=== PATIENT | male | born 1945 | race Caucasian/White ===

== ENCOUNTER 2023-09-08 13:36 | Outpatient (AMB) | payer MEDICARE, SELFPAY ==
[2023-09-08 13:41] VITALS: BP 114/52; PULSE 88; O2SAT 93; BMI 29.9
--- NOTE | 2023-09-08 13:41 | MHC.OFFVIS ---
Intake Vital Signs 09/08/23 13:41 Height 5 ft 7 in Weight 190 lb 11.198 oz BMI 29.9 BP 114/52 L Blood Pressure Location Lt brachial Position Sitting Pulse 88 Pulse Source Doppler Pulse Oximetry (%) 93 Oxygen Delivery Method Room Air Intake Visit Reasons: chronic cough Intake Note: New patient here to establish care for, chronic productive cough (yellow), wheezing and SOB since 2018. 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 The patient is a 77-year-old gentleman with a known history of COPD, latent tuberculosis status post treatment, in addition to bronchiectasis for many years. He had been followed at [facility] for many years. 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 He has been treated in the past with levofloxacin. He has had multiple admissions to the hospital with COPD exacerbations and also pneumonia. He has been using Advair now for several years. He also uses Incruse. Therapy has been partially effective. He also has a nebulizer and has percussion valve. We did review his last CT scan of the chest was back in November 2022 demonstrating bronchiectatic changes in addition to treating budding pulmonary nodules and some degree of interstitial lung disease. We did talk about the mycobacterium abscesses that which is a culture that was positive at [facility] in the difficulties and treating this. The Pseudomonas is likely the result of his chronic bronchiectasis. And I explained to him that these organisms are difficult to remove. Will try to get a sputum culture to both for AFB and for Gram stain and culture to reassess if he is having any evidence of any persistent infection the patient also could consider having a bronchoscopy if we can not get adequate specimens. Will have to monitor his pulmonary nodules. We will discuss that further during his follow-up visit. In the meantime after he gets the cultures sent will try him on a short course of azithromycin in addition to switching over to Trelegy inhaler. [facility] Medical History (Updated 09/08/23 @ 22:07 by Reynaldo Reyes MD) COPD (chronic obstructive pulmonary disease) Pulmonary nodules Bronchiectasis Social History (Updated 09/08/23 @ 13:53 by EMILY Stevenson) Patient Tobacco Use Status: Former Tobacco user Tobacco use type: Cigarette Cigarettes Per Day: 10 Years Smoked: , started at 15 years old. quit 24 years ago Review of Systems Const Denies fever(s) ENT Reports nasal congestion Card Denies chest pain and Reports dyspnea on exertion Resp Reports chest congestion, Reports cough, Reports dyspnea on exertion and Reports wheezing GI Reports no additional complaints Musc Reports no additional complaints Skin/Breast Denies rash Neuro Reports no additional complaints Josh/Lymph Denies lymphadenopathy Aller/Immun Reports wheezing Physical Exam Vital Signs: Last Vital Signs Pulse 88 09/08/23 13:41 BP 114/52 L 09/08/23 13:41 Pulse Ox 93 09/08/23 13:41 Oxygen Delivery Method Room Air 09/08/23 13:41 BMI result Body Mass Index 29.9 Const General: comfortable HEENT Head: Yes normocephalic Neck Neck: Yes supple Chest Chest palpation & inspection: normal inspection of the chest Resp Effort & Inspection: normal respiratory effort Auscultation: diminished lung sounds Cardio Heart sounds: S1 normal heart sound present and S2 normal heart sound present GI Palpation (GI): Soft to palpation Skin General skin exam: no rashes or lesions noted Extrem General: Yes no clubbing, cyanosis or edema Assessment & Plan Assessment & Plan (1) Pulmonary nodules: Code(s): R91.8 - Other nonspecific abnormal finding of lung field (2) Bronchiectasis: Code(s): J47.9 - Bronchiectasis, uncomplicated Qualifiers: Bronchiectasis type: uncomplicated Qualified Code(s): J47.9 - Bronchiectasis, uncomplicated (3) COPD (chronic obstructive pulmonary disease): Code(s): J44.9 - Chronic obstructive pulmonary disease, unspecified Qualifiers: COPD type: chronic bronchitis Chronic bronchitis type: mixed simple and mucopurulent Qualified Code(s): J41.8 - Mixed simple and mucopurulent chronic bronchitis Plan stop advair and incruse start Trelegy continue CPT with nebs and acapella valve will add hypertonic saline ext time sputum cx and AFB trial of Azithromycin x 8 weeks F/U 8 - 10 weeks Orders: Orders Acid-fast Culture + Smear Today J47.9 - Bronchiectasis, uncomplicated, R91.8 - Other nonspecific abnormal finding of lung field Sputum Cult + Gram stain Today J47.9 - Bronchiectasis, uncomplicated, R91.8 - Other nonspecific abnormal finding of lung field Medications: New [id number] 200-62.5-25 mcg (Trelegy Ellipta) 1 inh inhalation DAILY 30 days 60 ea 12RF azithromycin Tuesday, Tuesday, Tuesday 500 mg PO 3XW 28 days 12 tabs 1RF Coding Level of Care Code New Pt Level 4 (14069) Diagnoses Pulmonary nodules R91.8 Bronchiectasis without complication J47.9 Bronchiectasis type: uncomplicated Mixed simple and mucopurulent chronic bronchitis J41.8 COPD type: chronic bronchitis Chronic bronchitis type: mixed simple and mucopurulent Time Spent (min) 40
== END 2023-09-08 14:13 | disposition home or self-care (01) ==
PROVIDERS: PCP Internal Medicine; Visit Provider Hospitalist
DX: R91.8 Other nonspecific abnormal finding of lung field (principal); J47.9 Bronchiectasis, uncomplicated; J41.8 Mixed simple and mucopurulent chronic bronchitis
CPT/HCPCS: 99204

== ENCOUNTER → 2023-09-08 13:36 | Outpatient (BNVA) | payer MEDICARE, SELFPAY | PROVIDERS: Visit Provider Hospitalist | DX: R91.8 Other nonspecific abnormal finding of lung field (principal); J47.9 Bronchiectasis, uncomplicated; J41.8 Mixed simple and mucopurulent chronic bronchitis | CPT/HCPCS: 99202 ==

== ENCOUNTER 2023-11-25 14:40 | Outpatient (AMB) | payer MEDICARE, SELFPAY ==
--- NOTE | 2023-11-25 14:45 | MHC.OFFVIS ---
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 He had been followed at [facility] for many years. 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 He has been treated in the past with levofloxacin. He has had multiple admissions to the hospital with COPD exacerbations and also pneumonia. He has been using Advair now for several years. He also uses Incruse. Therapy has been partially effective. He also has a nebulizer and has percussion valve. We did review his last CT scan of the chest was back in November 2022 demonstrating bronchiectatic changes in addition to treating budding pulmonary nodules and some degree of interstitial lung disease. We did talk about the mycobacterium abscesses that which is a culture that was positive at [facility] in the difficulties and treating this. The Pseudomonas is likely the result of his chronic bronchiectasis. And I explained to him that these organisms are difficult to remove. Will try to get a sputum culture to both for AFB and for Gram stain and culture to reassess if he is having any evidence of any persistent infection the patient also could consider having a bronchoscopy if we can not get adequate specimens. Will have to monitor his pulmonary nodules. We will discuss that further during his follow-up visit. In the meantime after he gets the cultures sent will try him on a short course of azithromycin in addition to switching over to Trelegy inhaler. 11/25/2023 the patient is here for a pulmonary follow-up visit. Overall the patient has been doing better. Responding well to the Trelegy inhaler. He does have some increasing wheezing the last few days. He has been using the nebulizer as needed. In addition that he does have the Acapella valve that he can use for CPT. 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 Typically less pathogenic and concerning than the other organisms that is growing in the past. He is seems to be responding well to the azithromycin which will continue at this point to treat his chronic bronchiectasis. In addition to that I explained to him about the Pseudomonas. Right now appears to be a colonization and not a pathogen. In his to continue with CPT and continue with the medications prescribed. If his symptoms worsen developing worsening lower respiratory infection then I do believe inhaled tobramycin will be a very good agent for him. Therefore will continue to monitor closely his symptoms. He does have some wheezing on examination. I did recommend he can start performing the nebulizers twice a day to improve mucus clearance and bronchodilation. If he develops any worsening symptoms he can always call for further recommendations. [facility] Medical History (Updated 09/08/23 @ 22:07 by Reynaldo Reyes MD) COPD (chronic obstructive pulmonary disease) Pulmonary nodules Bronchiectasis Social History (Updated 09/08/23 @ 13:53 by Emilia Cox Hannah) Patient Tobacco Use Status: Former Tobacco user Tobacco use type: Cigarette Cigarettes Per Day: 10 Years Smoked: , started at 15 years old. quit 24 years ago Review of Systems Const Denies fever(s) ENT Reports nasal congestion Card Denies chest pain and Reports dyspnea on exertion Resp Reports chest congestion, Reports cough, Reports dyspnea on exertion and Reports wheezing GI Reports no additional complaints Musc Reports no additional complaints Skin/Breast Denies rash Neuro Reports no additional complaints Josh/Lymph Denies lymphadenopathy Aller/Immun Reports wheezing Physical Exam Vital Signs: Last Vital Signs Pulse 79 11/25/23 14:47 Pulse Ox 94 11/25/23 14:47 Oxygen Delivery Method Room Air 11/25/23 14:47 BMI result Body Mass Index 29.6 Const General: comfortable HEENT Head: Yes normocephalic Neck Neck: Yes supple Chest Chest palpation & inspection: normal inspection of the chest Resp Effort & Inspection: normal respiratory effort Auscultation: diminished lung sounds Cardio Heart sounds: S1 normal heart sound present and S2 normal heart sound present GI Palpation (GI): Soft to palpation Skin General skin exam: no rashes or lesions noted Extrem General: Yes no clubbing, cyanosis or edema Assessment & Plan Assessment & Plan (1) Pulmonary nodules: Code(s): R91.8 - Other nonspecific abnormal finding of lung field Category: Medical (2) Bronchiectasis: Code(s): J47.9 - Bronchiectasis, uncomplicated Category: Medical Qualifiers: Bronchiectasis type: uncomplicated Qualified Code(s): J47.9 - Bronchiectasis, uncomplicated (3) COPD (chronic obstructive pulmonary disease): Code(s): J44.9 - Chronic obstructive pulmonary disease, unspecified Category: Medical Qualifiers: COPD type: chronic bronchitis Chronic bronchitis type: mixed simple and mucopurulent Qualified Code(s): J41.8 - Mixed simple and mucopurulent chronic bronchitis Plan continue Trelegy continue CPT with nebs and acapella valve continue Azithromycin MWF consider inhaled Luis Carlos if worsening symptoms F/U 6 months Orders: Orders ECG 12 lead EKG Today J44.9 - Chronic obstructive pulmonary disease, unspecified Medications: Refilled azithromycin Tuesday, Tuesday, Tuesday 500 mg PO 3XW 28 days 12 tabs 6RF Coding Level of Care Code Est Pt Level 4 (50874) Diagnoses Pulmonary nodules R91.8 Bronchiectasis without complication J47.9 Bronchiectasis type: uncomplicated Mixed simple and mucopurulent chronic bronchitis J41.8 COPD type: chronic bronchitis Chronic bronchitis type: mixed simple and mucopurulent Time Spent (min) 17
[2023-11-25 14:47] VITALS: PULSE 79; O2SAT 94; BMI 29.6
== END 2023-11-25 15:07 | disposition home or self-care (01) ==
PROVIDERS: PCP Internal Medicine; Visit Provider Hospitalist
DX: R91.8 Other nonspecific abnormal finding of lung field (principal); J47.9 Bronchiectasis, uncomplicated; J41.8 Mixed simple and mucopurulent chronic bronchitis
CPT/HCPCS: 99214

== ENCOUNTER → 2023-11-25 14:40 | Outpatient (BNVA) | payer MEDICARE, SELFPAY | PROVIDERS: PCP Internal Medicine; Visit Provider Hospitalist | DX: J47.9 Bronchiectasis, uncomplicated (principal); R91.8 Other nonspecific abnormal finding of lung field; J41.8 Mixed simple and mucopurulent chronic bronchitis; Z79.899 Other long term (current) drug therapy | CPT/HCPCS: 99212 ==

== ENCOUNTER 2024-03-30 14:43 | Outpatient (AMB) | payer MEDICARE, SELFPAY ==
[2024-03-30 14:56] VITALS: BP 110/60; PULSE 74; O2SAT 95; BMI 30.6
--- NOTE | 2024-03-30 14:56 | A.OFFVIS_ITS ---
Vital Signs 03/30/24 14:56 Height 5 ft 7 in Weight 195 lb 1.745 oz BMI 30.6 BP 110/60 Blood Pressure Location Lt brachial Position Sitting Pulse 74 Pulse Source Pulse Oximeter Pulse Oximetry (%) 95 Oxygen Delivery Method Room Air Intake Visit Reasons: Cough Allergies aspirin Adverse Reaction (Intermediate, Verified 03/30/24 14:58) Stomach Upset codeine Adverse Reaction (Intermediate, Verified 03/30/24 14:58) Unknown Sulfa (Sulfonamide Antibiotics) Adverse Reaction (Unknown, Verified 03/30/24 14:58) Unknown HPI Comments Details: The patient is a 78-year-old gentleman with a known history of COPD, latent tuberculosis status post treatment, in addition to bronchiectasis for many years. He had been followed at [facility] for many years. 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 He has been treated in the past with levofloxacin. He has had [facility] admissions to the hospital with COPD exacerbations and also pneumonia. He has been using Advair now for several years. He also uses Incruse. Therapy has been partially effective. He also has a nebulizer and has percussion valve. We did review his last CT scan of the chest was back in November 2022 demonstrating bronchiectatic changes in addition to treating budding pulmonary nodules and some degree of interstitial lung disease. We did talk about the mycobacterium abscesses that which is a culture that was positive at [facility] in the difficulties and treating this. The Pseudomonas is likely the result of his chronic bronchiectasis. And I explained to him that these organisms are difficult to remove. Will try to get a sputum culture to both for AFB and for Gram stain and culture to reassess if he is having any evidence of any persistent infection the patient also could consider having a bronchoscopy if we can not get adequate specimens. Will have to monitor his pulmonary nodules. We will discuss that further during his follow-up visit. In the meantime after he gets the cultures sent will try him on a short course of azithromycin in addition to switching over to Trelegy inhaler. 11/25/2023 the patient is here for a pulmonary follow-up visit. Overall the patient has been doing better. Responding well to the Trelegy inhaler. He does have some increasing wheezing the last few days. He has been using the nebulizer as needed. In addition that he does have the Acapella valve that he can use for CPT. 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 Typically less pathogenic and concerning than the other organisms that is growing in the past. He is seems to be responding well to the azithromycin which will continue at this point to treat his chronic bronchiectasis. In addition to that I explained to him about the Pseudomonas. Right now appears to be a colonization and not a pathogen. In his to continue with CPT and continue with the medications prescribed. If his symptoms worsen developing worsening lower respiratory infection then I do believe inhaled tobramycin will be a very good agent for him. Therefore will continue to monitor closely his symptoms. He does have some wheezing on examination. I did recommend he can start performing the nebulizers twice a day to improve mucus clearance and bronchodilation. If he develops any worsening symptoms he can always call for further recommendations. 03/30/2024 the patient is here for a pulmonary follow-up visit. Overall the patient's. He continues on the Trele daily azithromycin 3 times a week for bronchiectasis. He is also using the nebulizer and using his Acapella valve. He does use it to 3 times a day. He still has cough. The cough is prior in little better which is overall better. Still gets shortness of breath with activity. [id number]. The patient did have a CT scan of the chest that [facility] back in 12/11/2022. I did personally review. He had a new 6 mm nodule. In addition to that he also other nodules and significant bronchiectasis. The patient will need a repeat CT scan at this time. He prefers [facility]. 03/30/2024 the patient is here for a pulmonary follow-up visit. Overall the moira reyna has been doing better. He continues on the Trelegy. Continues on the azithromycin. He did have an EKG done 01/14/2024 with normal QT intervals. Therefore continue therapy safely. The patient did have a CT scan of chest back in 12/11/2022. The patient should have a repeat CT scan at this time. He has underlying pulmonary nodules. Has a new 6 mm pulmonary nodule. Will request a [facility] as per the patient's preference because he lives closest hospital. The patient also will continue with the chest PT. He does have an Acapella valve that he uses regularly. He will continue with the current therapy will follow- up after the CAT scan. [facility] Medical History (Updated 09/08/23 @ 22:07 by Reynaldo Reyes MD) COPD (chronic obstructive pulmonary disease) Pulmonary nodules Bronchiectasis Social History (Updated 09/08/23 @ 13:53 by EMILY Stevenson) Patient Tobacco Use Status: Former Tobacco user Tobacco use type: Cigarette Cigarettes Per Day: 10 Years Smoked: , started at 15 years old. quit 24 years ago Review of Systems Const Denies fever(s) ENT Reports nasal congestion Card Denies chest pain and Reports dyspnea on exertion Resp Reports chest congestion, Reports cough, Reports dyspnea on exertion and Reports wheezing GI Reports no additional complaints Musc Reports no additional complaints Skin/Breast Denies rash Neuro Reports no additional complaints Josh/Lymph Denies lymphadenopathy Aller/Immun Reports wheezing Physical Exam Vital Signs: Last Vital Signs Pulse 74 03/30/24 14:56 BP 110/60 03/30/24 14:56 Pulse Ox 95 03/30/24 14:56 Oxygen Delivery Method Room Air 03/30/24 14:56 BMI result Body Mass Index 30.6 Const General: comfortable HEENT Head: Yes normocephalic Neck Neck: Yes supple Chest Chest palpation & inspection: normal inspection of the chest Resp Effort & Inspection: normal respiratory effort Auscultation: no rales, no rhonchi, no wheezes and diminished lung sounds Cardio Heart sounds: S1 normal heart sound present and S2 normal heart sound present GI Palpation (GI): Soft to palpation Skin General skin exam: no rashes or lesions noted Extrem General: Yes no clubbing, cyanosis or edema Assessment & Plan Assessment & Plan (1) Pulmonary nodules: Code(s): R91.8 - Other nonspecific abnormal finding of lung field Category: Medical (2) Bronchiectasis: Code(s): J47.9 - Bronchiectasis, uncomplicated Category: Medical Qualifiers: Bronchiectasis type: uncomplicated Qualified Code(s): J47.9 - Bronchiectasis, uncomplicated (3) COPD (chronic obstructive pulmonary disease): Code(s): J44.9 - Chronic obstructive pulmonary disease, unspecified Category: Medical Qualifiers: COPD type: chronic bronchitis Chronic bronchitis type: mixed simple and mucopurulent Qualified Code(s): J41.8 - Mixed simple and mucopurulent chronic bronchitis Plan continue Trelegy continue CPT with nebs and acapella valve continue Azithromycin MWF consider inhaled Luis Carlos if worsening symptoms CT chest F/U 4-[address]: [address] chest wo IV con 03/30/24 R91.8 - Other nonspecific abnormal finding of lung field Coding Level of Care Code Est Pt Level 4 (47120) Complex EM visit Add On G2211 Diagnoses Pulmonary nodules R91.8 Bronchiectasis without complication J47.9 Bronchiectasis type: uncomplicated Mixed simple and mucopurulent chronic bronchitis J41.8 COPD type: chronic bronchitis Chronic bronchitis type: mixed simple and mucopurulent Time Spent (min) 17
== END 2024-03-30 15:21 | disposition home or self-care (01) ==
PROVIDERS: PCP Internal Medicine; Visit Provider Hospitalist
DX: R91.8 Other nonspecific abnormal finding of lung field (principal); J47.9 Bronchiectasis, uncomplicated; J41.8 Mixed simple and mucopurulent chronic bronchitis
CPT/HCPCS: 99214; G2211

== ENCOUNTER → 2024-03-30 14:43 | Outpatient (BNVA) | payer MEDICARE, SELFPAY | PROVIDERS: PCP Internal Medicine; Visit Provider Hospitalist | DX: J47.9 Bronchiectasis, uncomplicated (principal); R91.8 Other nonspecific abnormal finding of lung field; J41.8 Mixed simple and mucopurulent chronic bronchitis | CPT/HCPCS: 99212 ==

== ENCOUNTER 2024-09-17 14:03 | Outpatient (AMB) | payer MEDICARE, SELFPAY ==
[2024-09-17 14:21] VITALS: BP 132/66; PULSE 84; O2SAT 95; BMI 28.0
--- NOTE | 2024-09-17 14:21 | A.OFFVIS_ITS ---
Vital Signs 09/17/24 14:21 Height 5 ft 7 in Weight 178 lb 9.191 oz BMI 28.0 BP 132/66 Blood Pressure Location Rt brachial Position Sitting Pulse 84 Pulse Source Pulse Oximeter Pulse Oximetry (%) 95 Oxygen Delivery Method Room Air Intake Visit Reasons: cough Allergies aspirin Adverse Reaction (Intermediate, Verified 09/17/24 14:24) Stomach Upset codeine Adverse Reaction (Intermediate, Verified 09/17/24 14:24) Unknown Sulfa (Sulfonamide Antibiotics) Adverse Reaction (Unknown, Verified 09/17/24 14:24) Unknown HPI Comments Details: The patient is a 78-year-old gentleman with a known history of COPD, latent tuberculosis status post treatment, in addition to bronchiectasis for many years. He had been followed at [facility] for many years. 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 He has been treated in the past with levofloxacin. He has had [facility] admissions to the hospital with COPD exacerbations and also pneumonia. He has been using Advair now for several years. He also uses Incruse. Therapy has been partially effective. He also has a nebulizer and has percussion valve. We did review his last CT scan of the chest was back in November 2022 demonstrating bronchiectatic changes in addition to treating budding pulmonary nodules and some degree of interstitial lung disease. We did talk about the mycobacterium abscesses that which is a culture that was positive at [facility] in the difficulties and treating this. The Pseudomonas is likely the result of his chronic bronchiectasis. And I explained to him that these organisms are difficult to remove. Will try to get a sputum culture to both for AFB and for Gram stain and culture to reassess if he is having any evidence of any persistent infection the patient also could consider having a bronchoscopy if we can not get adequate specimens. Will have to monitor his pulmonary nodules. We will discuss that further during his follow-up visit. In the meantime after he gets the cultures sent will try him on a short course of azithromycin in addition to switching over to Trelegy inhaler. 11/25/2023 the patient is here for a pulmonary follow-up visit. Overall the patient has been doing better. Responding well to the Trelegy inhaler. He does have some increasing wheezing the last few days. He has been using the nebulizer as needed. In addition that he does have the Acapella valve that he can use for CPT. 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 Typically less pathogenic and concerning than the other organisms that is growing in the past. He is seems to be responding well to the azithromycin which will continue at this point to treat his chronic bronchiectasis. In addition to that I explained to him about the Pseudomonas. Right now appears to be a colonization and not a pathogen. In his to continue with CPT and continue with the medications prescribed. If his symptoms worsen developing worsening lower respiratory infection then I do believe inhaled tobramycin will be a very good agent for him. Therefore will continue to monitor closely his symptoms. He does have some wheezing on examination. I did recommend he can start performing the nebulizers twice a day to improve mucus clearance and bronchodilation. If he develops any worsening symptoms he can always call for further recommendations. 03/30/2024 the patient is here for a pulmonary follow-up visit. Overall the patient's. He continues on the Trele daily azithromycin 3 times a week for bronchiectasis. He is also using the nebulizer and using his Acapella valve. He does use it to 3 times a day. He still has cough. The cough is prior in little better which is overall better. Still gets shortness of breath with activity. [id number]. The patient did have a CT scan of the chest that [facility] back in 12/11/2022. I did personally review. He had a new 6 mm nodule. In addition to that he also other nodules and significant bronchiectasis. The patient will need a repeat CT scan at this time. He prefers [facility]. 03/30/2024 the patient is here for a pulmonary follow-up visit. Overall the patient has been doing better. He continues on the Trelegy. Continues on the azithromycin. He did have an EKG done 01/14/2024 with normal QT intervals. Therefore continue therapy safely. The patient did have a CT scan of chest back in 12/11/2022. The patient should have a repeat CT scan at this time. He has underlying pulmonary nodules. Has a new 6 mm pulmonary nodule. Will request a [facility] as per the patient's preference because he lives closest hospital. The patient also will continue with the chest PT. He does have an Acapella valve that he uses regularly. He will continue with the current therapy will follow- up after the CAT scan. 09/17/2024 the patient is here for a pulmonary follow-up visit. Overall the patient has been doing well. Since we last spoke he had COVID x2 the 1st time did cause him to have more fatigue and fevers and malaise but right now he is doing better. The 2nd time was not too bad. He did have imaging study demonstrating interval resolution of the 6 mm nodule and all the other nodules are stable which is reassuring. He continues on the azithromycin 3 times a week. His last EKG was back in 01/12/2024 with normal QRS. Will going to go ahead and request another EKG to make sure she continues on the therapy for his bronchiectasis. I did personally reviewed his CT scan demonstrating some mild bronchiectasis and again the pulmonary nodules stated above the patient is doing well plan to follow-up in the fall if he has any issues prior to that he will go for an earlier assessment. Will keep him on the azithromycin for now will wake his EKG. FORMERLY [facility], [facility] Medical History (Updated 09/08/23 @ 22:07 by Reynaldo Reyes MD) COPD (chronic obstructive pulmonary disease) Pulmonary nodules Bronchiectasis Social History Patient Tobacco Use Status: Former Tobacco user Tobacco use type: Cigarette Cigarettes Per Day: 10 Years Smoked: , started at 15 years old. quit 24 years ago Review of Systems Const Denies fever(s) ENT Reports nasal congestion Card Denies chest pain and Reports dyspnea on exertion Resp Reports chest congestion, Reports cough, Reports dyspnea on exertion and Reports wheezing GI Reports no additional complaints Musc Reports no additional complaints Skin/Breast Denies rash Neuro Reports no additional complaints Josh/Lymph Denies lymphadenopathy Aller/Immun Reports wheezing Physical Exam Vital Signs: Last Vital Signs Pulse 84 09/17/24 14:21 BP 132/66 09/17/24 14:21 Pulse Ox 95 09/17/24 14:21 Oxygen Delivery Method Room Air 09/17/24 14:21 BMI result Body Mass Index 28.0 Const General: comfortable HEENT Head: Yes normocephalic Neck Neck: Yes supple Chest Chest palpation & inspection: normal inspection of the chest Resp Effort & Inspection: normal respiratory effort Auscultation: no rales, no rhonchi, no wheezes and diminished lung sounds Cardio Heart sounds: S1 normal heart sound present and S2 normal heart sound present GI Palpation (GI): Soft to palpation Skin General skin exam: no rashes or lesions noted Extrem General: Yes no clubbing, cyanosis or edema Assessment & Plan Assessment & Plan (1) Pulmonary nodules: Code(s): R91.8 - Other nonspecific abnormal finding of lung field Category: Medical (2) Bronchiectasis: Code(s): J47.9 - Bronchiectasis, uncomplicated Category: Medical Qualifiers: Bronchiectasis type: uncomplicated Qualified Code(s): J47.9 - Bronchiectasis, uncomplicated (3) COPD (chronic obstructive pulmonary disease): Code(s): J44.9 - Chronic obstructive pulmonary disease, unspecified Category: Medical Qualifiers: COPD type: chronic bronchitis Chronic bronchitis type: mixed simple and mucopurulent Qualified Code(s): J41.8 - Mixed simple and mucopurulent chronic bronchitis Plan continue Trelegy continue CPT with nebs and acapella valve continue Azithromycin MWF EKG consider inhaled Luis Carlos if worsening symptoms F/U 6 months Orders: Orders ECG 12 lead EKG Today J44.9 - Chronic obstructive pulmonary disease, unspecified Coding Level of Care Code Est Pt Level 4 (80715) Diagnoses Pulmonary nodules R91.8 Bronchiectasis without complication J47.9 Bronchiectasis type: uncomplicated Mixed simple and mucopurulent chronic bronchitis J41.8 COPD type: chronic bronchitis Chronic bronchitis type: mixed simple and mucopurulent Time Spent (min) 16
--- OUTSIDE RECORDS SUMMARY | 2024-09-17 16:10 | XMS_ITS ---
Author Organization [facility] Address [address] [place] [address] Care Team Providers Care Graphic Coordinator Name Role Phone Amandeep Morales MD Primary Care Provider Unav ailKaitlin Roberto Unavailable [phone] Encounters Encounter Location Date Provider Diagnosis [facility] [address] [place] [id number] 08/01/2024 Kaitlin Alvarado Plan Of Treatment Next Appt Details Provider Name:Kaitlin saha, 11/16/2024 12:30:00 PM, [address] [address], [place], [address], Progress Notes * Eliazar ALANIS MDOB: (78 yo M)Acc No.[id number]:08/01/2024 Patient:?Eliazar ALANIS :1945???Age:78 Y???Sex:Male Address:[address] [place] [address], [address] , [place], [address] * true * Date:? Generated for Ricki susan/Kevin/eTransmitting on:?09/17/2024 04:10 PM EST
--- OUTSIDE RECORDS SUMMARY | 2024-09-17 16:10 | XMS_ITS | Clinical Summary ---
Author Organization [facility] Address [address] [place] [address] Care Team Providers Care Equity Sales Assistant Name Role Phone Amandeep Morales MD Primary Care Provider [phone] Allergies Active Allergy Reactions Criticality Noted Date Comments Aspirin 11/17/2017 Sulfa Antibiotics 11/17/2017 Medications Medication Sig Dispensed Refills Start Date End Date Status fluticasone-salmeter ol (ADVAIR DISKUS) 100-50 MCG/DOSE DISKUS 1 inhalation by Inhaled route every 12 (twelve) hours. 0 Active tamsulosin (FLOMAX) 0.4 MG CAPS Take 0.4 mg by mouth daily. 0 Active fluticasone (FLONASE) 50 MCG/ACT nasal spray spray/apply 1 spray in each nostril daily. 0 Active gabapentin (NEURONTIN) 100 MG capsule Take 100 mg by mouth 3 (three) times a day. 0 Active lisinopril (PRINIVIL,ZESTRIL) tablet 10 mg Take 10 mg by mouth daily. 0 Active Mirabegron ER (MYRBETRIQ) 25 MG TB24 24 hr tablet Take by mouth. 0 Act issa omeprazole (PRILOSEC) 20 MG capsule Take 20 mg by mouth daily. 0 Active cetirizine (ZYRTEC) 10 MG tablet Take 10 mg by mouth daily. 0 Active clonazePAM (KLONOPIN) 1 MG tablet Take 1 mg by mouth 2 (two) times a day as needed for anxiety. 0 Active lansoprazole (PREVACID) 15 MG capsule Take 30 mg by mouth daily. 0 Active naproxen (NAPROSYN) 250 MG tablet Take 250 mg by mouth 2 (two) times a day with meals. 0 Active albuterol (PROVENTIL HFA;VENTOLIN HFA) 108 (90 Base) MCG/ACT inhaler Inhale 2 puffs into the lungs every 6 (six) hours as needed for wheezing. 0 Active simvastatin (ZOCOR) tablet 20 mg Take 20 mg by mouth every night at bedtime. 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 Social History Tobacco Use Types Packs/Day Years Used Date Smoking Tobacco: Former Cigarettes Q uit: 02/22/1997 Smokeless Tobacco: Never Alcohol Use Standard Drinks/Week Comments Yes 0 (1 standard drink = 0.6 oz pur e alcohol) Sex and Gender Information Value Date Recorded Sex Assigned at Not on file Gender Identity Not on file Sexual Orientation Not on file Last Filed Vital Signs Vital Sign Reading Time Taken Comments Blood Pressure 114/66 11/18/2017 11:08 AM EDT Pulse - - Temperature - - Respiratory Rate - - Oxygen Saturation - - Inhaled Oxygen Concentration - - Weight 78.5 kg (173 lb) 11/18/2017 11:08 AM EDT Height 170.2 cm (5' 7 ) 11/18/2017 11:08 AM EDT Body Mass Index 27.1 11/18/2017 11:08 AM EDT Plan of Treatment Health Maintenance Due Date Last Done Comments Hepatitis C Screening 1945 COVID-19 Vaccine (#1) 01/01/1951 Pneumococcal Vaccine (1 of 2 - PCV) 1952 Depression Screening 1958 Preventative Health Evaluation 1964 DTap / Tdap / Td (1 - Tdap) 1965 Shingrix-Zoster Vaccine (1 of 2) 1965 Fall Risk Assessment 01/01/2012 RSV Adult > 60+ Yrs or Pregn ant (1 - 1-dose 75+ series) 2021 Influenza Vaccine (#1) 2024 Hepatitis B Vaccines Aged Out No long er eligible based on patient's age to complete this topic RSV Ped < 20 months Aged Out No longe r eligible based on patient's age to complete this topic Insurance Payer Benefit Plan / Group Subscriber ID Effective Dates Phone Address [facility] [id number] 2012-Jerrod peck [address] [facility] [address] [place] [address] O Care Teams Equity Sales Assistant Relationship Specialty Start Date End Date Amandeep Morales MD [facility] [address] [address] PCP - General Internal Medicine 11/18/17
--- OUTSIDE RECORDS SUMMARY | 2024-09-17 16:10 | XMS_ITS | Clinical Summary ---
Author Organization [facility] ity Address [address] [place] [address] Care Team Providers Care Training Intern Name Role Phone Unavailable Primary Care Provider Unavailabl e Social History Tobacco Use Types Packs/Day Years Used Date Smoking Tobacco: Never Assessed Sex and Gender Information Value Date Recorded Sex Assigned at Not on file Legal Sex Male 4:31 AM EST Gender Identity Not on file Sexual Orientation Not on file Plan of Treatment Health Maintenance Due Date Last Done Comments DTaP,Tdap,and Td Vaccines (1 - Tdap) 1965 Pneumococcal Vaccine: 50+ Ye ars (1 of 1 - PCV) 1996 Zoster Vaccines (1 of 2) 1996 RSV Immunization Patients 60 + Years Old (1 - 1-dose 75+ series) 2021 COVID-19 Vaccine ( - 2023-2 5 season) 2024 Influenza Vaccine (#1) 2024 HIB Vaccines Aged Out No longer eligi ble based on patient's age to complete this topic HPV Vaccines Aged Out No longer eligi ble based on patient's age to complete this topic Hepatitis A Vaccines Aged Out No long er eligible based on patient's age to complete this topic Hepatitis B Vaccines Aged Out No long er eligible based on patient's age to complete this topic IPV Vaccines Aged Out No longer eligi ble based on patient's age to complete this topic MMR Vaccines Aged Out No longer eligi ble based on patient's age to complete this topic Meningococcal ACWY Vaccine Aged Out N o longer eligible based on patient's age to complete this topic Meningococcal B Vacine Aged Out No lo nger eligible based on patient's age to complete this topic RSV Immunization Patients Un hannah 20 months Aged Out No longer eligible b ased on patient's age to complete this topic Varicella Vaccines Aged Out No longer eligible based on patient's age to complete this topic
--- OUTSIDE RECORDS SUMMARY | 2024-09-17 16:10 | XMS_ITS ---
[facility] Address [address] [place] [address] Care Team Providers Care Airset Caster Name Role Phone Amandeep Morales MD Primary Care Provider Unav ailKaitlin Roberto Unavailable [phone] Jas Napier Unavailable [phone] Allergies Allergen (clinical drug ingredient) Drug/Non Drug Allergy documented on EMR Reaction Allergy Type Onset Date Status aspirin Aspirin Unknown Drug Allergy Active codeine Codeine Constipation Drug Allergy Acti ve Substance with sulfonamide structure and antibacterial mechanism of action (substance) Sulfa Antibiotics Reaction Drug Allergy Active REASON FOR VISIT Painful nail(s) aggrevated by shoes and causing difficulty standing/walking., Ingrown nail(s) Medications Medication SIG (Take, Route, Frequency, Duration) Notes Start Date End Date Status Albuterol Active traMADol HCl Active clonazePAM Active amLODIPine Besylate Active DULoxetine HCl Activ e Trospium Chloride No t-Taking Meloxicam Not-Taking Aleve Not-Taking metFORMIN HCl Active ProAir HFA WHEN Needed Only Not-Taking Lisinopril 10 MG TAKE 1 TABLET BY MOUTH DAILY Orally Not-Taking Fluticasone Propionate 50 MCG/ACT INSTILL 2 SPRAYS INTO BOTH NOSTRILS EVERY DAY Nasal for 30 Not-Taking Advair Diskus 500-50 MCG/DOSE 1 puff Inhalation Twice a day Not-Taking Lansoprazole 30 MG 1 capsule before a meal Orally Once a day Not-Taking Keflex 500 MG 1 capsule Orally every 12 hrs for 10 day(s) 03/09/2018 Not-Taking Cetirizine HCl Not-T aking Magnesium Oxide Not- Taking Finasteride Not-Taki ng Myrbetriq Not-Taking Keflex 500 MG 1 capsule Orally every 8 hrs for 10 days 07/13/2019 Not-Taking clonazePAM Not-Takin g Extra Depth Orthopedic Shoes (1 Pair) with Customized Heat Molded Multidensity Innersoles (3 Pair) as directed Dx: NIDDM/Polyneuropathy (E11.42), Hammertoe Foot Deformity (M20.41,M20.42), Preulcerative Skin Lesion(s) (L85.1 05/31/2017 Not-Taking Extra Depth Diabetic Shoes with 3 Pair Custom heat-molded multi-density innersoles for 1 year Dx: 04/24/2019 Not-Taking Wixela Inhub Not-Mike ing Baclofen Not-Taking Extra Depth Diabetic Shoes with 3 Pair Custom heat-molded multi-density innersoles for 1 year Dx: 07/29/2020 Not-Taking Gabapentin 600 MG TAKE 1 TABLET BY MOUTH AT BEDTIME Oral for 30 Not-Taking Extra Depth Diabetic Shoes with 3 Pair Custom heat-molded multi-density innersoles for 1 year Dx: 05/04/2016 Not-Taking Night Splint AFO - L1930 as directed 05/05/2021 Not-Taking Physical Therapy . . . 2-3x/week for 3- 4 weeks 05/05/2021 Not-Taking Vitamin B12 Active Incruse Ellipta Not- Taking ZyrTEC Allergy 10 MG 1 tablet Orally Onc e a day Active Centrum Silver Not-T aking oxyBUTYnin Chloride ER Not-Taking Valsartan Active Simvastatin 20 MG TAKE 1 TABLET BY MOUTH EVERY DAY Oral for 30 Active Omeprazole 20 MG TAKE ONE CAPSULE BY MOUTH DAILY Oral for 30 Active Tamsulosin HCl Activ e Singulair Active Gabapentin 900MG Active Finasteride Active Social History Tobacco Use: Social History Observation Description Date Details (start date - stop date) Former Smoker NA - NA Tobacco Use/Smoking Question Answer Notes Are you a: former smoker When did you stop smoking? 19 yrs ago Additional Findings: Tobacco Non-User Current no n-smoker Alcohol Screen Question Answer Notes Did you have a drink containing alcohol in the p ast year? No Points 0 Interpretation Negative Tobacco use other than smoking: Question Answer Notes Are you an other tobacco user? No Vital Signs Height 5 ft 7 in in 05/04/2024 Weight 189 lbs 05/04/2024 BMI 29.60 kg/m2 05/04/2024 Encounters Encounter Location Date Provider Diagnosis [facility] [address] [address] 05/04/2024 Jas Napier Type 2 diabetes mellitus with diabetic polyneuropathy E11.42 ; Ingrowing nail L60.0 ; Tinea unguium B35.1 ; Tinea pedis B35.3 ; Pain in left toe(s) M79.675 ; Pain in right toe(s) M79.674 and Sprain of right foot, initial encounter S93.601A Assessments Encounter Date Diagnosis (ICD Code) Assessment Notes Treatment Notes Treatment Clinical Notes Section Notes 05/04/2024 Type 2 diabetes mellitus with diabetic polyneuropathy (ICD-10 - E11.42) 05/04/2024 Ingrowing nail (ICD-10 - L60.0) 05/04/2024 Tinea unguium (ICD-10 - B35.1) 05/04/2024 Tinea pedis (ICD-10 - B35.3) 05/04/2024 Pain in left toe(s) (ICD-10 - M79.675) 05/04/2024 Pain in right toe(s) (ICD-10 - M79.674) 05/04/2024 Sprain of right foot, initial encounter (ICD-10 - S93.601A) Plan Of Treatment Pending Test Test Name Order Date X ray : Foot, right 3V 05/04/2024 Next Appt Details Follow Up: 3 Months, Reason: Provider Name:Kaitlin saha, 11/16/2024 12:30:00 PM, [address] [facility], [place] [address], [place], [address], Procedure Notes * Category Sub-Category Detail Notes Nail Avulsion Procedure A fine sterile e levator was used to loosen the eponychium, nail bed, nail plate and groove. A sterile nail splitter was then used to longitudinally section the nail. This section was removed. No underlying bone was identified. Procedure was performed under. Bacitracin and sterile dressings applied, local wound care instructions were dispensed. Patient was informed of both conservative and future surgical procedures to prevent recurrence Anesthesia was deferred - NEURO HALLIE: patient has medically documented neuropathic condition affecting sensation Location Medial nail border, T5 Debride Nail 6-10 Nail debridement Nail debridem ent performed extensively to reduce/remove overall nail length and girth, subungual debris, and necrotic tissue, by manual and electrical means with use of a nail nipper and/or dremel, to more viable healthy nail plate or bed tissue 6-10. Silver nitrate used for any petechial bleeding as necessary. Patient chooses, no pharmaceutical tx (28740) Keratoma Treatment Parring or Cutting o f Benign Hyperkeratotic Lesion(s) 11202 (2-4 Lesions) - The Benign hyperkeratotic lesions, as described above were pared, and/or cut utilizing a sterile #15 blade, tissue nippers, and/or dremel Progress Notes * Eliazar ALANIS MDOB: 7 (78 yo M)Acc No.[id number]:05/04/2024 Progress Note Patient:?Eliazar ALANIS Provider:?Jas Napier DPM :1945???Age:78 Y???Sex:Male Chriss e:05/04/2024 Address:[address] [place] [address] Pcp:Amandeep Morales MD Subjective: * Chief Complaints: * ??? Painful nail(s) aggrevat ed by shoes and causing difficulty standing/walking.Ingrown nail(s) * HPI: ???Painful Nails:?Pt States Last PCP Visit:?Date:?10/24/2023 ???Foot Pain:?Nature:?swelling, sharp.?Location:?Top, Outside, Forefoot, Midfoot, RIGHT.?Duration:?3 days.?Onset:?pt fell while bowling 05/01/24.?Course:?worse.?Aggravated:?any pressure, standing, walking.?Treatments:?none.?Severity/Quality:?moderate.? * ROS:?General/Constitutional:?Nausea?denies.?Vomiting?denies.?Hunger Thirst?denies.?Loss appetite?denies.?Chills?denies.?Fatigue?denies.?Fever?denies.?Night Sweats?denies.?Unexplained weight loss?denies.?Unexplained weight gain?denies.?HEENTM:?Dentures?denies.?Dizziness?denies.?Glasses/contacts?admits.?Retinopathy?de nies.?Blurred/double vision?denies.?TMJ?denies.?Discharge/drainage?denies.?Implants?denies.?Sore throat?denies.?Dental implants?denies.?Hard of hearing ?denies.?Difficulty chewing/swallowing/speaking?denies.?Nose bleeds?denies.?Sore mouth?denies.?Respiratory:?On Oxygen?denies.?Pneumonia/pleurisy?denies.?Bronchitis?denies.?Emphysema?denies.?C oughing?denies.?Cough blood?denies.?Shortness of breath?admits.?Wheezing?admits.?Cardiovascular:?Pacemaker?denies.?MVP?denies.?WPW?denies.?CHF?denies.?Heart attack?denies.?Septal defect?denies.?Rapid beat?denies.?Chest pain ?denies.?Atrial Fib.?denies.?Murmur/Palpitations?denies.?Gastrointestinal:?Hemorrhoids?denies.?Stomach/Abdominal pain?denies.?Dark blood stool?denies.?Irritable bowel ?denies.?Constipation?denies.?Diarrhea?denies.?Hematology:?Swelling?denies.?Clots?denies.?Varicose Veins?denies.?Bruising?denies.?Bleeding problem?denies.?Genitourinary:?Blood urine?denies.?Frequent/Painfu/urination/bladder control?denies.?Kidney stones?denies.?Infection (UTI)?denies.?Nephropathy?denies.?sex trans dis (STD)?denies.?Prostate?denies.?Musculoskeletal:?Hammertoes?denies.?Bunions?denies.?Back Pain?denies.?Muscle Cramps/ Resting?denies.?Muscle cramps / walking?denies.?Generalized aches and pains?denies.?Weakness?denies.?Integ.:?[place]?denies.?Scars?denies.?Corns/calluses?denies.?Ingrown nails?denies.?Painful nails?denies.?Open Sores?denies.?Rashes?denies.?Neurologic:?Difficulty sleeping?admits.?Brain disorder?denies.?Numbness?denies.?Balance trouble?denies.?Confusion?denies.?Fainting/blackouts?denies.?Tingling?denies.?Tr emors?denies.? * Medical History:? * Surgical History:?tonsillect prasanth knee surgery, right sinus surgery knee surgery, left 12/14/2015 * Hospitalization/Major Diagno stic Procedure:?[facility] Pneumonia [facility], [facility] 12/13[facility]- swollen finger, pneumonia 09/2022 * Family History:?Mother: dece ased, diagnosed with Family history of arthritis, Diabetic - NIDDM, Unspecified essential hypertension.?Father: .?Spouse: .? * Social History:?Tobacco Use:?Tobacco Use/Smoking?Are you a:?former smoker ?When did you stop smoking??19 yrs ago ?Additional Findings: Tobacco Non-User?Current non-smoker ?Tobacco use other than smoking?Are you an other tobacco user??No ???Drugs/Alcohol:?Drugs?Have you used drugs other than those for medical reasons in the past 12 months??No ?Alcohol Screen?Did you have a drink containing alcohol in the past year??No ?Points?0 ?Interpretation?Negative ???Miscellaneous:?Caffeine: yes, frequency:, 1-2 cups per day. ?Children: yes, 5. ?Exercise: no. ?Marital status: . 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 * Medications:?TakingmetFORMIN HCl traMADol HCl Albuterol amLODIPine Besylate clonazePAM DULoxetine HCl Finasteride Gabapentin , Notes to Pharmacist: 900MGOmeprazole 20 MG Capsule Delayed Release TAKE ONE CAPSULE BY MOUTH DAILY Oral Simvastatin 20 MG Tablet TAKE 1 TABLET BY MOUTH EVERY DAY Oral Singulair Tamsulosin HCl Valsartan Vitamin B12 ZyrTEC Allergy 10 MG Tablet 1 tablet Orally Once a day Taking metFORMIN HCl Taking traMADol HCl Taking Albuterol Taking amLODIPine Besylate Taking clonazePAM Taking DULoxetine HCl Taking Finasteride Taking Gabapentin , Notes to Pharmacist: 900MGTaking Omeprazole 20 MG Capsule Delayed Release TAKE ONE CAPSULE BY MOUTH DAILY Oral Taking Simvastatin 20 MG Tablet TAKE 1 TABLET BY MOUTH EVERY DAY Oral Taking Singulair Taking Tamsulosin HCl Taking Valsartan Taking Vitamin B12 Taking ZyrTEC Allergy 10 MG Tablet 1 tablet Orally Once a day Not- Taking/PRNIncruse Ellipta oxyBUTYnin Chloride ER Centrum Silver Extra Depth Diabetic Shoes with 3 Pair Custom heat-molded multi-density innersoles for 1 year Dx: Night Splint AFO - L1930 as directed Physical Therapy . . . . 2-3x/week Gabapentin 600 MG Tablet TAKE 1 TABLET BY MOUTH AT BEDTIME Oral Extra Depth Diabetic Shoes with 3 Pair Custom heat- molded multi-density innersoles for 1 year Dx: Extra Depth Orthopedic Shoes (1 Pair) with Customized Heat Molded Multidensity Innersoles (3 Pair) as directed Dx: NIDDM/Polyneuropathy (E11.42), Hammertoe Foot Deformity (M20.41,M20.42), Preulcerative Skin Lesion(s) (L85.1 Extra Depth Diabetic Shoes with 3 Pair Custom heat-molded multi-density innersoles for 1 year Dx: clonazePAM Wixela Inhub Baclofen Cetirizine HCl Magnesium Oxide Myrbetriq Keflex 500 MG Capsule 1 capsule Orally every 8 hrs Finasteride Keflex 500 MG Capsule 1 capsule Orally every 12 hrs Lisinopril 10 MG Tablet TAKE 1 TABLET BY MOUTH DAILY Orally Fluticasone Propionate 50 MCG/ACT Suspension INSTILL 2 SPRAYS INTO BOTH NOSTRILS EVERY DAY Nasal Advair Diskus 500-50 MCG/DOSE Aerosol Powder Breath Activated 1 puff Inhalation Twice a day Lansoprazole 30 MG Capsule Delayed Release 1 capsule before a meal Orally Once a day Aleve Trospium Chloride Meloxicam ProAir HFA , Notes to Pharmacist: WHEN Needed OnlyMedication List reviewed and reconciled with the patientNot-Taking/PRN Incruse Ellipta Not-Taking/PRN oxyBUTYnin Chloride ER Not-Taking/PRN Centrum Silver Not-Taking/PRN Extra Depth Diabetic Shoes with 3 Pair Custom heat-molded multi-density innersoles for 1 year Dx: Not-Taking/PRN Night Splint AFO - L1930 as directed Not-Taking/PRN Physical Therapy . . . . 2-3x/week Not-Taking/PRN Gabapentin 600 MG Tablet TAKE 1 TABLET BY MOUTH AT BEDTIME Oral Not-Taking/PRN Extra Depth Diabetic Shoes with 3 Pair Custom heat-molded multi-density innersoles for 1 year Dx: Not-Taking/PRN Extra Depth Orthopedic Shoes (1 Pair) with Customized Heat Molded Multidensity Innersoles (3 Pair) as directed Dx: NIDDM/Polyneuropathy (E11.42), Hammertoe Foot Deformity (M20.41,M20.42), Preulcerative Skin Lesion(s) (L85.1 Not-Taking/PRN Extra Depth Diabetic Shoes with 3 Pair Custom heat-molded multi-density innersoles for 1 year Dx: Not-Taking/PRN clonazePAM Not-Taking/PRN Wixela Inhub Not-Taking/PRN Baclofen Not-Taking/PRN Cetirizine HCl Not- Taking/PRN Magnesium Oxide Not-Taking/PRN Myrbetriq Not-Taking/PRN Keflex 500 MG Capsule 1 capsule Orally every 8 hrs Not-Taking/PRN Finasteride Not-Taking/PRN Keflex 500 MG Capsule 1 capsule Orally every 12 hrs Not-Taking/PRN Lisinopril 10 MG Tablet TAKE 1 TABLET BY MOUTH DAILY Orally Not-Taking/PRN Fluticasone Propionate 50 MCG/ACT Suspension INSTILL 2 SPRAYS INTO BOTH NOSTRILS EVERY DAY Nasal Not-Taking/PRN Advair Diskus 500-50 MCG/DOSE Aerosol Powder Breath Activated 1 puff Inhalation Twice a day Not-Taking/PRN Lansoprazole 30 MG Capsule Delayed Release 1 capsule before a meal Orally Once a day Not-Taking/PRN Aleve Not-Taking/PRN Trospium Chloride Not-Taking/PRN Meloxicam Not-Taking/PRN ProAir HFA , Notes to Pharmacist: WHEN Needed OnlyMedication List reviewed and reconciled with the patient * Allergies:?AspirinSulfa Anti biotics: ReactionCodeine: Constipationyes[Allergies Verified] Objective: * Vitals:?Ht: 5 ft 7 in, Wt:18 9, BMI:29.60, Shoe size:9.5, BS:not taken. * ???Past Orders: ???Lab:HEMOGLOBIN A1C (GLYCO HEMOGLOBIN) (Order Date - 02/03/2024) (Collection Date & Time - 02/03/2024 12:27 PM) ? Value Reference Range ?HEMOGLOBIN A1C % (HH) 7.0 * Examination: ???Ophthalmology Referral: ?DIABETES EYE EXAM?Dermatologic: ?SKIN FINDINGS:? Skin exam reveals Keratotic lesion(s) located at, Heel(s), B/L, Skin exam reveals Keratotic lesion(s) located at, Plantar, TA, T5.?General Examination: ?GENERAL APPEARANCE:?pleasant, alert, well nourished, well developed, well hydrated, with good attention to hygene/body habitus, and in no acute distress.?ORIENTED:?person,place, and time.?FOOT EXAM:?Nails: ?NAILS are:?Elongated, overgrown, dystrophic, lytic, greater than 3mm thick, discolored and friable with crumbly malodorous subungual debris, with dull to no pain on palpation due to neuropathy, 1-5 B/L.?Vascular: ?DP PULSES (B):? 07/28, B/L.?PT PULSES (B):?08/28, B/L.?CAPILLARY FILL TIME:?3 secs. per digit. B/L.?TROPHIC CONDITION-TEXTURE/ELASTICITY/TURGOR/HAIR GROWTH (B):?normal, B/L.?TEMPERTURE GRADIENT (C):?normal, B/L.?PIGMENTATION:?normal, B/L.?EDEMA (C):? 07/28, Right foot.?TELANGECTASIA:?absent, B/L.?Neurological: ?SENSORY:? Neurological exam demonstrates, reduced vibration sensation, B/L, at Forefoot-mild, Neurological exam demonstrates no pop distal toes christopher, 5.07 monofilament test performed at plantar aspects of 5 varied sites per foot shows sensation, reduced , B/L, Neurological exam demonstrates pop right 4th and 5th mt's dorsum.?Ingrown Nail: ?INSPECTION:?Reveals nail incurvation, dull pain on palpation due to neuropathy, groove hypertrophy, Medial nail border, T5.?X-Rays - IMAGING REPORT: ?Clinical Indication(s):? Evaluate for Fracture.?Views:? 3 views of Foot, RIGHT.?Fracture:? Negative fractures identified.? Assessment: * Assessment: 1.?Ingrowing nail - L60.0??? 2.?Type 2 diabetes mellitus with diabetic polyneuropathy - E11.42 (Primary)???3.?Tinea unguium - B35.1???4.?Tinea pedis - B35.3???5.?Pain in left toe(s) - M79.675???6. Pain in right toe(s) - M79.674???7.?Sprain of right foot, initial encounter - S93.601A??? Plan: * Treatment: * Procedures:?Debride Nail 6-10:?Nail debridement?Nail debridement performed extensively to reduce/remove overall nail length and girth, subungual debris, and necrotic tissue, by manual and electrical means with use of a nail nipper and/or dremel, to more viable healthy nail plate or bed tissue 6-10. Silver nitrate used for any petechial bleeding as necessary. Patient chooses, no pharmaceutical tx ([id number]).?Keratoma Treatment:?Parring or Cutting of Benign Hyperkeratotic Lesion(s)?43165 (2-4 Lesions) - The Benign hyperkeratotic lesions, as described above were pared, and/or cut utilizing a sterile #15 blade, tissue nippers, and/or dremel.?Nail Avulsion:?Location?Medial nail border, T5.?Anesthesia?was deferred - NEUROPATHY: patient has medically documented neuropathic condition affecting sensation.?Procedure?A fine sterile elevator was used to loosen the eponychium, nail bed, nail plate and groove. A sterile nail splitter was then used to longitudinally section the nail. This section was removed. No underlying bone was identified. Procedure was performed under. Bacitracin and sterile dressings applied, local wound care instructions were dispensed. Patient was informed of both conservative and future surgical procedures to prevent recurrence.? * Procedure Codes:?60018 DEBRI DE NAIL, 6 OR MORE, Modifiers: XS 80083 Avulsion Plate, Modifiers: T5 26860 TRIM SKIN LESIONS, 2 TO 4, Modifiers: XS 10130 X-RAY EXAM OF RIGHT FOOT 3V, Modifiers: 26 , RT * Preventive Medicine:? ??Counseling:?Discussion:?-13: Office or other outpatient visit for the evaluation and management of an established patient, which required a medically appropriate history and/or examination and LOW level of DECISION MAKING for: 1 STABLE ACUTE UNCOMPLICATED PROBLEM, 2 OR MORE MINOR PROBLEMS, OR 1 STABLE CHRONIC PROBLEM, THAT POSE(S) A LOW RISK FOR MORBIDITY/MORTALITY. The visit on the day of the encounter encompassed interpreting the data and educating the patient as to the nature of their condition, treatment options available according to their individual PMH, meds, allergies, and overall health/living conditions, as well as any potential risks or complications that may occur from a failure to adhere to, and participate in, the recommended course of therapy. The discussion included a complete verbal, and/or written explanation of the examination results, any x-rays taken, the proposed diagnosis, and outline of the treatment plan. A schedule for future care needs was also explained. The patient verbalized an understanding of the instructions at this time and agreed to be an active participant in their treatment. If the patient should think of any questions or concerns after the visit, I have encouraged the patient to call the office.?Consult:?The patient was counseled on the diagnosis, treatment options, and the need for a, Orthopedic Consult--pt to go to [facility] for evaluation of christopher knee pain after recent fall.?P.R.I.C.E.:?The patient was counseled on the use of P.R.I.C.E. and NSAIDS (if well tolerated) to aid in the recovery from their painful condition.? * Follow Up:?3 Months * Images: * Sign off status: Completed true * Provider:?Jas Napier DPM Date:? 024 Generated for Cecil davis/Kevin/Peter on:?09/17/2024 04:10 PM EST History and Physical Notes * HPI (History of Present Illness) Category Sub-Category Detail Notes Category Not es Painful Nails Pt States Last PCP Visit: Date:: 10/24/2023 Foot Pain Nature: swelling, sharp Location: Top, Outside, Forefo ot, Midfoot, RIGHT Duration: 3 days Onset: pt fell while amparo g 05/01/24 Course: worse Aggravated: any pressure, standi ng, walking Treatments: none Severity/Quality: moderate Examination Category Sub-Category Detail Notes Category Not es Ingrown Nail INSPECTION: Reveals nail inc urvation, dull pain on palpation due to neuropathy, groove hypertrophy, Medial nail border, T5 Neurological SENSORY: Neurological exa m demonstrates, reduced vibration sensation, B/L, at Forefoot-mild, Neurological exam demonstrates no pop distal toes christopher, 5.07 monofilament test performed at plantar aspects of 5 varied sites per foot shows sensation, reduced , B/L, Neurological exam demonstrates pop right 4th and 5th mt's dorsum Dermatologic SKIN FINDINGS: Skin exam reveal s Keratotic lesion(s) located at, Heel(s), B/L, Skin exam reveals Keratotic lesion(s) located at, Plantar, TA, T5 General Examination GENERAL APPEARANCE: pleasant , alert, well nourished, well developed, well hydrated, with good attention to hygene/body habitus, and in no acute distress FOOT EXAM: Lower Extremity Neurological Exa m performed:: Yes Date: 05/04/2024 ORIENTED: person,place, and ti me Ophthalmology Referral DIABETES EYE EXAM Diabeti c Retinopathy Screening:: No 04/2023 Vascular DP PULSES (B): 1/4, B/L PT PULSES (B): 2/4, B/L CAPILLARY FILL TIME: 3 secs. per digit. B/L TEMPERTURE GRADIENT (C): normal, B/L TROPHIC CONDITION-TEXTURE/ELASTICITY/TUR GOR/HAIR GROWTH (B): normal, B/L EDEMA (C): 1/4, Right foot TELANGECTASIA: absent, B/L PIGMENTATION: normal, B/L Nails NAILS are: Elongated, overg rown, dystrophic, lytic, greater than 3mm thick, discolored and friable with crumbly malodorous subungual debris, with dull to no pain on palpation due to neuropathy, 1-5 B/L X-Rays - IMAGING REPORT Fracture: Negative fracture s identified Views: 3 views of Foot, RIG HT Clinical Indication(s): Evaluate for Fra cture
--- OUTSIDE RECORDS SUMMARY | 2024-09-17 16:11 | XMS_ITS ---
[facility] Address [address] [place] [address] Care Team Providers Care Bleaching Supervisor Name Role Phone Amandeep Morales MD Primary Care Provider Unasunil Kristi Vilaine Unavailable [phone] Allergies Allergen (clinical drug ingredient) Drug/Non Drug Allergy documented on EMR Reaction Allergy Type Onset Date Status aspirin Aspirin Unknown Drug Allergy Active codeine Codeine Constipation Drug Allergy Acti ve Substance with sulfonamide structure and antibacterial mechanism of action (substance) Sulfa Antibiotics Reaction Drug Allergy Active REASON FOR VISIT Transfer to Different Provider, Toe Irritation, At Risk Footcare Medications Medication SIG (Take, Route, Frequency, Duration) Notes Start Date End Date Status Lansoprazole 30 MG 1 capsule before a meal Orally Once a day Not-Taking Aleve Not-Taking Trospium Chloride No t-Taking Meloxicam Not-Taking ProAir HFA WHEN Needed Only Not-Taking Fluticasone Propionate 50 MCG/ACT INSTILL 2 SPRAYS INTO BOTH NOSTRILS EVERY DAY Nasal for 30 Not-Taking Advair Diskus 500-50 MCG/DOSE 1 puff Inhalation Twice a day Not-Taking Finasteride Not-Elis ng Keflex 500 MG 1 capsule Orally every 12 hrs for 10 day(s) 03/09/2018 Not-Taking Lisinopril 10 MG TAKE 1 TABLET BY MOUTH DAILY Orally Not-Taking Baclofen Not-Taking Cetirizine HCl Not-T aking Magnesium Oxide Not- Taking Myrbetriq Not-Taking Keflex 500 MG 1 capsule Orally every 8 hrs for 10 days 07/13/2019 Not-Taking clonazePAM Not-Takin g Wixela Inhub Not-Mike ing Extra Depth Diabetic Shoes with 3 Pair Custom heat-molded multi-density innersoles for 1 year Dx: 05/04/2016 Not-Taking Extra Depth Orthopedic Shoes (1 Pair) with Customized Heat Molded Multidensity Innersoles (3 Pair) as directed Dx: NIDDM/Polyneuropathy (E11.42), Hammertoe Foot Deformity (M20.41,M20.42), Preulcerative Skin Lesion(s) (L85.1 05/31/2017 Not-Taking Extra Depth Diabetic Shoes with 3 Pair Custom heat-molded multi-density innersoles for 1 year Dx: 04/24/2019 Not-Taking Centrum Silver Not-T aking Extra Depth Diabetic Shoes with 3 Pair Custom heat-molded multi-density innersoles for 1 year Dx: 07/29/2020 Not-Taking Night Splint AFO - L1930 as directed 05/05/2021 Not-Taking Physical Therapy . . . 2-3x/week for 3- 4 weeks 05/05/2021 Not-Taking Gabapentin 600 MG TAKE 1 TABLET BY MOUTH AT BEDTIME Oral for 30 Not-Taking Incruse Ellipta Not- Taking oxyBUTYnin Chloride ER Not-Taking Valsartan Active Vitamin B12 Active ZyrTEC Allergy 10 MG 1 tablet Orally Onc e a day Active Gabapentin 900MG Active Omeprazole 20 MG TAKE ONE CAPSULE BY MOUTH DAILY Oral for 30 Active Simvastatin 20 MG TAKE 1 TABLET BY MOUTH EVERY DAY Oral for 30 Active Singulair Active Tamsulosin HCl Activ e clonazePAM Active DULoxetine HCl Activ e Finasteride Active Albuterol Active amLODIPine Besylate Active Extra Depth Orthopedic Shoes (1 Pair) with Customized Heat Molded Multidensity Innersoles (3 Pair) as directed Dx: NIDDM/Polyneuropathy (E11.42), Hammertoe Foot Deformity (M20.41,M20.42), Preulcerative Skin Lesion(s) (L85.1 08/03/2024 Active metFORMIN HCl Active traMADol HCl Active Social History Tobacco Use: Social History Observation Description Date Details (start date - stop date) Never Smoker NA - NA Alcohol Screen Question Answer Notes Did you have a drink containing alcohol in the p ast year? No Points 0 Interpretation Negative Tobacco use other than smoking: Question Answer Notes Are you an other tobacco user? No Tobacco Control (Standard) Question Answer Notes Tobacco use: Nonsmoker Additional Findings: Tobacco non-user Current no nsmoker Problems Problem Type SNOMED Code ICD Code Onset Dates Problem Status W/U Status Risk Notes Problem Acquired hammer toe of right foot (6858851651439 105) Other hammer toe(s) (acquired), right foot (M20.41) Active confirmed Problem Acquired hammer toe of left foot (7445378228996 103) Other hammer toe(s) (acquired), left foot (M20.42) Active confirmed Vital Signs Height 5 ft 7 in in 08/03/2024 Weight 179 lbs 08/03/2024 BMI 28.03 kg/m2 08/03/2024 Procedures Procedure Date Ordered Date Performed Result Body Sit e 66354-SANZXVH NAIL, 6 OR MORE 08/03/2024 N/A 54231-ABIM SKIN LESIONS, OVER 4 08/03/2024 N/A Encounters Encounter Location Date Provider Diagnosis [facility] [address] [address] 08/03/2024 Kaitlin Alvarado Other hammer toe(s) (acquired), right foot M20.41 ; Other hammer toe(s) (acquired), left foot M20.42 ; Type 2 diabetes mellitus with diabetic polyneuropathy E11.42 and Tinea unguium B35.1 Assessments Encounter Date Diagnosis (ICD Code) Assessment Notes Treatment Notes Treatment Clinical Notes Section Notes 08/03/2024 Other hammer toe(s) (acquired), right foot (ICD-10 - M20.41) Patient Educated with: DIABETIC FOOT CARE INSTRUCTIONS. pdf (DIABETIC FOOT CARE INSTRUCTIONS. pdf) 08/03/2024 Other hammer toe(s) (acquired), left foot (ICD-10 - M20.42) 08/03/2024 Type 2 diabetes mellitus with diabetic polyneuropathy (ICD-10 - E11.42) 08/03/2024 Tinea unguium (ICD-10 - B35.1) Plan Of Treatment Medication Medication Name Sig Start Date Stop Date Notes Extra Depth Orthopedic Shoes (1 Pair) with Customized Heat Molded Multidensity Innersoles (3 Pair) as directed Dx: NIDDM/Polyneuropathy (E11.42), Hammertoe Foot Deformity (M20.41,M20.42), Preulcerative Skin Lesion(s) (L85.1 08/03/2024 Treatment Notes Assessment Notes Other hammer toe(s) (acquired), right fo ot Patient Educated with: DIABETIC FOOT CARE INSTRUCTIONS.pdf (DIABETIC FOOT CARE INSTRUCTIONS.pdf) Pending Test Test Name Order Date 01685-MZYQGYF NAIL, 6 OR MORE 08/03/2024 52073-ABRO SKIN LESIONS, OVER 4 08/03/19 Next Appt Details Follow Up: 3 Months, Reason: Provider Name:Kaitlin Dobson yifan, 11/16/2024 12:30:00 PM, [address] , [address], [place], [address], Procedure Notes * Category Sub-Category Detail Notes Debride Nail 6-10 Nail debridement Due to the cl inical pathology outlined in the exam findings, performance of this nail treatment is medically necessary as its management by an unskilled/untrained nonprofessional would put this patients foot and overall health at risk. Therefore, debridement to affected nail(s), as described in exam ( TA, T1, T2, T3, T4, T5, T6, T7, T8, T9, ), was performed exclusively by the physician of record to reduce/remove overall nail length, girth, thickness, subungual debris, and necrotic tissue, by manual and/or electrical means through the use of a nail nipper and/or dremel-type cork grinder, to a more viable healthy nail plate or bed tissue 6-10 nails in total. Silver nitrate was used for any petechial bleeding as necessary. Definitive antifungal treatment options, both pharmaceutical and surgical, have been reviewed and discussed with the patient. The patient solely prefers the use of intermittent/as needed professional debridement services for their nail condition and understands the need for additional periodic treatments to maintain effectiveness in symptomatic relief - Keratoma Treatment Parring or Cutting o f Benign Hyperkeratotic Lesion(s) (-57) More than 4 Lesions - Due to the at risk nature of the patients medical condition as documented in the exam findings, performance of this keratoderma treatment is medically necessary as its management by an unskilled/untrained nonprofessional would put this patients foot and overall health at risk. Therefore, the benign hyperkeratotic lesions, ( 6 ) in total, locations as stated and described in the exam ( sub 1st metatarsal head B/L, sub 5th metatarsal head B/L, plantar heels B/L), were pared, and/or cut utilizing a sterile 15 blade, tissue nippers, and/or power dremel instrumentation by the physician of record - [id number] Progress Notes * Eliazar ALANIS MDOB: 7 (78 yo M)Acc No.[id number]:08/03/2024 Progress Note Patient:?ALANIS Eliazar Chand Provider:?Kaitlin Alvarado DPM :1945???Age:78 Y???Sex:Male Chriss e:08/03/2024 Address:[address] [place] [address] , [facility] Pcp:Amandeep Morales MD Subjective: * Chief Complaints: * ???Transfer to Different Pro viderToe IrritationAt Risk Footcare * HPI: ???Toe pain:?Location:?B/L feet.?Duration:?several years.?Course:?worse.?Aggravated by:?shoes, any pressure.?Treatments:?change in shoes.?At Risk footcare:?Pt States Last PCP Visit:?Date?07/30/2024 * ROS:?General/Constitutional:?Nausea?denies.?Vomiting?denies.?Hunger Thirst?denies.?Loss appetite?denies.?Chills?denies.?Fatigue?denies.?Fever?denies.?Night Sweats?denies.?Unexplained weight loss?denies.?Unexplained [...] Procedure:?[facility] Pneumonia [facility]- swollen [facility], pneumonia 09/2022 * Family History:?Mother: dece ased, diagnosed with Diabetic - NIDDM, Unspecified essential hypertension, Family history of arthritis.?Father: .?Spouse: .? * Social History:?Tobacco Use:?Tobacco use other than smoking?Are you an other tobacco user??No ?Tobacco Control (Standard)?Tobacco use:?Nonsmoker ?Additional Findings: Tobacco non-user?Current nonsmoker ???Drugs/Alcohol:?Drugs?Have you used drugs other than those for medical reasons in the past 12 months??No ?Alcohol Screen?Did you have a drink containing alcohol in the past year??No ?Points?0 ?Interpretation?Negative ???Miscellaneous:?Caffeine: yes, frequency:, 1-2 cups per day. ?Children: yes, 5. ?Exercise: no. ?Marital status: . 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 * Medications:?TakingmetFORMIN HCl traMADol HCl Albuterol amLODIPine [...] innersoles for 1 year Dx: Not-Taking/PRN clonazePAM Not- Taking/PRN Wixela Inhub Not-Taking/PRN Baclofen Not-Taking/PRN Cetirizine HCl [...] Objective: * Vitals:?Ht: 5 ft 7 in, Wt: 1 79, BMI: 28.03, Shoe size: 9.5, Wt-k.19 kg. * ???Past Orders: ???Lab:HEMOGLOBIN A1C (GLYCO HEMOGLOBIN) (Order Date - 08/03/2024) (Collection Date & Time - 08/03/2024 12:12 PM) ? Value Reference Range ?HEMOGLOBIN A1C % (HH) 6.3 * Examination: ???Ophthalmology Referral: ?DIABETES EYE EXAM?Orthopedic: ?MUSCLE STRENGTH:?5/5 all groups in a symmetrical fashion, B/L.?DIGITAL DEFORMITIES:?Digital contracture, PIPJ, 2-5 B/L, incompl-reducible to push-up test, no over, nor underlapping,?there is?evidence of shoe producing skin irritation.?FOOTWEAR:?worn, non-supportive, shoe gear properties exacerbate patient's foot/toe deformity.?General Examination: ?GENERAL APPEARANCE:?Reveals a pleasant, alert, well nourished, well- developed, well hydrated individual, who demonstrates proper attention to hygiene/body habitus, and is in no acute distress, Pt serves as own historian for office visit today.?ORIENTED:?person, place, and time.?FOOT EXAM:?Footwear Evaluation?Neurological: ?SENSORY:? Neurological exam demonstrates, reduced light touch sensation, reduced sharp/dull pin prick discrimination , B/L, 5.07 monofilament test performed at plantar aspects of 5 varied sites per foot shows sensation, reduced , B/L.?Nails: ?NAILS are:?Elongated, overgrown, dystrophic, lytic, greater than 3mm thick, discolored and friable with crumbly malodorous subungual debris.?Dermatologic: ?SKIN FINDINGS:?Skin exam reveals Keratotic lesion(s) located at sub 1st metatarsal head B/L, sub 5th metatarsal head B/L, plantar heels B/L.?Vascular: ?DP PULSES (B):??07/28, B/L.?PT PULSES (B):?08/28, B/L.?CAPILLARY FILL TIME:?3 secs. per digit. B/L.?TROPHIC CONDITION-TEXTURE/ELASTICITY/TURGOR/HAIR GROWTH (B):?normal, B/L.?TEMPERTURE GRADIENT (C):?normal, B/L.?PIGMENTATION:?normal, B/L.?EDEMA (C):? 1, Right foot.?TELANGECTASIA:?absent, B/L.? Assessment: * Assessment: 1.?Other hammer toe(s) (acqu ired), right foot - M20.41 (Primary)???Specify :Chronic problem, Worse (4),Rx Management (4)???2.?Other hammer toe(s) (acquired), left foot - M20.42???Specify :Chronic problem, Worse (4),Rx Management (4)???3.?Type 2 diabetes mellitus with diabetic polyneuropathy - E11.42???4.?Tinea unguium - B35.1??? Plan: * Treatment: 2.?Type 2 diabetes mellitus with diabetic polyneuropathy?Procedure: 52801-ZDVCZYH NAIL, 6 OR MORE ?Procedure: 71917-PAFA SKIN LESIONS, OVER 4 * Procedures:?Debride Nail 6-10:?Nail debridement?Due to the clinical pathology outlined in the exam findings, performance of this nail treatment is medically necessary as its management by an unskilled/untrained nonprofessional would put this patients foot and overall health at risk. Therefore, debridement to affected nail(s), as described in exam (? TA, T1, T2, T3, T4, T5, T6, T7, T8, T9, ), was performed exclusively by the physician of record to reduce/remove overall nail length, girth, thickness, subungual debris, and necrotic tissue, by manual and/or electrical means through the use of a nail nipper and/or dremel-type cork grinder, to a more viable healthy nail plate or bed tissue 6- 10 nails in total. Silver nitrate was used for any petechial bleeding as necessary. Definitive antifungal treatment options, both pharmaceutical and surgical, have been reviewed and discussed with the patient. The patient solely prefers the use of intermittent/as needed professional debridement services for their nail condition and understands the need for additional periodic treatments to maintain effectiveness in symptomatic relief - 14812.?Keratoma Treatment:?Parring or Cutting of Benign Hyperkeratotic Lesion(s)?(-57) More than 4 Lesions - Due to the at risk nature of the patients medical condition as documented in the exam findings, performance of this keratoderma treatment is medically necessary as its management by an unskilled/untrained nonprofessional would put this patients foot and overall health at risk. Therefore, the benign hyperkeratotic lesions, ( 6 ) in total, locations as stated and described in the exam ( sub 1st metatarsal head B/L, sub 5th metatarsal head B/L, plantar heels B/L), were pared, and/or cut utilizing a sterile 15 blade, tissue nippers, and/or power dremel instrumentation by the physician of record - 70723.? * Procedure Codes:?00317 DEBRI DE NAIL, 6 OR MORE, Modifiers: XS 37291 TRIM SKIN LESIONS, OVER 4, Modifiers: XS * Preventive Medicine:? ??Counseling:?Discussion:?-14: Office or other outpatient visit for the evaluation and management of an established patient, which required a medically appropriate history and/or examination and MODERATE level of DECISION MAKING for: 1 OR MORE CHRONIC PROBLEM(S) THATS WORSENING, 2 STABLE CHRONIC PROBLEMS, A NEWLY DIAGNOSED PROBLEM WITH UNCERTAIN PROGNOSIS, AN ACUTE COMPLICATED INJURY WITH MULTIPLE TREATMENT OPTIONS, OR AN ACUTE PROBLEM WITH ACCOMPANYING SYSTEMIC SYMPTOMS, THAT POSE(S) A MODERATE RISK OF MORBIDITY. THIS CONDITION MAY ALSO INCLUDE RX DRUG MANAGEMENT, OR A DECISON FOR MINOR SURGERY. The visit on the day of the [...] have encouraged the patient to call the office.?Digital Surgery:?Digital surgery was discussed with the patient, We elected to try conservative treatment at the present time, due to the patients medical history and increased asssociated post-operative risks.?Digital Treatment:?HT- I explained to the patient the possible etiologies of Hammertoes, including genetics/foot type/shoegear/activity level/exercise routine and the risks/benefits of all the different treatment options for their pain including: No treatment at all, Rest, Ice, New/supportive/wider/deeper Shoegear, Digital Padding/Strapping/Taping/Bracing/Gel protective sleeves, Foot/Ankle AFO Bracing, Stretching exercises, Deep Tissue Massage, Arch support/shoe inserts with splay metatarsal padding, and Custom orthoses. I insisted that any digital devices be removed daily and not worn overnight for safety. The patient is to carefully examine the toes daily for any skin irritation while using any splinting or padding device. The advantages and disadvantages of each option were discussed and the patients questions re: shoegear, padding, custom vs prefabricated inserts, activity level, and consistency in home treatment regimens for optimal success were answered to their verbally confirmed satisfaction.?Shoe Gear Counseling:?SHOE Rx - The patient was counseled in great detail on their muscoloskeletal foot and toe deformities which coincided with the dermatological presentations visualized on exam. We discussed how their deformities put the integrity of their feet at risk for potential pedal complications which makes the accomidative diabetic shoes and cutomizable inserts medically necessary. We discussed the different shoe and insert treatment types and options, as well as the important advantages for adhering to regularly wearing these accomidative devices daily. The patient was made aware of the fact that a failure to abide by these recommedations may be deleterious to their foot health as they are able to prevent many pedal complications such as skin irritation, skin ulceration, infection, and even loss of toe/foot/leg/or life. Time was also spent with the patient dispensing and discussing proper diabetic footcare techniques including daily skin moisturization, daily foot inspection for any interruption in skin integrity including open lesions, or sign of infection such as redness/malodor/drainage/swelling. Also discussed and recommended were procedures regarding daily shoe inspection for the presence of internal foreign bodies as well as any visualized irregular shoe or insert wear. Patient questions re: shoes, inserts, and self foot inspections were answered to their satisfaction as the patient verbally confirmed a full understanding of the above information. A Rx for Extra Depth Orthopedic Shoes with 3 pair of custom heat-molded inserts was dispensed.? ??Screening/Special Tests:?Fall Risk?Screening:?No falls in the past year ?FALLS: Screening for Future Fall Risk?Have you had any falls with injury in the past year??No * Follow Up:?3 Months * Images: * Sign off status: Completed true * Provider:?Kaitlin Alvarado DPM Date:?0 08/03/2024 Generated for Cecil davis/Kevin/Moisesitting on:?09/17/2024 04:10 PM EST History and Physical Notes * HPI (History of Present Illness) Category Sub-Category Detail Notes Category Not es Toe pain Location: B/L feet Duration: several years Course: worse Aggravated by: shoes, any pressure Treatments: change in shoes At Risk footcare Pt States Last PCP Visit: Date: 5 Examination Category Sub-Category Detail Notes Category Not es Neurological SENSORY: Neurological exa m demonstrates, reduced light touch sensation, reduced sharp/dull pin prick discrimination , B/L, 5.07 monofilament test performed at plantar aspects of 5 varied sites per foot shows sensation, reduced , B/L Dermatologic SKIN FINDINGS: Skin exam reveal s Keratotic lesion(s) located at sub 1st metatarsal head B/L, sub 5th metatarsal head B/L, plantar heels B/L Orthopedic FOOTWEAR: worn, non-suppor tive, shoe gear properties exacerbate patient's foot/toe deformity DIGITAL DEFORMITIES: Digital contracture , PIPJ, 2-5 B/L, incompl-reducible to push-up test, no over, nor underlapping, there is evidence of shoe producing skin irritation MUSCLE STRENGTH: 5/5 all groups in a symmetrical fashion, B/L General Examination GENERAL APPEARANCE: Reveals a pleasant, alert, well nourished, well-developed, well hydrated individual, who demonstrates proper attention to hygiene/body habitus, and is in no acute distress, Pt serves as own historian for office visit today FOOT EXAM: Lower Extremity Neurological Exa m performed:: Yes Date Visual exam of foot performed:: Yes ORIENTED: person, place, and t martha Footwear Evaluation Footwear Evaluation performe d:: Yes Ophthalmology Referral DIABETES EYE EXAM Procedure Perform ed:: No Vascular DP PULSES (B): 1/4, B/L PT PULSES (B): 2/4, B/L CAPILLARY FILL TIME: 3 secs. per digit. B/L TEMPERTURE GRADIENT (C): normal, B/L TROPHIC CONDITION-TEXTURE/ELASTICITY/TUR GOR/HAIR GROWTH (B): normal, B/L EDEMA (C): 1/4, Right foot TELANGECTASIA: absent, B/L PIGMENTATION: normal, B/L Nails NAILS are: Elongated, overg rown, dystrophic, lytic, greater than 3mm thick, discolored and friable with crumbly malodorous subungual debris
--- OUTSIDE RECORDS SUMMARY | 2024-09-17 16:12 | XMS_ITS | Data Portability ---
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 completed Not Available Not Available Not Available polymyxin B sulfate 10,000 unit-trim ethoprim 1 mg/mL eye drops QID 11/20 completed RECORDED 12/01/19 07 2:17PM BY SHAQUILLE MARTINEZ MD, MEDICATI ON AUTO-ELANA CTIVATIO N; Not Available Not Available Not Available losartan 25 mg tablet TAKE 1 TABLET BY MOUTH EVERY DAY 11/07 completed Not Available Not Available Not Available Advair Diskus 250 mcg-50 mcg/dose powder for inhalatio n PRN active RECORDED 11/02/19 14 10:09AM BY CONNIE MADSEN MA, OFFICE VISIT; Not Available Not Available Not Available indometha james 50 mg capsule Take 1 capsule 3 times a day by oral route as needed for 7 days. 10/19 completed Not Available Not Available Not Available lansopraz ole 15 mg capsule,d elayed release Take 30 mg by oral route. 12/04 completed Not Available Not Available Not Available docusate sodium 100 mg capsule TAKE 1 CAPSULE BY MOUTH EVERY DAY active Not Available Not Available No t Available gabapenti n 300 mg capsule 900 mg by oral route. 05/31 completed Not Available Not Available Not Available budesonid e 0.25 mg/2 mL suspensio n for nebulizat ion Inhale 0.25 mg by inhalati on route. 12/04 completed Not Available Not Available Not Available omeprazol e 20 mg capsule,d elayed release TAKE 1 CAPSULE BY MOUTH TWICE A DAY DIRECTED 01/07 completed insuranc e will not cover BID dosing Not Available Not Available Not Available monteluka st 10 mg tablet TAKE 1 TABLET BY MOUTH EVERYDAY AT BEDTIME active Not Available Not Available No t Available gabapenti n 100 mg capsule Take 100 mg by oral route. 12/04 completed Not Available Not Available Not Available metoprolo l succinate ER 25 mg tablet,ex tended release 24 hr TAKE 1 TABLET BY MOUTH ONCE DAILY active Not Available Not Available No t Available fluticaso ne 100 mcg-salme terol 50 mcg/dose blistr powdr for inhalatio n 12/04 completed Not Available Not Available Not Available levofloxa james 500 mg tablet DAILY 09/28 completed RECORDED 10/11/19 09 12:47PM BY PAUL BANKS, MEDICATI ON AUTO-ELANA CTIVATIO N; Not Available Not Available Not Available levofloxa james 750 mg tablet TAKE 1 TABLET BY MOUTH EVERY 24 HOURS FOR 7 DAYS 04/07 completed Not Available Not Available Not Available albuterol sulfate HFA 90 mcg/actua tion aerosol inhaler INHALE 2 PUFFS EVERY 4 HOURS DIRECTED active Not Available Not Available No t Available fluticaso ne propionat e 250 mcg/actua tion blister powder for inhalatio n 250 ugs by inhalati on route. 08/29 completed Not Available Not Available Not Available fluticaso ne propionat e 50 mcg/actua tion nasal spray,nicol pension INSTILL TWO (2) SPRAYS IN EACH NOSTRIL EVERY DAY. active Not Available Not Available No t Available doxycycli ne hyclate 100 mg tablet Take 1 tablet twice a day by oral route for 10 days. 2015 active Not Available Not Available Not Avai lable ipratropi um bromide 21 mcg (0.03 %) nasal spray 03/21 completed Not Available Not Available Not Available finasteri de 5 mg tablet TAKE 1 TABLET BY MOUTH EVERY DAY active Not Available Not Available No t Available loratadin e 10 mg tablet Take 1 tablet every day by oral route. 11/11 completed Not Available Not Available Not Available naproxen 500 mg tablet TAKE 1 TABLET BY MOUTH TWICE A DAY 12/04 completed Not Available Not Available Not Available amoxicill in 875 mg-potass ium clavulana te 125 mg tablet TAKE 1 TABLET BY MOUTH TWICE A DAY FOR 10 DAYS 10/06 completed Not Available Not Available Not Available tobramyci n 0.3 %-dexamet hasone 0.1 % eye drops,nicol pension TID 11/25 completed RECORDED 12/01/19 07 2:17PM BY SHAQUILLE MARTINEZ MD, MEDICATI ON AUTO-ELANA CTIVATIO N; Not Available Not Available Not Available valsartan 160 mg tablet TAKE 1 TABLET BY MOUTH EVERY DAY active Not Available Not Available No t Available albuterol (refill) 90 mcg/actua tion aerosol inhaler FOUR TIMES DAILY, NEEDED 2013 active Not Available Not Available Not Avai lable azithromy james 500 mg tablet TAKE 1 TABLET BY MOUTH 3 TIMES A WEEK active Not Available Not Available No t Available Loratadin e-D 10 mg-240 mg tablet,ex tended release 24 hr Take 1 tablet every day by oral route for 14 days. 07/15 completed Not Available Not Available Not Available Prilosec OTC 20 mg tablet,de layed release DAILY 01/31 completed RECORDED 02/01/20 13 10:42AM BY ANGEL CHAMBERLAIN MD, SHAKIR ON/ADDEN DUM; Not Available Not Available Not Available Multivita min 50 Plus tablet Take 1 tablet every day by oral route. 11/15 completed Not Available Not Available Not Available Cialis 20 mg tablet Take 1 tablet 1 hour before sexual activity 2015 active Not Available Not Available Not Avai lable Alcohol Prep Pads Use to sanitize the affected area prior to applicat ion of medicati on as indicate d. active Not Available Not Available No t Available Readi-Cat 2 2.1 % (w/v), 2.0 % (w/w) oral suspensio n Take 450 mL twice a day by oral route as directed for 1 day. 03/21 completed Not Available Not Available Not Available duloxetin e 20 mg capsule,d elayed release Take 20 mg by oral route. 12/04 completed Not Available Not Available Not Available duloxetin e 60 mg capsule,d elayed release TAKE 1 CAPSULE BY MOUTH EVERY DAY active Not Available Not Available No t Available solifenac in 5 mg tablet Take 1 tablet every day by oral route for 90 days. 04/27 completed Not Available Not Available Not Available darifenac in ER 15 mg tablet,ex tended release 24 hr Take 15 mg by oral route. 02/12 completed Not Available Not Available Not Available Lyrica 75 mg capsule Take 1 capsule twice a day by oral route for 90 days. 08/06 completed Not Available Not Available Not Available chlorhexi dine gluconate 0.12 % mouthwash 05/25 completed Not Available Not Available Not Available One-A-Day Men's DAILY active RECORDED 04/27/20 12 1:19PM BY ANGEL CHAMBERLAIN MD, SHAKIR ON/ADDEN DUM; Not Available Not Available Not Available nystatin QID 09/27 completed RECORDED 09/28/19 09 7:20AM BY DENEEN MARTINEZ MD, MEDICATI ON AUTO-ELANA CTIVATIO N;SWISH AND SWALLOW QID DAILY UNTIL 48 HRS AFTER SXS RESOLVE Not Available Not Available Not Available Vicodin TID/PRN 12/05 completed RECORDED 12/06/19 13 2:39PM BY ANGEL CHAMBERLAIN MD, OFFICE VISIT;TH IS ORDER DISCONTI NUED PER MEDI-SPA N. Not Available Not Available Not Available Flomax 2007 active RECORDED 01/17/20 08 1:20PM BY ANGEL CHAMBERLAIN MD, ANNOTATI ON/ADDEN DUM; Not Available Not Available Not Available nebulizer and compresso r NEEDED 07/16 completed RECORDED 07/16/20 10 10:25AM BY PAUL BANKS, OFFICE VISIT; Not Available Not Available Not Available Zostavax (PF) 19,400 unit/0.65 mL subcutane ous suspensio n FELTON X 1 01/07 completed RECORDED 01/12/20 09 10:41AM BY ANGEL CHAMBERLAIN MD, MEDICATI ON AUTO-ELANA CTIVATIO N; Not Available Not Available Not Available Symbicort 160 mcg-4.5 mcg/actua tion HFA aerosol inhaler Inhale 2 puffs twice a day by inhalati on route. 05/24 completed Not Available Not Available Not Available Veramyst 27.5 mcg/actua tion nasal spray,nicol pension DAILY 10/25 completed RECORDED 10/26/19 10 8:23AM BY DARLINE NICHOLAS MA, OFFICE VISIT; Not Available Not Available Not Available Elastic Wrist Splint Support DIRECTED 03/31 completed RECORDED 03/31/20 07 10:35AM BY ANGEL CHAMBERLAIN MD, MEDICATI ON AUTO-ELANA CTIVATIO N;LEFT WRIST FOR CARPAL TUNNEL SYNDROME Not Available Not Available Not Available GaviLyte- G 236 gram-22.7 4 gram-6.74 gram-5.86 gram oral solution MIX 1ST, THEN DRINK 8 OUNCES BY MOUTH EVERY 15-30 MINUTES UNTIL FINISHED 05/20 completed Not Available Not Available Not Available B12 active Not Available Not Availa ble Not Available loratadin e 10 mg capsule DAILY active RECORDED 02/24/20 11 9:05AM BY ANGEL CHAMBERLAIN MD, ANNOTATI ON/ADDEN DUM; Not Available Not Available Not Available Centrum Silver 0.4 mg-300 mcg-250 mcg tablet Take 1 tablet every day by oral route. 04/07 completed Not Available Not Available Not Available Myrbetriq 25 mg tablet,ex tended release Take 25 mg by oral route. active Not Available Not Available No t Available Vicodin 5 mg-300 mg tablet EVERY 8 HOURS NEEDED FOR MODERATE TO MODERATE LY severe pain 08/06 completed RECORDED 12/14/19 13 10:05AM BY ANGEL CHAMBERLAIN MD, MEDICATI ON AUTO-ELANA CTIVATIO N; Not Available Not Available Not Available Nasacort 55 mcg nasal spray aerosol 2 sprays each nostril twice a day 05/02 completed Not Available Not Available Not Available Jardiance 10 mg tablet 10/06 completed Not Available Not Available Not Available Jardiance 25 mg tablet Take 1 tablet every day by oral route for 90 days, for diabetes . 2023 active Not Available Not Available Not Avai lable Incruse Ellipta 62.5 mcg/actua tion powder for inhalatio n INHALE 1 PUFF BY MOUTH EVERY 24 HOURS 12/13 completed Not Available Not Available Not Available Rhinocort Allergy 32 mcg/actua tion nasal spray Take 2 sprays twice a day by nasal route. 01/27 completed Not Available Not Available Not Available Shingrix (PF) 50 mcg/0.5 mL intramusc ular suspensio n, kit 05/24 completed Not Available Not Available Not Available Wixela Inhub 500 mcg-50 mcg/dose powder for inhalatio n INHALE ONE (1) PUFF BY MOUTH EVERY 12 HOURS DIRECTED 12/13 completed Not Available Not Available Not Available Accu-Chek Guide Me Glucose Meter DIRECTED active Not Available Not Available No t Available Fluzone High-Dose (PF) 180 mcg/0.5 mL intramusc ular syringe 05/24 completed Not Available Not Available Not Available Fluad Quad [id number] (65yr up)(PF) 60 mcg (15 mcg x 4)/0.5mL IM syringe PHARMACY ADMINIST EMILIA 05/15 completed Not Available Not Available Not Available Trelegy Ellipta 200 mcg-62.5 mcg-25 mcg powder for inhalatio n INHAE 1 PUFF BY MOUTH DAILY FOR 30 DAYS active Not Available Not Available No t Available Gemtesa 75 mg tablet Take 1 tablet every day by oral route for 90 days. active Not Available Not Available No t Available Paxlovid 300 mg (150 mg x 2)-100 mg tablets in a dose pack TAKE 3 TABLETS BY MOUTH TWICE A DAY DIRECTED ON PACK FOR 5 DAYS 08/11 completed Not Available Not Available Not Available Vitals Date Recorded Body height Body mass index (BMI) Body weight Heart rate Oxygen saturation Oxygen saturation in Arterial blood by Pulse oximetry Body temperature Systolic blood pressure Diastolic blood pressure Provider Name and Address Organization Details Last Updated DateTime 4 170.18 cm 28.3 kg/m2 70074.2 2 g 93 /min 95 % 95 % 98.1 [degF] 83 mm[Hg] 49 mm[Hg] Stefanie Wright MA [facility] 13:37:53 Date Recorded Body height Provider Name an d Address Organization Details Last Updated DateTime 07/13/2024 170.18 cm Darline Gavin MA [facility] 07/13/2024 12:51:10 Date Recorded Body mass index (BMI) Body weight Heart rate Oxygen saturation Oxygen saturation in Arterial blood by Pulse oximetry Body temperature Systolic blood pressure Diastolic blood pressure Provider Name and Address Organization Details Last Updated DateTime 4 28 kg/m2 51804.0 3 g 80 /min 97 % 97 % 98 [degF] 107 mm[Hg] 65 mm[Hg] Rey wolf MA [facility] 12:52:04 Date Recorded Body height Provider Name an d Address Organization Details Last Updated DateTime 07/30/2024 170.18 cm Rey cordoba MA [facility] 07/30/2024 10:23:34 Date Recorded Body height Body mass index (BMI) Body weight Heart rate Oxygen saturation Oxygen saturation in Arterial blood by Pulse oximetry Body temperature Systolic blood pressure Diastolic blood pressure Provider Name and Address Organization Details Last Updated DateTime 5 170.18 cm 27.3 kg/m2 26226.0 7 g 120 /min 96 % 96 % 98 [degF] 108 mm[Hg] 67 mm[Hg] Rey wolf MA [facility] 5 09:49:59 Date Recorded Body height Body mass index (BMI) Body weight Heart rate Oxygen saturation Oxygen saturation in Arterial blood by Pulse oximetry Body temperature Systolic blood pressure Diastolic blood pressure Provider Name and Address Organization Details Last Updated DateTime 170.18 cm 27.1 kg/m2 97774.4 8 g 100 /min 95 % 95 % 98.1 [degF] 133 mm[Hg] 73 mm[Hg] Stefanie Wright MA [facility] 14:06:29 Social History Question Answer Notes LastModified by Organizat ion Details LastModified Time Tobacco Smoking Status Former [facility] 2 [facility]18[facility]21 13:52:06 Do You Have An Advance Directive? Yes Information not available 03/22/2022 What Is Your Level Of Alcohol Consumption? Occasional Information not available 03/22/2022 Is Blood Transfusion Acceptable In An Emergency? Yes [id number] Information not available 05/27/2020 What Is Your Level Of Caffeine Consumption? Occasional [id number] Information not available 05/27/2020 How Much Tobacco Do You Chew? None [id number] Information not available 05/27/2020 In The 14 Days Before Symptom Onset, Have You Had Close Contact With A Laboratory-confi rmed COVID-19 While That Case Was Ill? No Information not available 03/22/2022 In The 14 Days Before Symptom Onset, Have You Had Close Contact With A Person Who Is Under Investigation For COVID-19 While That Person Was Ill? No Information not available 03/22/2022 Have You Been To An Area Known To Be High Risk For COVID-19? No Information not available 03/22/2022 Are You Currently Employed? No Information not available 03/22/2022 Are You Deaf Or Do You Have Serious Difficulty Hearing? No Information not available 03/22/2022 What Type Of Diet Are You Following? REGULAR Information not available 03/22/2022 Which Illicit Or Recreational Drugs Have You Used? None [id number] Information not available 05/27/2020 Do You Or Have You Ever Used E-cigarettes Or Vape? 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 17+yearssince [facility] Information not available 04/27/2024 Live Alone Or With Others? Alone Information not available 03/22/2022 Do You Take Precautions To Prevent Distracted Driving? Yes [employer] Information not available 11/11/2015 How Often Do You Need To Have Someone Help You When You Read Instructions, Pamphlets, Or Other Written Material From Your Doctor Or Pharmacy? Never [email or web address] Information not available 11/11/2015 Have You Served In The ? No [employer] Information not available 11/11/2016 Have You Or Anyone In Your Household Had Any Of The Following Symptoms In The Last 14 Days: Sore Throat, Cough, Chills, Body Aches For Unknown Reasons, Shortness Of Breath For Unknown Reasons, Loss Of Smell, Loss Of Taste, Fever At Or Greater Than 100 Degrees Fahrenheit? No Edgar Online[employer]ki Information not available 02/13/2020 Are You Or Anyone In Your Household A Health Care Provider Or Emergency Responder? No Edgar OnlineultRidePal Information not available 02/13/2020 To The Best Of Your Knowledge Have You Been In Close Proximity To Any Individual Who Tested Positive For COVID-19? No [email or web address] Information not available 02/13/2020 Have You Recently Traveled To A COVID-19 High Risk Area Or Gathering In The Last 10 Days? No [email or web address] Information not available 03/18/2021 What Was The Date Of Your Most Recent Tobacco Screening? 04/27/2024 Information not available 04/27/2024 How Many Children Do You Have? 5 4 Sons And 1 Daughter 4 GC [id number] Information not available 05/27/2020 What Is Your Current Pack Years? 30ormorepacky ears Information not available 03/22/2022 Do You Use Protection During Sex? No [id number] Information not available 05/27/2020 Difficulty Reading? No Information not available 03/22/2022 Do You Use Your Seat Belt Or Car Seat Routinely? Yes Information not available 03/22/2022 Seat Belts Used Routinely Yes Information not available 03/22/2022 Are You Sexually Active? Yes [id number] Information not available 05/27/2020 Smoke Alarm In Home Yes Information not available 03/22/2022 Do You Have Smoke And Carbon Monoxide Detectors In Your Home? No Information not available 03/22/2022 At What Age Did You Start Smoking Tobacco? 15 Quit At 52 Information not available 03/18/2021 Are You Passively Exposed To Smoke? No Information not available 05/02/2018 Do You Or Have You Ever Used Smokeless Tobacco? [id number] Information not available 03/22/2022 How Much Tobacco Do You Smoke? No Information not available 03/22/2022 Do You Use Any Illicit Or Recreational Drugs? No Information not available 03/22/2022 Do You Use Sunscreen Routinely? No [id number] Information not available 05/27/2020 How Many Years Have You Smoked Tobacco? 37 Information not available 03/18/2021 Difficulty Watching TV? No Information not available 03/22/2022 Do You Or Have You Ever Used Any Other Forms Of Tobacco Or Nicotine? No Information not available 03/22/2022 Sex: Unknown Functional Status Question Answer Note LastModified by Organizat ion Details LastModified Time Do you have difficulty walking or climbing stairs? No Information not available 03/22/2022 Difficulty [address] at night? No Information no t available 03/22/2022 Are you able to walk? YESWOREST Information not available 03/22/2022 Do you have difficulty doing errands alone? No Information not available 03/22/2022 Are you able to care for yourself? Yes [id number] Information not available 05/27/2020 Do you have difficulty dressing or bathing? No Information not available 03/22/2022 What is your exercise level? Occasional Information not available 04/27/2024 Mental Status Question Answer Note LastModified by Organization D etails LastModified Time Do you have difficulty concentrating, remembering or making decisions? No Information no t available 03/22/2022 Family History Relationship Description Onset Age of this Age Resolved Age Notes LastModified by Organization Details LastModified Time Mother Diabetes mellitus 88 [email or web address] Not available 03/25 11:01:49 Mother Hypertensive disorder 88 acennerazzo Not available 03/25 11:01:54 Mother Dementia 88 acennerazzo Not availa ble 04/07/2023 11:02:00 Mother Arthritis 88 acennerazzo Not avail able 04/07/2023 11:02:05 Father Glaucoma Not available 03/22/2022 12:56:16 Father Homicide 70 Not available 03/22/2022 12:56:17 Son Asthma Not available 12:56:17 Unspecified Relation Sleep disorder Not available 2021 12:56:17 Brother Alcohol abuse 40 [email or web address] Not available 10/2023 14:39:35 Medical History Condition Response Depression Y Vision or Eye Problems Y Arthritis Y Acid Reflux (GERD) Y Cancer Y Hospitalizations Y Skin Problems Y Bladder Problems Y Tuberculosis Y Asthma Y Allergies Y High Cholesterol Y Diabetes Y Immunizations Vaccine Type Date Status Note Provider Nam e and Address Organization Details Recorded Time Influenza, split virus, trivalent, preservative 7 completed Not Available [facility] 08/02/2023 03:47:28 Influenza, split virus, trivalent, preservative 8 completed Not Available [facility] 08/02/2023 03:47:28 Tdap 8 completed Not Available [facility] 08/02/2023 03:47:28 Influenza, split virus, trivalent, preservative 9 completed Not Available [facility] 08/02/2023 03:47:28 pneumococcal polysaccharide PPV23 0 completed Not Available [facility] 08/02/2023 03:47:28 Influenza, split virus, trivalent, preservative 0 completed Not Available [facility] 08/02/2023 03:47:28 Influenza, split virus, trivalent, preservative 1 completed Not Available [facility] 08/02/2023 03:47:28 Influenza, split virus, trivalent, preservative 2 completed Not Available [facility] 08/02/2023 03:47:28 Influenza, split virus, trivalent, preservative 4 completed Not Available [facility] 08/02/2023 03:47:28 Influenza, split virus, trivalent, preservative 5 completed Not Available [facility] 08/02/2023 03:47:28 Pneumococcal conjugate PCV 13 5 completed Not Available [facility] 08/11/2019 02:21:36 Influenza, high-dose, trivalent, PF 9 completed Not Available [facility] 08/02/2023 03:47:28 Influenza, split virus, trivalent, preservative 3 completed Not Available [facility] 08/02/2023 03:47:28 Influenza, split virus, trivalent, preservative 1 completed Not Available [facility] 08/02/2023 03:47:28 Influenza, split virus, trivalent, preservative 4 completed Not Available [facility] 08/02/2023 03:47:28 Influenza, adjuvanted, quadrivalent, PF 0 completed Not Available [facility] 08/02/2023 03:47:27 Influenza, high-dose, quadrivalent, PF 1 completed Not Available [facility] 08/02/2023 03:47:27 COVID-19, mRNA, LNP-S, PF, 30 mcg/0.3 mL dose 2 completed Not Available [facility] 08/02/2023 03:47:28 COVID-19, mRNA, LNP-S, PF, 100 mcg/0.5mL dose or 50 mcg/0.25mL dose 1 completed Not Available [facility] 08/02/2023 03:47:28 zoster recombinant 9 completed Not Available [facility] 08/02/2023 03:47:27 COVID-19, mRNA, LNP-S, PF, 100 mcg/0.5mL dose or 50 mcg/0.25mL dose 1 completed Not Available [facility] 08/02/2023 03:47:28 Influenza, high-dose, quadrivalent, PF 2 completed Not Available [facility] 08/02/2023 03:47:27 COVID-19, mRNA, LNP-S, bivalent, PF, 30 mcg/0.3 mL dose 2 completed Not Available [facility] 08/02/2023 03:47:28 COVID-19, mRNA, LNP-S, bivalent, PF, 30 mcg/0.3 mL dose 3 completed Not Available [facility] 08/02/2023 03:47:28 Tdap 3 completed Not Available [facility] 08/02/2023 03:47:28 Influenza, adjuvanted, quadrivalent, PF 3 completed Not Available [facility] 08/02/2023 03:47:27 RSV, recombinant, protein subunit RSVpreF, adjuvant reconstituted, 0.5 mL, PF 3 completed Not Available [facility] 08/02/2023 03:47:28 pneumococcal polysaccharide PPV23 6 completed Not Available [facility] 08/11/2019 02:21:26 COVID-19, mRNA, LNP-S, PF, brian-sucrose, 30 mcg/0.3 mL 3 completed Not Available [facility] 08/02/2023 03:47:28 Pneumococcal conjugate PCV20, polysaccharide [id number] conjugate, adjuvant, PF 4 completed PAUL Malin, [facility] 04/27/2024 13:42:13 COVID-19, mRNA, LNP-S, PF, brian-sucrose, 30 mcg/0.3 mL 4 completed PAUL Malin, [facility] 04/27/2024 13:42:13 zoster recombinant 4 completed PAUL Chowdhury, [facility] 08/11/2024 09:43:00 Influenza, high-dose, trivalent, PF 6 completed Not Available [facility] 08/11/2019 02:22:03 Influenza, high-dose, trivalent, PF 7 completed Not Available [facility] 08/11/2019 02:22:21 Influenza, high-dose, trivalent, PF 8 completed Not Available [facility] 08/11/2019 02:22:14 Td (adult), 2 Lf tetanus toxoid, preservative free, adsorbed 8 completed Not Available [facility] 08/11/2019 02:21:30 Influenza, high-dose, trivalent, PF 4 completed Angel Morales MD [address], [address], [facility] 04/28/2024 14:55:43 Past Encounters Encounter ID Performer Location Encounter Start Date Encounter Closed Date Diagnosis/Indication Diagnosis SNOMED-CT Code Diagnosis ICD10 Code Diagnosis Note [id number] auto[facility] erce [address] [facility] [place] [address] 10/12/2006 00:00:00 [id number] auto[employer]Comm erce [address] [facility], [address] [place] [address] 01/12/2007 00:00:00 [id number] autoEComm erce [address] [facility] [address] [place] [address] 01/12/2007 00:00:[id number] erce [address] [place] [address] 01/12/2007 00:00:00 [id number] auto[facility] erce [address] [place] [address] 03/01/2007 00:00:00 [id number] auto[employer]Comm erce [address] [facility] [address] [place] [address] 03/31/2007 00:00:00 [id number] auto[facility] erce [address] [place] [address] 03/31/2007 00:00:00 [id number] auto[employer] erce [address] [facility] [address] [place] [address] 03/31/2007 00:00:00 [id number] auto[employer]Comm erce [address] [facility],[address] [place] [address] 06/12/2007 00:00:00 [id number] auto[employer]Comm erce [address] [facility],[address] [place] [address] 07/28/2006 00:00:00 [id number] auto[employer] erce [address] [facility],[address] [place] [address] 07/28/2006 00:00:00 [id number] auto[employer]Comm erce [address] [facility],[address] [place] [address] 07/28/2006 00:00:00 [id number] auto[employer]Comm erce [address] [facility],[address] [place] [address] 01/17/2008 00:00:00 [id number] auto[employer]Comm erce [address] [facility],[address] [place] [address] 01/17/2008 00:00:00 [id number] auto[employer]Comm erce [address] [facility],[address] [place] [address] 2 01/17/2008 00:00:00 [id number] auto[employer]Comm erce [address] [facility],[address] [place] [address] 07/15/2008 00:00:00 [id number] auto[facility]Comm erce [address] [place] [address] 07/15/2008 00:00:00 [id number] auto[employer] erce [address] [place] [address] 2 07/15/2008 00:00:00 [id number] autoEComm erce [address] [place] [address] 09/12/2008 00:00:00 [id number] auto[employer]Comm erce [address] [facility] [address] [place] [address] 09/18/2008 00:00:00 [id number] auto[employer]Comm erce [address] [facility] [address] [place] [address] 2 04/14/2009 00:00:00 [id number] auto[employer]Comm erce [address] [facility] [address] [place] [address] 04/14/2009 00:00:00 [id number] autoEComm erce [address] [facility],[address] [place] [address] 04/14/2009 00:00:00 [id number] autoEComm erce [address] [facility] [address] [place] [address] 2 10/25/2009 00:00:00 [id number] autoEComm erce [address] [facility],[address] [place] [address] 2 10/30/2009 00:00:00 [id number] auto[employer]Comm erce [address] [facility],[address] [place] [address] 10/30/2009 00:00:00 [id number] auto[employer]Comm erce [address] [facility] [address] [place] [address] 01/07/2010 00:00:00 [id number] autoEComm erce [address] [facility],[address] [place] [address] 2 01/07/2010 00:00:00 [id number] auto[facility]Comm erce [address] [place] [address] 01/07/2010 00:00:00 [id number] auto[employer]Comm erce [address] [place] [address] 2 07/16/2010 00:00:00 [id number] auto[employer]Comm erce [address] [place] [address] 2 07/16/2010 00:00:00 [id number] auto[employer]Comm erce [address] [place] [address] 08/27/2010 00:00:00 [id number] autoEComm erce [address] [facility] [address] [place] [address] 08/27/2010 00:00:00 [id number] autoEComm erce [address] [facility],[address] [place] [address] 02/23/2011 00:00:00 [id number] autoEComm erce [address] [facility] [address] [place] [address] 02/23/2011 00:00:00 [id number] autoEComm erce [address] [facility] [address] [place] [address] 02/23/2011 00:00:00 [id number] autoEComm erce [address] [facility],[address] [place] [address] 02/23/2011 00:00:00 [id number] autoEComm erce [address] [facility],[address] [place] [address] 09/27/2008 00:00:00 [id number] autoEComm erce [address] [facility] [address] [place] [address] 09/27/2008 00:00:00 [id number] autoEComm erce [address] [facility] [address] [place] [address] 2 09/27/2008 00:00:00 [id number] autoEComm erce [address] [facility] [address] [place] [address] 2 09/27/2008 00:00:00 [id number] autoEComm erce [address] [place] [address] 2 10/08/2011 00:00:00 [id number] autoEComm erce [address] [place] [address] 2 10/08/2011 00:00:00 [id number] auto[employer]Comm erce [address] [place] [address] 10/08/2011 00:00:00 [id number] autoEComm erce [address] [facility] [address] [place] [address] 2 10/08/2011 00:00:00 [id number] autoEComm erce [address] [facility] [address] [place] [address] 2 01/06/2012 00:00:00 [id number] autoEComm erce [address] [facility] [address] [place] [address] 01/06/2012 00:00:00 [id number] autoEComm erce [address] [facility],[address] [place] [address] 01/06/2012 00:00:00 [id number] autoEComm erce [address] [facility] [address] [place] [address] 2 07/17/2007 00:00:00 [id number] auto[employer]Comm erce [address] [facility],[address] [place] [address] 2 05/15/2012 00:00:00 [id number] autoEComm erce [address] [facility],[address] [place] [address] 05/15/2012 00:00:00 [id number] autoEComm erce [address] [facility] [address] [place] [address] 05/15/2012 00:00:00 [id number] autoEComm erce [address] [facility],[address] [place] [address] 2 07/05/2011 00:00:00 [id number] autoEComm erce [address] [place] [address] 2 07/05/2011 00:00:00 [id number] autoEComm erce [address] [place] [address] 2 07/05/2011 00:00:00 [id number] autoEComm erce [address] [place] [address] 2 11/09/2010 00:00:00 [id number] autoEComm erce [address] [place] [address] 2 09/25/2010 00:00:00 [id number] autoEComm erce [address] [facility] [address] [place] [address] 2 09/25/2010 00:00:00 [id number] autoEComm erce [address] [facility] [address] [place] [address] 2 07/31/2010 00:00:00 [id number] autoEComm erce [address] [facility] [address] [place] [address] 2 07/31/2010 00:00:00 [id number] autoEComm erce [address] [facility] [address] [place] [address] 2 02/09/2013 00:00:00 [id number] autoEComm erce [address] [facility],[address] [place] [address] 2 02/09/2013 00:00:00 [id number] autoEComm erce [address] [facility] [address] [place] [address] 2 02/09/2013 00:00:00 [id number] autoEComm erce [address] [place] [address] 2 04/11/2013 00:00:00 [id number] autoEComm erce [address] [facility] [address] [place] [address] 2 05/03/2013 00:00:00 [id number] autoEComm erce [address] [facility] [address] [place] [address] 2 05/03/2013 00:00:00 [id number] auto[facility]Comm erce [address] [place] [address] 2 10/14/2009 00:00:00 [id number] autoEComm erce [address] [place] [address] 2 10/14/2009 00:00:00 [id number] auto[employer]Comm erce [address] [place] [address] 2 10/14/2009 00:00:00 [id number] autoEComm erce [address] [place] [address] 2 08/21/2013 00:00:00 [id number] autoEComm erce [address] [place] [address] 11/01/2013 00:00:00 [id number] autoEComm erce [address] [place] [address] 2 11/01/2013 00:00:00 [id number] autoEComm erce [address] [facility] [address] [place] [address] 2 11/01/2013 00:00:00 [id number] autoEComm erce [address] [facility] [address] [place] [address] 2 01/08/2014 00:00:00 [id number] autoEComm erce [address] [facility] [address] [place] [address] 2 01/29/2014 00:00:00 [id number] autoEComm erce [address] [place] [address] 2 01/29/2014 00:00:00 [id number] autoEComm erce [address] [place] [address] 2 01/29/2014 00:00:00 [id number] autoEComm erce [address] [facility],[address] [place] [address] 2 11/18/2011 00:00:00 [id number] autoEComm erce [address] [place] [address] 2 11/18/2011 00:00:00 [id number] autoEComm erce [address] [place] [address] 2 11/18/2011 00:00:00 [id number] auto[employer]Comm erce [address] [place] [address] 2 04/27/2012 00:00:00 [id number] autoEComm erce [address] [place] [address] 2 09/05/2012 00:00:00 [id number] autoEComm erce [address] [facility] [address] [place] [address] 09/05/2012 00:00:00 [id number] autoEComm erce [address] [facility] [address] [place] [address] 2 09/05/2012 00:00:00 [id number] autoEComm erce [address] [facility] [address] [place] [address] 11/18/2006 00:00:00 [id number] autoEComm erce [address] [facility] [address] [place] [address] 2 10/24/2012 00:00:00 [id number] autoEComm erce [address] [facility],[address] [place] [address] 10/24/2012 00:00:00 [id number] autoEComm erce [address] [facility] [address] [place] [address] 2 10/24/2012 00:00:00 [id number] autoEComm erce [address] [place] [address] 2 01/30/2013 00:00:00 [id number] autoEComm erce [address] [facility] [address] [place] [address] 2 01/30/2013 00:00:00 [id number] autoEComm erce [address] [place] [address] 2 01/30/2013 00:00:00 [id number] autoEComm erce [address] [place] [address] 12/05/2012 00:00:00 [id number] autoEComm erce [address] [place] [address] 07/16/2009 00:00:00 [id number] auto[facility]Comm erce [address] [place] [address] 2 07/16/2009 00:00:00 [id number] autoEComm erce [address] [facility] [address] [place] [address] 2 07/16/2009 00:00:00 [id number] autoEComm erce [address] [facility] [address] [place] [address] 2 04/13/2010 00:00:00 [id number] autoEComm erce [address] [facility] [address] [place] [address] 2 06/19/2013 00:00:00 [id number] autoEComm erce [address] [facility],[address] [place] [address] 06/19/2013 00:00:00 [id number] autoEComm erce [address] [facility] [address] [place] [address] 2 01/19/2011 00:00:00 [id number] autoEComm erce [address] [facility],[address] [place] [address] 01/19/2011 00:00:00 [id number] autoEComm erce [address] [facility],[address] [place] [address] 2 11/09/2006 00:00:00 [id number] autoEComm erce [address] [facility] [address] [place] [address] 2 11/09/2006 00:00:00 [id number] autoEComm erce [address] [facility],[address] [place] [address] 2 01/13/2009 00:00:00 [id number] autoEComm erce [address] [place] [address] 2 01/13/2009 00:00:00 [id number] autoEComm erce [address] [place] [address] 2 01/13/2009 00:00:00 [id number] autoEComm erce [address] [facility] [address] [place] [address] 2 01/13/2009 00:00:00 [id number] autoEComm erce [address] [place] [address] 07/27/2012 00:00:00 [id number] autoEComm erce [address] [facility] [address] [place] [address] 2 07/27/2012 00:00:00 [id number] autoEComm erce [address] [facility],[address] [place] [address] 2 07/27/2012 00:00:00 [id number] autoEComm erce [address] [facility] [address] [place] [address] 2 07/27/2012 00:00:00 [id number] autoEComm erce [address] [facility] [address] [place] [address] 04/12/2012 00:00:00 [id number] autoEComm erce [address] [facility],[address] [place] [address] 04/12/2012 00:00:00 [id number] autoEComm erce [address] [facility],[address] [place] [address] 2 04/12/2012 00:00:00 [id number] autoEComm erce [address] [facility],[address] [place] [address] 2 09/20/2008 00:00:00 [id number] autoEComm erce [address] [facility],[address] [place] [address] 2 09/20/2008 00:00:00 [id number] Shukri Zamorano Main Office [address] [place] [address] 04/30/2014 10:29:46 04/30/2014 11:24:38 Type 2 diabetes mellitus 53298785 Impotence of organic origin 710737228 Pure hypercholesterolemia 961957685 Essential hypertension 15559599 [id number] Roseann Gilliam Main Office [address] [address] [place] [address] 06/27/2014 13:02:39 06/27/2014 13:51:35 Allergic rhinitis 86471507 Pt c/o runny nose, nasal itching, itchy, watery eyes, throat itching, PND x 1 days. Sx likely related to alergic rhinitis ad he had the fan on last night. Continue current treatment with flonase, alaway, zyrtec D for not more than 5 days for congestion , stay well hydrated. If develop fever, chills, cough, purulent nasal discharge, sinus pain please return. Essential hypertension 09753422 Type 2 rosalina betes mellitus without complication [id number] Main Office [address] [address] [place] [address] 07/30/2014 10:36:54 07/30/2014 11:31:51 Type 2 diabetes mellitus 03483735 Essential hypertension 03698910 Chronic as thmatic bronchitis 295756759 Obstructiv e sleep apnea syndrome 22824331 [id number] Minna Armas Main Office [address] [address] [place] [address] 09/03/2014 13:19:53 09/03/2014 13:46:52 Acute pharyngitis 017242489 Influenza- like illness 68791847 symptoms < 48 hours, with medical risk factors, empiric tx with tamiflu [id number] Shukri Zamorano Main Office [address] [address] [place] [address] 09/16/2014 13:45:30 09/16/2014 14:38:02 Acute exacerbation of chronic asthmatic bronchitis 755012530 if he is not improving in 3 days, he will call his pulmonolog ist. Type 2 rosalina betes mellitus 37210932 last a1c was 6.2 so a short course of prednisone will be fine [id number] Angel Morales MD Main Office [address] [address] [place] [address] 10/03/2014 12:41:57 10/03/2014 13:22:38 Cramp in lower limb [id number] reassured patient that this was a benign event and no further w/u was needed. I gave him a handout on cramps and suggested that he stay hydrated and do stretching exercises to help stay flexible. [id number] Shukri Lona Main Office [address] [address] [place] [address] 11/07/2014 10:47:17 11/07/2014 12:01:20 Adult health examination 380707973 Administra tion of pneumococcal vaccine 83290702 Type 2 rosalina betes mellitus without complication 449355022 Lateral epicondylitis 634504068 Body mass index 25-29 - overweight 522164001 mildly overweight ; he will try to make some changes but doesn't want a referral. [id number] Main Office [address] [address] [place] [address] 02/06/2015 09:45:30 02/06/2015 10:25:10 Type 2 diabetes mellitus without complication 924364845 Benign pro static hyperplasia 697952996 Gastroesop hageal reflux disease 454164029 Impotence of organic origin 320154545 [id number] Natalia Richmond Main Office [address] [address] [place] [address] 05/08/2015 11:11:13 05/08/2015 11:59:32 Type 2 diabetes mellitus 07751416 E11.9 he will hold his metformin and we will recheck his A1C in 3 months. Pure hypercholesterolemia 250816727 E78.0 Ex-smoker 2751672 Z87.89 1 Malignant tumor of prostate 524531330 C61 [id number] Angel Morales MD Main Office [address] [address] [place] [address] 06/27/2015 13:44:59 06/27/2015 14:41:57 Lightheadedness 399121568 R42 I explained to him that these episodes were unlikely to be diabetes related and they certainly were not likely to be from low sugars since he is not taking any sugar-lowe ring meds. It's possible that he was dehydrated and the lightheade dness started with exercise. They may have also been postural hypotensio n. He will stay off his diabetes meds and return here in 2 months to have his A1C rechecked. [id number] Angel Morales MD Main Office [address] [place] [address] 07/16/2015 13:58:00 07/16/2015 15:09:03 Knee pain 14144655 M25.562 Possible meniscus problem give the location and his symptoms but must also consider gout given the abruptness of his symptoms. Will treat with NSAIDs and he will keep his appointmen t with [facility] for next week. [id number] Angel Morales MD Main Office [address] [place] [address] 08/12/2015 10:27:25 08/12/2015 11:23:51 Type 2 diabetes mellitus 58107102 E11.9 He has been off metformin for 3 months and his A1C has remained normal. He is not on any meds for diabetes. We will recheck in 3 months. He was instructed to continue watching what he eats and drinks. Chronic ob structive pulmonary disease 35544352 J44.9 stable on current mgmt. Malignant tumor of prostate 228172718 C61 followe dby urology. Secondary erectile dysfunction 134927210 N52.8 [id number] Angel Morales MD Main Office [address] [address] 10/20/2015 13:15:19 10/20/2015 14:35:49 Congestion of nasal sinus 39704762 R09.81 pt has had 2 nasal surgeries. doubt sinus infection at this time since symptoms for only a few days [id number] Radha Navarro Main Office [address] [address] 11/11/2015 13:24:52 11/11/2015 14:20:32 Adult health examination 982912000 Z00.00 Administra tion of pneumococcal vaccine 45843924 Z23 Type 2 rosalina betes mellitus without complication 722739713 E11.9 well-contr olled off meds. Will recheck A1C in 3 months. Chronic as thmatic bronchitis 809226174 J44.9 Currently under good control; followed by Dr Fuentes. Advance di rective discussed with patient 669220005 Z71.89 [id number] Angel Morales MD Main Office [address] [address] [place] [address] 12/03/2015 15:44:37 12/03/2015 16:29:43 Cough 27756876 R05 secondary to allergies and PND. Will start an anti-hista mine and see him back in a few days and if cough persists we will consider starting prednisone . Allergic rhinitis 604595 04 J30.1 [id number] Angel Morales MD Main Office [address] [address] [place] [address] 12/08/2015 10:22:13 12/08/2015 11:25:51 Acute exacerbation of chronic asthmatic bronchitis 213660440 J44.1 he does not appear to need antibiotic s. His only symptom is the intermitte nt cough with some wheezing. [id number] Angel Morales MD Main Office [address] [place] [address] 02/10/2016 14:12:38 02/10/2016 15:07:04 Type 2 diabetes mellitus without complication 145766786 E11.9 well-contr olled off meds. Will recheck A1C in 3 months. His A1C has been increasing and is now at 6.8. He understand s that if it goes above 7.0 we will have to restart his meds. Essential hypertension 82713223 I10 good control w/current meds Pure hypercholesterolemia 719317453 E78.0 good control with current meds. [id number] Angel Morales MD Main Office [address] [place] [address] 04/29/2016 13:51:32 04/29/2016 15:13:58 Type 2 diabetes mellitus 77981609 E11.9 He has been off metformin for 6 months and has changed his diet. He has lost 10 lbs since his last visit and his A1C came down from 6.8 to 5.3. We will continue to monitor his sugar but he does not need to be checked until 6 months from now when he returns for his PE. Needs infl uenza immunization 322540288 Z23 Chronic ob structive pulmonary disease 67274648 J44.9 Stable on current inhlaers and followed by Dr Fuentes [id number] Angel Morales MD Main Office [address] [address] [place] [address] 05/25/2016 11:00:01 05/25/2016 12:00:47 Neuropathy due to diabetes mellitus 403429116 E11.40 His pains seem neuropathi c. Will start lyrica and see him back in 1 month for a reevaluati on. [id number] Angel Morales MD Main Office [address] [address] [place] [address] 06/09/2016 13:16:37 06/09/2016 14:26:46 Lightheadedness 698652015 R42 Syncope 722671974 R55 [id number] Angel Morales MD Main Office [address] [address] [place] [address] 06/24/2016 09:47:37 06/24/2016 10:39:13 Diabetic peripheral neuropathy 992594190 E11.40 Lyrica was not covered. He was given a script for cymbalta and will try that and f/u in a couple of months for his PE at which time we will reevaluate . [id number] Angel Morales MD Main Office [address] [address] [place] [address] 07/29/2016 13:25:03 07/29/2016 14:19:41 Pain in toe 757192066 M79.674 M79.675 Bilateral big toe pain does not sound to be a neuropathy and was not helped by cymbalta. His toe pain may be related to OA and may be exacerbate d by his bowling. He will try naprosyn on days that he gets the toe pain. Tremor 34226967 R25.1 secondary to cymbalta. Resolved once he stopped. [id number] Angel Morales MD Main Office [address] [address] [place] [address] 08/06/2016 12:33:03 08/06/2016 13:09:25 Acute pharyngitis 524333046 J02.9 Nasal congestion 5192936 0 R09.81 [id number] Angel Morales MD Main Office [address] [address] [place] [address] 11/11/2016 12:38:33 11/11/2016 13:53:01 Adult health examination 639067803 Z00.00 UTD with immunizati ons and colonoscop y. Diabetic p eripheral neuropathy 023169109 E11.40 Currently taking cymbalta and getting some help. Essential hypertension 53285426 I10 Good control; continue current mgmt. Hyperlipidemia 80827771 E78.5 Check fasting lipid level and continue current meds Disorder o f nervous system due to type 2 diabetes mellitus 358006233 E11.40 He has been off all meds for a while and has remained under good control. We will follow every 6 months for now. [id number] Radha Navarro Main Office [address] [address] [place] [address] 03/04/2017 10:31:33 03/04/2017 11:28:29 Influenza vaccine needed 5240189108 106 Z23 Diarrhea 55706051 R19.7 May be secondary to sweetener used in sugar-free ice cream and cookies. He will stop these for the week to see if there is an improvemen t in his symptoms. Irritable bowel syndrome 93163840 K58.9 His symptoms of lose stools may be secondary to IBS. He will make changes and we will review next week. [id number] Angel Morales MD Main Office [address] [address] [place] [address] 03/10/2017 10:44:57 03/10/2017 11:59:22 Chronic diarrhea 659190758 K52.9 He will hold his tamsulosin since this can cause diarrhea and continue with changes for IBS and f/u in 2 weeks. [id number] Radha Navarro Main Office [address] [address] [place] [address] 03/22/2017 12:48:44 03/22/2017 13:08:45 Diarrhea 94383396 R19.7 This has improved and he will restart his tamsulosin since he has been straining to urinate. He will call if he develops diarrhea again. Benign pro static hyperplasia 102265748 N40.1 he will restart his tamsulosin since he is having symptoms. [id number] Angel Morales MD Main Office [address] [facility] [address] [place] [address] 05/26/2017 11:08:36 05/26/2017 12:08:27 Essential hypertension 19778655 I10 Good control; continue current mgmt. Type 2 rosalina betes mellitus without complication 527672698 E11.9 Has been off all diabetes meds for more than a year and his A1C has remained normal. He continues to exercise regularly and also continues to lose weight. Chronic ob structive pulmonary disease 86496065 J44.9 He had an exacerbati on because of seasonal allergies and did not have the advair because of the cost. He was given samples of symbicort by Dr Escalona and will be working with someone at the [facility] to get an affordable inhaler thru his insurance. Malignant tumor of prostate 417258981 C[address] Valdovinos is monitoring his PSA. [id number] Stella todd Main Office [address] [address] [place] [address] 06/24/2017 13:17:54 06/24/2017 15:18:35 Upper respiratory infection 87571566 J06.9 Asthmatic bronchitis 405 534061 J45.909 Continue current inhalers . PT. is advise to use rescue inhaler 2-3 times daily with the spacer and if still with wheezing , start Medrol dose pack as directed. F/u 1-2 weeks if still symptomati c. [id number] Angel Morales MD Main Office [address] [address] [place] [address] 07/15/2017 10:56:44 07/15/2017 12:43:21 Chronic obstructive pulmonary disease 92306058 J44.9 Improved symptoms since the last visit with Medrol dose pack taken twice. Continue Advair 500-50 BID and rescue PRN. PT. will continue Flonase spray. F/u. as scheduled or sooner if symptoms worsen. [id number] Angel Morales MD Main Office [address] [address] [place] [address] 08/17/2017 14:24:49 08/17/2017 15:09:27 Essential hypertension 76367806 I10 Will stop lisinopril because of cough and start valsartan and return in 1 month. [id number] Angel Morales MD Main Office [address] [address] [place] [address] 09/28/2017 10:23:07 09/28/2017 11:42:46 Essential hypertension 92215183 I10 We will decrease his valsartan from 160 to 80 mg since his BP is running a little low. F/u in 3 weeks. Chronic cough 30662806 R 05 No clear etiology for this. Did 2 courses of prednisone w/o much help. He has a pulmonary f/u in a couple of months. [id number] Angel Morales MD Main Office [address] [address] [place] [address] 10/20/2017 10:29:38 10/20/2017 11:25:52 Cough 38596041 R05 This has not responded to multiple course of prednisone nor his inhalers. We will stop his flonase and try a different nasal steroid for a while. In addition he will start an anti-hista mine. His symptoms may be from allergic rhinitis and PND especially since they are more common in the am. Allergic rhinitis 185840 04 J30.1 [id number] Angel Morales MD Main Office [address] [place] [address] 11/15/2017 12:35:57 11/15/2017 14:09:04 Adult health examination 675369569 Z00.00 UTD with immunizati ons and colonoscop y (due again 2020) Chronic ob structive pulmonary disease 43568770 J44.[address] Fuentes and Dr Lewis. Gastroesop hageal reflux disease 748413702 K21.9 Malignant tumor of prostate 516151321 C[address] Valdovinos is monitoring his PSA. Essential hypertension 89604026 I10 BP under good control on reduced dose of valsartan at 80 mg. Congestion of nasal sinus 44531195 R09.81 Type 2 rosalina betes mellitus without complication 385240252 E11.9 Has been off all diabetes meds for more than a year and his A1C has remained normal. He continues to exercise regularly and also continues to lose weight. Hyperlipidemia 83370885 E78.5 Check fasting lipid level and continue current meds [id number] Angel Morales MD Main Office [address] [address] [place] [address] 12/15/2017 09:49:44 12/15/2017 11:14:48 Abdominal pain 09518589 R10.9 Possibly from movement of his mesh causing a pinching in the area. Doubt appendicit is because of normal appetite and gait and WBC is normal. But must r/o because of the location of his tenderness . [id number] Angel Morales MD Main Office [address] [address] [place] [address] 03/21/2018 12:36:46 03/21/2018 13:18:14 Chest wall pain 356456915 R07.89 Advised NSAIDs prn. Not concerned about heart disease. [id number] Angel Morales MD Main Office [address] [address] [place] [address] 05/02/2018 12:36:24 05/02/2018 13:28:39 Type 2 diabetes mellitus without complication 658066916 E11.9 Has been off all diabetes meds for about 3 years now and his A1C has remained normal. He continues to exercise regularly and to maintain his weight. Essential hypertension 16194155 I10 BP under good control on reduced dose of valsartan at 80 mg. Influenza vaccine needed 5151419963 106 Z23 Requires a tetanus booster 132651497 Z23 Chronic as thmatic bronchitis 800890465 J44.[address] Fuentes. Chronic ob structive pulmonary disease 72903270 J44.[address] Fuentes and Dr Lewis. [id number] Angel Morales MD Main Office [address] [address] [place] [address] 11/16/2018 12:55:37 11/16/2018 14:13:55 Adult health examination 608537325 Z00.00 UTD with immunizati ons and colonoscop y (due again 2020) Hyperlipidemia 15006877 E78.5 Check fasting lipid level and continue current meds Type 2 rosalina betes mellitus without complication 532050431 E11.9 Has been off all diabetes meds for about 3 years now and his A1C has remained normal. He continues to exercise regularly and to maintain his weight. Chronic as thmatic bronchitis 446303258 J44.[address] Fuentes. [id number] Angel Morales MD Main Office [address] [place] [address] 05/24/2019 09:26:58 05/24/2019 10:40:55 Essential hypertension 30846545 I10 Good control with current mgmt. Type 2 rosalina betes mellitus without complication 940364194 E11.9 Has been off all diabetes meds for more than 3 years now and his A1C has remained normal. He continues to exercise regularly and to maintain his weight. Chronic cough 51073649 R 05 No clear etiology for this. Did 2 courses of prednisone w/o much help. Seen by pulmonary, ent and allergists over the last year. [id number] Angel Morales MD Main Office [address] [address] [place] [address] 11/21/2019 08:49:01 11/21/2019 10:46:32 Essential hypertension 07323727 I10 Will increase his amlodipine from 5 to 10 mg daily. He will record his BP daily (different times) over the next week and we will recheck his BP next week. He may need a diuretic if BP still running high. [id number] Angel Morales MD Main Office [address] [place] [address] 11/27/2019 10:58:35 11/27/2019 13:58:02 Essential hypertension 56521432 I10 Will increase his amlodipine from 5 to 10 mg daily. He will record his BP daily (different times) over the next week and we will recheck his BP next week. He may need a diuretic if BP still running high. Chronic as thmatic bronchitis 616961126 J44.[address] Fuentes. Type 2 rosalina betes mellitus without complication 812408118 E11.9 Has been off all diabetes meds for more than 3 years now and his A1C has remained normal. He continues to exercise regularly and to maintain his weight. [id number] Angel Morales MD [facility] [address] [place] [address] 12/05/2019 08:12:27 12/05/2019 13:11:38 Cough 31940169 R05 This has not responded to multiple course of prednisone nor his inhalers. He was seen by ENT, felt checker and pulmonary and no etiology found. [place] to be neurogenic . Exposure t o viral disease 4286704162 06506 Z03.818 SOB and breathing has been worse than normal over the past week. Essential hypertension 65156251 I10 BP still running high. Will add a diuretic and see him back in 2 weeks. Gastroesop hageal reflux disease 906642137 K21.9 Instructed to increase his prilosec to twice a day which may help with his cough. [id number] Angel Morales MD [facility] [address] [place] [address] 12/19/2019 06:15:07 12/19/2019 10:30:45 Essential hypertension 34076358 I10 BP much improved. Will continue with amlodipine 10 mg, valsartan 160 mg and chlorthali done 25 mg. Check BMP. [id number] Angel Morales MD [facility] [address] [place] [address] [place] [address] 12/24/2019 13:06:04 12/25/2019 09:29:03 Acute pharyngitis 820787296 J02.9 Possibly secondary to PND from non-optima lly treated allergies. Allergic rhinitis 345181 04 J30.1 Will stop his flonase and try a different steroid nasal spray. He will call Dr Lewis if his symptoms persist. 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 He continues to exercise regularly and to maintain his weight. Cough 15329518 R05 Followed by pulmonary (Dr Fuentes) and scheduled for PFTs next month. [place] to be neurogenic . Essential hypertension 72619763 I10 Will continue with amlodipine 10 mg, valsartan 160 mg and chlorthali done 25 mg. Check BMP. [id number] Angel Morales MD Main Office [address] [facility] [address] [place] [address] 03/24/2020 13:11:26 03/24/2020 13:38:20 [id number] Angel Morales MD Main Office [address] [facility] [address] [place] [address] 03/27/2020 13:59:50 03/27/2020 15:36:21 Community acquired pneumonia 750047371 J18.9 Complete abx tomorrow Sepsis 81123319 A41.9 Back to baseline Chronic cough 06189425 R 05 No clear etiology for this. Did 2 courses of prednisone w/o much help. Seen by pulmonary, ent and allergists over the last year. Has a telehealth appointmen t tomorrow with a new provider. [id number] Angel Morales MD Main Office [address] [address] [place] [address] 05/15/2020 14:30:51 05/15/2020 15:26:11 Renal disorder due to type 2 diabetes mellitus 408527481 E11.21 Has been off all diabetes meds for many years now and his A1C has remained normal. He continues to exercise regularly and to maintain his weight. Allergic rhinitis 692773 04 J30.1 Under good control with current mgmt. Chronic ob structive pulmonary disease 49367353 J44.[address] Fuentes and Dr Lewis. Essential hypertension 69511618 I10 Will continue with amlodipine 10 mg, valsartan 160 mg and chlorthali done 25 mg. [id number] [facility] [address] [place] [address] 08/18/2020 14:47:55 08/21/2020 08:30:17 Pain of right wrist 3635381281 94218 M25.531 maybe tendonitis by hx, refer to hand ortho for eval. [id number] Angel Morales MD Main Office [address] [facility] [address] [place] [address] 11/11/2020 13:05:35 11/11/2020 13:42:34 Type 2 diabetes mellitus without complication 030683765 E11.9 Has been off all diabetes meds for many years (since 2014) but his A1C has been slowly increasing and is now at 6.9. He will intensify his lifestyle changes and we will check again in 3 months. Essential hypertension 26210601 I10 Will continue with amlodipine 10 mg, valsartan 160 mg and chlorthali done 25 mg. Good control. Chronic ob structive pulmonary disease 66849270 J44.[address] Fuentes and Dr Lewis. Hyperlipidemia 28340076 E78.5 Check fasting lipid level and continue current meds [id number] Angel Morales MD Main Office [address] [place] [address] 12/04/2020 11:05:19 12/04/2020 12:07:09 Sprain of left ankle 1656716641 1626651 S93.402A Handout given with exercises. If no improvemen t will refer to ortho. [id number] Mana Echeverria Main Office [address] [place] [address] [place] [address] 02/25/2021 13:37:36 02/27/2021 07:36:33 [id number] Mana Echeverria Main Office [address] [place] [address] 03/06/2021 10:26:18 03/06/2021 12:27:04 Pneumonia 644247414 J18.9 Pt is doing well clinically , much improved. Check chest xray in a month to assess healing. Labs today for followup. Rest, hydration. Pt seems to be independen t, has family nearby and VNA does not appears to be needed at this time. Call if any recurrence Followup with pulmonary and felt checker as planned. Retention of urine 32303 4002 R33.9 due to retention in hospital, urology referral recommende d. Pt agrees to appt, no further sx of retention since home. Pt is on tamsulosin , oxybutnin and finasterid e from urology, advised to discuss meds with provider he seesl Allergic rhinitis 344543 04 J30.9 Followed by felt checker, will get immune testing through his office, confirmed myself with Molly from allergy office. Chronic as thmatic bronchitis 796212687 J44.[address] Fuentes Essential hypertension 60404246 I10 BP low today, will hold chlorthali done and recheck BP at upcoming appt with Dr Castaneda 03/18/21 [id number] Angel Morales MD Main Office [address] [address] [place] [address] 03/18/2021 13:07:10 03/18/2021 14:31:16 Adult health examination 599821600 Z00.00 UTD with immunizati ons and colonoscop y (due again 2020) Type 2 rosalina betes mellitus without complication 926595903 E11.9 Has been off all diabetes meds for many years (since 2014) but his A1C has been slowly increasing and is now at 6.9. He will intensify his lifestyle changes and we will check again in 3 months. Essential hypertension 27200407 I10 Will continue with amlodipine 10 mg and valsartan 160 mg and discontinu e the chlorthali done since his BP is good w/o it. Good control. Varicella vaccination 68 951346 Z23 Screening for malignant neoplasm of colon 104665172 Z12.11 [id number] Angel Morales MD Main Office [address] [place] [address] 06/17/2021 12:29:58 06/17/2021 13:16:03 Type 2 diabetes mellitus without complication 392636794 E11.9 Has been off all diabetes meds for many years (since 2014. His A1C starting increasing and went to a high of 6.9 7 months ago but has since come down to 6.1 with lifestyle changes. No meds needed. Continue to monitor. Allergic rhinitis 274147 04 J30.9 Under good control with current mgmt. Chronic ob structive pulmonary disease 79149125 J44.[address] Fuentes and Dr Lewis. Essential hypertension 86197857 I10 Will continue with amlodipine 10 mg and valsartan 160 mg . He discontinu ed his diuretic. Good control. [id number] Angel Morales MD Main Office [address] [place] [address] 10/06/2021 15:41:52 10/06/2021 16:24:11 Neck pain 34325672 M54.2 Advised heat on the area. If no improvemen t we will do a PT referral. [id number] Angel Morales MD Main Office [address] [place] [address] 10/15/2021 10:52:34 10/15/2021 11:27:14 Type 2 diabetes mellitus without complication 475766584 E11.9 Has been off all diabetes meds for many years (since 2014. His A1C is currently normal. We will continue to follow twice a year. Chronic ob structive pulmonary disease 16794213 J44.[address] Fuentes and Dr Lewis. Under good control. Essential hypertension 26170317 I10 Will continue with amlodipine 10 mg and valsartan 160 mg . He discontinu ed his diuretic. Good control. Hyperlipidemia 07868213 E78.5 Check fasting lipid level next appointmen t and continue current meds. LDL at goal. [id number] Angel Morales MD [facility] [address] [address] [place] [address] 11/26/2021 16:56:32 11/27/2021 09:22:25 Fever 731248633 R50.9 I advised that he take a COVID test. Abdominal pain 74342727 R10.9 This may be diverticul its given the pain, lack of appetite and fever. He will go to an to get evaluated. [id number] Mana Echeverria Main Office [address] [address] [address] [facility] [place] [address] 12/14/2021 13:30:57 12/14/2021 15:05:24 Acute exacerbation of chronic asthmatic bronchitis 279801652 J44.1 stable, has pulmonary followup Gastroesop hageal reflux disease 037197797 K21.9 has colon appt in April, will see if egd can be added Recurrent pneumonia 0947 97532 J18.9 Pt has been admitted at least 2 times in the past year for breathing issues. Gets better in between exacerbati on. Pt has upcoming appt with Dr Leo pulmonolog ist. Due to repeat cxr for pneumonia, will try to get CT approved as recurrent. [id number] Angel Morales MD Main Office [address] [facility] [address] [place] [address] 01/14/2022 11:30:05 01/14/2022 12:03:16 Asthma 924688230 J45.40 Some relief from inhalers but symptoms are brought on by mold in his apartment. Allergic rhinitis 115878 04 J30.9 Some help from current mgmt. Allergy to mold 08264909 3 Z88.8 He was advised to move since this is compromisi ng his breathing and is a contributi ng factor to his 3 episodes of pneumonia requiring admission and abx over the past year. [id number] Angel Morales MD Main Office [address] [facility] [address] [place] [address] 03/22/2022 12:48:09 03/22/2022 14:00:01 Adult health examination 038444288 Z00.00 UTD with immunizati ons including COVID w/booster, tetanus and pneumonia. He had one shingrix and is due for a second. His last colonoscop y was February [address] Salvador and he is scheduled at [facility] to have his next one. Screening for malignant neoplasm of colon [id number] Z12.11 Type 2 rosalina betes mellitus without complication [id number] E11.9 Has been off all diabetes meds for many years (since 2014. His A1C is currently normal. We will continue to follow twice a year. He is due for an eye exam. Essential hypertension 96443470 I10 Will continue with amlodipine 10 mg and valsartan 160 mg . He discontinu ed his diuretic. Good control. Chronic ob structive pulmonary disease 74559011 J44.[address] Leo. Under good control. Carcinoma of prostate [address] Valdovinos. Active surveillan ce. [id number] Sung Chaudhari MD Main Office [address] [facility] [address] [facility] [place] [address] 05/20/2022 10:22:35 05/20/2022 11:39:15 Screening for malignant neoplasm of colon 955054596 Z12.11 - incomplete prep when patient had colonoscop y on 05/10- pt will need to have repeat done in 6 months, sometime in October 2021- results explained and reviewed with patient Diverticul ar disease of colon 740556165 K57.30 - noted to be on colonoscop y- results explained to patient- pt is not currently having any symptoms of diverticul itis Asthma 786793241 J45.40 - wheezing on exam, not a new finding- pt not currently in exacerbati on- pt has been using his albuterol inhaler 2 puff as needed for SOB- c/w Advair 1 puff Q12HRS, ellipta 1 puff QD and montelukas t 10mg- 07/10 will be seen by pulmonolog ist [id number] Angel Morales MD Main Office [address] [facility] [address] [facility] [place] [address] 10/06/2022 13:18:22 10/06/2022 14:22:04 Type 2 diabetes mellitus without complication [id number] E11.9 Has been off all diabetes meds for many years (since 2014. His A1C is currently normal. We will continue to follow twice a year. He is due for an eye exam. Essential hypertension 01951777 I10 Will continue with amlodipine 10 mg and valsartan 160 mg . He discontinu ed his diuretic. Good control. Moderate p ersistent asthma 288789131 J45.[address] Fuentes Sore throat 984246884 J0 2.9 May be secondary to PND. COVID test was negative. [id number] Angel Morales MD Main Office [address] [facility] [address] [place] [address] 10/19/2022 10:42:58 10/19/2022 11:40:23 Sore throat 967031738 J02.9 May be secondary to PND. Strep, flu and COVID tests were negative. Fever 327926796 R50.9 I advised that he continue to test himself for COVID and to take an NSAID for the fever and muscle aches. He was treated for pneumonia last month so will check CXR again. [id number] Mana Echeverria Main Office [address] [facility] [address] [facility] [place] [address] 11/15/2022 14:08:28 11/15/2022 15:44:19 Constipation 00376929 K59.00 Increase fluid intake to 6-8 glasses a day, increase fresh fruits and vegetables , whole grains. Increase exercise. Can try miralax 1 capuful daily until constipati on better then use prn. Call if any abdominal pain, bleeding or not improving. Labs today to rule out other conditions . Abdominal bloating 87067 9008 R14.0 xray to rule out SBO vs constipati on. [id number] Angel Morales MD Main Office [address] [place] [address] 01/12/2023 12:35:25 01/12/2023 13:13:53 Type 2 diabetes mellitus without complication 714604803 E11.9 We recently restarted his metformin 500 twice a day because his A1C increased presumably secondary to weight gain. Essential hypertension 25900950 I10 Will continue with amlodipine 10 mg and valsartan 160 mg . He discontinu ed his diuretic. Good control. [id number] Mana Echeverria Main Office [address] [place] [address] 02/04/2023 14:37:49 02/04/2023 16:28:11 Lightheadedness 386006345 R42 EKG without acute findings, will do labs today or tomorrow. US to rule out carotid stenosis. Get up slowly with position change, keep hydrated, call or ED if worsening. Consider cardiology evaluation if persistent . [id number] Angel Morales MD Main Office [address] [place] [address] 04/07/2023 10:17:28 04/07/2023 11:19:20 Adult health examination 789895512 Z00.00 UTD with immunizati ons including COVID w/booster, tetanus and pneumonia. He had one shingrix and is due for a second. His last colonoscop y was October 2022 and due to age and lack of polyps this was his last colonoscop y. Diabetic p eripheral neuropathy 730142648 E11.40 Currently taking cymbalta and getting some help. Asthma 443205351 J45.90 9 Has been doing well w/o any symptoms. C/w inhalers and using them as prescribed . Carcinoma of prostate [address] Valdovinos. Active surveillan ce. Last PSA was 1.1. Essential hypertension 96828822 I10 Will continue with amlodipine 10 mg and valsartan 160 mg . He discontinu ed his diuretic. Good control. Hyperlipidemia 76278715 E78.5 Continue current meds. LDL at goal. Fear of falling 38956939 4 F40.248 I gave him info on the Fall Prevention Program and he will call for an appointmen t. Advance care planning 71 3381928 Z71.89 Discussed MOLST and HCP forms. [id number] Angel Morales MD Main Office [address] [place] [address] 04/14/2023 10:41:16 04/14/2023 11:35:35 Constipation 71425666 K59.00 He has been using OTC colace which helps and would like a script. Dyspnea 299873859 R06.00 This has continued despite being on multiple inhalers and a course of prednisone . This may be a progressio n of his COPD. Will also do a BNP to r/o CHF. A chest x-ray is not needed since this has been done recently. I will cortext Dr Fuentes to see if a change in inhalers will help. [id number] Grabiel Kaplan PA-C Main Office [address] [place] [address] 05/11/2023 13:33:46 05/11/2023 14:20:20 Skin lesion 83673462 L98.9 will get derm eval to r/o malignancy --- - has several lesions on back and lesion on L ear that likely need biopsy [id number] Vivienne Hwang MA Main Office [address] [address] 06/23/2023 10:16:10 06/23/2023 10:50:35 Chronic cough 36641309 R05.3 -has a pulmonolog ist and was told there was nothing to be done for it -x8 years of a cough-no symptoms of an illness, no SOB, or chest pain-is on advair, albuterol, and incruse-pt is seeking an antibiotic - however it was discussed that there's no indication as there is no signs/symp toms of a bacterial infection- will order xray per pt request for any infectious process-wi ll have pt trial benzonatat e [id number] Angel Morales MD Main Office [address] [place] [address] 07/13/2023 11:02:23 07/13/2023 12:07:45 Type 2 diabetes mellitus without complication 200970573 E11.9 We restarted his metformin 500 twice a day in September 2022 because his A1C increased presumably secondary to weight gain. He is tolerating the metformin well and his A1C is very good at 6.2. Chronic cough 78104520 R 05.3 This is probably from chronic bronchitis and intermitte nt asthma exacerbati ons. Exacerbati on of intermittent asthma 555369113 J45.21 [id number] Angel Morales MD Main Office [address] [place] [address] 09/21/2023 09:09:11 09/21/2023 09:45:59 Skin lesion 25584928 L98.9 This seems to be resolving and no further w/u needed. We discussed a derm appointmen t but he would like to hold off on this. Chronic ob structive pulmonary disease 18233508 J44.[address] Reyes. He is controlled with meds but finds it increasing difficult to work any distance w/o stopping to rest. We will look into getting him a handicappe rinku romero. [id number] Angel Morales MD Main Office [address] [place] [address] 12/14/2023 13:32:22 12/14/2023 14:22:06 Type 2 diabetes mellitus without complication 150003615 E11.9 We restarted his metformin 500 twice a day in September 2022 because his A1C increased presumably secondary to weight gain. He is tolerating the metformin well and his A1C increased from 6.2 to 7.0. No changes in meds. He will work on lifestyle changes. Anemia 764120028 D64.9 High MCV so possible B12 deficiency . May also be ACD with a high MCV from his metformin. Doubt iron deficiency since would not expect an elevated MCV. Asthma 674860986 J45.90 9 Using inhalers and followed by pulmonary. [id number] Angel Morales MD Main Office [address] [address] [address] [facility] [place] [address] 12/29/2023 08:40:31 12/29/2023 09:10:16 Essential hypertension 14719427 I10 Will continue with amlodipine 10 mg and valsartan 160 mg . He discontinu ed his diuretic. Good control. Chronic cough 86792183 R 05.3 Multifacto rial caused by asthma, COPD and exposure to mold in his apartment. [id number] Angel Morales MD Main Office [address] [address] [place] [address] 03/15/2024 12:35:21 03/15/2024 13:19:35 Type 2 diabetes mellitus without complication 379684985 E11.9 We restarted his metformin 500 twice a day in September 2022 because his A1C increased presumably secondary to weight gain. He is tolerating the metformin well but his A1C increased from 7.0 to 8.0. He will add jardiance to his regimen at his request. This however may not be possible since the program states that the cost is over $400 for 90 pills. If this is the case he will not fill it and will instead increase his metformin to 1000 mg twice a day. Essential hypertension 26372411 I10 Will continue with amlodipine 10 mg and valsartan 160 mg . He discontinu ed his diuretic. Good control. [id number] Angel Morales MD Main Office [address] [place] [address] 04/27/2024 13:07:05 04/27/2024 14:50:18 Adult health examination 138642648 Z00.00 UTD with immunizati ons including COVID w/booster, tetanus and pneumonia. He had one shingrix and is due for a second. His last colonoscop y was October 2022 and due to age and lack of polyps this was his last colonoscop y. Influenza vaccine needed [id number] 106 Z23 65 YEARS AND OLDER Benign pro static hyperplasia 841612970 N40.0 Cardiomyopathy 77125398 I42.9 Chronic ob structive pulmonary disease 74230071 J44.[address] Reyes. He is controlled with meds but finds it increasing difficult to work any distance w/o stopping to rest. We will look into getting him a handicappe rinku vazquezjoanie. Essential hypertension 66604818 I10 Will continue with amlodipine 10 mg and valsartan 160 mg . He discontinu ed his diuretic. Good control. Type 2 rosalina betes mellitus without complication 876170935 E11.9 We restarted his metformin 500 twice a day in September 2022 because his A1C increased presumably secondary to weight gain. He is tolerating the metformin well but his A1C increased from 7.0 to 8.0. He will add jardiance to his regimen at his request. This however may not be possible since the program states that the cost is over $400 for 90 pills. If this is the case he will not fill it and will instead increase his metformin to 1000 mg twice a day. [id number] HERNAN CARTWRIGHT Main Office [address] [facility] [address] [place] [address] 05/23/2024 13:49:01 05/23/2024 14:09:09 Type 2 diabetes mellitus without complication 335298280 E11.9 -has f/u in 3 weeks with AC-A1c of 8, 03/15/2024 Acute kidney injury 1466 9001 N17.9 Cr stable with IVF in ED-suspici ous of CKD progressio n, not SUHA-will repeat CMP in 1 week Anemia 113671059 D64.9 -will recheck CBC-had no signs/symp toms of bleeding in ED Benign pro static hyperplasia 364945404 N40.0 -c/w current regimen Neuropathy 079088409 G62 .9 c/w gabapentin Essential hypertension 38723572 I10 -c/w current regimen-BP in office at goal Obstructiv e sleep apnea syndrome 36450193 G47.33 -has CPAP at home Cerebrovas cular accident 425121353 I63.9 reviewed hospital documentat ion-sympto ms of right upper extremity weakness, unsteadine ss, and AMS improved while in the ED-MRI, CT, and CTA were all unremarkab le-since discharge, pt denies of any neuro symptoms-w as cleared by physical therapy-st stephany gait, strength and tone WNL [id number] Angel Morales MD Main Office [address] [facility] [address] [place] [address] 06/13/2024 13:05:26 06/13/2024 14:14:53 Type 2 diabetes mellitus without complication 418916033 E11.9 We restarted his metformin 500 twice a day in September 2022 because his A1C increased presumably secondary to weight gain. He is tolerating the metformin well but his A1C increased from 7.0 to 8.0. He then added jardiance to his regimen at his request which he is tolerating well. His A1C has now come down to 6.3. Essential hypertension 95055993 I10 BP has been running low and he has been symptomati c. He will continue with the valsartan but will stop his amlodipine and we will check his BP again in 4 weeks. [id number] Angel Morales MD Main Office [address] [place] [address] 07/13/2024 12:41:22 07/13/2024 13:22:02 Asthma 137598183 J45.909 Using inhalers and followed by pulmonary. Essential hypertension 07570829 I10 He will continue with the valsartan but stopped his amlodipine one month ago because of low bllod pressure readings and some low BP symptoms.. [id number] HERNAN CARTWRIGHT Main Office [address] [place] [address] 07/30/2024 10:11:03 07/30/2024 11:14:00 COVID-19 248839656 U07.1 -tested positive at home yesterday- symptoms of cough, congestion , and sore throat from 07/21 improved significan tly-still endorses some cough and congestion -denies of any SOB, chest pain, GI symptoms-d iscussed importance of stopping simvastati n while on paxlovid course->pt understand s-discusse d to continue with conservati ve measuremen ts [id number] Angel Morales MD Main Office [address] [place] [address] [place] [address] 08/11/2024 09:39:59 08/11/2024 10:06:18 Acute pharyngitis 004823884 J02.9 Possibly secondary to PND from non-optima lly treated allergies. Strep was negative. He will continue with fluticason e and I will add an antihistam ine. [id number] Angel Morales MD Main Office [address] [facility] [place] [address] 09/11/2024 13:59:20 09/11/2024 14:39:25 Pain of left hand 6498075689 05631 M79.642 Possible tenosynovi tis vs CTS. 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 He would like to see a different neurologis t to discuss options. Health Concerns Section Related Observation LastModified by Organization Detai ls LastModified Time None Recorded Concern Status LastModified by Organization Details LastModified Time None Recorded Advance Directives Directive Y: Payers Encounter Date Sequence Insurance Name Policy Number Policy Holcomb Covered Member ID Holcomb Member ID Guarantor Name 06/13/2024 2 [place] Shad Alanis [id number] Shad Alanis 06/13/2024 1 [facility] (MEDICARE REPLACEMENT/A DVANTAGE - POS) [id number] Shad Alanis [id number] Shad Alanis 07/13/2024 2 [place] Shad Alanis [id number] Shad Alanis 07/13/2024 1 [facility] (MEDICARE REPLACEMENT/A DVANTAGE - POS) [id number] Shad Alanis [id number] Shad Alanis 07/30/2024 2 [place] Shad Alanis [id number] Shad Alanis 07/30/2024 1 [facility] (MEDICARE REPLACEMENT/A DVANTAGE - POS) [id number] Shad Alanis [id number] Shad Alanis 08/11/2024 2 [place] Shad Alanis [id number] Shad Alanis 08/11/2024 1 [facility] (MEDICARE REPLACEMENT/A DVANTAGE - POS) [id number] Shad Alanis [id number] Shad Alanis 09/11/2024 2 [place] Shad Alanis [id number] Shad Alanis 09/11/2024 1 [facility] (MEDICARE REPLACEMENT/A DVANTAGE - POS) [id number] Eliazar Alanis [id number] Eliazar Alanis Notes Date Note Type Note Provider Name and Address Organization Details Recorded Time 06/13/2024 text/html Hypertension F/UReported bypatient.Associat ed Symptoms:no chest pain; no shortness of breath; no palpitations; no edema; no calf pain with exertion;dizziness ;lightheadedness; he gets light headed especially when changing position Lifestyle:regular exercise (he walks for exercise); limiting/avoiding salt Medications:taking medications as directed; no side effects from medicationNotes:Santosh rambo amlodipine 10 mg and valsartan 160 mg. His diabetes was getting worse despite taking metformin 500 mg twice a day and trying to watch his diet. His A1C went from 7.0 to 8.0 in 3 months. His weight hadn't changed. He was concerned about taking metformin because his cleaning lady said that metformin can hurt the liver. I assured him that it was safe to take and that we monitor his liver functions regularly. We also added jardiance to his regimen 3 months ago and he has been tolerating this well. His A1C has come down to 6.3 in 3 months. Angel Morales MD [address] [address], [place], [address], [facility] 06/13/2024 18:10:58 07/13/2024 text/html Hypertension F/UReported bypatient.Associat ed Symptoms:no chest pain; no shortness of breath; no palpitations; no edema; no calf pain with exertion;dizziness ;lightheadedness; he gets light headed especially when changing position Lifestyle:regular exercise (he walks for exercise); limiting/avoiding salt Medications:taking medications as directed; no side effects from medicationNotes:St opped his amlodipine and now taking only losartan. Good control. His asthma has been under good control and he is followed by Dr Reyes. Angel Morales MD [address] [address], [place], [address], [facility] [place] 07/13/2024 16:41:34 07/30/2024 text/html Eliazar is a 78yr old M who presents for a sore throat and positive covid. Reports of having a cough and sore throat on 07/21. Has been taking robitussin which provides significant relief. Since then, symptoms of sore throat, congestion, and cough and improved. Tested positive for covid yesterday. Reports to be doing well, denies of any SOB, chest pain. HERNAN CARTWRIGHT [address] [address], [place], [address], [facility] 07/30/2024 11:02:07 08/11/2024 text/html Throat PainReported bypatient.Location :bilateral Severity:moderate; hurts to swallow Duration:started 1 week(s) ago Onset/Timing:abrup t Alleviating Factors:cold medicine (with honey that was helping initially) Associated Symptoms:stress;dy sphagia Angel Morales MD [address] [address], [place], [address], [facility] 08/11/2024 12:37:19 09/11/2024 text/html Left forearm melanie n into his thumb for months getting worse. Sometimes when he picks things up he can't support it and drops it. Also has problems opening a bottle. He is right handed. Tried aleve w/o much help. Able to sleep w/o pain. He has pain everyday all day long. Also has trouble holding his phone in his left hand and typing with his right. He has a head tremor since 2016 and was seen by Dr Butler, neurology in 2017 and 2018. She was prescibed baclofen and magnesium w/o any help. She was ruled out for Parkinson's disease. The tremor was mild so she stopped going to her but now the tremor has increased and has difficulty watching TV at times. He has no known fhx of tremors. Angel Morales MD [address] [address], [place], [address], [facility] 09/11/2024 18:01:53
== END 2024-09-17 14:43 | disposition home or self-care (01) ==
PROVIDERS: PCP Internal Medicine; Visit Provider Hospitalist
DX: R91.8 Other nonspecific abnormal finding of lung field (principal); J47.9 Bronchiectasis, uncomplicated; J41.8 Mixed simple and mucopurulent chronic bronchitis
CPT/HCPCS: 99214

== ENCOUNTER → 2024-09-17 14:03 | Outpatient (BNVA) | payer MEDICARE, SELFPAY | PROVIDERS: PCP Internal Medicine; Visit Provider Hospitalist | DX: J47.9 Bronchiectasis, uncomplicated (principal); J41.8 Mixed simple and mucopurulent chronic bronchitis; R91.8 Other nonspecific abnormal finding of lung field; Z86.16 Personal history of COVID-19 | CPT/HCPCS: 99212 ==

== ENCOUNTER → 2024-09-20 14:02 | Outpatient (REF) | payer MEDICARE, MEDICAID, SELFPAY ==
--- NOTE | 2024-09-20 14:11 | ECG_ITS ---
Test Reason : copd Blood Pressure : */* mmHG Vent. Rate : 68 BPM Atrial Rate : 68 BPM P-R Int : 148 ms QRS Dur : 84 ms QT Int : 368 ms P-R-T Axes : 69 12 29 degrees QTcB Int : 391 ms Normal sinus rhythm Low voltage QRS Borderline ECG No previous ECGs available Referred By: Reynaldo Reyes Electronically Signed By: Hema Harvey
--- OUTSIDE RECORDS SUMMARY | 2024-09-20 17:07 | XMS_ITS | Clinical Summary ---
Author Organization [facility] ity Address [address] [place] [address] Care Team Providers Care Wreath Maker Name Role Phone Unavailable Primary Care Provider [...]
--- OUTSIDE RECORDS SUMMARY | 2024-09-20 17:07 | XMS_ITS | Clinical Summary ---
Author Organization [facility] Address [address] [place] [address] Care Team Providers Care Verification Manager Name Role Phone Amandeep Morales MD Primary Care Provider [phone] Allergies Active Allergy Reactions Criticality Noted Date [...] Group Subscriber ID Effective Dates Phone Address [facility] [id number] 2012-Jerrod peck [address] [facility] [address] [place] [address] O Care Teams Verification Manager Relationship Specialty Start Date End Date Amandeep Morales MD [facility] [address] [address] PCP - General Internal Medicine 11/18/17
--- OUTSIDE RECORDS SUMMARY | 2024-09-20 17:08 | XMS_ITS ---
[facility] Organization [facility] Address [address] [place] [address] Care Team Providers Care Wilderness Guide Name Role Phone Amandeep Morales MD Primary Care Provider Unav ailKaitlin Roberto Unavailable [phone] Jas Napier Unavailable [phone] Allergies Allergen (clinical drug ingredient) Drug/Non Drug [...] 05/04/2024 Encounters Encounter Location Date Provider Diagnosis [facility] [address] [address] 05/04/2024 Jas Napier Type 2 diabetes mellitus [...] Provider Name:Kaitlin saha, 11/16/2024 12:30:00 PM, [address] [facility], [place] [address], [place], [address], Procedure Notes * Category Sub-Category Detail Notes [...] as necessary. Patient chooses, no pharmaceutical tx (29749) Keratoma Treatment Parring or Cutting o f Benign Hyperkeratotic Lesion(s) 75199 (2-4 Lesions) - The Benign hyperkeratotic lesions, as described above were pared, and/or cut utilizing a sterile #15 blade, tissue nippers, and/or dremel Progress Notes * Eliazar ALANIS MDOB: 7 (78 yo M)Acc No.[id number]:05/04/2024 Progress Note Patient:?Eliazar ALANIS Provider:?Jas Napier DPM :1945???Age:78 Y???Sex:Male Chriss e:05/04/2024 Address:[address] [place] [address] Pcp:Amandeep Morales MD Subjective: * Chief Complaints: [...] Procedure:?[facility] Pneumonia [facility]13[facility]- swollen finger, pneumonia 09/2022 * Family History:?Mother: [...] ?Exercise: no. ?Marital status: . 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 * Medications:?TakingmetFORMIN HCl traMADol HCl Albuterol amLODIPine [...] 7.0 * Examination: ???Ophthalmology Referral: ?DIABETES EYE EXAM?Diabetic Retinopathy Screening:?No 04/2023?Dermatologic: ?SKIN FINDINGS:? Skin exam reveals Keratotic lesion(s) located at, Heel(s), B/L, Skin exam reveals Keratotic lesion(s) located at, Plantar, TA, T5.?General Examination: ?GENERAL APPEARANCE:?pleasant, alert, well nourished, well developed, well hydrated, with good attention to hygene/body habitus, and in no acute distress.?ORIENTED:?person,place, and time.?FOOT EXAM:?Lower Extremity Neurological Exam performed:?Yes ?Date?05/04/2024?Nails: ?NAILS are:?Elongated, overgrown, dystrophic, lytic, greater than [...] as necessary. Patient chooses, no pharmaceutical tx (29378).?Keratoma Treatment:?Parring or Cutting of Benign Hyperkeratotic Lesion(s)?94033 (2-4 Lesions) - The Benign hyperkeratotic lesions, [...] surgical procedures to prevent recurrence.? * Procedure Codes:?53271 DEBRI DE NAIL, 6 OR MORE, Modifiers: XS 02867 Avulsion Plate, Modifiers: T5 97639 TRIM SKIN LESIONS, 2 TO 4, Modifiers: XS 99080 X-RAY EXAM OF RIGHT FOOT 3V, Modifiers: [...] for a, Orthopedic Consult--pt to go to [facility] urgent care for evaluation of christopher knee pain after recent fall.?P.R.I.C.E.:?The patient was counseled on the use of P.R.I.C.E. and NSAIDS (if well tolerated) to aid in the recovery from their painful condition.? * Follow Up:?3 Months * Images: * Sign off status: Completed true * Provider:?Jas Napier DPM Date:? 024 Generated for Cecil davis/Kevin/Peter on:?09/20/2024 05:07 PM EST History and Physical Notes * HPI (History of Present Illness) Category Sub-Category Detail Notes Category Not es Painful Nails Pt States Last PCP Visit: Date:: 10/24/2023 Foot Pain Nature: swelling, sharp Location: Top, Outside, Forefo ot, Midfoot, RIGHT Duration: 3 days Onset: pt fell while [facility] 05/01/24 Course: worse Aggravated: any pressure, standi [...]
--- OUTSIDE RECORDS SUMMARY | 2024-09-20 17:08 | XMS_ITS | Continuity of Care Document ---
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 Anthony [facility] 11/20/2022 10:07:54 08/05/19 23 Echo transthoracic completed Paris Anthony [facility] 08/14/2022 09:02:45 07/15/20 22 radionuclide myocardial perfusion stress study completed Paris Anthony [facility] 07/29/2022 09:44:51 03/22/20 22 Diabetic Foot Exam (Monofilament) completed Amandeep Morales MD [address], [address], [facility] 03/22/2022 13:29:36 06/17/20 21 Diabetic Foot Exam (Monofilament) completed Amandeep Morales MD [address], [address], [facility] 06/17/2021 13:18:48 02/13/20 20 Diabetic Foot Exam (Monofilament) completed Amandeep Morales MD [address], [address], [facility] 02/13/2020 14:28:33 02/13/20 20 [facility]2020 14:13:49 11/17/19 19 [facility] 11/16[facility]2018 13:18:51 11/16/19 18 Mini-Cog Test completed Shukriadalid Zamorano [facility] 11/15/2017 13:11:37 11/12/19 17 Fall Risk Assessment [facility] 11/11/2016 13:13:36 11/12/19 17 Mini-Cog Test [facility] 11/11/2016 13:13:44 11/11/19 16 Fall [facility] Assessment [facility] 11/11/2015 13:45:04 11/11/19 16 Mini-Cog Test [facility] 11/11/2015 13:45:04 11/11/19 16 Advanced Care Planning completed Shukri Zamorano [facility] 11/11/2015 13:45:04 11/08/19 15 Fall Risk Assessment completed Shukri Zamorano [facility] 11/07/2014 11:19:15 11/08/19 15 Mini-Cog Test completed Shukri Zamornao [facility] 11/07/2014 11:19:15 04/04/20 14 Unlisted px dentalvlr strux completed Alesha friedman MA [facility] 05/02/2018 12:49:40 10/25/19 12 Hernia repair w/mesh completed Alesha friedman MA [facility] 12/14/2021 14:06:45 07/25/19 10 Knee Surgery completed Diane Gipson MA [facility] 07/16/2015 14:22:16 07/25/19 05 nasal polypectomy completed Alesha friedman MA [facility] 03/18/2021 13:33:16 07/25/18 96 arthroscopy of knee completed Alesha friedman MA [facility] 03/18/2021 13:33:50 07/25/18 63 Tonsillectomy completed Emilia Avelar MA [facility] 03/22/2022 12:56:19 repair of inguinal hernia completed Alesha friedman MA [facility] 03/18/2021 13:32:52 Imaging Results None recorded. Procedure Notes None recorded. Medical Equipment None Reported. Allergies Allergen ID Allergen Name Allergen Category Reaction Reaction Severity Criticality Documentation Date Start Date Code Code System Note Provider Name and Address Organization Details Recorded Time 84817 aspirin medicatio n Not available Not available Not available 02/05/2014 1191 RxNorm PAUL Pleitez [facility] 0 08:37:51 64099 Non-stero idal anti-infl ammatory agent (product) medicatio n Not available Not available Not available 02/05/2014 23035 005 SNOMED REACT ION: ABDOM INAL PAIN Amandeep fletcher MD [address], [place], [address], [facility] 5 15:03:35 32775 Substance with sulfonami de structure and antibacte rial mechanism of action (substanc e) medicatio n Not available Not available Not available 04/30/2014 63177 8003 SNOMED Not Available [facility] 4 03:47:23 20980 Cymbalta medicatio n Not available Not available Not available 07/29/2016 40314 4 RxNorm tremo r Amandeep fletcher MD [address] [facility] [address], [place], [address], [facility] 7 13:48:13 82326 Product containin g angiotens in-conver ting enzyme inhibitor (product) medicatio n cough Not available Not available 08/17/2017 89204 009 SNOMED Kaye Trujillo MA null, [facility] 1 12:49:20 46032 codeine medicatio n Not available Not available Not available 11/21/2019 2670 RxNorm Not Available [facility] 4 03:47:23 95297 aspirin medicatio n Not available Not available Not available 11/21/2019 1191 RxNorm Not Available [facility] 4 03:47:23 Medications Name Sig Start Date [...] 02/15 completed RECORDED 04/29/20 08 5:04PM BY AMANDEEP CHAMBERLAIN MD, MEDICATI ON AUTO-ELANA CTIVATIO N; [...] completed RECORDED 12/09/19 12 9:24AM BY TARAS MADSEN PA-C, MEDICATI ON AUTO-ELANA CTIVATIO N; Not [...] 420 gram oral solution TAKE DIRECTED BY GASTROIN TESTINAL 'S OFFICE 01/12 completed schedule d for end [...] 01/31 completed RECORDED 02/01/20 13 10:42AM BY AMANDEEP CHAMBERLAIN MD, ANNOTATI ON/ADDEN DUM; Not Available [...] DAILY active RECORDED 04/27/20 12 1:19PM BY AMANDEEP CHAMBERLAIN MD, ANNOTATI ON/ADDEN DUM; Not Available Not Available Not Available nystatin QID 09/27 completed RECORDED 09/28/19 09 7:20AM BY DENEEN MARTINEZ MD, MEDICATI ON AUTO-ELANA CTIVATIO N;SWISH AND SWALLOW QID DAILY UNTIL 48 HRS AFTER SXS RESOLVE Not Available Not Available Not Available Vicodin TID/PRN 12/05 completed RECORDED 12/06/19 13 2:39PM BY AMANDEEP CHAMBERLAIN MD, OFFICE VISIT;TH IS ORDER DISCONTI NUED PER MEDI-SPA N. Not Available Not Available Not Available Flomax 2007 active RECORDED 01/17/20 08 1:20PM BY AMANDEEP CHAMBERLAIN MD, ANNOTATI ON/ADDEN DUM; Not Available Not Available Not Available nebulizer and compresso r NEEDED 07/16 completed RECORDED 07/16/20 10 10:25AM BY PAUL BANKS, OFFICE VISIT; Not Available Not Available Not Available Zostavax (PF) 19,400 unit/0.65 mL subcutane ous suspensio n FELTON X 1 01/07 completed RECORDED 01/12/20 09 10:41AM BY AMANDEEP CHAMBERLAIN MD, MEDICATI ON AUTO-ELANA CTIVATIO N; Not Available Not Available Not Available Symbicort 160 mcg-4.5 mcg/actua tion HFA aerosol inhaler Inhale 2 puffs twice a day by inhalati on route. 05/24 completed Not Available Not Available Not Available Veramyst 27.5 mcg/actua tion nasal spray,nicol pension DAILY 10/25 completed RECORDED 10/26/19 10 8:23AM BY ALESHA NICHOLAS MA, OFFICE VISIT; Not Available Not Available Not Available Elastic Wrist Splint Support DIRECTED 03/31 completed RECORDED 03/31/20 07 10:35AM BY AMANDEEP CHAMBERLAIN MD, MEDICATI ON AUTO-ELANA CTIVATIO N;LEFT [...] DAILY active RECORDED 02/24/20 11 9:05AM BY AMANDEEP CHAMBERLAIN MD, ANNOTATI ON/ADDEN DUM; Not Available [...] 08/06 completed RECORDED 12/14/19 13 10:05AM BY AMANDEEP CHAMBERLAIN MD, MEDICATI ON AUTO-ELANA CTIVATIO N; [...] Not Available No t Available Fluzone High-Dose 2018- (PF) 180 mcg/0.5 mL intramusc ular syringe 05/24 completed Not Available Not Available Not Available Fluad Quad (65yr up)(PF) 60 mcg (15 mcg x 4)/0.5mL IM syringe PHARMACY ADMINIST ERED 05/15 completed Not Available Not Available Not [...] Details Last Updated DateTime 5 170.18 cm 27.1 kg/m2 31944.4 8 g 100 /min 95 % 95 % 98.1 [degF] 133 mm[Hg] 73 mm[Hg] Stefanie Wright MA [facility] 5 14:06:29 Social History Question Answer Notes LastModified by Organizat ion Details LastModified Time Tobacco Smoking Status Former Smoker 2 PPD PAUL Calderón [facility] 03/18/2021 13:52:06 Do You Have An Advance Directive? Yes Information not available 03/22/2022 What Is Your Level Of Alcohol Consumption? Occasional Information not available 03/22/2022 Is Blood Transfusion Acceptable In An Emergency? Yes [id number] Information not available 05/27/2020 What Is Your Level Of Caffeine Consumption? Occasional [id number] Information not available 05/27/2020 How Much Tobacco Do You Chew? None [id number] Information not available 05/27/2020 In The 14 [...] Or Recreational Drugs Have You Used? None [id number] Information not available 05/27/2020 Do You Or Have You Ever Used E-cigarettes Or Vape? 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 16+yearssince lastiandino Information not available 04/27/2024 Live Alone Or With Others? Alone Information not available 03/22/2022 Do You Take Precautions To Prevent Distracted Driving? Yes [email or web address] Information not available 11/11/2015 How Often Do You Need To Have Someone Help You When You Read Instructions, Pamphlets, Or Other Written Material From Your Doctor Or Pharmacy? Never Vital Therapieski Information not available 11/11/2015 Have You Served In The ? No Keycoopt Information not available 11/11/2016 Have You Or Anyone In Your Household Had Any Of The Following Symptoms In The Last 14 Days: Sore Throat, Cough, Chills, Body Aches For Unknown Reasons, Shortness Of Breath For Unknown Reasons, Loss Of Smell, Loss Of Taste, Fever At Or Greater Than 100 Degrees Fahrenheit? No Hoodinnultzki Information not available 02/13/2020 Are You Or Anyone In Your Household A Health Care Provider Or Emergency Responder? No Keycoopt Information not available 02/13/2020 To The Best Of Your Knowledge Have You Been In Close Proximity To Any Individual Who Tested Positive For COVID-19? No Keycoopt Information not available 02/13/2020 Have You Recently Traveled To A COVID-19 High Risk Area Or Gathering In The Last 10 Days? No Information not available 03/18/2021 What Was The Date Of Your Most Recent Tobacco Screening? 04/27/2024 Information not available 04/27/2024 How Many Children Do You Have? 5 4 Sons And 1 Daughter 4 GC [id number] Information not available 05/27/2020 What Is Your Current Pack Years? 30ormorepacky ears Information not available 03/22/2022 Do You Use Protection During Sex? No [id number] Information not available 05/27/2020 Difficulty Reading? No Information not available 03/22/2022 Do You Use Your Seat Belt Or Car Seat Routinely? Yes Information not available 03/22/2022 Seat Belts Used Routinely Yes Information not available 03/22/2022 Are You Sexually Active? Yes [id number] Information not available 05/27/2020 Smoke Alarm In [...] Or Have You Ever Used Smokeless Tobacco? [id number] Information not available 03/22/2022 How Much Tobacco Do You Smoke? No Information not available 03/22/2022 Do You Use Any Illicit Or Recreational Drugs? No Information not available 03/22/2022 Do You Use Sunscreen Routinely? No [id number] Information not available 05/27/2020 How Many Years [...] you able to care for yourself? Yes [id number] Information not available 05/27/2020 Do you have [...] Y Acid Reflux (GERD) Y Cancer Y High Cholesterol Y Hospitalizations Y Skin Problems Y Bladder Problems Y Diabetes Y Tuberculosis Y Asthma Y Allergies Y Immunizations Vaccine Type Date Status Note Provider Nam e and Address Organization Details Recorded Time Influenza, split virus, trivalent, preservative 7 completed Not Available [facility] 08/02/2023 03:47:28 Influenza, split virus, trivalent, preservative 8 completed Not Available [facility] 08/02/2023 03:47:28 Tdap 8 completed Not Available [facility] 08/02/2023 03:47:28 Influenza, split virus, trivalent, preservative 9 completed Not Available [facility] 08/02/2023 03:47:28 pneumococcal polysaccharide PPV23 0 completed Not Available [facility] 08/02/2023 03:47:28 Influenza, split virus, trivalent, preservative 0 completed Not Available [facility] 08/02/2023 03:47:28 Influenza, split virus, trivalent, preservative 1 completed Not Available [facility] 08/02/2023 03:47:28 Influenza, split virus, trivalent, preservative 2 completed Not Available [facility] 08/02/2023 03:47:28 Influenza, split virus, trivalent, preservative 4 completed Not Available [facility] 08/02/2023 03:47:28 Influenza, split virus, trivalent, preservative 5 completed Not Available [facility] 08/02/2023 03:47:28 Pneumococcal conjugate PCV 13 5 completed Not Available [facility] 08/11/2019 02:21:36 Influenza, high-dose, trivalent, PF 9 completed Not Available [facility] 08/02/2023 03:47:28 Influenza, split virus, trivalent, preservative 3 completed Not Available [facility] 08/02/2023 03:47:28 Influenza, split virus, trivalent, preservative 1 completed Not Available [facility] 08/02/2023 03:47:28 Influenza, split virus, trivalent, preservative 4 completed Not Available [facility] 08/02/2023 03:47:28 Influenza, adjuvanted, quadrivalent, PF 0 completed Not Available [facility] 08/02/2023 03:47:27 Influenza, high-dose, quadrivalent, PF 1 completed Not Available [facility] 08/02/2023 03:47:27 COVID-19, mRNA, LNP-S, PF, 30 mcg/0.3 mL dose 2 completed Not Available [facility] 08/02/2023 03:47:28 COVID-19, mRNA, LNP-S, PF, 100 mcg/0.5mL dose or 50 mcg/0.25mL dose 1 completed Not Available [facility] 08/02/2023 03:47:28 zoster recombinant 9 completed Not Available [facility] 08/02/2023 03:47:27 COVID-19, mRNA, LNP-S, PF, 100 mcg/0.5mL dose or 50 mcg/0.25mL dose 1 completed Not Available [facility] 08/02/2023 03:47:28 Influenza, high-dose, quadrivalent, PF 2 completed Not Available [facility] 08/02/2023 03:47:27 COVID-19, mRNA, LNP-S, bivalent, PF, 30 mcg/0.3 mL dose 2 completed Not Available [facility] 08/02/2023 03:47:28 COVID-19, mRNA, LNP-S, bivalent, PF, 30 mcg/0.3 mL dose 3 completed Not Available [facility] 08/02/2023 03:47:28 Tdap 3 completed Not Available [facility] 08/02/2023 03:47:28 Influenza, adjuvanted, quadrivalent, PF 3 completed Not Available [facility] 08/02/2023 03:47:27 RSV, recombinant, protein subunit RSVpreF, adjuvant reconstituted, 0.5 mL, PF 3 completed Not Available [facility] 08/02/2023 03:47:28 pneumococcal polysaccharide PPV23 6 completed Not Available [facility] 08/11/2019 02:21:26 COVID-19, mRNA, LNP-S, PF, brian-sucrose, 30 mcg/0.3 mL 3 completed Not Available [facility] 08/02/2023 03:47:28 Pneumococcal conjugate PCV20, polysaccharide [id number] conjugate, adjuvant, PF 4 completed PAUL Malin, [facility] 04/27/2024 13:42:13 COVID-19, mRNA, LNP-S, PF, brian-sucrose, 30 mcg/0.3 mL 4 completed [facility] 04/27/2024 13:42:13 zoster recombinant 4 completed PAUL Chowdhury, [facility] 08/11/2024 09:43:00 Influenza, high-dose, trivalent, PF 6 completed Not Available [facility] 08/11/2019 02:22:03 Influenza, high-dose, trivalent, PF 7 completed Not Available [facility] 08/11/2019 02:22:21 Influenza, high-dose, trivalent, PF 8 completed Not Available [facility] 08/11/2019 02:22:14 Td (adult), 2 Lf tetanus toxoid, preservative free, adsorbed 8 completed Not Available [facility] 08/11/2019 02:21:30 Influenza, high-dose, trivalent, PF 4 completed Amandeep Morales MD [address] [address], [place], [address], [facility] 04/28/2024 14:55:43 Past Encounters Encounter ID Performer Location Encounter Start Date Encounter Closed Date Diagnosis/Indication Diagnosis SNOMED-CT Code Diagnosis ICD10 Code Diagnosis Note [id number] Amandeep Morales MD Main Office [address] [address] 08/11/2024 09:39:59 08/11/2024 10:06:18 Acute pharyngitis 730070751 J02.9 Possibly secondary to PND from non-optima lly treated allergies. Strep was negative. He will continue with fluticason e and I will add an antihistam ine. [id number] Amandeep Morales MD Main Office [address] [address] 09/11/2024 13:59:20 09/11/2024 14:39:25 Pain of left hand 1676602809 38361 M79.642 Possible tenosynovi tis vs CTS. Isolated head tremor 230 744596 G25.0 He was seen by Dr Butler in 2017 and 2018 and tried baclofen and magnesium w/o much help. He would like to see a different neurologis t to discuss options. Health Concerns Section Related Observation LastModified by Organization Detai ls LastModified Time None Recorded Concern Status LastModified by Organization Details LastModified Time None Recorded Payers Encounter Date Sequence Insurance Name Policy Number Policy Holcomb Covered Member ID Holcomb Member ID Guarantor Name 09/11/2024 2 [place] Eliazar Alanis [id number] Eliazar Alanis 09/11/2024 1 [facility] (MEDICARE REPLACEMENT/A DVANTAGE - POS) [id number] Eliazar Alanis [id number] Eliazar Chand Alanis Notes Date Note Type Note Provider Name and Address Organization Details Recorded Time 09/11/2024 text/html Left forearm melanie n into [...] He has no known fhx of tremors. Amandeep Morales MD [address] [facility] [address], [place], [address], [facility] 09/11/2024 18:01:53
--- OUTSIDE RECORDS SUMMARY | 2024-09-20 17:08 | XMS_ITS ---
Author Organization [facility] Address [address] [place] [address] Care Team Providers Care Hydrometeorological Technician Name Role Phone Amandeep Morales MD Primary Care Provider Unav ailKaitlin Roberto Unavailable [phone] Encounters Encounter Location Date Provider Diagnosis [address] [address] 08/01/2024 Kaitlin Alvarado Plan Of Treatment Next Appt Details Provider Name:Kaitlin saha, 11/16/2024 12:30:00 PM, [address] [address], [place], [address], Progress Notes * Eliazar ALANIS MDOB: (78 yo M)Acc No.[id number]:08/01/2024 Patient:?Eliazar ALANIS :1945???Age:78 Y???Sex:Male Address:[address] [place] [address], [address] , [place], [address] * true * Date:? Generated for Ricki susan/Kevin/eTransmitting on:?09/20/2024 05:07 PM EST
--- OUTSIDE RECORDS SUMMARY | 2024-09-20 17:08 | XMS_ITS | Data Portability ---
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 04/14/2009 00:00:00 [id number] autoEComm erce [address] [facility] [address] [place] [address] 10/25/2009 00:00:00 [id number] autoEComm erce [address] [facility],[address] [place] [address] 10/30/2009 00:00:00 [id number] autoEComm erce [address] [facility],[address] [place] [address] 10/30/2009 00:00:00 [id number] autoEComm erce [address] [facility] [address] [place] [address] 01/07/2010 00:00:00 [id number] autoEComm erce [address] [facility],[address] [place] [address] 01/07/2010 00:00:00 [id number] auto[facility]Comm erce [address] [place] [address] 01/07/2010 00:00:00 [id number] autoEComm erce [address] [place] [address] 07/16/2010 00:00:00 [id number] autoEComm erce [address] [place] [address] 07/16/2010 00:00:00 [id number] autoEComm erce [address] [place] [address] 08/27/2010 00:00:00 [id number] autoEComm erce [address] [facility] [address] [place] [address] 08/27/2010 00:00:00 [id number] autoEComm erce [address] [facility],[address] [place] [address] 02/23/2011 00:00:00 [id number] autoEComm erce [address] [facility] [address] [place] [address] 02/23/2011 00:00:00 [id number] autoEComm erce [address] [facility] [address] [place] [address] 02/23/2011 00:00:00 [id number] autoEComm erce [address] [facility],[address] [place] [address] 02/23/2011 00:00:00 [id number] autoEComm erce [address] [facility],[address] [place] [address] 09/27/2008 00:00:00 [id number] autoEComm erce [address] [facility] [address] [place] [address] 09/27/2008 00:00:00 [id number] autoEComm erce [address] [facility] [address] [place] [address] 09/27/2008 00:00:00 [id number] autoEComm erce [address] [facility] [address] [place] [address] 09/27/2008 00:00:00 [id number] autoEComm erce [address] [place] [address] 10/08/2011 00:00:00 [id number] auto[facility]Comm erce [address] [place] [address] 10/08/2011 00:00:00 [id number] autoEComm erce [address] [place] [address] 10/08/2011 00:00:00 [id number] autoEComm erce [address] [facility] [address] [place] [address] 10/08/2011 00:00:00 [id number] autoEComm erce [address] [facility] [address] [place] [address] 01/06/2012 00:00:00 [id number] autoEComm erce [address] [facility] [address] [place] [address] 01/06/2012 00:00:00 [id number] autoEComm erce [address] [facility],[address] [place] [address] 01/06/2012 00:00:00 [id number] autoEComm erce [address] [facility] [address] [place] [address] 07/17/2007 00:00:00 [id number] autoEComm erce [address] [facility],[address] [place] [address] 05/15/2012 00:00:00 [id number] autoEComm erce [address] [facility],[address] [place] [address] 05/15/2012 00:00:00 [id number] autoEComm erce [address] [facility] [address] [place] [address] 05/15/2012 00:00:00 [id number] autoEComm erce [address] [facility],[address] [place] [address] 07/05/2011 00:00:00 [id number] autoEComm erce [address] [place] [address] 07/05/2011 00:00:00 [id number] autoEComm erce [address] [place] [address] 07/05/2011 00:00:00 [id number] autoEComm erce [address] [place] [address] 11/09/2010 00:00:00 [id number] autoEComm erce [address] [place] [address] 09/25/2010 00:00:00 [id number] autoEComm erce [address] [facility] [address] [place] [address] 2 09/25/2010 00:00:00 [id number] autoEComm erce [address] [facility] [address] [place] [address] 07/31/2010 00:00:00 [id number] autoEComm erce [address] [facility] [address] [place] [address] 07/31/2010 00:00:00 [id number] autoEComm erce [address] [facility] [address] [place] [address] 02/09/2013 00:00:00 [id number] autoEComm erce [address] [facility],[address] [place] [address] 02/09/2013 00:00:00 [id number] autoEComm erce [address] [facility] [address] [place] [address] 02/09/2013 00:00:00 [id number] autoEComm erce [address] [place] [address] 04/11/2013 00:00:00 [id number] autoEComm erce [address] [facility] [address] [place] [address] 05/03/2013 00:00:00 [id number] autoEComm erce [address] [facility] [address] [place] [address] 05/03/2013 00:00:00 [id number] autoEComm erce [address] [place] [address] 10/14/2009 00:00:00 [id number] autoEComm erce [address] [place] [address] 2 10/14/2009 00:00:00 [id number] autoEComm erce [address] [place] [address] 2 10/14/2009 00:00:00 [id number] autoEComm erce [address] [place] [address] 08/21/2013 00:00:00 [id number] autoEComm erce [address] [place] [address] 11/01/2013 00:00:00 [id number] autoEComm erce [address] [place] [address] 11/01/2013 00:00:00 [id number] autoEComm erce [address] [facility] [address] [place] [address] 11/01/2013 00:00:00 [id number] autoEComm erce [address] [facility] [address] [place] [address] 01/08/2014 00:00:00 [id number] autoEComm erce [address] [facility] [address] [place] [address] 01/29/2014 00:00:00 [id number] autoEComm erce [address] [place] [address] 01/29/2014 00:00:00 [id number] autoEComm erce [address] [place] [address] 2 01/29/2014 00:00:00 [id number] autoEComm erce [address] [facility],[address] [place] [address] 11/18/2011 00:00:00 [id number] autoEComm erce [address] [place] [address] 11/18/2011 00:00:00 [id number] autoEComm erce [address] [place] [address] 2 11/18/2011 00:00:00 [id number] autoEComm erce [address] [place] [address] 04/27/2012 00:00:00 [id number] autoEComm erce [address] [place] [address] 09/05/2012 00:00:00 [id number] autoEComm erce [address] [facility] [address] [place] [address] 09/05/2012 00:00:00 [id number] autoEComm erce [address] [facility] [address] [place] [address] 09/05/2012 00:00:00 [id number] autoEComm erce [address] [facility] [address] [place] [address] 11/18/2006 00:00:00 [id number] autoEComm erce [address] [facility] [address] [place] [address] 10/24/2012 00:00:00 [id number] autoEComm erce [address] [facility],[address] [place] [address] 10/24/2012 00:00:00 [id number] autoEComm erce [address] [facility] [address] [place] [address] 10/24/2012 00:00:00 [id number] autoEComm erce [address] [place] [address] 01/30/2013 00:00:00 [id number] autoEComm erce [address] [facility] [address] [place] [address] 01/30/2013 00:00:00 [id number] autoEComm erce [address] [place] [address] 2 01/30/2013 00:00:00 [id number] autoEComm erce [address] [place] [address] 2 12/05/2012 00:00:00 [id number] autoEComm erce [address] [place] [address] 07/16/2009 00:00:00 [id number] autoEComm erce [address] [place] [address] 2 07/16/2009 00:00:00 [id number] autoEComm erce [address] [facility] [address] [place] [address] 07/16/2009 00:00:00 [id number] autoEComm erce [address] [facility] [address] [place] [address] 04/13/2010 00:00:00 [id number] autoEComm erce [address] [facility] [address] [place] [address] 06/19/2013 00:00:00 [id number] autoEComm erce [address] [facility],[address] [place] [address] 2 06/19/2013 00:00:00 [id number] autoEComm erce [address] [facility] [address] [place] [address] 01/19/2011 00:00:00 [id number] autoEComm erce [address] [facility],[address] [place] [address] 2 01/19/2011 00:00:00 [id number] autoEComm erce [address] [facility],[address] [place] [address] 11/09/2006 00:00:00 [id number] autoEComm erce [address] [facility] [address] [place] [address] 11/09/2006 00:00:00 [id number] autoEComm erce [address] [facility],[address] [place] [address] 01/13/2009 00:00:00 [id number] autoEComm erce [address] [place] [address] 2 01/13/2009 00:00:00 [id number] autoEComm erce [address] [place] [address] 01/13/2009 00:00:00 [id number] autoEComm erce [address] [facility] [address] [place] [address] 01/13/2009 00:00:00 [id number] autoEComm erce [address] [place] [address] 2 07/27/2012 00:00:00 [id number] autoEComm erce [address] [facility] [address] [place] [address] 07/27/2012 00:00:00 [id number] autoEComm erce [address] [facility],[address] [place] [address] 07/27/2012 00:00:00 [id number] autoEComm erce [address] [facility] [address] [place] [address] 07/27/2012 00:00:00 [id number] autoEComm erce [address] [facility] [address] [place] [address] 04/12/2012 00:00:00 [id number] autoEComm erce [address] [facility],[address] [place] [address] 04/12/2012 00:00:00 [id number] autoEComm erce [address] [facility],[address] [place] [address] 04/12/2012 00:00:00 [id number] autoEComm erce [address] [facility],[address] [place] [address] 2 09/20/2008 00:00:00 [id number] autoEComm erce [address] [facility],[address] [place] [address] 09/20/2008 00:00:00 [id number] Shukri Zamorano Main Office [address] [place] [address] 04/30/2014 10:29:46 04/30/2014 11:24:38 Type 2 diabetes mellitus [id number] Impotence of organic origin 197023665 Pure hypercholesterolemia 065900268 Essential hypertension 44522971 [id number] Roseann Gilliam Main Office [address] [address] [place] [address] 06/27/2014 13:02:39 06/27/2014 13:51:35 Allergic rhinitis 13307928 Pt c/o runny nose, nasal itching, itchy, watery eyes, throat itching, PND x 1 days. Sx likely related to alergic rhinitis ad he had the fan on last night. Continue current treatment with flonase, alaway, zyrtec D for not more than 5 days for congestion , stay well hydrated. If develop fever, chills, cough, purulent nasal discharge, sinus pain please return. Essential hypertension 09124579 Type 2 rosalina betes mellitus without complication [id number] Main Office [address] [address] [place] [address] 07/30/2014 10:36:54 07/30/2014 11:31:51 Type 2 diabetes mellitus 29544728 Essential hypertension 03914632 Chronic as thmatic bronchitis 918965098 Obstructiv e sleep apnea syndrome 36543309 [id number] Minna Armas Main Office [address] [address] [place] [address] 09/03/2014 13:19:53 09/03/2014 13:46:52 Acute pharyngitis 189133503 Influenza- like illness 29101555 symptoms < 48 hours, with medical risk factors, empiric tx with tamiflu [id number] Shukri Zamorano Main Office [address] [address] [place] [address] 09/16/2014 13:45:30 09/16/2014 14:38:02 Acute exacerbation of chronic asthmatic bronchitis 110866808 if he is not improving in 3 days, he will call his pulmonolog ist. Type 2 rosalina betes mellitus 48463837 last a1c was 6.2 so a short course of prednisone will be fine [id number] Angel Morales MD Main Office [address] [address] [place] [address] 10/03/2014 12:41:57 10/03/2014 13:22:38 Cramp in lower limb [id number] reassured patient that this was a benign event and no further w/u was needed. I gave him a handout on cramps and suggested that he stay hydrated and do stretching exercises to help stay flexible. [id number] Shukri Lona Main Office [address] [address] [place] [address] 11/07/2014 10:47:17 11/07/2014 12:01:20 Adult health examination 481487732 Administra tion of pneumococcal vaccine 42292007 Type 2 rosalina betes mellitus without complication 085102570 Lateral epicondylitis 202109339 Body mass index 25-29 - overweight 352818375 mildly overweight ; he will try to make some changes but doesn't want a referral. [id number] Main Office [address] [address] [place] [address] 02/06/2015 09:45:30 02/06/2015 10:25:10 Type 2 diabetes mellitus without complication 531194180 Benign pro static hyperplasia 013320727 Gastroesop hageal reflux disease 642318839 Impotence of organic origin 416470117 [id number] Natalia Richmond Main Office [address] [address] [place] [address] 05/08/2015 11:11:13 05/08/2015 11:59:32 Type 2 diabetes mellitus 39282094 E11.9 he will hold his metformin and we will recheck his A1C in 3 months. Pure hypercholesterolemia 525500763 E78.0 Ex-smoker 7801206 Z87.89 1 Malignant tumor of prostate 839587241 C61 [id number] Angel Morales MD Main Office [address] [address] [place] [address] 06/27/2015 13:44:59 06/27/2015 14:41:57 Lightheadedness 913551693 R42 I explained to him that these [...] 2 months to have his A1C rechecked. [id number] Angel Morales MD Main Office [address] [place] [address] 07/16/2015 13:58:00 07/16/2015 15:09:03 Knee pain 57042532 M25.562 Possible meniscus problem give the location and his symptoms but must also consider gout given the abruptness of his symptoms. Will treat with NSAIDs and he will keep his appointmen t with [facility] for next week. [id number] Angel Morales MD Main Office [address] [place] [address] 08/12/2015 10:27:25 08/12/2015 11:23:51 Type 2 diabetes mellitus 74041058 E11.9 He has been off metformin for 3 months and his A1C has remained normal. He is not on any meds for diabetes. We will recheck in 3 months. He was instructed to continue watching what he eats and drinks. Chronic ob structive pulmonary disease 51585018 J44.9 stable on current mgmt. Malignant tumor of prostate 546794544 C61 followe dby urology. Secondary erectile dysfunction 523502302 N52.8 [id number] Angel Morales MD Main Office [address] [address] 10/20/2015 13:15:19 10/20/2015 14:35:49 Congestion of nasal sinus 36946790 R09.81 pt has had 2 nasal surgeries. doubt sinus infection at this time since symptoms for only a few days [id number] Radha Navarro Main Office [address] [address] 11/11/2015 13:24:52 11/11/2015 14:20:32 Adult health examination 365420267 Z00.00 Administra tion of pneumococcal vaccine 62506098 Z23 Type 2 rosalina betes mellitus without complication 212707801 E11.9 well-contr olled off meds. Will recheck A1C in 3 months. Chronic as thmatic bronchitis 794699963 J44.9 Currently under good control; followed by Dr Fuentes. Advance di rective discussed with patient 934444819 Z71.89 [id number] Angel Morales MD Main Office [address] [address] [place] [address] 12/03/2015 15:44:37 12/03/2015 16:29:43 Cough 94025233 R05 secondary to allergies and PND. Will start an anti-hista mine and see him back in a few days and if cough persists we will consider starting prednisone . Allergic rhinitis 364169 04 J30.1 [id number] Angel Morlaes MD Main Office [address] [address] [place] [address] 12/08/2015 10:22:13 12/08/2015 11:25:51 Acute exacerbation of chronic asthmatic bronchitis 736942418 J44.1 he does not appear to need antibiotic s. His only symptom is the intermitte nt cough with some wheezing. [id number] Angel Morales MD Main Office [address] [place] [address] 02/10/2016 14:12:38 02/10/2016 15:07:04 Type 2 diabetes mellitus without complication 094732175 E11.9 well-contr olled off meds. Will recheck A1C in 3 months. His A1C has been increasing and is now at 6.8. He understand s that if it goes above 7.0 we will have to restart his meds. Essential hypertension 74185144 I10 good control w/current meds Pure hypercholesterolemia 676928366 E78.0 good control with current meds. [id number] Angel Morales MD Main Office [address] [place] [address] 04/29/2016 13:51:32 04/29/2016 15:13:58 Type 2 diabetes mellitus 84849330 E11.9 He has been off metformin for 6 months and has changed his diet. He has lost 10 lbs since his last visit and his A1C came down from 6.8 to 5.3. We will continue to monitor his sugar but he does not need to be checked until 6 months from now when he returns for his PE. Needs infl uenza immunization 954515314 Z23 Chronic ob structive pulmonary disease 54816240 J44.9 Stable on current inhlaers and followed by Dr Fuentes [id number] Angel Morales MD Main Office [address] [address] [place] [address] 05/25/2016 11:00:01 05/25/2016 12:00:47 Neuropathy due to diabetes mellitus 962594263 E11.40 His pains seem neuropathi c. Will start lyrica and see him back in 1 month for a reevaluati on. [id number] Angel Morales MD Main Office [address] [address] [place] [address] 06/09/2016 13:16:37 06/09/2016 14:26:46 Lightheadedness 219027845 R42 Syncope 181144144 R55 [id number] Angel Morales MD Main Office [address] [address] [place] [address] 06/24/2016 09:47:37 06/24/2016 10:39:13 Diabetic peripheral neuropathy 119191130 E11.40 Lyrica was not covered. He was given a script for cymbalta and will try that and f/u in a couple of months for his PE at which time we will reevaluate . [id number] Angel Morales MD Main Office [address] [address] [place] [address] 07/29/2016 13:25:03 07/29/2016 14:19:41 Pain in toe 036429874 M79.674 M79.675 Bilateral big toe pain does not sound to be a neuropathy and was not helped by cymbalta. His toe pain may be related to OA and may be exacerbate d by his bowling. He will try naprosyn on days that he gets the toe pain. Tremor 16258547 R25.1 secondary to cymbalta. Resolved once he stopped. [id number] Angel Morales MD Main Office [address] [address] [place] [address] 08/06/2016 12:33:03 08/06/2016 13:09:25 Acute pharyngitis 603452233 J02.9 Nasal congestion 8910054 0 R09.81 [id number] Angel Morales MD Main Office [address] [address] [place] [address] 11/11/2016 12:38:33 11/11/2016 13:53:01 Adult health examination 215260699 Z00.00 UTD with immunizati ons and colonoscop y. Diabetic p eripheral neuropathy 503409729 E11.40 Currently taking cymbalta and getting some help. Essential hypertension 11638708 I10 Good control; continue current mgmt. Hyperlipidemia 73170553 E78.5 Check fasting lipid level and continue current meds Disorder o f nervous system due to type 2 diabetes mellitus 366145428 E11.40 He has been off all meds for a while and has remained under good control. We will follow every 6 months for now. [id number] Radha Navarro Main Office [address] [address] [place] [address] 03/04/2017 10:31:33 03/04/2017 11:28:29 Influenza vaccine needed 1074949517 106 Z23 Diarrhea 54670480 R19.7 May be secondary to sweetener used in sugar-free ice cream and cookies. He will stop these for the week to see if there is an improvemen t in his symptoms. Irritable bowel syndrome 59709228 K58.9 His symptoms of lose stools may be secondary to IBS. He will make changes and we will review next week. [id number] Angel Morales MD Main Office [address] [address] [place] [address] 03/10/2017 10:44:57 03/10/2017 11:59:22 Chronic diarrhea 801387472 K52.9 He will hold his tamsulosin since this can cause diarrhea and continue with changes for IBS and f/u in 2 weeks. [id number] Radha Navarro Main Office [address] [address] [place] [id number] 03/22/2017 12:48:44 03/22/2017 13:08:45 Diarrhea 12681806 R19.7 This has improved and he will restart his tamsulosin since he has been straining to urinate. He will call if he develops diarrhea again. Benign pro static hyperplasia 465197834 N40.1 he will restart his tamsulosin since he is having symptoms. [id number] Angel Morales MD Main Office [address] [facility] [address] [place] [address] 05/26/2017 11:08:36 05/26/2017 12:08:27 Essential hypertension 82166052 I10 Good control; continue current mgmt. Type 2 rosalina betes mellitus without complication 634073629 E11.9 Has been off all diabetes meds for more than a year and his A1C has remained normal. He continues to exercise regularly and also continues to lose weight. Chronic ob structive pulmonary disease 18441800 J44.9 He had an exacerbati on because of seasonal allergies and did not have the advair because of the cost. He was given samples of symbicort by Dr Escalona and will be working with someone at the [facility] to get an affordable inhaler thru his insurance. Malignant tumor of prostate 722218791 C61 Watchful waiting and Dr Valdovinos is monitoring his PSA. [id number] Stella todd Main Office [address] [address] [place] [address] 06/24/2017 13:17:54 06/24/2017 15:18:35 Upper respiratory infection 78833079 J06.9 Asthmatic bronchitis 405 208028 J45.909 Continue current inhalers . PT. is advise to use rescue inhaler 2-3 times daily with the spacer and if still with wheezing , start Medrol dose pack as directed. F/u 1-2 weeks if still symptomati c. [id number] Angel Morales MD Main Office [address] [address] [place] [address] 07/15/2017 10:56:44 07/15/2017 12:43:21 Chronic obstructive pulmonary disease 44301329 J44.9 Improved symptoms since the last visit with Medrol dose pack taken twice. Continue Advair 500-50 BID and rescue PRN. PT. will continue Flonase spray. F/u. as scheduled or sooner if symptoms worsen. [id number] Angel Morales MD Main Office [address] [address] [place] [address] 08/17/2017 14:24:49 08/17/2017 15:09:27 Essential hypertension 22642507 I10 Will stop lisinopril because of cough and start valsartan and return in 1 month. [id number] Angel Morales MD Main Office [address] [address] [place] [address] 09/28/2017 10:23:07 09/28/2017 11:42:46 Essential hypertension 94208215 I10 We will decrease his valsartan from 160 to 80 mg since his BP is running a little low. F/u in 3 weeks. Chronic cough 37849892 R 05 No clear etiology for this. Did 2 courses of prednisone w/o much help. He has a pulmonary f/u in a couple of months. [id number] Angel Morales MD Main Office [address] [address] [place] [address] 10/20/2017 10:29:38 10/20/2017 11:25:52 Cough 91426149 R05 This has not responded to multiple course of prednisone nor his inhalers. We will stop his flonase and try a different nasal steroid for a while. In addition he will start an anti-hista mine. His symptoms may be from allergic rhinitis and PND especially since they are more common in the am. Allergic rhinitis 129455 04 J30.1 [id number] Angel Morales MD Main Office [address] [place] [address] 11/15/2017 12:35:57 11/15/2017 14:09:04 Adult health examination 640427232 Z00.00 UTD with immunizati ons and colonoscop y (due again 2020) Chronic ob structive pulmonary disease 27626809 J44.[address] Fuentes and Dr Lewis. Gastroesop hageal reflux disease 671522154 K21.9 Malignant tumor of prostate 007038932 C[address] Valdovinos is monitoring his PSA. Essential hypertension 05656553 I10 BP under good control on reduced dose of valsartan at 80 mg. Congestion of nasal sinus 18228211 R09.81 Type 2 rosalina betes mellitus without complication 053748666 E11.9 Has been off all diabetes meds for more than a year and his A1C has remained normal. He continues to exercise regularly and also continues to lose weight. Hyperlipidemia 18523860 E78.5 Check fasting lipid level and continue current meds [id number] Angel Morales MD Main Office [address] [address] [place] [address] 12/15/2017 09:49:44 12/15/2017 11:14:48 Abdominal pain 31835460 R10.9 Possibly from movement of his mesh causing a pinching in the area. Doubt appendicit is because of normal appetite and gait and WBC is normal. But must r/o because of the location of his tenderness . [id number] Angel Morales MD Main Office [address] [address] [place] [address] 03/21/2018 12:36:46 03/21/2018 13:18:14 Chest wall pain 800820083 R07.89 Advised NSAIDs prn. Not concerned about heart disease. [id number] Angel Morales MD Main Office [address] [address] [place] [address] 05/02/2018 12:36:24 05/02/2018 13:28:39 Type 2 diabetes mellitus without complication 964172218 E11.9 Has been off all diabetes meds for about 3 years now and his A1C has remained normal. He continues to exercise regularly and to maintain his weight. Essential hypertension 70274568 I10 BP under good control on reduced dose of valsartan at 80 mg. Influenza vaccine needed 5342677084 106 Z23 Requires a tetanus booster 414662999 Z23 Chronic as thmatic bronchitis 229104613 J44.[address] Fuentes. Chronic ob structive pulmonary disease 87325789 J44.[address] Fuentes and Dr Lewis. [id number] Angel Morales MD Main Office [address] [address] [place] [address] 11/16/2018 12:55:37 11/16/2018 14:13:55 Adult health examination 767636534 Z00.00 UTD with immunizati ons and colonoscop y (due again 2020) Hyperlipidemia 28513069 E78.5 Check fasting lipid level and continue current meds Type 2 rosalina betes mellitus without complication 524891444 E11.9 Has been off all diabetes meds for about 3 years now and his A1C has remained normal. He continues to exercise regularly and to maintain his weight. Chronic as thmatic bronchitis 237400655 J44.[address] Fuentes. [id number] Angel Morales MD Main Office [address] [place] [address] 05/24/2019 09:26:58 05/24/2019 10:40:55 Essential hypertension 90733343 I10 Good control with current mgmt. Type 2 rosalina betes mellitus without complication 311673973 E11.9 Has been off all diabetes meds for more than 3 years now and his A1C has remained normal. He continues to exercise regularly and to maintain his weight. Chronic cough 94062698 R 05 No clear etiology for this. Did 2 courses of prednisone w/o much help. Seen by pulmonary, ent and allergists over the last year. [id number] Angel Morales MD Main Office [address] [address] [place] [address] 11/21/2019 08:49:01 11/21/2019 10:46:32 Essential hypertension 90635381 I10 Will increase his amlodipine from 5 to 10 mg daily. He will record his BP daily (different times) over the next week and we will recheck his BP next week. He may need a diuretic if BP still running high. [id number] Angel Morales MD Main Office [address] [place] [address] 11/27/2019 10:58:35 11/27/2019 13:58:02 Essential hypertension 62245572 I10 Will increase his amlodipine from 5 to 10 mg daily. He will record his BP daily (different times) over the next week and we will recheck his BP next week. He may need a diuretic if BP still running high. Chronic as thmatic bronchitis 232939145 J44.[address] Fuentes. Type 2 rosalina betes mellitus without complication 881845244 E11.9 Has been off all diabetes meds for more than 3 years now and his A1C has remained normal. He continues to exercise regularly and to maintain his weight. [id number] Angel Morales MD [facility] [address] [place] [address] 12/05/2019 08:12:27 12/05/2019 13:11:38 Cough 64428399 R05 This has not responded to multiple course of prednisone nor his inhalers. He was seen by ENT, hospice educator and pulmonary and no etiology found. [place] to be neurogenic . Exposure t o viral disease 4737247374 74573 Z03.818 SOB and breathing has been worse than normal over the past week. Essential hypertension 00836854 I10 BP still running high. Will add a diuretic and see him back in 2 weeks. Gastroesop hageal reflux disease 966103593 K21.9 Instructed to increase his prilosec to twice a day which may help with his cough. [id number] Angel Morales MD [facility] [address] [place] [address] 12/19/2019 06:15:07 12/19/2019 10:30:45 Essential hypertension 08783403 I10 BP much improved. Will continue with amlodipine 10 mg, valsartan 160 mg and chlorthali done 25 mg. Check BMP. [id number] Angel Morales MD [facility] [address] [place] [address] [place] [address] 12/24/2019 13:06:04 12/25/2019 09:29:03 Acute pharyngitis 528206565 J02.9 Possibly secondary to PND from non-optima lly treated allergies. Allergic rhinitis 737119 04 J30.1 Will stop his flonase and try a different steroid nasal spray. He will call Dr Lewis if his symptoms persist. 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 He continues to exercise regularly and to maintain his weight. Cough 65376651 R05 Followed by pulmonary (Dr Fuentes) and scheduled for PFTs next month. [place] to be neurogenic . Essential hypertension 56932542 I10 Will continue with amlodipine 10 mg, valsartan 160 mg and chlorthali done 25 mg. Check BMP. [id number] Angel Morales MD Main Office [address] [facility] [address] [place] [address] 03/24/2020 13:11:26 03/24/2020 13:38:20 [id number] Angel Morales MD Main Office [address] [facility] [address] [place] [address] 03/27/2020 13:59:50 03/27/2020 15:36:21 Community acquired pneumonia 540258355 J18.9 Complete abx tomorrow Sepsis 65390475 A41.9 Back to baseline Chronic cough 75819059 R 05 No clear etiology for this. Did 2 courses of prednisone w/o much help. Seen by pulmonary, ent and allergists over the last year. Has a telehealth appointmen t tomorrow with a new provider. [id number] Angel Morales MD Main Office [address] [address] [place] [address] 05/15/2020 14:30:51 05/15/2020 15:26:11 Renal disorder due to type 2 diabetes mellitus 171728601 E11.21 Has been off all diabetes meds for many years now and his A1C has remained normal. He continues to exercise regularly and to maintain his weight. Allergic rhinitis 258862 04 J30.1 Under good control with current mgmt. Chronic ob structive pulmonary disease 69290664 J44.[address] Fuentes and Dr Lewis. Essential hypertension 29652845 I10 Will continue with amlodipine 10 mg, valsartan 160 mg and chlorthali done 25 mg. [id number] [facility] [address] [facility] [address] [place] [address] 08/18/2020 14:47:55 08/21/2020 08:30:17 Pain of right wrist 4898893473 31310 M25.531 maybe tendonitis by hx, refer to hand ortho for eval. [id number] Angel Morales MD Main Office [address] [facility] [address] [place] [address] 11/11/2020 13:05:35 11/11/2020 13:42:34 Type 2 diabetes mellitus without complication 880430301 E11.9 Has been off all diabetes meds for many years (since 2014) but his A1C has been slowly increasing and is now at 6.9. He will intensify his lifestyle changes and we will check again in 3 months. Essential hypertension 92700079 I10 Will continue with amlodipine 10 mg, valsartan 160 mg and chlorthali done 25 mg. Good control. Chronic ob structive pulmonary disease 66128682 J44.[address] Fuentes and Dr Lewis. Hyperlipidemia 89373909 E78.5 Check fasting lipid level and continue current meds [id number] Angel Morales MD Main Office [address] [place] [address] 12/04/2020 11:05:19 12/04/2020 12:07:09 Sprain of left ankle 6276326421 0739072 S93.402A Handout given with exercises. If no improvemen t will refer to ortho. [id number] Mana Echeverria Main Office [address] [place] [address] [place] [address] 02/25/2021 13:37:36 02/27/2021 07:36:33 [id number] Mana Echeverria Main Office [address] [place] [address] 03/06/2021 10:26:18 03/06/2021 12:27:04 Pneumonia 553982764 J18.9 Pt is doing well clinically , much improved. Check chest xray in a month to assess healing. Labs today for followup. Rest, hydration. Pt seems to be independen t, has family nearby and VNA does not appears to be needed at this time. Call if any recurrence Followup with pulmonary and hospice educator as planned. Retention of urine 27835 4002 R33.9 due to retention in hospital, urology referral recommende d. Pt agrees to appt, no further sx of retention since home. Pt is on tamsulosin , oxybutnin and finasterid e from urology, advised to discuss meds with provider he seesl Allergic rhinitis 992895 04 J30.9 Followed by hospice educator, will get immune testing through his office, confirmed myself with Molly from allergy office. 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 He will intensify his lifestyle changes and we will check again in 3 months. Essential hypertension 32540640 I10 Will continue with amlodipine 10 mg and valsartan 160 mg and discontinu e the chlorthali done since his BP is good w/o it. Good control. Varicella vaccination 68 083597 Z23 Screening for malignant neoplasm of colon 790430566 Z12.11 [id number] Angel Morales MD Main Office [address] [place] [address] 06/17/2021 12:29:58 06/17/2021 13:16:03 Type 2 diabetes mellitus without complication 007019643 E11.9 Has been off all diabetes meds for many years (since 2014. His A1C starting increasing and went to a high of 6.9 7 months ago but has since come down to 6.1 with lifestyle changes. No meds needed. Continue to monitor. Allergic rhinitis 567657 04 J30.9 Under good control with current mgmt. Chronic ob structive pulmonary disease 95697821 J44.[address] Fuentes and Dr Lewis. Essential hypertension 31091583 I10 Will continue with amlodipine 10 mg and valsartan 160 mg . He discontinu ed his diuretic. Good control. [id number] Angel Morales MD Main Office [address] [place] [address] 10/06/2021 15:41:52 10/06/2021 16:24:11 Neck pain 53402422 M54.2 Advised heat on the area. If no improvemen t we will do a PT referral. [id number] Angel Morales MD Main Office [address] [place] [address] 10/15/2021 10:52:34 10/15/2021 11:27:14 Type 2 diabetes mellitus without complication 917876908 E11.9 Has been off all diabetes meds for many years (since 2014. His A1C is currently normal. We will continue to follow twice a year. Chronic ob structive pulmonary disease 24217225 J44.[address] Fuentes and Dr Lewis. Under good control. Essential hypertension 63724092 I10 Will continue with amlodipine 10 mg and valsartan 160 mg . He discontinu ed his diuretic. Good control. Hyperlipidemia 91663558 E78.5 Check fasting lipid level next appointmen t and continue current meds. LDL at goal. [id number] Angel Morales MD [facility] [address] [address] [place] [address] 11/26/2021 16:56:32 11/27/2021 09:22:25 Fever 401030311 R50.9 I advised that he take a COVID test. Abdominal pain 78740187 R10.9 This may be diverticul its given the pain, lack of appetite and fever. He will go to an to get evaluated. [id number] Mana Echeverria Main Office [address] [address] [facility] [place] [address] 12/14/2021 13:30:57 12/14/2021 15:05:24 Acute exacerbation of chronic asthmatic bronchitis 398008913 J44.1 stable, has pulmonary followup Gastroesop hageal reflux disease 786620675 K21.9 has colon appt in April, will see if egd can be added Recurrent pneumonia 0908 88220 J18.9 Pt has been admitted at least 2 times in the past year for breathing issues. Gets better in between exacerbati on. Pt has upcoming appt with Dr Leo pulmonolog ist. Due to repeat cxr for pneumonia, will try to get CT approved as recurrent. [id number] Angel Morales MD Main Office [address] [facility] [address] [place] [address] 01/14/2022 11:30:05 01/14/2022 12:03:16 Asthma 217709078 J45.40 Some relief from inhalers but symptoms are brought on by mold in his apartment. Allergic rhinitis 674474 04 J30.9 Some help from current mgmt. Allergy to mold 37535402 3 Z88.8 He was advised to move since this is compromisi ng his breathing and is a contributi ng factor to his 3 episodes of pneumonia requiring admission and abx over the past year. [id number] Angel Morales MD Main Office [address] [facility] [address] [place] [address] 03/22/2022 12:48:09 03/22/2022 14:00:01 Adult health examination 000269774 Z00.00 UTD with immunizati ons including COVID w/booster, tetanus and pneumonia. He had one shingrix and is due for a second. His last colonoscop y was February [address] Salvador and he is scheduled at [facility] to have his next one. 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 His A1C is currently normal. We will continue to follow twice a year. He is due for an eye exam. Essential hypertension 42762524 I10 Will continue with amlodipine 10 mg and valsartan 160 mg . He discontinu ed his diuretic. Good control. Chronic ob structive pulmonary disease 75238345 J44.[address] Leo. Under good control. Carcinoma of prostate [address] Valdovinos. Active surveillan ce. [id number] Sung Chaudhari MD Main Office [address] [facility] [address] [facility] [place] [address] 05/20/2022 10:22:35 05/20/2022 11:39:15 Screening for malignant neoplasm of colon 798409152 Z12.11 - incomplete prep when patient had colonoscop y on 05/10- pt will need to have repeat done in 6 months, sometime in October 2021- results explained and reviewed with patient Diverticul ar disease of colon 711835896 K57.30 - noted to be on colonoscop y- results explained to patient- pt is not currently having any symptoms of diverticul itis Asthma 070684919 J45.40 - wheezing on exam, not a new finding- pt not currently in exacerbati on- pt has been using his albuterol inhaler 2 puff as needed for SOB- c/w Advair 1 puff Q12HRS, ellipta 1 puff QD and montelukas t 10mg- 07/10 will be seen by pulmonolog ist [id number] Angel Morales MD Main Office [address] [facility] [address] [facility] [place] [address] 10/06/2022 13:18:22 10/06/2022 14:22:04 Type 2 diabetes mellitus without complication 706785254 E11.9 Has been off all diabetes meds for many years (since 2014. His A1C is currently normal. We will continue to follow twice a year. He is due for an eye exam. Essential hypertension 91710718 I10 Will continue with amlodipine 10 mg and valsartan 160 mg . He discontinu ed his diuretic. Good control. Moderate p ersistent asthma 856203187 J45.[address] Fuentes Sore throat 541253385 J0 2.9 May be secondary to PND. COVID test was negative. [id number] Angel Morales MD Main Office [address] [facility] [address] [place] [address] 10/19/2022 10:42:58 10/19/2022 11:40:23 Sore throat 582349321 J02.9 May be secondary to PND. Strep, flu and COVID tests were negative. Fever 684719061 R50.9 I advised that he continue to test himself for COVID and to take an NSAID for the fever and muscle aches. He was treated for pneumonia last month so will check CXR again. [id number] Mana Echeverria Main Office [address] [facility] [address] [facility] [place] [address] 11/15/2022 14:08:28 11/15/2022 15:44:19 Constipation 45624534 K59.00 Increase fluid intake to 6-8 glasses a day, increase fresh fruits and vegetables , whole grains. Increase exercise. Can try miralax 1 capuful daily until constipati on better then use prn. Call if any abdominal pain, bleeding or not improving. Labs today to rule out other conditions . Abdominal bloating 83100 9008 R14.0 xray to rule out SBO vs constipati on. [id number] Angel Morales MD Main Office [address] [place] [address] 01/12/2023 12:35:25 01/12/2023 13:13:53 Type 2 diabetes mellitus without complication 396888189 E11.9 We recently restarted his metformin 500 twice a day because his A1C increased presumably secondary to weight gain. Essential hypertension 25451166 I10 Will continue with amlodipine 10 mg and valsartan 160 mg . He discontinu ed his diuretic. Good control. [id number] Mana Echeverria Main Office [address] [place] [address] 02/04/2023 14:37:49 02/04/2023 16:28:11 Lightheadedness 806857621 R42 EKG without acute findings, will do labs today or tomorrow. US to rule out carotid stenosis. Get up slowly with position change, keep hydrated, call or ED if worsening. Consider cardiology evaluation if persistent . [id number] Angel Morales MD Main Office [address] [place] [address] 04/07/2023 10:17:28 04/07/2023 11:19:20 Adult health examination 040214766 Z00.00 UTD with immunizati ons including COVID w/booster, tetanus and pneumonia. He had one shingrix and is due for a second. His last colonoscop y was October 2022 and due to age and lack of polyps this was his last colonoscop y. Diabetic p eripheral neuropathy 830788724 E11.40 Currently taking cymbalta and getting some help. Asthma 151648010 J45.90 9 Has been doing well w/o any symptoms. C/w inhalers and using them as prescribed . Carcinoma of prostate [address] Valdovinos. Active surveillan ce. Last PSA was 1.1. Essential hypertension 43330473 I10 Will continue with amlodipine 10 mg and valsartan 160 mg . He discontinu ed his diuretic. Good control. Hyperlipidemia 84947493 E78.5 Continue current meds. LDL at goal. Fear of falling 41701632 4 F40.248 I gave him info on the Fall Prevention Program and he will call for an appointmen t. Advance care planning 71 1551246 Z71.89 Discussed MOLST and HCP forms. [id number] Angel Morales MD Main Office [address] [place] [address] 04/14/2023 10:41:16 04/14/2023 11:35:35 Constipation 35862201 K59.00 He has been using OTC colace which helps and would like a script. Dyspnea 332594265 R06.00 This has continued despite being on multiple inhalers and a course of prednisone . This may be a progressio n of his COPD. Will also do a BNP to r/o CHF. A chest x-ray is not needed since this has been done recently. I will cortext Dr Fuentes to see if a change in inhalers will help. [id number] Grabiel Kaplan PA-C Main Office [address] [place] [address] 05/11/2023 13:33:46 05/11/2023 14:20:20 Skin lesion 84737604 L98.9 will get derm eval to r/o malignancy --- - has several lesions on back and lesion on L ear that likely need biopsy [id number] Vivienne Hwang MA Main Office [address] [address] 06/23/2023 10:16:10 06/23/2023 10:50:35 Chronic cough 50259504 R05.3 -has a pulmonolog ist and was [...] process-wi ll have pt trial benzonatat e [id number] Angel Morales MD Main Office [address] [place] [address] 07/13/2023 11:02:23 07/13/2023 12:07:45 Type 2 diabetes mellitus without complication 436342196 E11.9 We restarted his metformin 500 twice a day in September 2022 because his A1C increased presumably secondary to weight gain. He is tolerating the metformin well and his A1C is very good at 6.2. Chronic cough 86140038 R 05.3 This is probably from chronic bronchitis and intermitte nt asthma exacerbati ons. Exacerbati on of intermittent asthma 640965516 J45.21 [id number] Angel Morales MD Main Office [address] [place] [address] 09/21/2023 09:09:11 09/21/2023 09:45:59 Skin lesion 01740741 L98.9 This seems to be resolving and no further w/u needed. We discussed a derm appointmen t but he would like to hold off on this. Chronic ob structive pulmonary disease 30415183 J44.[address] Reyes. He is controlled with meds but finds it increasing difficult to work any distance w/o stopping to rest. We will look into getting him a handicappe rinku romero. [id number] Angel Morales MD Main Office [address] [place] [address] 12/14/2023 13:32:22 12/14/2023 14:22:06 Type 2 diabetes mellitus without complication 864295090 E11.9 We restarted his metformin 500 twice a day in September 2022 because his A1C increased presumably secondary to weight gain. He is tolerating the metformin well and his A1C increased from 6.2 to 7.0. No changes in meds. He will work on lifestyle changes. Anemia 676696663 D64.9 High MCV so possible B12 deficiency . May also be ACD with a high MCV from his metformin. Doubt iron deficiency since would not expect an elevated MCV. Asthma 213714457 J45.90 9 Using inhalers and followed by pulmonary. [id number] Angel Morales MD Main Office [address] [address] [facility] [place] [address] 12/29/2023 08:40:31 12/29/2023 09:10:16 Essential hypertension 94638802 I10 Will continue with amlodipine 10 mg and valsartan 160 mg . He discontinu ed his diuretic. Good control. Chronic cough 56817961 R 05.3 Multifacto rial caused by asthma, COPD and exposure to mold in his apartment. [id number] Angel Morales MD Main Office [address] [address] [place] [address] 03/15/2024 12:35:21 03/15/2024 13:19:35 Type 2 diabetes mellitus without complication 634657264 E11.9 We restarted his metformin 500 twice [...] 1000 mg twice a day. Essential hypertension 63064971 I10 Will continue with amlodipine 10 mg and valsartan 160 mg . He discontinu ed his diuretic. Good control. [id number] Angel Morales MD Main Office [address] [place] [address] 04/27/2024 13:07:05 04/27/2024 14:50:18 Adult health examination 491386775 Z00.00 UTD with immunizati ons including COVID w/booster, tetanus and pneumonia. He had one shingrix and is due for a second. His last colonoscop y was October 2022 and due to age and lack of polyps this was his last colonoscop y. Influenza vaccine needed 6421378934 106 Z23 65 YEARS AND OLDER Benign pro static hyperplasia 674996966 N40.0 Cardiomyopathy 13740722 I42.9 Chronic ob structive pulmonary disease 96699131 J44.[address] Reyes. He is controlled with meds but finds it increasing difficult to work any distance w/o stopping to rest. We will look into getting him a handicappe rinku vazquezjoanie. Essential hypertension 17142821 I10 Will continue with amlodipine 10 mg and valsartan 160 mg . He discontinu ed his diuretic. Good control. 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 [id number] HERNAN CARTWRIGHT Main Office [address] [facility] [address] [place] [address] 05/23/2024 13:49:01 05/23/2024 14:09:09 Type 2 diabetes mellitus without complication 889800043 E11.9 -has f/u in 3 weeks with AC-A1c of 8, 03/15/2024 Acute kidney injury 1466 9001 N17.9 Cr stable with IVF in ED-suspici ous of CKD progressio n, not SUHA-will repeat CMP in 1 week Anemia 286899771 D64.9 -will recheck CBC-had no signs/symp toms of bleeding in ED Benign pro static hyperplasia 241693198 N40.0 -c/w current regimen Neuropathy 751460043 G62 .9 c/w gabapentin Essential hypertension 46978213 I10 -c/w current regimen-BP in office at goal Obstructiv e sleep apnea syndrome 81133847 G47.33 -has CPAP at home Cerebrovas cular accident 778830676 I63.9 reviewed hospital documentat ion-sympto ms of right upper extremity weakness, unsteadine ss, and AMS improved while in the ED-MRI, CT, and CTA were all unremarkab le-since discharge, pt denies of any neuro symptoms-w as cleared by physical therapy-st stephany gait, strength and tone WNL [id number] Angel Morales MD Main Office [address] [facility] [address] [place] [address] 06/13/2024 13:05:26 06/13/2024 14:14:53 Type 2 diabetes mellitus without complication 212112929 E11.9 We restarted his metformin 500 twice a day in September 2022 because his A1C increased presumably secondary to weight gain. He is tolerating the metformin well but his A1C increased from 7.0 to 8.0. He then added jardiance to his regimen at his request which he is tolerating well. His A1C has now come down to 6.3. Essential hypertension 95796572 I10 BP has been running low and he has been symptomati c. He will continue with the valsartan but will stop his amlodipine and we will check his BP again in 4 weeks. [id number] Angel Morales MD Main Office [address] [place] [address] 07/13/2024 12:41:22 07/13/2024 13:22:02 Asthma 737710072 J45.909 Using inhalers and followed by pulmonary. Essential hypertension 41883719 I10 He will continue with the valsartan but stopped his amlodipine one month ago because of low bllod pressure readings and some low BP symptoms.. [id number] HERNAN CARTWRIGHT Main Office [address] [place] [address] 07/30/2024 10:11:03 07/30/2024 11:14:00 COVID-19 970963398 U07.1 -tested positive at home yesterday- symptoms of cough, congestion , and sore throat from 07/21 improved significan tly-still endorses some cough and congestion -denies of any SOB, chest pain, GI symptoms-d iscussed importance of stopping simvastati n while on paxlovid course->pt understand s-discusse d to continue with conservati ve measuremen ts [id number] Angel Morales MD Main Office [address] [place] [address] [place] [address] 08/11/2024 09:39:59 08/11/2024 10:06:18 Acute pharyngitis 942719710 J02.9 Possibly secondary to PND from non-optima lly treated allergies. Strep was negative. He will continue with fluticason e and I will add an antihistam ine. [id number] Angel Morales MD Main Office [address] [facility] [place] [address] 09/11/2024 13:59:20 09/11/2024 14:39:25 Pain of left hand 9538219688 87416 M79.642 Possible tenosynovi tis vs CTS. Isolated head tremor 230 171210 G25.0 He was seen by Dr Butler [...] Name 06/13/2024 2 [place] Shad Alanis [id number] Shad Alanis 06/13/2024 1 [facility] (MEDICARE REPLACEMENT/A DVANTAGE - POS) [id number] Shad Alanis [id number] Shad Alanis 07/13/2024 2 [place] Shad Alanis [id number] Shad Alanis 07/13/2024 1 [facility] (MEDICARE REPLACEMENT/A DVANTAGE - POS) [id number] Shad Alanis [id number] Shad Alanis 07/30/2024 2 [place] Shad Alanis [id number] Shad Alanis 07/30/2024 1 [facility] (MEDICARE REPLACEMENT/A DVANTAGE - POS) [id number] Shad Alanis [id number] Shad Alanis 08/11/2024 2 [place] Shad Alanis [id number] Shad Alanis 08/11/2024 1 [facility] (MEDICARE REPLACEMENT/A DVANTAGE - POS) [id number] Shad Alanis [id number] Shad Alanis 09/11/2024 2 [place] Shad Alanis [id number] Shad Alanis 09/11/2024 1 [facility] (MEDICARE REPLACEMENT/A DVANTAGE - POS) [id number] Eliazar Alanis [id number] Eliazar Alanis Notes Date Note Type Note [...] in 3 months. Angel Morales MD [address] [address], [place], [address], [facility] 06/13/2024 18:10:58 07/13/2024 text/html Hypertension F/UReported bypatient.Associat [...] by Dr Reyes. Angel Morales MD [address] [address], [place], [address], [facility] 07/13/2024 16:41:34 07/30/2024 text/html Eliazar is [...] any SOB, chest pain. HERNAN CARTWRIGHT [address] [address], [place], [address], [facility] 07/30/2024 11:02:07 08/11/2024 text/html Throat PainReported bypatient.Location :bilateral Severity:moderate; hurts to swallow Duration:started 1 week(s) ago Onset/Timing:abrup t Alleviating Factors:cold medicine (with honey that was helping initially) Associated Symptoms:stress;dy sphagia Angel Morales MD [address] [address], [place], [address], [facility] 08/11/2024 12:37:19 09/11/2024 text/html Left forearm melanie [...] fhx of tremors. Angel Morales MD [address] [address], [place], [address], [facility] 09/11/2024 18:01:53
--- OUTSIDE RECORDS SUMMARY | 2024-09-20 17:08 | XMS_ITS ---
[facility] Address [address] [place] [address] Care Team Providers Care National Sales Representative Name Role Phone Amandeep Morales MD Primary Care Provider Unasunil Kristi Vilaine Unavailable [phone] Allergies Allergen (clinical drug ingredient) Drug/Non Drug [...] Problem Acquired hammer toe of right foot (2364566750415 105) Other hammer toe(s) (acquired), right foot (M20.41) Active confirmed Problem Acquired hammer toe of left foot (4291559896408 103) Other hammer toe(s) (acquired), left foot (M20.42) Active confirmed Vital Signs Height 5 ft 7 in in 08/03/2024 Weight 179 lbs 08/03/2024 BMI 28.03 kg/m2 08/03/2024 Procedures Procedure Date Ordered Date Performed Result Body Sit e 63986-BWXDRXI NAIL, 6 OR MORE 08/03/2024 N/A 46736-OLCB SKIN LESIONS, OVER 4 08/03/2024 N/A Encounters Encounter Location Date Provider Diagnosis [facility] [address] [address] 08/03/2024 Kaitlin Alvarado Other hammer toe(s) (acquired), [...] INSTRUCTIONS.pdf) Pending Test Test Name Order Date 91263-[id number] NAIL, 6 OR MORE 08/03/2024 09687-TBTX SKIN LESIONS, OVER 4 08/03/19 Next Appt Details Follow Up: 3 Months, Reason: Provider Name:Kaitlin Dobson yifan, 11/16/2024 12:30:00 PM, [address], [place], [address], Procedure Notes * Category Sub-Category Detail Notes [...] use of a nail nipper and/or dremel-type emery grinder, to a more viable healthy nail [...] instrumentation by the physician of record - 19217 Progress Notes * Eliazar ALANIS MDOB: 7 (78 yo M)Acc No.[id number]:08/03/2024 Progress Note Patient:?ALANIS Eliazar Chand Provider:?Kaitlin Alvarado DPM :1945???Age:78 Y???Sex:Male Chriss e:08/03/2024 Address:[address] [place] [address] , [facility] Pcp:Amandeep Morales MD Subjective: * Chief Complaints: [...] ?Exercise: no. ?Marital status: . 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 * Medications:?TakingmetFORMIN HCl traMADol HCl Albuterol amLODIPine [...] 6.3 * Examination: ???Ophthalmology Referral: ?DIABETES EYE EXAM?Procedure Performed:?No?Orthopedic: ?MUSCLE STRENGTH:?5/5 all groups in a symmetrical [...] for office visit today.?ORIENTED:?person, place, and time.?FOOT EXAM:?Lower Extremity Neurological Exam performed:?Yes Date ?Visual exam of foot performed:?Yes ?Footwear Evaluation?Footwear Evaluation performed:?Yes?Neurological: ?SENSORY:? Neurological exam demonstrates, reduced light touch [...] (C):?normal, B/L.?PIGMENTATION:?normal, B/L.?EDEMA (C):? 07/28, Right foot.?TELANGECTASIA:?absent, B/L.? Assessment: * Assessment: 1.?Other hammer toe(s) (acqu ired), right foot - M20.41 (Primary)???Specify :Chronic problem, Worse (4),Rx Management (4)???2.?Other hammer toe(s) (acquired), left foot - M20.42???Specify :Chronic problem, Worse (4),Rx Management (4)???3.?Type 2 diabetes mellitus with diabetic polyneuropathy - E11.42???4.?Tinea unguium - B35.1??? Plan: * Treatment: 2.?Type 2 diabetes mellitus with diabetic polyneuropathy?Procedure: 57814-BKYGUOX NAIL, 6 OR MORE ?Procedure: 17681-VUBM SKIN LESIONS, OVER 4 * Procedures:?Debride Nail [...] use of a nail nipper and/or dremel-type emery grinder, to a more viable healthy nail [...] to maintain effectiveness in symptomatic relief - 91949.?Keratoma Treatment:?Parring or Cutting of Benign Hyperkeratotic Lesion(s)?(-57) [...] instrumentation by the physician of record - 88729.? * Procedure Codes:?82758 DEBRI DE NAIL, 6 OR MORE, Modifiers: XS 29721 TRIM SKIN LESIONS, OVER 4, Modifiers: XS [...] Alvarado DPM Date:?0 08/03/2024 Generated for Cecil davis/Kevin/eTransmitting on:?09/20/2024 05:07 PM EST History and Physical [...]
--- OUTSIDE RECORDS SUMMARY | 2024-09-20 17:09 | XMS_ITS | Patient Health Record ---
[facility] Organization [facility] Address [address] [place] [place] [address] Care Team Providers Care Circuit Designer Name Role Phone Carmen BEST, Amandeep Primary Care Provider Unav ailable Christiano Kaitlin Unavailable [phone] NapierJas Unavailable [phone] Allergies Allergen (clinical drug ingredient) Drug/Non Drug Allergy documented on EMR Reaction Allergy Type Onset Date Status aspirin Aspirin Unknown Drug Allergy Active codeine Codeine Constipation Drug Allergy Acti ve Substance with sulfonamide structure and antibacterial mechanism of action (substance) Sulfa Antibiotics Reaction Drug Allergy Active Results Component Value Reference Range Notes HEMOGLOBIN A1C (GLYCOHEMOGLO BIN) Reviewed date:02/03/2024 12:28:03 PM Interpretation: Performing Lab: Notes/Report: HEMOGLOBIN A1C % (HH) 7.0 HEMOGLOBIN A1C (GLYCOHEMOGLO BIN) Reviewed date:08/03/2024 12:12:25 PM Interpretation: Performing Lab: Notes/Report: HEMOGLOBIN A1C % (HH) 6.3 Reason For Referral No Information Medications Medication SIG (Take, Route, Frequency, Duration) Notes Start Date End Date Status clonazePAM Not-Takin g Wixela Inhub Not-Mike ing DULoxetine HCl Activ e Baclofen Not-Taking Finasteride Active Cetirizine HCl Not-T aking Gabapentin 900MG Active Magnesium Oxide Not- Taking Omeprazole 20 MG TAKE ONE CAPSULE BY MOUTH DAILY Oral for 30 Active Myrbetriq Not-Taking Simvastatin 20 MG TAKE 1 TABLET BY MOUTH EVERY DAY Oral for 30 Active Keflex 500 MG 1 capsule Orally every 8 hrs for 10 days 07/13/2019 Not-Taking Singulair Active Finasteride Not-Taki ng Tamsulosin HCl Activ e Keflex 500 MG 1 capsule Orally every 12 hrs for 10 day(s) 03/09/2018 Not-Taking Valsartan Active Lisinopril 10 MG TAKE 1 TABLET BY MOUTH DAILY Orally Not-Taking Vitamin B12 Active ZyrTEC Allergy 10 MG 1 tablet Orally Onc e a day Active clonazePAM Active Extra Depth Orthopedic Shoes (1 Pair) with Customized Heat Molded Multidensity Innersoles (3 Pair) as directed Dx: NIDDM/Polyneuropathy (E11.42), Hammertoe Foot Deformity (M20.41,M20.42), Preulcerative Skin Lesion(s) (L85.1 08/03/2024 Active Fluticasone Propionate 50 MCG/ACT INSTILL 2 SPRAYS INTO BOTH NOSTRILS EVERY DAY Nasal for 30 Not-Taking Advair Diskus 500-50 MCG/DOSE 1 puff Inhalation Twice a day Not-Taking Incruse Ellipta Not- Taking Lansoprazole 30 MG 1 capsule before a meal Orally Once a day Not-Taking oxyBUTYnin Chloride ER Not-Taking Aleve Not-Taking Centrum Silver Not-T aking Trospium Chloride No t-Taking Extra Depth Diabetic Shoes with 3 Pair Custom heat-molded multi-density innersoles for 1 year Dx: 07/29/2020 Not-Taking Meloxicam Not-Taking Night Splint AFO - L1930 as directed 05/05/2021 Not-Taking ProAir HFA WHEN Needed Only Not-Taking Physical Therapy . . . 2-3x/week for 3- 4 weeks 05/05/2021 Not-Taking Gabapentin 600 MG TAKE 1 TABLET BY MOUTH AT BEDTIME Oral for 30 Not-Taking metFORMIN HCl Active Extra Depth Diabetic Shoes with 3 Pair Custom heat-molded multi-density innersoles for 1 year Dx: 05/04/2016 Not-Taking traMADol HCl Active Extra Depth Orthopedic Shoes (1 Pair) with Customized Heat Molded Multidensity Innersoles (3 Pair) as directed Dx: NIDDM/Polyneuropathy (E11.42), Hammertoe Foot Deformity (M20.41,M20.42), Preulcerative Skin Lesion(s) (L85.1 05/31/2017 Not-Taking Albuterol Active Extra Depth Diabetic Shoes with 3 Pair Custom heat-molded multi-density innersoles for 1 year Dx: 04/24/2019 Not-Taking amLODIPine Besylate Active Immunizations Vaccine Route Administration Date Status Comme nts COVID-19 Moderna Vaccine Unknown 09/19/2020 Administere d COVID-19 Moderna Vaccine Unknown 10/17/2020 Administere d Influenza Unknown 05/06/2015 Administered Influenza Unknown 02/10/2016 Administered Influenza Unknown 04/18/2017 Administered Influenza Unknown 06/20/2018 Administered Influenza Unknown 04/17/2019 Administered Pneumococcal Unknown 05/08/2014 Administered Social History Tobacco Use: Social History Observation [...] Additional Findings: Tobacco non-user Current no nsmoker Section Notes: Flu Shot 04/2016 Pneumonia 05/08/14 Eye exam 04/2016 A1C 5.3 Flu Shot 04/2016 Pneumonia 05/08/14 Eye exam 04/2016 A1C 5.3 Problems Problem Type SNOMED Code ICD Code Onset Dates Problem Status W/U Status Risk Notes Problem Acquired hammer toe of right foot (0070118355229769 ) Other hammer toe(s) (acquired), right foot (M20.41) Active confirmed Problem Acquired hammer toe of left foot (7628442811595863 ) Other hammer toe(s) (acquired), left foot (M20.42) Active confirmed Problem Polyneuropathy due to type 2 diabetes mellitus (445064198) Type 2 diabetes mellitus with diabetic polyneuropathy (E11.42) Active confirmed Vital Signs Height 5 ft 7 in in 08/03/2024 Weight 179 lbs 08/03/2024 BMI 28.03 kg/m2 08/03/2024 Procedures Procedure Date Ordered Date Performed Result Body Sit e 39020-WKJUQZW NAIL, 6 OR MORE 08/03/2024 N/A 42816-MPJM SKIN LESIONS, OVER 4 08/03/2024 N/A Encounters Encounter Location Date Provider Diagnosis [facility] [address] [address] 11/04/2023 Jas Napier Type 2 diabetes mellitus with diabetic polyneuropathy E11.42 ; Ingrowing nail L60.0 ; Tinea unguium B35.1 ; Tinea pedis B35.3 ; Pain in left toe(s) M79.675 ; Pain in right toe(s) M79.674 ; Plantar fascial fibromatosis M72.2 ; Calcaneal spur, right foot M77.31 and Achilles tendinitis, right leg M76.[address] [address] 02/03/2024 [facility] Type 2 diabetes mellitus with diabetic polyneuropathy E11.42 ; Ingrowing nail L60.0 ; Tinea unguium B35.1 ; Tinea pedis B35.3 ; Pain in left toe(s) M79.675 ; Pain in right toe(s) M79.674 ; Plantar fascial fibromatosis M72.2 ; Calcaneal spur, right foot M77.31 and Achilles tendinitis, right leg M76.[address] [address] 05/04/2024 [facility] Type 2 diabetes mellitus with diabetic polyneuropathy E11.42 ; Ingrowing nail L60.0 ; Tinea unguium B35.1 ; Tinea pedis B35.3 ; Pain in left toe(s) M79.675 ; Pain in right toe(s) M79.674 and Sprain of right foot, initial encounter S93.601A [address] [address] 08/03/2024 Kaitlin Alvarado Other hammer toe(s) (acquired), right foot M20.41 ; Other hammer toe(s) (acquired), left foot M20.42 ; Type 2 diabetes mellitus with diabetic polyneuropathy E11.42 and Tinea unguium B35.[address] [address] 10/06/2023 [facility] [address] [place] [address] 11/03/[address] [address] 08/01/2024 Kaitlin Alvarado Assessments Encounter Date Diagnosis (ICD Code) Assessment Notes Treatment Notes Treatment Clinical Notes Section Notes 11/04/2023 Ingrowing nail (ICD-10 - L60.0) 11/04/2023 Type 2 diabetes mellitus with diabetic polyneuropathy (ICD-10 - E11.42) 02/03/2024 Ingrowing nail (ICD-10 - L60.0) 02/03/2024 Type 2 diabetes mellitus with diabetic polyneuropathy (ICD-10 - E11.42) 05/04/2024 Ingrowing nail (ICD-10 - L60.0) 08/03/2024 Other hammer toe(s) (acquired), right foot (ICD-10 - M20.41) Patient Educated with: DIABETIC FOOT CARE INSTRUCTIONS. pdf (DIABETIC FOOT CARE INSTRUCTIONS. pdf) 08/03/2024 Other hammer toe(s) (acquired), left foot (ICD-10 - M20.42) 05/04/2024 Type 2 diabetes mellitus with diabetic polyneuropathy (ICD-10 - E11.42) 08/03/2024 Type 2 diabetes mellitus with diabetic polyneuropathy (ICD-10 - E11.42) 05/04/2024 Tinea unguium (ICD-10 - B35.1) 02/03/2024 Tinea unguium (ICD-10 - B35.1) 11/04/2023 Tinea unguium (ICD-10 - B35.1) 11/04/2023 Tinea pedis (ICD-10 - B35.3) 02/03/2024 Tinea pedis (ICD-10 - B35.3) 05/04/2024 Tinea pedis (ICD-10 - B35.3) 08/03/2024 Tinea unguium (ICD-10 - B35.1) 05/04/2024 Pain in left toe(s) (ICD-10 - M79.675) 11/04/2023 Pain in left toe(s) (ICD-10 - M79.675) 02/03/2024 Pain in left toe(s) (ICD-10 - M79.675) 02/03/2024 Pain in right toe(s) (ICD-10 - M79.674) 11/04/2023 Pain in right toe(s) (ICD-10 - M79.674) 05/04/2024 Pain in right toe(s) (ICD-10 - M79.674) 02/03/2024 Plantar fascial fibromatosis (ICD-10 - M72.2) 05/04/2024 Sprain of right foot, initial encounter (ICD-10 - S93.601A) 11/04/2023 Plantar fascial fibromatosis (ICD-10 - M72.2) 11/04/2023 Calcaneal spur, right foot (ICD-10 - M77.31) 02/03/2024 Calcaneal spur, right foot (ICD-10 - M77.31) 11/04/2023 Achilles tendinitis, right leg (ICD-10 - M76.61) 02/03/2024 Achilles tendinitis, right leg (ICD-10 - M76.61) Plan Of Treatment Pending Test Test Name Order Date Hemoglobin A1c 11/30/2016 X ray : Foot, right 3V 05/04/2024 X ray : Foot, right 3V 05/05/2021 X ray : Foot, right 3V 07/13/2019 89331-IKWECAB NAIL, 6 OR MORE 08/03/2024 02020-KPJNHLM NAIL, 1-5 06/20/2018 59269-SZAPHDB NAIL, 1-5 01/06/2018 91174-STFTTKF NAIL, 1-5 03/17/2018 27406-VNMSEFP NAIL, 1-5 05/04/2016 74512-CDVTGOF NAIL, 1-5 08/30/2017 15117-Beqomjxl Plate 01/06/2018 08730-Bbvbibrz Plate 05/31/2017 74893-Lpuesgcs Plate 04/23/2016 31818-Hmnnwefh Plate 06/20/2018 65685-Vhnmyutn Plate 03/02/2018 13070-Quueswpu Plate Each Additional 01/2017 12926-Cfkxkasp Plate Each Additional 07101- Debride <25 sq cm 05/04/2016 82434- Debride <25 sq cm 11/20/2013 88519- Debride <25 sq cm 03/17/2018 80273 I&D ABSCESS- SIMPLE,SINGLE 014 47676 I&D ABSCESS- SIMPLE,SINGLE 016 08594-EFDB SKIN LESIONS, OVER 4 08/03/19 25 84609-TFJJ SKIN LESIONS, OVER 4 05/05/20 21 14826-ALWY SKIN LESIONS, 2 TO 4 08/18/19 22 85444-SBHR SKIN LESIONS, 2 TO 4 01/07/20 18 35242-JTZX SKIN LESIONS, 2 TO 4 09/19/19 19 48795-OXDX SKIN LESIONS, 2 TO 4 12/20/19 19 25138-DCTK SKIN LESIONS, 2 TO 4 02/21/20 19 91614-MHXM SKIN LESIONS, 2 TO 4 04/24/20 19 69420-CVGV SKIN LESIONS, 2 TO 4 05/04/20 16 62472-IHJP SKIN LESIONS, 2 TO 4 12/01/19 17 23489-JYTZ SKIN LESIONS, 2 TO 4 05/31/20 17 50675-LRPY SKIN LESIONS, 2 TO 4 08/30/19 18 51032-IPAV SKIN LESIONS, 2 TO 4 03/17/20 18 49623-XPKM SKIN LESIONS, 2 TO 4 06/20/20 18 27818-HNQF SKIN LESIONS, 2 TO 4 09/07/19 20 35921-CQMH SKIN LESIONS, 2 TO 4 11/23/19 20 79930-STOK SKIN LESIONS, 2 TO 4 01/29/20 20 28335-RFTG SKIN LESIONS, 2 TO 4 04/11/20 20 32841-KKMX SKIN LESIONS, 2 TO 4 07/29/19 21 73112-UVZH SKIN LESIONS, 2 TO 4 11/01/19 21 39783-EFAM SKIN LESIONS, 2 TO 4 02/04/20 21 77424-ULSQ NAIL(S) 08/30/2017 76378-YWOC NAIL(S) 05/04/2016 O2992-KGHNGCHS DYSTROPHIC NAILS ANY # U2743-TVGNPHTZ DYSTROPHIC NAILS ANY # W5906-FRITVYHR DYSTROPHIC NAILS ANY # R1052-USKQSBWM DYSTROPHIC NAILS ANY # 57002-KUKFPWMP OF HEMATOMA/FLUID 021 97395- Nail Unit Biopsy 03/02/2018 Next Appt Details Provider Name:Kaitlin Dobson yifan, 11/16/2024 12:30:00 PM, [address], [address], [place], [address], Insurance Providers Payer Name Payer Address Payer Phone Subscriber Number Group Number Insured Name Patient Relationship to Insured Coverage Start Date Coverage End Date [employer] Medicare [id number] [address] [address] [place] [address] [id number] Eliazar Alanis Self - patient is the insured Medical (General) History Medical History History ICD Code Arthritis asthma Diabetic Hypertension chronic sinusitis Prostate conditions Cataracts Surgical History Surgery Date(Month/Year) tonsillectomy knee surgery, right sinus surgery knee surgery, left 12/14/2015 Hospitalization History Reason Date(Month/Year) Urgent Care- swollen finger, pneumonia [facility], pneumonia 12/13 [facility] Pneumonia 03/21/20
== END ==
LOC: HO.CARD 14:02
PROVIDERS: PCP Internal Medicine; Visit Provider Hospitalist
DX: J44.9 Chronic obstructive pulmonary disease, unspecified (principal)
CPT/HCPCS: 93005

== ENCOUNTER → 2024-09-20 14:11 | Outpatient (BNV) | payer MEDICARE, MEDICAID, SELFPAY | PROVIDERS: PCP Internal Medicine; Visit Provider Internal Medicine Cardiovascular Disease | DX: J44.9 Chronic obstructive pulmonary disease, unspecified (principal) | CPT/HCPCS: 93010 ==

== ENCOUNTER 2025-07-16 14:13 | Outpatient (AMB) | payer MEDICARE, MEDICAID, SELFPAY ==
--- OUTSIDE RECORDS SUMMARY | 2025-05-17 08:30 | XMS_ITS ---
Author Organization [facility] Address [address] [place] [address] Care Team Providers Care Paratransit Operator Name Role Phone Carmen BEST, Amandeep Primary Care Provider Unav ailable Kaitlin Alvarado Unavailable [phone] Encounters Encounter Location Date Provider Diagnosis [address] [address] 05/17/2025 Kaitlin Alvarado Plan Of Treatment Next Appt Details Provider Name:Kaitlin Bronson saha, 09/13/2025 01:15:00 PM, [address] [place] [address], [phone], Progress Notes * Eliazar DEL CASTILLO MDOB: 7 (79 yo M)Acc No.[id number]:05/17/2025 Progress Note Patient: Peterson ZACARIAS Eilazar Chand Provider: Tiffanie Alvarado DPM :1945 A ge:79 Y S ex:Male Date:05/17/2025 Address:[address] [place] [address], [address] [phone] Pcp:Amandeep Morales MD Subjective: * Chief Complaints: * * Medical History: Objective: * Vitals: Assessment: Plan: * Treatment: * Images: * The named appointment provid er may or may not be the originator of this progress note, and it is not deemed complete until electronically signed by the appointment provider. Sign off status: Pending * Provider: Tiffanie Alvarado DPM Date: 1 Generated for Cecil davis/Kevin/Peter on: 09/16/2024 03:30 PM EST
[2025-07-16 14:15] VITALS: BP 120/64; PULSE 93; O2SAT 95; BMI 28.0
--- NOTE | 2025-07-16 14:15 | MHC.OFFVIS ---
Vital Signs 07/16/25 14:15 Height 5 ft 7 in Weight 178 lb 9.191 oz BMI 28.0 BP 120/64 Blood Pressure Location Lt brachial Position Sitting Pulse 93 Pulse Source Pulse Oximeter Pulse Oximetry (%) 95 Oxygen Delivery Method Room Air Intake Visit Reasons: Cough Sales Leader Required: No Bilingual Operator: Bilingual Operator offered & declined Accompanied by: Self / Same As Patient Allergies aspirin Adverse Reaction (Intermediate, Verified 07/16/25 14:19) Stomach Upset codeine Adverse Reaction (Intermediate, Verified 07/16/25 14:19) Unknown Sulfa (Sulfonamide Antibiotics) Adverse Reaction (Unknown, Verified 07/16/25 14:19) Unknown HPI Comments Details: The patient is a 79-year-old gentleman with a known history of COPD, latent tuberculosis status post treatment, in addition to bronchiectasis for many years. He had been followed at [facility] for many years. 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 He has been treated in the past with levofloxacin. He has had multiple admissions to the hospital with COPD exacerbations and also pneumonia. He has been using Advair now for several years. He also uses Incruse. Therapy has been partially effective. He also has a nebulizer and has percussion valve. We did review his last CT scan of the chest was back in November 2022 demonstrating bronchiectatic changes in addition to treating budding pulmonary nodules and some degree of interstitial lung disease. We did talk about the mycobacterium abscesses that which is a culture that was positive at [facility] in the difficulties and treating this. The Pseudomonas is likely the result of his chronic bronchiectasis. And I explained to him that these organisms are difficult to remove. Will try to get a sputum culture to both for AFB and for Gram stain and culture to reassess if he is having any evidence of any persistent infection the patient also could consider having a bronchoscopy if we can not get adequate specimens. Will have to monitor his pulmonary nodules. We will discuss that further during his follow-up visit. In the meantime after he gets the cultures sent will try him on a short course of azithromycin in addition to switching over to Trelegy inhaler. 11/25/2023 the patient is here for a pulmonary follow-up visit. Overall the patient has been doing better. Responding well to the Trelegy inhaler. He does have some increasing wheezing the last few days. He has been using the nebulizer as needed. In addition that he does have the Acapella valve that he can use for CPT. 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 Typically less pathogenic and concerning than the other organisms that is growing in the past. He is seems to be responding well to the azithromycin which will continue at this point to treat his chronic bronchiectasis. In addition to that I explained to him about the Pseudomonas. Right now appears to be a colonization and not a pathogen. In his to continue with CPT and continue with the medications prescribed. If his symptoms worsen developing worsening lower respiratory infection then I do believe inhaled tobramycin will be a very good agent for him. Therefore will continue to monitor closely his symptoms. He does have some wheezing on examination. I did recommend he can start performing the nebulizers twice a day to improve mucus clearance and bronchodilation. If he develops any worsening symptoms he can always call for further recommendations. 03/30/2024 the patient is here for a pulmonary follow-up visit. Overall the patient's. He continues on the Trele daily azithromycin 3 times a week for bronchiectasis. He is also using the nebulizer and using his Acapella valve. He does use it to 3 times a day. He still has cough. The cough is prior in little better which is overall better. Still gets shortness of breath with activity. Pbur-to-zkwnxwix. The patient did have a CT scan of the chest that [facility] back in 12/11/2022. I did personally review. He had a new 6 mm nodule. In addition to that he also other nodules and significant bronchiectasis. The patient will need a repeat CT scan at this time. He prefers [facility]. 03/30/2024 the patient is here for a pulmonary follow-up visit. Overall the patient has been doing better. He continues on the Trelegy. Continues on the azithromycin. He did have an EKG done 01/14/2024 with normal QT intervals. Therefore continue therapy safely. The patient did have a CT scan of chest back in 12/11/2022. The patient should have a repeat CT scan at this time. He has underlying pulmonary nodules. Has a new 6 mm pulmonary nodule. Will request a [facility] as per the patient's preference because he lives closest hospital. The patient also will continue with the chest PT. He does have an Acapella valve that he uses regularly. He will continue with the current therapy will follow-up after the CAT scan. 09/17/2024 the patient is here for a pulmonary follow-up visit. Overall the patient has been doing well. Since we last spoke he had COVID x2 the 1st time did cause him to have more fatigue and fevers and malaise but right now he is doing better. The 2nd time was not too bad. He did have imaging study demonstrating interval resolution of the 6 mm nodule and all the other nodules are stable which is reassuring. He continues on the azithromycin 3 times a week. His last EKG was back in 01/12/2024 with normal QRS. Will going to go ahead and request another EKG to make sure she continues on the therapy for his bronchiectasis. I did personally reviewed his CT scan demonstrating some mild bronchiectasis and again the pulmonary nodules stated above the patient is doing well plan to follow-up in the fall if he has any issues prior to that he will go for an earlier assessment. Will keep him on the azithromycin for now will wake his EKG. 07/16/2025 the patient is here for pulmonary follow-up visit. Overall he is doing okay although he is complaining of worsening cough chest congestion for the last week. He has noticed some increased phlegm while whitish in color. The azithromycin has been helpful. His last EKG was reassuring. He did have a CT scan sometime ago demonstrating bronchiectasis. Therefore he understands he tends to have worsening respiratory congestion. In the meantime the patient does have some crackles on exam primarily in the right chest area. Will have him get a chest x-ray. It could be a lower respiratory infection. Will go ahead and add Augmentin to his regimen and will place him on a prednisone taper for the rhonchi and some wheezing. The patient will follow-up in 2-3 months if he has any issues prior to this she can always call for further recommendations. He will continue with his current respiratory therapy which includes Trelegy and also has a rescue inhaler. [facility] Medical History (Updated 07/16/25 @ 19:24 by Reynaldo Reyes MD) Pneumonia COPD (chronic obstructive pulmonary disease) Pulmonary nodules Bronchiectasis Social History Patient Tobacco Use Status: Former Tobacco user Tobacco use type: Cigarette Cigarettes Per Day: 10 Years Smoked: , started at 15 years old. quit 24 years ago Review of Systems Const Denies fever(s) ENT Reports nasal congestion Card Denies chest pain and Reports dyspnea on exertion Resp Reports chest congestion, Reports cough, Reports dyspnea on exertion and Reports wheezing GI Reports no additional complaints Musc Reports no additional complaints Skin/Breast Denies rash Neuro Reports no additional complaints Josh/Lymph Denies lymphadenopathy Aller/Immun Reports wheezing Physical Exam Vital Signs: Last Vital Signs Pulse 93 07/16/25 14:15 BP 120/64 07/16/25 14:15 Pulse Ox 95 07/16/25 14:15 Oxygen Delivery Method Room Air 07/16/25 14:15 BMI result Body Mass Index 28.0 Const General: comfortable HEENT Head: Yes normocephalic Neck Neck: Yes supple Chest Chest palpation & inspection: normal inspection of the chest Resp Effort & Inspection: normal respiratory effort Auscultation: no rales, rhonchi, no wheezes and diminished lung sounds Cardio Heart sounds: S1 normal heart sound present and S2 normal heart sound present GI Palpation (GI): Soft to palpation Skin General skin exam: no rashes or lesions noted Extrem General: Yes no clubbing, cyanosis or edema Assessment & Plan Assessment & Plan (1) Pulmonary nodules: Code(s): R91.8 - Other nonspecific abnormal finding of lung field Category: Medical (2) Bronchiectasis: Code(s): J47.9 - Bronchiectasis, uncomplicated Category: Medical Qualifiers: Bronchiectasis type: uncomplicated Qualified Code(s): J47.9 - Bronchiectasis, uncomplicated (3) COPD (chronic obstructive pulmonary disease): Code(s): J44.9 - Chronic obstructive pulmonary disease, unspecified Category: Medical Qualifiers: COPD type: chronic bronchitis Chronic bronchitis type: mixed simple and mucopurulent Qualified Code(s): J41.8 - Mixed simple and mucopurulent chronic bronchitis (4) Pneumonia: Code(s): J18.9 - Pneumonia, unspecified organism Category: Medical Qualifiers: Pneumonia type: due to unspecified organism Laterality: right Lung location: unspecified part of lung Qualified Code(s): J18.9 - Pneumonia, unspecified organism Plan continue Trelegy continue CPT with nebs and acapella valve continue Azithromycin MWF EKG start Augmentin Medrol pk repeat CXR in 4 weeks F/U 6 months Orders: Orders XR chest 2V 3 Weeks J18.9 - Pneumonia, unspecified organism XR chest 2V Today J18.9 - Pneumonia, unspecified organism, J47.9 - Bronchiectasis, uncomplicated Medications: New amoxicillin-pot clavulanate 875-125 mg 1 tab PO BID 20 tabs 0RF 10 days methylprednisolone (Medrol (Yves)) PO PER PKG DIR 21 ea 0RF 6 days Coding Level of Care Code Est Pt Level 4 (29458) Diagnoses Pulmonary nodules R91.8 Bronchiectasis without complication J47.9 Bronchiectasis type: uncomplicated Mixed simple and mucopurulent chronic bronchitis J41.8 COPD type: chronic bronchitis Chronic bronchitis type: mixed simple and mucopurulent Pneumonia of right lung due to infectious organism, unspecified part of lung J18.9 Pneumonia type: due to unspecified organism Laterality: right Lung location: unspecified part of lung Time Spent (min) 16
--- OUTSIDE RECORDS SUMMARY | 2025-07-16 15:30 | XMS_ITS | Clinical Summary ---
Author Organization [facility] Prior to 12/22/[address] [place] [address] Care Team Providers Care Research Technician Name Role Phone Amandeep Morales MD Primary Care Provider [phone] Allergies Active Allergy Reactions Criticality Noted Date [...] 1-dose 75+ series) 2021 Influenza Vaccine (#1) 2025 Hepatitis B Vaccines Aged Out No long er eligible based on patient's age to complete this topic RSV Ped < 20 months Aged Out No longe r eligible based on patient's age to complete this topic Insurance Payer Benefit Plan / Group Subscriber ID Effective Dates Phone Address [facility] [id number] 2012-Jerrod peck [address] [facility] [address] [place] [address] HMO Care Teams Research Technician Relationship Specialty Start Date End Date Amandeep Morales MD [address] [place] [id number] PCP - General Internal Medicine 11/18/17
--- OUTSIDE RECORDS SUMMARY | 2025-07-16 15:31 | XMS_ITS | Patient Health Record ---
Author Organization [facility] Address [address] [place] [address] Care Team Providers Care Cook Fishing Vessel Name Role Phone JACKIE BEST, ANGEL Primary Care Provider YUSUF Nolan Unavailable [phone] Allergies Allergen (clinical drug ingredient) Drug/Non Drug Allergy documented on EMR Reaction Allergy Type Onset Date Status aspirin Aspirin Unknown Drug Allergy Active Substance with sulfonamide structure and antibacterial mechanism of action (substance) Sulfa Antibiotics Unknown Drug Allergy Active Reason For Referral No Information Medications Medication SIG (Take, Route, Frequency, Duration) Notes Start Date End Date Status BLOOD PRESSURE MED DIRECTED *Please revie w for potential replacement for e-prescription and drug interaction check* Active Tamsulosin HCl 0.4 MG Capsule 1 cap(s) orally once a day Active Simvastatin 20 MG Tablet 1 tab(s) orally once a day (at bedtime); Duration: 30 day(s) Active MEDICATION LIST . CAN NOT BE VERIFIED *Please review for potential replacement for e-prescription and drug interaction check* Active Fluticasone Propionate (Inhal) 50 MCG/BLIST Aerosol Powder Breath Activated 1 puff(s) inhaled ONCE A DAY; Duration: 30 day(s) Active oxyBUTYnin Chloride ER 10 MG Tablet Extended Release 24 Hour 1 tab(s) orally once a day; Duration: 30 day(s) Active Omeprazole 20 MG Capsule Delayed Release 1 cap(s) orally once a day Active Naproxen 500 MG Tablet Delayed Release 1 tab(s) orally 2 times a day Active Gabapentin 300 MG Capsule 2 cap(s) orally hs Active Advair Diskus 250-50 MCG/DOSE Aerosol Powder Breath Activated 1 puff(s) inhaled BID; Duration: 30 day(s) Not-Taking clonazePAM 1 MG Tablet 1 tab(s) orally hs Active PRO AIR CFC FREE 90 MCG/INH AEROSOL 2 PUFF(S) INHALED 4 TIMES A DAY *Please review for potential replacement for e-prescription and drug interaction check* Unknown Finasteride 5 MG Tablet 1 tab(s) orally once a day Active Magnesium 400MG 1 TABLET ONCE A DAY NAME ONLY Conversion from Multum Review and pick correct strength-formulati on from My Best Interest options. If intended option is not shown, discontinue and re-order from Quick Search. Active Baclofen 10 MG Tablet 1 tab(s) orally once a day Active DULoxetine HCl 60 MG Capsule Delayed Release Particles 1 cap(s) orally once a day Active Social History Tobacco Use: Social History Observation Description Date Details (start date - stop date) Former Smoker NA - NA Social History Tobacco Use: Social Info Question Answer Notes Smoking Are you a: former smoker How long has it been since you last smoked? 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 asbestos exposure: no alcohol use: yes occasionally, oc casionally drug use: no Coffee/Tea/Soda: yes 1-2 CUPS OF COF FEE QDAY, 1-2 CUPS OF COFFEE QDAY Marital Status , experience no Living with son, son smokers in household no Problems Problem Type SNOMED Code ICD Code Onset Dates Problem Status W/U Status Risk Notes Problem History of polyp of colon (503903154) PRSNL HST COLONIC POLYPS (V12.72) Active confirmed Problem Heartburn (43745553) Heartburn (R12) Active confirmed Problem Irritable bowel syndrome (68985934) Irritable bowel syndrome without diarrhea (K58.9) Active confirmed Plan Of Treatment No Information Insurance Providers Payer Name Payer Address Payer Phone Subscriber Number Group Number Insured Name Patient Relationship to Insured Coverage Start Date Coverage End Date H[employer] MEDICARE ADVANTAGE [facility] [address] [facility] [place] [phone] [id number] HAKEEM DEL CASTILLO Self - patient is the insured Medical (General) History Medical History History ICD Code Colonoscopy:10/24-Colon adeno ma- 04/01/06 Normal//COlon5//-nl///Colon8//-Numerous left tics- 30mm semisessile cecal polyp at IC valve- resected-Epi and clip for pumping bleed- PAth=Lymphangioa-REc colon 5yrs. , Avoid NSAIDx2 weeks ASTHMA-Dr Berman GERD Alt D/C/Abd pain mid abd- IBS. Sleep Apnea-BIPAP Hypertension Diet controlled DM 11/2017=CTscan 12/24/17-WBC8.9, PFM023,?Divertic disease, Umbilivcal hernia-[place] Surgical History Surgery Date(Month/Year) Hernia mesh L Knee meniscus 01/15/16 R knee - meniscus repair Cyst removed from L ear Knee operation-lap T/A Hospitalization History Reason Date(Month/Year) above
--- OUTSIDE RECORDS SUMMARY | 2025-07-16 15:31 | XMS_ITS | Patient Health Record ---
Author Organization [facility] Address [address] [facility] [address] [place] [place] [address] Care Team Providers Care Powder Mixer Name Role Phone Amandeep Morales MD Primary Care Provider Unav ailable Kaitlin Alvarado Unavailable [phone] Allergies Allergen (clinical drug ingredient) Drug/Non Drug Allergy documented on EMR Reaction Allergy Type Onset Date Status aspirin Aspirin Unknown Drug Allergy Active codeine Codeine Constipation Drug Allergy Acti ve Substance with sulfonamide structure and antibacterial mechanism of action (substance) Sulfa Antibiotics Reaction Drug Allergy Active Results Component Value Reference Range Notes HEMOGLOBIN A1C (GLYCOHEMOGLO BIN) Reviewed date:11/16/2024 12:16:43 PM Interpretation: Performing Lab: Notes/Report: HEMOGLOBIN A1C % (HH) 6.3 HEMOGLOBIN A1C (GLYCOHEMOGLO BIN) Reviewed date:08/03/2024 12:12:25 PM Interpretation: Performing Lab: Notes/Report: HEMOGLOBIN A1C % (HH) 6.3 HEMOGLOBIN A1C (GLYCOHEMOGLO BIN) Reviewed date:02/15/2025 01:24:37 PM Interpretation: Performing Lab: Notes/Report: HEMOGLOBIN A1C % (HH) 6.3 HEMOGLOBIN A1C (GLYCOHEMOGLO BIN) Reviewed date:06/14/2025 11:59:35 AM Interpretation: Performing Lab: Notes/Report: HEMOGLOBIN A1C % (HH) 6.3 Reason For Referral No Information Medications Medication SIG (Take, Route, Frequency, Duration) Notes Start Date End Date Status Simvastatin 20 MG TAKE 1 TABLET BY MOUTH EVERY DAY Oral; Duration: 30 Active Myrbetriq Not-Taking Singulair Active Keflex 500 MG 1 capsule Orally every 8 hrs; Duration: 10 days 07/13/2019 Not-Taking Cetirizine HCl Not-T aking Magnesium Oxide Not- Taking Vitamin B12 Active Lisinopril 10 MG TAKE 1 TABLET BY MOUTH DAILY Orally Not-Taking ZyrTEC Allergy 10 MG 1 tablet Orally Onc e a day Active Fluticasone Propionate 50 MCG/ACT INSTILL 2 SPRAYS INTO BOTH NOSTRILS EVERY DAY Nasal; Duration: 30 Not-Taking Tamsulosin HCl Activ e Finasteride Not-Taki ng Valsartan Active Keflex 500 MG 1 capsule Orally every 12 hrs; Duration: 10 day(s) 03/09/2018 Not-Taking oxyBUTYnin Chloride ER Not-Taking Centrum Silver Not-T aking Extra Depth Orthopedic Shoes (1 Pair) with Customized Heat Molded Multidensity Innersoles (3 Pair) as directed Dx: NIDDM/Polyneuropathy (E11.42), Hammertoe Foot Deformity (M20.41,M20.42), Preulcerative Skin Lesion(s) (L85.1 08/03/2024 Active Advair Diskus 500-50 MCG/DOSE 1 puff Inhalation Twice a day Not-Taking Incruse Ellipta Not- Taking Lansoprazole 30 MG 1 capsule before a meal Orally Once a day Not-Taking Omeprazole 20 MG TAKE ONE CAPSULE BY MOUTH DAILY Oral; Duration: 30 Active Aleve Not-Taking Night Splint AFO - L1930 as directed 05/05/2021 Not-Taking ProAir HFA WHEN Needed Only Not-Taking Physical Therapy . . . 2-3x/week; Duration: 3-4 weeks 05/05/2021 Not-Taking Trospium Chloride No t-Taking Extra Depth Diabetic Shoes with 3 Pair Custom heat-molded multi-density innersoles for 1 year Dx: 07/29/2020 Not-Taking Meloxicam Not-Taking Albuterol Active Extra Depth Orthopedic Shoes (1 Pair) with Customized Heat Molded Multidensity Innersoles (3 Pair) as directed Dx: NIDDM/Polyneuropathy (E11.42), Hammertoe Foot Deformity (M20.41,M20.42), Preulcerative Skin Lesion(s) (L85.1 05/31/2017 Not-Taking amLODIPine Besylate Active Extra Depth Diabetic Shoes with 3 Pair Custom heat-molded multi-density innersoles for 1 year Dx: 04/24/2019 Not-Taking metFORMIN HCl Active Gabapentin 600 MG TAKE 1 TABLET BY MOUTH AT BEDTIME Oral; Duration: 30 Not-Taking traMADol HCl Active Extra Depth Diabetic Shoes with 3 Pair Custom heat-molded multi-density innersoles for 1 year Dx: 05/04/2016 Not-Taking Finasteride Active Baclofen Not-Taking Gabapentin 900MG Active clonazePAM Active clonazePAM Not-Takin g DULoxetine HCl Activ e Wixela Inhub Not-Mike ing Immunizations Vaccine Route Administration Date Status Comme nts Influenza Unknown 05/06/2015 Administered Influenza Unknown 02/10/2016 Administered Influenza Unknown 04/18/2017 Administered Influenza Unknown 06/20/2018 Administered Influenza Unknown 04/17/2019 Administered Influenza Unknown 03/27/2024 Administered Pneumococcal Unknown 05/08/2014 Administered COVID-19 Moderna Vaccine Unknown 09/19/2020 Administere d COVID-19 Moderna Vaccine Unknown 10/17/2020 Administere d Social History Tobacco Use: Social History Observation Description Date Details (start date - stop date) Never Smoker NA - NA Tobacco use other than smoking: Question Answer Notes Are you an other tobacco user? No Tobacco Control (Standard) Question Answer Notes Tobacco use: Nonsmoker Additional Findings: Tobacco non-user Current no nsmoker AUDIT-C (Standard) Question Answer Notes Did you have a drink containing alcohol in the p ast year? No Points 0 Interpretation Negative Section Notes: Flu Shot 04/2016 Pneumonia 05/08/14 Eye exam 04/2016 A1C 5.3 Flu Shot 04/2016 Pneumonia 05/08/14 Eye exam 04/2016 A1C 5.3 Problems Problem Type SNOMED Code ICD Code Onset Dates Problem Status W/U Status Risk Notes Problem Acquired hammer toe of right foot (4506795988924877 ) Other hammer toe(s) (acquired), right foot (M20.41) Active confirmed Problem Acquired hammer toe of left foot (3169063904397023 ) Other hammer toe(s) (acquired), left foot (M20.42) Active confirmed Problem Polyneuropathy due to type 2 diabetes mellitus (148512971) Type 2 diabetes mellitus with diabetic polyneuropathy (E11.42) Active confirmed Vital Signs Height 5 ft 7 in in 06/14/2025 Weight 175 lbs 06/14/2025 BMI 27.41 kg/m2 06/14/2025 Procedures Procedure Date Ordered Date Performed Result Body Sit e 00432-FGZARAX NAIL, 6 OR MORE 08/03/2024 N/A 69242-KRMT SKIN LESIONS, OVER 4 08/03/2024 N/A 54778-XQYITLK NAIL, 6 OR MORE 11/16/2024 N/A 75112-ZDVRVKE NAIL, 6 OR MORE 02/15/2025 N/A 53555-JDLQXZL NAIL, 6 OR MORE 06/14/2025 N/A Encounters Encounter Location Date Provider Diagnosis [address] [address] 08/03/2024 Kaitlin Alvarado Other hammer toe(s) (acquired), right foot M20.41 ; Other hammer toe(s) (acquired), left foot M20.42 ; Type 2 diabetes mellitus with diabetic polyneuropathy E11.42 and Tinea unguium B35.[address] [address] 11/16/2024 Kaitlin Alvarado Type 2 diabetes mellitus with diabetic polyneuropathy E11.42 and Tinea unguium B35.[address] [address] 02/15/2025 Kaitlin Alvarado Type 2 diabetes mellitus with diabetic polyneuropathy E11.42 and Tinea unguium B35.[address] [address] 06/14/2025 Kaitlin Alvarado Type 2 diabetes mellitus with diabetic polyneuropathy E11.42 and Tinea unguium B35.[address] [address] 08/01/2024 [facility] [address] [place] [address] 09/27/2024 Kaitlin Alvarado [address] [address] 05/17/2025 Kaitlin Alvarado Assessments Encounter Date Diagnosis (ICD Code) Assessment Notes Treatment Notes Treatment Clinical Notes Section Notes 08/03/2024 Other hammer toe(s) (acquired), right foot (ICD-10 - M20.41) Patient Educated with: DIABETIC FOOT CARE INSTRUCTIONS. pdf (DIABETIC FOOT CARE INSTRUCTIONS. pdf) 08/03/2024 Other hammer toe(s) (acquired), left foot (ICD-10 - M20.42) 11/16/2024 Type 2 diabetes mellitus with diabetic polyneuropathy (ICD-10 - E11.42) 11/16/2024 Tinea unguium (ICD-10 - B35.1) 02/15/2025 Type 2 diabetes mellitus with diabetic polyneuropathy (ICD-10 - E11.42) 02/15/2025 Tinea unguium (ICD-10 - B35.1) 06/14/2025 Type 2 diabetes mellitus with diabetic polyneuropathy (ICD-10 - E11.42) 06/14/2025 Tinea unguium (ICD-10 - B35.1) 08/03/2024 Type 2 diabetes mellitus with diabetic polyneuropathy (ICD-10 - E11.42) 08/03/2024 Tinea unguium (ICD-10 - B35.1) Plan Of Treatment Pending Test Test Name Order Date Hemoglobin A1c 11/30/2016 X ray : Foot, right 3V 05/04/2024 X ray : Foot, right 3V 05/05/2021 X ray : Foot, right 3V 07/13/2019 52835-VMXHECH NAIL, 6 OR MORE 08/03/2024 85431-CJFDMLG NAIL, 6 OR MORE 11/16/2024 62671-LXEWNJH NAIL, 6 OR MORE 02/15/2025 63795-HKYSVMU NAIL, 6 OR MORE 06/14/2025 27926-RXBXMPJ NAIL, 1-5 06/20/2018 95285-KIOPINC NAIL, -5 01/06/2018 85133-AXUACUG NAIL, -5 03/17/2018 19229-UOCSNTJ NAIL, -5 05/04/2016 52119-AIQOWUC NAIL, 1-5 08/30/2017 33009-Bygcrmnw Plate 01/06/2018 31672-Wwkbenwy Plate 05/31/2017 46653-Smqhreil Plate 04/23/2016 83022-Atdbdxvr Plate 06/20/2018 93823-Ptkavvda Plate 03/02/2018 13308-Ihjpcpup Plate Each Additional 01/2017 24956-Kubligim Plate Each Additional 48068- Debride <25 sq cm 05/04/2016 34922- Debride <25 sq cm 11/20/2013 18694- Debride <25 sq cm 03/17/2018 20238 I&D ABSCESS- SIMPLE,SINGLE 014 30672 I&D ABSCESS- SIMPLE,SINGLE 016 39413-ACWB SKIN LESIONS, OVER 4 08/03/19 25 85440-NTTX SKIN LESIONS, OVER 4 05/05/20 21 11306-XYRM SKIN LESIONS, 2 TO 4 08/18/19 22 75079-IFXE SKIN LESIONS, 2 TO 4 01/07/20 18 08201-MNKD SKIN LESIONS, 2 TO 4 09/19/19 19 87206-PRCW SKIN LESIONS, 2 TO 4 12/20/19 19 84377-VQTZ SKIN LESIONS, 2 TO 4 02/21/20 19 68291-PUPM SKIN LESIONS, 2 TO 4 04/24/20 19 54958-JQWM SKIN LESIONS, 2 TO 4 05/04/20 16 50485-BVWM SKIN LESIONS, 2 TO 4 12/01/19 17 98130-XRJB SKIN LESIONS, 2 TO 4 05/31/20 17 56006-SQQV SKIN LESIONS, 2 TO 4 08/30/19 18 97328-ZRUV SKIN LESIONS, 2 TO 4 03/17/20 18 16528-QZXV SKIN LESIONS, 2 TO 4 06/20/20 18 25277-ZSEQ SKIN LESIONS, 2 TO 4 09/07/19 20 13696-FNSU SKIN LESIONS, 2 TO 4 11/23/19 20 16961-YTML SKIN LESIONS, 2 TO 4 01/29/20 20 71052-YKCI SKIN LESIONS, 2 TO 4 04/11/20 20 18180-SDWO SKIN LESIONS, 2 TO 4 07/29/19 21 15994-YHWB SKIN LESIONS, 2 TO 4 11/01/19 21 20715-OITV SKIN LESIONS, 2 TO 4 02/04/20 21 54987-EXPY NAIL(S) 08/30/2017 08882-KQOM NAIL(S) 05/04/2016 I7767-LMNYUALX DYSTROPHIC NAILS ANY # E0912-ZQNIPNEX DYSTROPHIC NAILS ANY # J9256-TWVSPDQV DYSTROPHIC NAILS ANY # R0921-KRFCHVPK DYSTROPHIC NAILS ANY # 96473-ZWUNTKIN OF HEMATOMA/FLUID 021 03904- Nail Unit Biopsy 03/02/2018 Next Appt Details Provider Name:Kaitlin saha, 09/13/2025 01:15:00 PM, [address], [place], [address], Insurance Providers Payer Name Payer Address Payer Phone Subscriber Number Group Number Insured Name Patient Relationship to Insured Coverage Start Date Coverage End Date [employer] Medicare [id number] [address] [address] [place] [address] [id number] Eliazar Alanis Self - patient is the insured Medical (General) History Medical History History ICD Code Arthritis asthma Diabetic Hypertension chronic sinusitis Prostate conditions Cataracts Surgical History Surgery Date(Month/Year) tonsillectomy knee surgery, right sinus surgery knee surgery, left 12/14/2015 circumcision 04/2025 Hospitalization History Reason Date(Month/Year) [facility]- 2 day stay, felt dizzy, fainting 2024 [facility]- swollen finger, pneumonia [facility], pneumonia 12/13 [facility] - pneumonia [facility] Pneumonia 03/21/20
--- OUTSIDE RECORDS SUMMARY | 2025-07-16 15:31 | XMS_ITS | Clinical Summary ---
Author Organization [facility] Address [address] [place] [phone] Phone Care Team Providers Care Ballistics Expert Forensic Name Role Phone Amandeep Morales MD Primary Care Provider [phone] Allergies Active Allergy Reactions Criticality Noted Date Comments Aspirin GI intolerance 03/14/2025 Codeine Unknown 03/13/2025 Sulfa (Sulfonamide Antibiotics) Rash 02/23 Medications albuterol HFA (PROAIR HFA ; PROVENTIL HFA ; VENTOLIN HFA) 90 mcg/actuation inhaler FOUR TIMES DAILY, NEEDED 01/08/2014 Active albuterol 2.5 mg /3 mL (0.083 %) nebulizer solution INHALE 1 VIAL 2 TIMES A DAY FOR 30 DAYS Active amLODIPine (NORVASC) 10 mg tablet Take 1 tablet (10 mg total) by mouth. 02/23/2021 Active cetirizine (ZyrTEC) 10 mg tablet Take 1 tablet every day by oral route in the morning for 30 days. 08/11/2024 Active clonazePAM (KlonoPIN) 1 mg tablet TAKE 1 TABLET BY MOUTH 1 HOUR BEFORE BED NEEDED FOR SLEEP 02/23/2021 Active empagliflozin (Jardiance) 25 mg tablet Take 1 tablet (25 mg total) by mouth 1 (one) time each day. 10/24/2024 Active finasteride (PROSCAR) 5 mg tablet Take 1 tablet (5 mg total) by mouth 1 (one) time each day. 02/23/2021 Active omeprazole (PriLOSEC) [address] capsule TAKE 1 CAPSULE BY MOUTH DAILY WITH A MEAL Active simvastatin (ZOCOR) 20 mg tablet Take 1 tablet (20 mg total) by mouth. 02/23/2021 Active traZODone (DESYREL) 50 mg tablet Take 2 tablets (100 mg total) by mouth. 01/10/2025 Active valsartan (DIOVAN) 160 mg tablet Take 1 tablet (160 mg total) by mouth 1 (one) time each day. 11/05/2024 Active montelukast (SINGULAIR) 10 mg tablet Take 1 tablet (10 mg total) by mouth at bedtime. 04/11/2023 Active metoprolol succinate (TOPROL-XL) 25 mg 24 hr tablet Take 1 tablet (25 mg total) by mouth 1 (one) time each day. 05/22/2024 Active metFORMIN (GLUCOPHAGE) 500 mg tablet Take 1 tablet (500 mg total) by mouth. 01/10/2025 Active gabapentin (NEURONTIN) 600 mg tablet Take 1.5 tablets (900 mg total) by mouth. 02/23/2021 Active fluticasone propionate (FLONASE) 50 mcg/actuation nasal spray INSTILL TWO (2) SPRAYS IN EACH NOSTRIL EVERY DAY. 02/23/2021 Active fluticasone-ume clidinium-vilan terol (TRELEGY ELLIPTA) 200-62.5-25 mcg inhaler Inhale by mouth. 01/10/2025 Active oxyCODONE (ROXICODONE) 5 mg immediate release tablet Take 1 tablet (5 mg total) by mouth every 6 (six) hours if needed for severe pain. Max Daily Amount: 20 mg 10 tablet 05/10/2025 Active Encounters Date Type Department Care Team Description 05/10/2025 1:30 PM EDT - 05/10/2025 3:00 PM EDT Surgery [facility] [place] [address] [place] [phone] Sung Kolb MD CIRCUMCISION [48008 (CPT )] 05/10/2025 1:03 PM EDT Anesthesia Event [facility] [place] [address] [place] [phone] Jah Mitchell MD Saliga, Jesse L, MD 05/10/2025 10:46 AM EDT - 05/10/2025 4:21 PM EDT Hospital Encounter [facility] [place] [address] [place] [phone] Sung Kolb MD Phimosis Discharge Disposition: Home or Self Care from Last 3 Months Surgical History Surgery Date Site/Laterality Comments TONSILLECTOMY UMBILICAL EXPLORATION EXPLORATORY LAPAROTOMY Medical History Medical History Date Comments Hypertension Hyperlipidemia Asthma COPD (chronic obstructive pulmonary disease) ([facility] V24, [facility] V28) Diabetes mellitus ([facility] V24, [facility] V28) Anxiety Arthritis GERD (gastroesophageal reflux disease) BPH (benign prostatic hyperplasia) Sleep apnea Social History Tobacco Use Types Packs/Day Years Used Date Smoking Tobacco: Former Cigarettes Smokeless Tobacco: Former Tobacco Cessation:Counseling Given: Not Answered Alcohol Use Standard Drinks/Week Comments Not Asked 0 (1 standard drink = 0.6 oz pur e alcohol) rare Interpersonal Safety Answer Date Record ed Physical Abuse Unrecognized value 05/10/2025 Verbal Abuse Unrecognized value 05/10/2025 Sex and Gender Information Value Date Recorded Sex Assigned at Male 05/09/2025 8:10 AM EDT Legal Sex Male 4:31 AM EST Gender Identity Not on file Sexual Orientation Not on file Last Filed Vital Signs Vital Sign Reading Time Taken Comments Blood Pressure 129/70 05/10/2025 3:21 PM EDT Pulse 76 05/10/2025 3:21 PM EDT Temperature 36.6 C (97.9 F) 05/10/2025 3:21 PM EDT Respiratory Rate 18 05/10/2025 3:21 PM EDT Oxygen Saturation 94% 05/10/2025 3:21 PM EDT Inhaled Oxygen Concentration - - Weight 79.4 kg (175 lb) 03/14/2025 10:00 AM EDT Height 170.2 cm (5' 7 ) 03/14/2025 10:00 AM EDT Body Mass Index 27.41 03/14/2025 10:00 AM EDT Plan of Treatment Health Maintenance Due Date Last Done Comments Diabetes: Annual GFR (Glomerular Filtration Rate) 1945 Drug Screen 1945 Non-Opioid Controlled Substance Agreement 1946 Diabetes: Annual Foot Exam 1956 Diabetes: Annual Retina Eye Exam 1956 Depression Screening 07/25/2024 Cholesterol Screening (Lipid Panel) 02/13/2025 Diabetes: Annual Urine Albumin-Creatinine Ratio (uACR) 02/13/2025 Diabetes: Blood Sugar Control Test (HGBA1C) 02/13/2025 03/18/2021 Falls Risk Assessment 02/13/2025 Hepatitis C Screening 02/13/2025 Hypertension/CHF/CAD Annual BMP Blood Test 02/13/2025 Medicare Annual Wellness Visit 02/13/2025 Social Influencers of Health Screening 02/13/2025 COVID-19 Vaccine ( season) 2025 04/22/2024, 04/20/2023, 11/22/2022, Additional history exists Influenza Vaccine (#1) 2025 , 03/27/2024, 03/30/2023, Additional history exists DTaP,Tdap,and Td Vaccines (4 - Td or Tdap) 02/02/2033 02/02/2023, 05/02/2018, 07/15/2008 RSV Immunization Adult Patients Completed 04/13/2023 Pneumococcal Vaccine: 50+ Years Completed 04/09/2024, 11/11/2015, 11/07/2014, Additional history exists Zoster Vaccines Completed 04/29/2024, 11/22/2018 HIB Vaccines Aged Out No longer eligi [...] age to complete this topic Meningococcal B Vaccine Aged Out No l onger eligible based on patient's age to complete this topic RSV Immunization Patients Under 20 months Aged Out No longer eligible based on patient's age to complete this topic Varicella Vaccines Aged Out No longer eligible based on patient's age to complete this topic Procedures Procedure Name Priority Date/Time Associated Diagnosis Comments POCT GLUCOSE BLOOD Routine 05/10/2025 2: 35 PM EDT TISSUE EXAM Routine 05/10/2025 1:42 PM EDT Phimosis TH AN LMA(NO CHARGE) Routine 05/10/2025 1:17 PM EDT IA CIRCUMCISION SURG EXC OTHER CLAMP DEVICE/DORAL SLIT OLDER THAN 28 DAYS 05/10/2025 1:03 PM EDT Phimosis Special Needs Time change via fax from ann marie cb 04/11Time change via fax from ann marie cb 04/18Time change per ann marie cb 04/30 PROCEDURAL ECG Routine 05/10/2025 11:54 AM EDT POCT GLUCOSE BLOOD Routine 05/10/2025 11 :01 AM EDT from Last 3 Months Results * (ABNORMAL) POCT Glucose, blood (05/10/2025 2:35 PM EDT) Only the most recent of2 resultswithin the time period is included. Glucose POCT 103(H) 70 - 100 mg/dL 05/10/2025 2:36 PM EDT [facility] Blood Capillary blood specimen / Unknown 05/10/2025 2:35 PM EDT 05/10/2025 2:37 PM EDT Sung Kolb MD LAB POINT OF CARE TE ST DOCKED DEVICE UNSOLICITED RESULTS Final Result [facility] [address] [place] [address], [place] [phone] * Tissue exam (05/10/2025 1:42 PM EDT) Final Diagnosis Foreskin, circumsision: -FIBROSIS AND CHRONIC INFLAMMATION, CONSISTENT WITH PHIMOSIS 05/13/2025 1:27 PM EDT [facility] at 1327 EDT Gross Description A. Penis, foreskin: Labeled penile, foreskin . Received in formalin is a 9.2 x 3.6 x 1.1 cm pink-spear rubbery portion of skin and subcutaneous tissue. The cut surfaces are pink-white and fibrous. A ambulatory services representative section is submitted in one cassette, one piece. MADHURI 05/13/2025 1:27 PM EDT [facility] Disclaimer Unless otherwise specified, all tissue is 10% NB formalin fixed and paraffin embedded. 05/13/2025 1:27 PM EDT [facility] Skin Penile structure / Unknown 05/10/2025 1:42 PM EDT 05/10/2025 3:51 PM EDT us Sung Kolb MD LAB PATHOLOGY ORDERABLES Final R esult [facility] [address] [place] [address], [place] [phone] * TH AN LMA(NO CHARGE) (05/10/2025 1:17 PM EDT) Narrative Ewa Gunderson CRNA - 05/10/2025 1:17 PM EDT Ewa Gunderson CRNA 05/10/2025 1:17 PM General Information and Staff Patient location during procedure: OR Performed by: Ewa Gunderson CRNA Authorized by: Franko Monsalve MD Intubation Airway not difficult Reason: elective Final Airway Details Ventilation between attempts: none LMA Size: 5 LMA Type: Classic LMA Seal Pressure: Final airway type: LMA Indications and Patient Condition Indications for airway management: anesthesia and airway protection Sedation level: Yes Preoxygenated: yesSoft Tissue Damage: No Dentition Unchanged: Yes Patient position: neutral MILS not maintained throughout Mask difficulty assessment: 0 - not attempted Start Time: 05/10/2025 1:11 PMStop Time: 05/10/2025 1:11 PM us Franko Monsalve MD ANESTHESIA ORDERABLES Final Re sult * ECG 12 lead - Procedural (No Charge) (05/10/2025 11:54 AM EDT) Ventricular Rate ECG 63 BPM GEMUSE Atrial Rate 63 BPM GEMUSE P-R Interval 144 ms GEMUSE QRS Duration 86 ms GEMUSE Q-T Interval 392 ms GEMUSE QTc 401 ms GEMUSE P Wave [place] 72 degrees GEMUSE R [place] 6 degrees GEMUSE T [place] 28 degrees GEMUSE ECG Interpretation Normal sinus rhythm Normal ECG When compared with ECG of 01-NOV-2011 10:59, No significant change was found Confirmed by JAMES FARMER ([id number]) on 05/11/2025 6:19:21 PM GEMUSE 05/10/2025 11:5 4 AM EDT 05/11/2025 6:19 PM EDT us Franko Monsalve MD ECG ORDERABLES Final Result G[facility] from Last 3 Months Insurance [employer] MEDICARE MEDICAID - [place] Care Teams Ballistics Expert Forensic Relationship Specialty Start Date End Date Amandeep Morales MD [phone] [facility] [address] [employer], [place] PCP - General Internal Medicine 05/10/25
== END 2025-07-16 14:42 | disposition home or self-care (01) ==
LOC: HO.HPS 14:14
PROVIDERS: PCP Internal Medicine; Visit Provider Hospitalist
DX: R91.8 Other nonspecific abnormal finding of lung field (principal); J47.9 Bronchiectasis, uncomplicated; J41.8 Mixed simple and mucopurulent chronic bronchitis; J18.9 Pneumonia, unspecified organism
CPT/HCPCS: 99214

== ENCOUNTER 2025-07-16 14:13 | Outpatient (REF) | payer MEDICARE, MEDICAID, SELFPAY ==
--- NOTE | ~2025-07-16 | XR_ITS ---
EXAMINATION: XR CHEST CLINICAL INFORMATION: J47.9 - Bronchiectasis, uncomplicated COMPARISON: None available. TECHNIQUE: 2 views of the chest were obtained. FINDINGS: There is a focal opacity in the lateral aspect of the right lower third lung zone. Lungs clear otherwise. There is no pneumothorax. Cardiac and mediastinal contours are within normal limits. There is no pleural effusion. XR/XR chest 2V IMPRESSION: Focal opacity in the right lower third lung zone, laterally, is probably related to summation artifact related to ribs and soft tissues, but an obscured pneumonia or mass is not ruled out. Electronically signed by: Edvin Aj MD 07/16/2025 03:25 PM EST
--- OUTSIDE RECORDS SUMMARY | 2025-07-16 16:03 | XMS_ITS | Continuity of Care Document ---
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 Anyone In Your Household A Health Care Provider Or Emergency Responder? No [email or web address] Information not available 02/13/2020 To The Best Of Your Knowledge Have You Been In Close Proximity To Any Individual Who Tested Positive For COVID-19? No PERORA Information not available 02/13/2020 Have You Recently Traveled To A COVID-19 High Risk Area Or Gathering In The Last 10 Days? No Information not available 03/18/2021 What Was The Date Of Your Most Recent Tobacco Screening? 07/03/2025 [email or web address] Information not available 07/03/2025 How Many Children Do You Have? 5 4 Sons And 1 Daughter 5 GC Information not available 07/03/2025 What Is Your Current Pack Years? 30ormorepacky ears Information not available 03/22/2022 Do You Use Protection During Sex? No [id number] Information not available 05/27/2020 Difficulty Reading? No Information not available 03/22/2022 Do You Use Your Seat Belt Or Car Seat Routinely? Yes Information not available 03/22/2022 Seat Belts Used Routinely Yes Information not available 03/22/2022 Are You Sexually Active? Yes [id number] Information not available 05/27/2020 Smoke Alarm In Home Yes Information not available 03/22/2022 Do You Have Smoke And Carbon Monoxide Detectors In Your Home? No Information not available 03/22/2022 At What Age Did You Start Smoking Tobacco? 15 Quit At 52 Information not available 03/18/2021 Are You Passively Exposed To Smoke? No Information not available 05/02/2018 How Much Tobacco Do You Smoke? No Information not available 03/22/2022 Do You Use Sunscreen Routinely? No [id number] Information not available 05/27/2020 How Many Years Have You Smoked Tobacco? 37 Information not available 03/18/2021 Difficulty Watching TV? No Information not available 03/22/2022 Do You Have Difficulty Walking Or Climbing Stairs? No Information not available 03/22/2022 Sex: Unknown Functional Status Question Answer Note LastModified by Organizat ion Details LastModified Time Do you or have you ever used smokeless tobacco? [id number] Information not available 03/22/2022 Are you currently employed? No Information not available 03/22/2022 [address]y [address] at night? No Information no t available 03/22/2022 Are you able to care for yourself independently? Yes [id number] Information not available 05/27/2020 Do you have difficulty dressing, bathing, grooming, or toileting? No Information not available 03/22/2022 Do you or have you ever used e-cigarettes or vape? Never used electronic cigarettes Information not available 03/22/2022 What is your exercise level? Occasional bowls every week Information not available 07/03/2025 Do you use any illicit or recreational drugs? No Information not available 03/22/2022 Do you or have you ever used any other forms of tobacco or nicotine? No Information not available 03/22/2022 What is your level of alcohol consumption? Occasional Information not available 03/22/2022 Are you able to walk independently without assistance or assistive devices? YESWOREST Information not available 03/22/2022 Do you have difficulty doing errands alone? 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 Information not available 03/22/2022 Mental Status Question Answer Note LastModified by [...] Sleep disorder Not available 2021 12:56:17 Brother Harmful pattern of use of alcohol 40 [email or web address] Not available 10/2023 14:39:35 Notes:2 brothers (1 ) and 6 sisters (1 deceased0 he's the oldest Medical History Condition Response Diabetes Y Vision or Eye Problems Y Arthritis Y Hospitalizations Y Tuberculosis Y Acid Reflux (GERD) Y Cancer Y Allergies Y Asthma Y Depression Y Skin Problems Y High Cholesterol Y Bladder Problems Y Immunizations Vaccine Type Date Status Note Provider Nam e and Address Organization Details Recorded Time Influenza, split virus, trivalent, preservative 7 completed Not Available [facility] 08/02/2023 03:47:28 Influenza, split virus, trivalent, preservative 8 completed Not Available [facility] 08/02/2023 03:47:28 Tdap 8 completed Not Available [facility] 08/02/2023 03:47:28 Influenza, split virus, trivalent, preservative 9 completed Not Available [facility] 08/02/2023 03:47:28 pneumococcal polysaccharide PPV23 0 completed Not Available [facility] 08/02/2023 03:47:28 Influenza, split virus, trivalent, preservative 0 completed Not Available [facility] 08/02/2023 03:47:28 Influenza, split virus, trivalent, preservative 1 completed Not Available [facility] 08/02/2023 03:47:28 Influenza, split virus, trivalent, preservative 2 completed Not Available [facility] 08/02/2023 03:47:28 Influenza, split virus, trivalent, preservative 4 completed Not Available [facility] 08/02/2023 03:47:28 Influenza, split virus, trivalent, preservative 5 completed Not Available [facility] 08/02/2023 03:47:28 Pneumococcal conjugate PCV 13 5 completed Not Available [facility] 08/11/2019 02:21:36 Influenza, high-dose, trivalent, PF 9 completed Not Available [facility] 08/02/2023 03:47:28 Influenza, split virus, trivalent, preservative 3 completed Not Available [facility] 08/02/2023 03:47:28 Influenza, split virus, trivalent, preservative 1 completed Not Available [facility] 08/02/2023 03:47:28 Influenza, split virus, trivalent, preservative 4 completed Not Available [facility] 08/02/2023 03:47:28 Influenza, adjuvanted, quadrivalent, PF 0 completed Not Available [facility] 08/02/2023 03:47:27 Influenza, high-dose, quadrivalent, PF 1 completed Not Available [facility] 08/02/2023 03:47:27 COVID-19, mRNA, LNP-S, PF, 30 mcg/0.3 mL dose 2 completed Not Available [facility] 08/02/2023 03:47:28 COVID-19, mRNA, LNP-S, PF, 100 mcg/0.5mL dose or 50 mcg/0.25mL dose 1 completed Not Available [facility] 08/02/2023 03:47:28 zoster recombinant 9 completed Not Available [facility] 08/02/2023 03:47:27 COVID-19, mRNA, LNP-S, PF, 100 mcg/0.5mL dose or 50 mcg/0.25mL dose 1 completed Not Available [facility] 08/02/2023 03:47:28 Influenza, high-dose, quadrivalent, PF 2 completed Not Available [facility] 08/02/2023 03:47:27 COVID-19, mRNA, LNP-S, bivalent, PF, 30 mcg/0.3 mL dose 2 completed Not Available [facility] 08/02/2023 03:47:28 COVID-19, mRNA, LNP-S, bivalent, PF, 30 mcg/0.3 mL dose 3 completed Not Available [facility] 08/02/2023 03:47:28 Tdap 3 completed Not Available [facility] 08/02/2023 03:47:28 Influenza, adjuvanted, quadrivalent, PF 3 completed Not Available [facility] 08/02/2023 03:47:27 RSV, recombinant, protein subunit RSVpreF, adjuvant reconstituted, 0.5 mL, PF 3 completed Not Available [facility] 08/02/2023 03:47:28 pneumococcal polysaccharide PPV23 6 completed Not Available [facility] 08/11/2019 02:21:26 COVID-19, mRNA, LNP-S, PF, brian-sucrose, 30 mcg/0.3 mL 3 completed Not Available [facility] 08/02/2023 03:47:28 Pneumococcal conjugate PCV20, polysaccharide [id number] conjugate, adjuvant, PF 4 completed PAUL Malin, [facility] [place] 04/27/2024 13:42:13 COVID-19, mRNA, LNP-S, PF, brian-sucrose, 30 mcg/0.3 mL 4 completed PAUL Malin, [facility] [place] 04/27/2024 13:42:13 zoster recombinant 4 completed PAUL Chowdhury, [facility] [place] 08/11/2024 09:43:00 COVID-19, mRNA, LNP-S, PF, brian-sucrose, 30 mcg/0.3 mL 5 completed Stefanie Wright MA null, [facility] [place] 07/03/2025 14:42:02 Influenza, high-dose, trivalent, PF 5 completed Not Available [facility] 07/03/2025 14:38:16 Influenza, high-dose, trivalent, PF 6 completed Not Available [facility] 08/11/2019 02:22:03 Influenza, high-dose, trivalent, PF 7 completed Not Available [facility] 08/11/2019 02:22:21 Influenza, high-dose, trivalent, PF 8 completed Not Available [facility] 08/11/2019 02:22:14 Td (adult), 2 Lf tetanus toxoid, preservative free, adsorbed 8 completed Not Available [facility] 08/11/2019 02:21:30 Influenza, high-dose, trivalent, PF 4 completed Amandeep Morales MD [address], [id number] 04/28/2024 14:55:43 Past Encounters Encounter ID Performer Location Encounter Start Date Encounter Closed Date Diagnosis/Indication Diagnosis SNOMED-CT Code Diagnosis ICD10 Code Diagnosis IMO Codes Diagnosis Note [id number] Amandeep Morales MD Main Office [address] [id number] 07/03/2025 14:36:45 07/03/2025 16:21:18 Adult health examination 086919440 Z00.00 UTD with immunizati ons including COVID w/booster, tetanus and pneumonia. He had one shingrix and is due for a second. His last colonoscop y was October 2022 and due to age and lack of polyps this was his last colonoscop y. Advance di rective discussed with patient 856945348 Z71.89 Memory impairment 217881 006 R41.3 Required work up for referral to Memory Disorder Program1. Specific memory concerns need to be documented in clinical notes and referral2. Imaging: Provider select order MRI or CT - delete unneeded order3. Labs4. Perform MOCA5. What outcome are you looking for? Medication , supportive services etc. He has concerns about his memory and did poorly on the 6CIT. We will start the w/u for a memory disorder and see him back to do the MOCA. Venereal d isease screening 945122106 Z11.3 Z72.89 F03.90 Hyperlipidemia 41413767 E78.5 Continue current meds. LDL at goal. Cardiomyopathy 20057271 I42.9 Essential hypertension 03612068 I10 He will continue with the valsartan but stopped his amlodipine 4 months ago because of low blood pressure readings and some low BP symptoms. He is also taking a beta sade. Good control, continue current mgmt. Diabetic p eripheral neuropathy 854761756 E11.40 We restarted his metformin 500 twice a day in September 2022 because his A1C increased presumably secondary to weight gain. He is tolerating the metformin well but his A1C increased from 7.0 to 8.0. He then added jardiance to his regimen which he is tolerating well. His A1C has now come down to 6.1. Continue current mgmt. Currently taking cymbalta and getting some help. Carcinoma of prostate [address] Valdovinos. Active surveillan ce. Last PSA was 1.1. Health Concerns Section Related Observation LastModified by Organization Detai ls LastModified Time None Recorded Concern Status LastModified by Organization Details LastModified Time None Recorded Payers Encounter Date Sequence Insurance Name Policy Number Policy Holcomb Covered Member ID Holcomb Member ID Guarantor Name 07/03/2025 2 [place]: [facility] Eliazar Alanis [id number] Eliazar Alanis 07/03/2025 1 [facility] (MEDICARE REPLACEMENT/A DVANTAGE - POS) [id number] Eliazar Alanis [id number] Eliazar Alanis Notes Date Note Type Note Provider Name and Address Organization Details Recorded Time 07/03/2025 text/html Medicare Annual Wellness VisitReported by PatientSocial/Behavior al HistoryFor diet and nutrition, patient reportshealthy diet. For fracture risk, patient reportsno history of fractures. For physical activity, patient reportsexercises on a regular basis.Mental Status:For concentration and memory, patient reportsmemory lapses or lossandforgetting words. For depression risk, patient reportsno significant changes in weight. For orientation, patient reportsno disorientation to time,no disorientation to date, andno disorientation to place. For speech/motor difficulties, patient reportsno speech difficulties.Functiona l AbilityFor hearing, patient reportsno loss of hearing. For vision, patient reportsno vision problems. For activities of daily living, patient reportsable to bathe with limited or no assistance,able to contol urination and bowels,able to dress with limited or no assistance,able to feed self with limited or no assistance,able to get out of chair or bed with limited or no assistance,able to groom with limited or no assistance, andable to toilet with limited or no assistance. For instrumental activities of daily living, patient reportsable to do house work with limited or no assistance,able to grocery shop with limited or no assistance,able to manage medications with limited or no assistance,able to manage money with limited or no assistance,able to prepare meals with limited or no assistance, andable to use the phone with limited or no assistance. For falls risk assessment, patient reportsno dizziness/vertigoandfa ll(s) since last visit04/01/24 ([facility] on a recently oiled floor; has a neos appointment 05/24/24. has bilateral knee pain.). For home safety, patient reportsworking smoke/co detectorsanduse of seatbelts.ROS as noted in the HPI His main problem continues to be allergies and his asthma. He is no longer receiving allergy shots since they were no longer helping. His asthma however has been doing well recently. He is now followed by Dr Reyes. His cough has improved since going on azithromycin three times a week. he is c/w diabetes meds and his control has improved to 6.1. He has concerns about his memory. He forgets conversations, has trouble with word-finding and has trouble with names and appointments. Radha figueroa [facility] [place] 07/08/2025 11:00:35
--- OUTSIDE RECORDS SUMMARY | 2025-07-16 16:04 | XMS_ITS | Data Portability ---
Author Organization [facility], Main Office Address [address] [facility] [place] [address] Care Team Providers Care Operational Intelligence Analyst Name Role Phone ANGEL MORALES Primary Care Provider KYLEE VALDOVINOS Urologist [facility] Sleep Medicine [phone] AMY SHARPE Orthopedic Surgeon [phone] DUSTIN VICK Clay Stain Mixer ORTIZ TADEO Referring Provider [phone] ARIS BYERS Hand Surgeon MARY SCHMITT Financial Project Manager AMOR LEO Referring Provider [phone] MARLENY LEWIS Referring Provider [phone] COLETTE ARROYO Ending Machine Operator [phone] JOSE JUAN REYES Referring Provider [phone] PAMELA JOSÉ Referring Provider [phone] Assessment Encounter Date Assessment Date Assessment LastModified by Organization Details LastModified Time 01/16/2025 01/16/2025 Discussed with patient the signs/symptom s warranted for a return to office visit and/or an ER visit. Patient understood and agreed with the plan. Not available 01/16/2025 15:00:02 Plan of Treatment Reminders Order Date Submit Date Provider Last Modified By Organization Details Last Modified Time Details Appointments FOLLOW UP 30MIN 2025 11:00A M Angel fletcher MD Not available Not available Not available Lab vitami n B12, serum 2024 025 MARLENE [facility], [address], [place], [address], 07/05/2025 10:06:33 TSH, ultra- sensit issa, serum 2024 025 MARLENE [facility], [address], [place], [address], 07/05/2025 10:06:32 folate , serum 2024 025 MARLENE [facility], [address], [place], [address], 07/05/2025 10:06:32 erythr ocyte sedime ntatio n rate by silverio gren method 2024 025 MARLENE [facility], [address], [place], [address], 07/05/2025 10:06:33 urinal ysis comple te, reflex cultur e 2024 025 MARLENE [facility], [address], [place], [address], 07/05/2025 10:06:31 BMP, serum or plasma 2024 025 MARLENE [facility] (Centralized Electronic Ordering - All Locations), Patient Can Go To The Location Of Their Choice, [id number] 07/05/2025 06:10:53 RPR (rapid plasma reagin ), serum 2024 025 MARLENE [facility], [address], [place], [address], 07/05/2025 10:06:33 lipid panel, serum 2024 025 MARLENE [facility] (Centralized Electronic Ordering - All Locations), Patient Can Go To The Location Of Their Choice, [address] 07/05/2025 06:10:53 CBC w/ auto diff 2024 025 MARLENE [facility] (Centralized Electronic Ordering - All Locations), Patient Can Go To The Location Of Their Choice, [address] 07/05/2025 06:10:52 magnes ium, serum or plasma 2024 025 MARLENE [facility] (Centralized Electronic Ordering - All Locations), Patient Can Go To The Location Of Their Choice, [address] 07/05/2025 06:10:54 iron + TIBC + ferrit in, serum 2024 025 MARLENE [facility] (Centralized Electronic Ordering - All Locations), Patient Can Go To The Location Of Their Choice, [address] 02/14/2025 08:09:01 CBC w/ auto diff 2024 025 MARLENE [facility] (Centralized Electronic Ordering - All Locations), Patient Can Go To The Location Of Their Choice, [address] 02/14/2025 08:09:02 hemogl obin A1C, finger stick 2024 025 [email or web address] In-Office Order, Internal Use Only DO Not Attach Compendium DO Not Attach Compendium, Do Not Delete/merge, [id number] 10/24/2024 10:25:27 strep group A, DNA, swab 2024 025 MARLENE In-Office Order, Internal Use Only DO Not Attach Compendium DO Not Attach Compendium, Do Not Delete/merge, [id number] 08/14/2024 10:11:56 Referral hand surgeo n referr al - Left hand/t humb and forear m pain. Possib le alfonsoosnola noviti s vs CTS. 2024 025 thuan Powell MD, [address] [place] [address] , [address], [place], [address], 03/11/2025 10:11:27 neurol ogist referr al - Isolat ed head tremor since 2016. Seen by neurol ogist in the past and meds (baclo fen and magnes ium) have not helped . They are becomi ng more freque nt. 2024 025 [email or web address] Pamela José MD, [address] [place] [address] , [address], [place], [address], 09/24/2024 10:25:30 Procedures None record ed. Surgeries None record ed. Imaging MRI, brain, w/wo contra st - Memory issues . R/o lesion 2024 025 sommer [facility] Mri Department, [address], [place], [address], 07/09/2025 16:25:54 Medication Orders Jardia nce 25 mg tablet 2024 025 MARLENE [id number], [address] [facility] [place], [address], 10/24/2024 10:25:31 cetiri zine 10 mg tablet 2024 025 [email or web address] [id number], [address] [facility] [facility] [place], [address], 08/11/2024 10:06:05 Patient TargetsNo targets recorded. Patient Instructions Encounter Date Encounter Id Patient Instructions Last Modified By Organization Details Last Modified Time 09/11/2024 [id number] tenosynovitis of the wrist: care instructions [email or web address] Not available 09/11/2024 14:31:28 de quervain's disease: exercises [email or web address] Not available 09/11/2024 14:31:28 10/11/2024 [id number] type 2 diabetes: care instructions [email or web address] Not available 10/24/2024 10:25:27 high blood pressure: care instructions [email or web address] Not available 10/11/2024 14:19:44 learning about high blood pressure [email or web address] Not available 10/11/2024 14:19:44 01/16/2025 [id number] At [facility] follow up visit, all current and discharge medications (OTC, herbal therapies, supplements) reviewed and reconciled with patient and or caregiver, including potential side effects, drug interactions, instructions, and the consequences of not taking medication. Reviewed potential barriers to medication adherence, such as side effects from medication or cost of medication. [email or web address] Not available 01/16/2025 14:30:00 07/03/2025 [id number] advance care planning: care instructions [email or web address] Not available 07/03/2025 16:08:30 high cholesterol : care instructions [email or web address] Not available 07/03/2025 16:13:30 preventing falls : care instructions [email or web address] Not available 07/03/2025 16:08:30 well visit, over 65: care instructions [email or web address] Not available 07/03/2025 16:08:30 Reason for Referral Hand Surgeon Referral for Pa in of left hand Left hand/thumb and forearm pain. Possible tenosynovitis vs CTS. [facility]: 09/11/2024 Neurologist Referral for Iso lated head tremor Isolated head tremor since 2016. Seen by neurologist in the past and meds (baclofen and magnesium) have not helped. They are becoming more frequent. Referring Physician[facility] Encounter Date: 09/11/2024 Results Created Date Observation Date Name Description Value Unit Range Abnormal Flag Note LastModifiedBy Organization Detail LastModifiedTime 08/14/19 25 08/14/2024 strep group A, DNA, swab ID NOW Strep A 2 (rapid molecular test) negati ve Not Available In-Office Order Internal Use Only DO Not Attach Compendium DO Not Attach Compendium, Do Not Delete/merge, [id number] 08/11/2024 10:03:02 10/12/19 25 10/11/2024 hemog lobin A1C, finge rstic k A1C 6.1 % 4-6 abnormal Not Available In-Office Order Internal Use Only DO Not Attach Compendium DO Not Attach Compendium, Do Not Delete/merge, [id number] 10/11/2024 13:02:45 02/14/20 25 02/14/2025 FE+TI BC+FE R iron bind.cap.(TI BC) 404 ug/dL 250-45 0 normal Not Available [facility] ([facility]) [address] [facility], [place], [address], 02/14/2025 08:09:01 02/14/20 25 02/14/2025 FE+TI BC+FE R UIBC 370 ug/dL 111-34 3 above high normal Not Available [facility] ([facility]) [address] [place], [address], 02/14/2025 08:09:01 02/14/20 25 02/14/2025 FE+TI BC+FE R iron 34 ug/dL 38-169 below low normal Not Available [facility] ([facility]) [address] [place], [address], 02/14/2025 08:09:01 02/14/2002/14/2025 FE+TI BC+FE R iron saturation 8 % 15-55 alert low Not Available [facility] ([facility]) [address] [place], [address], 02/14/2025 08:09:01 02/14/20 25 02/14/2025 FE+TI BC+FE R ferritin 18 NG/mL 30-400 below low normal Not Available [facility] ([facility]) [address] [place], [address], 02/14/2025 08:09:01 02/14/2002/14/2025 CBC WITH DIFFE RENTI AL/PL ATELE T WBC 8.0 x10e3 /uL 3.4-10 .8 normal Not Available [facility] ([facility]) [address] [place], [address], 02/14/2025 08:09:02 02/14/2002/14/2025 CBC WITH DIFFE RENTI AL/PL ATELE T RBC 4.41 x10e6 /uL 4.14-5 .80 normal Not Available [facility] ([facility]) [address] [place], [address], 02/14/2025 08:09:02 02/14/20 25 02/14/2025 CBC WITH DIFFE RENTI AL/PL ATELE T hemoglobin 11.8 g/dL 13.0-1 7.7 below low normal Not Available [facility] ([facility]) [address] [facility], [place], [address], 02/14/2025 08:09:02 02/14/2002/14/2025 CBC WITH DIFFE RENTI AL/PL ATELE T hematocrit 39.3 % 37.5-5 1.0 normal Not Available [facility] ([facility]) [address] [facility], [place], [address], 02/14/2025 08:09:02 02/14/20 25 02/14/2025 CBC WITH DIFFE RENTI AL/PL ATELE T MCV 89 fL 79-97 normal Not Available [facility] ([facility]) [address] [facility], [place], [address], 02/14/2025 08:09:02 02/14/20 25 02/14/2025 CBC WITH DIFFE RENTI AL/PL ATELE T MCH 26.8 pg 26.6-3 3.0 normal Not Available [facility] ([facility]) [address] [facility], [place], [address], 02/14/2025 08:09:02 02/14/2002/14/2025 CBC WITH DIFFE RENTI AL/PL ATELE T MCHC 30.0 g/dL 31.5-3 5.7 below low normal Not Available [facility] ([facility]) [address] [place], [address], 02/14/2025 08:09:02 02/14/2002/14/2025 CBC WITH DIFFE RENTI AL/PL ATELE T RDW 17.6 % 11.6-1 5.4 above high normal Not Available [facility] ([facility]) [address] [place], [address], 02/14/2025 08:09:02 02/14/20 25 02/14/2025 CBC WITH DIFFE RENTI AL/PL ATELE T platelets 307 x10e3 /uL 150-45 0 normal Not Available [facility] ([facility]) [address], [place], [address], 02/14/2025 08:09:02 02/14/20 25 02/14/2025 CBC WITH DIFFE RENTI AL/PL ATELE T neutrophils 59 % not estab. normal Not Available [facility] ([facility]) [address] [facility], [place], [address], 02/14/2025 08:09:02 02/14/20 25 02/14/2025 CBC WITH DIFFE RENTI AL/PL ATELE T lymphs 32 % not estab. normal Not Available [facility] ([facility]) [address] [facility], [place], [address], 02/14/2025 08:09:02 02/14/20 25 02/14/2025 CBC WITH DIFFE RENTI AL/PL ATELE T monocytes 7 % not estab. normal Not Available [facility] ([facility]) [address] [facility], [place], [address], 02/14/2025 08:09:02 02/14/20 25 02/14/2025 CBC WITH DIFFE RENTI AL/PL ATELE T eos 1 % not estab. normal Not Available [facility] ([facility]) [address] [facility], [place], [address], 02/14/2025 08:09:02 02/14/20 25 02/14/2025 CBC WITH DIFFE RENTI AL/PL ATELE T basos 1 % not estab. normal Not Available [facility] ([facility]) [address] [facility], [place], [address], 02/14/2025 08:09:02 02/14/20 25 02/14/2025 CBC WITH DIFFE RENTI AL/PL ATELE T immature cells GENERAL OFFICE ASSOCIATE Not Available [facility] ([facility]) [address] [facility], [place], [address], 02/14/2025 08:09:02 02/14/20 25 02/14/2025 CBC WITH DIFFE RENTI AL/PL ATELE T neutrophils (absolute) 4.8 x10e3 /uL 1.4-7. 0 normal Not Available [facility] ([facility]) [address] [facility], [place], [address], 02/14/2025 08:09:02 02/14/20 25 02/14/2025 CBC WITH DIFFE RENTI AL/PL ATELE T lymphs (absolute) 2.5 x10e3 /uL 0.7-3. 1 normal Not Available [facility] ([facility]) [address] [place], [address], 02/14/2025 08:09:02 02/14/20 25 02/14/2025 CBC WITH DIFFE RENTI AL/PL ATELE T monocytes(ab solute) 0.5 x10e3 /uL 0.1-0. 9 normal Not Available [facility] ([facility]) [address] [facility], [place], [address], 02/14/2025 08:09:02 02/14/20 25 02/14/2025 CBC WITH DIFFE RENTI AL/PL ATELE T eos (absolute) 0.1 x10e3 /uL 0.0-0. 4 normal Not Available [facility] ([facility]) [address] [place], [address], 02/14/2025 08:09:02 02/14/20 25 02/14/2025 CBC WITH DIFFE RENTI AL/PL ATELE T baso (absolute) 0.1 x10e3 /uL 0.0-0. 2 normal Not Available [facility] ([facility]) [address] [place], [address], 02/14/2025 08:09:02 02/14/20 25 02/14/2025 CBC WITH DIFFE RENTI AL/PL ATELE T immature granulocytes 0 % not estab. Not Available [facility] ([facility]) [address] [facility], [place], [address], 02/14/2025 08:09:02 02/14/20 25 02/14/2025 CBC WITH DIFFE RENTI AL/PL ATELE T immature grans (abs) 0.0 x10e3 /uL 0.0-0. 1 Not Available [facility] ([facility]) [address] [facility], [place], [address], 02/14/2025 08:09:02 02/14/20 25 02/14/2025 CBC WITH DIFFE RENTI AL/PL ATELE T NRBC GENERAL OFFICE ASSOCIATE Not Available [facility] ([facility]) [address] [facility], [place], [address], 02/14/2025 08:09:02 02/14/20 25 02/14/2025 CBC WITH DIFFE RENTI AL/PL ATELE T hematology comments: GENERAL OFFICE ASSOCIATE Not Available [facility] ([facility]) [address] [facility], [place], [address], 02/14/2025 08:09:02 04/26/2004/27/2025 FE+TI BC+FE R iron bind.cap.(TI BC) 383 ug/dL 250-45 0 normal Not Available [facility] ([facility]) [address] [facility], [place], [address], 04/27/2025 08:07:33 04/26/2004/27/2025 FE+TI BC+FE R UIBC 195 ug/dL 111-34 3 normal Not Available [facility] ([facility]) [address] [place], [address], 04/27/2025 08:07:33 04/26/20 25 04/27/2025 FE+TI BC+FE R iron 188 ug/dL 38-169 above high normal Not Available [facility] ([facility]) [address] [place], [address], 04/27/2025 08:07:33 04/26/2004/27/2025 FE+TI BC+FE R iron saturation 49 % 15-55 normal Not Available [facility] ([facility]) [address] [facility], [place], [address], 04/27/2025 08:07:33 04/26/2004/27/2025 FE+TI BC+FE R ferritin 35 NG/mL 30-400 normal Not Available [facility] ([facility]) [address] [facility], [place], [address], 04/27/2025 08:07:33 05/10/2005/10/2025 POCT GLUCO SE, BLOOD glucose poct 121 mg/dL 70-100 high Not Available [facility]/S Dept [address] [place], [place] [address], [place], [address], 05/10/2025 11:06:24 05/10/2005/10/2025 POCT GLUCO SE, BLOOD note See Report high [facility], [address], [place], [place] [address] Not Available [facility]/S Dept [address] [place], [place] [address] [place] [address], 05/10/2025 11:06:24 05/10/20 25 05/10/2025 POCT GLUCO SE, BLOOD glucose poct 103 mg/dL 70-100 high Not Available [facility]/S Dept [address] [place], [place] [address] [place], [address], 05/10/2025 14:38:05 05/10/2005/10/2025 POCT GLUCO SE, BLOOD note See Report high [facility], [address], [place], [place] [address] Not Available [facility]/S Dept [address] [place], [place] [address] [place], [address], 05/10/2025 14:38:05 05/10/2005/10/2025 TISSU E EXAM .note See Note Origi nal Order ing Provi hannah: SUNG T KYLE [facility] - [facility] - [address], [place], [place] [address] Not Available [facility]/S Dept [address] [place], [address], 05/13/2025 13:30:21 05/10/2005/10/2025 TISSU E EXAM final diagnosis Foresk in, circum sision : -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 Penis, foresk in: Label ed peni le, fores kin . Recei veronica in forma asim is a 9.2 x 3.6 x 1.1 cm pink- psear rubbe ry porti on of skin and subcu taneo us tissu e. The cut surfa curtis are pink- white and fibro us. A repre senta tive secti on is submi tted in one casse tte, one piece . MADHURI Not Available [facility]/S Dept [address] [place], [address], 05/13/2025 13:30:21 05/10/2005/10/2025 TISSU E EXAM disclaimer Unles s other buenrostro speci fied, all tissu e is 10% NB forma asim fixed and paraf fin embed ded. Not Available [facility]/S Dept [address] [place], [address], 05/13/2025 13:30:21 07/04/20 25 07/04/2025 CBC WITH DIFFE RENTI AL/PL ATELE T WBC 6.3 x10e3 /uL 3.4-10 .8 normal Not Available [facility] ([facility]) [address] [place], [address], 07/05/2025 06:10:52 07/04/20 25 07/04/2025 CBC WITH DIFFE RENTI AL/PL ATELE T RBC 4.28 x10e6 /uL 4.14-5 .80 normal Not Available [facility] ([facility]) [address] [place], [address], 07/05/2025 06:10:52 07/04/20 25 07/04/2025 CBC WITH DIFFE RENTI AL/PL ATELE T hemoglobin 15.0 g/dL 13.0-1 7.7 normal Not Available [facility] ([facility]) [address] [place], [address], 07/05/2025 06:10:52 07/04/20 25 07/04/2025 CBC WITH DIFFE RENTI AL/PL ATELE T hematocrit 44.8 % 37.5-5 1.0 normal Not Available [facility] ([facility]) [address] [place], [address], 07/05/2025 06:10:52 07/04/20 25 07/04/2025 CBC WITH DIFFE RENTI AL/PL ATELE T MCV 105 fL 79-97 above high normal Not Available [facility] ([facility]) [address] [place], [address], 07/05/2025 06:10:52 07/04/20 25 07/04/2025 CBC WITH DIFFE RENTI AL/PL ATELE T MCH 35.0 pg 26.6-3 3.0 above high normal Not Available [facility] ([facility]) [address] [place], [address], 07/05/2025 06:10:52 07/04/20 25 07/04/2025 CBC WITH DIFFE RENTI AL/PL ATELE T MCHC 33.5 g/dL 31.5-3 5.7 normal Not Available [facility] ([facility]) [address] [facility], [place], [address], 07/05/2025 06:10:52 07/04/20 25 07/04/2025 CBC WITH DIFFE RENTI AL/PL ATELE T RDW 12.0 % 11.6-1 5.4 Not Available [facility] ([facility]) [address] [facility], [place], [address], 07/05/2025 06:10:52 07/04/20 25 07/04/2025 CBC WITH DIFFE RENTI AL/PL ATELE T platelets 271 x10e3 /uL 150-45 0 normal Not Available [facility] ([facility]) [address] [facility], [place], [address], 07/05/2025 06:10:52 07/04/20 25 07/04/2025 CBC WITH DIFFE RENTI AL/PL ATELE T neutrophils 55 % not estab. normal Not Available [facility] ([facility]) [address] [place], [address], 07/05/2025 06:10:52 07/04/20 25 07/04/2025 CBC WITH DIFFE RENTI AL/PL ATELE T lymphs 36 % not estab. normal Not Available [facility] ([facility]) [address] [place], [address], 07/05/2025 06:10:52 07/04/20 25 07/04/2025 CBC WITH DIFFE RENTI AL/PL ATELE T monocytes 6 % not estab. normal Not Available [facility] ([facility]) [address] [place], [address], 07/05/2025 06:10:52 07/04/20 25 07/04/2025 CBC WITH DIFFE RENTI AL/PL ATELE T eos 2 % not estab. normal Not Available [facility] ([facility]) [address] [facility], [place], [address], 07/05/2025 06:10:52 07/04/20 25 07/04/2025 CBC WITH DIFFE RENTI AL/PL ATELE T basos 1 % not estab. normal Not Available [facility] ([facility]) [address] [facility], [place], [address], 07/05/2025 06:10:52 07/04/20 25 07/04/2025 CBC WITH DIFFE RENTI AL/PL ATELE T immature cells GENERAL OFFICE ASSOCIATE Not Available [facility] ([facility]) [address] [place], [address], 07/05/2025 06:10:52 07/04/20 25 07/04/2025 CBC WITH DIFFE RENTI AL/PL ATELE T neutrophils (absolute) 3.5 x10e3 /uL 1.4-7. 0 normal Not Available [facility] ([facility]) [address] [place], [address], 07/05/2025 06:10:52 07/04/20 25 07/04/2025 CBC WITH DIFFE RENTI AL/PL ATELE T lymphs (absolute) 2.3 x10e3 /uL 0.7-3. 1 normal Not Available [facility] ([facility]) [address] [place], [address], 07/05/2025 06:10:52 07/04/20 25 07/04/2025 CBC WITH DIFFE RENTI AL/PL ATELE T monocytes(ab solute) 0.4 x10e3 /uL 0.1-0. 9 normal Not Available [facility] ([facility]) [address] [place], [address], 07/05/2025 06:10:52 07/04/20 25 07/04/2025 CBC WITH DIFFE RENTI AL/PL ATELE T eos (absolute) 0.1 x10e3 /uL 0.0-0. 4 normal Not Available [facility] ([facility]) [address] [facility], [place], [address], 07/05/2025 06:10:52 07/04/20 25 07/04/2025 CBC WITH DIFFE RENTI AL/PL ATELE T baso (absolute) 0.1 x10e3 /uL 0.0-0. 2 normal Not Available [facility] ([facility]) [address] [facility], [place], [address], 07/05/2025 06:10:52 07/04/20 25 07/04/2025 CBC WITH DIFFE RENTI AL/PL ATELE T immature granulocytes 0 % not estab. Not Available [facility] ([facility]) [address] [facility], [place], [address], 07/05/2025 06:10:52 07/04/20 25 07/04/2025 CBC WITH DIFFE RENTI AL/PL ATELE T immature grans (abs) 0.0 x10e3 /uL 0.0-0. 1 Not Available [facility] ([facility]) [address] [facility], [place], [address], 07/05/2025 06:10:52 07/04/20 25 07/04/2025 CBC WITH DIFFE RENTI AL/PL ATELE T NRBC GENERAL OFFICE ASSOCIATE Not Available [facility] ([facility]) [address] [facility], [place], [address], 07/05/2025 06:10:52 07/04/20 25 07/04/2025 CBC WITH DIFFE RENTI AL/PL ATELE T hematology comments: GENERAL OFFICE ASSOCIATE Not Available [facility] ([facility]) [address] [facility], [place], [address], 07/05/2025 06:10:52 07/04/20 25 07/04/2025 BASIC METAB OLIC PANEL (8) glucose 158 mg/dL 70-99 above high normal Not Available [facility] ([facility]) [address] [place], [address], 07/05/2025 06:10:53 07/04/20 25 07/04/2025 BASIC METAB OLIC PANEL (8) BUN 15 mg/dL 8-27 normal Not Available [facility] ([facility]) [address] [place], [address], 07/05/2025 06:10:53 07/04/20 25 07/04/2025 BASIC METAB OLIC PANEL (8) creatinine 1.03 mg/dL 0.76-1 .27 normal Not Available [facility] ([facility]) [address] [place], [address], 07/05/2025 06:10:53 07/04/20 25 07/04/2025 BASIC METAB OLIC PANEL (8) eGFR 74 mL/mi n/1.7 3 >59 normal Not Available [facility] ([facility]) [address] [place], [address], 07/05/2025 06:10:53 07/04/20 25 07/04/2025 BASIC METAB OLIC PANEL (8) BUN/creatini ne ratio 15 10-24 normal Not Available [facility] ([facility]) [address] [place], [address], 07/05/2025 06:10:53 07/04/20 25 07/04/2025 BASIC METAB OLIC PANEL (8) sodium 141 mmol/ L 134-14 4 normal Not Available [facility] ([facility]) [address] [place], [address], 07/05/2025 06:10:53 07/04/20 25 07/04/2025 BASIC METAB OLIC PANEL (8) potassium 4.7 mmol/ L 3.5-5. 2 normal Not Available [facility] ([facility]) [address] [place], [address], 07/05/2025 06:10:53 07/04/20 25 07/04/2025 BASIC METAB OLIC PANEL (8) chloride 102 mmol/ L 96-106 normal Not Available [facility] ([facility]) [address] [place], [address], 07/05/2025 06:10:53 07/04/20 25 07/04/2025 BASIC METAB OLIC PANEL (8) carbon dioxide, total 25 mmol/ L 20-29 normal Not Available [facility] ([facility]) [address] [place], [address], 07/05/2025 06:10:53 07/04/20 25 07/04/2025 BASIC METAB OLIC PANEL (8) calcium 9.0 mg/dL 8.6-10 .2 normal Not Available [facility] ([facility]) [address] [facility] [place], [address], 07/05/2025 06:10:53 07/04/20 25 07/04/2025 LIPID PANEL cholesterol, total 144 mg/dL 100-19 9 normal Not Available [facility] ([facility]) [address] [facility] [place], [address], 07/05/2025 06:10:53 07/04/20 25 07/04/2025 LIPID PANEL triglyceride s 136 mg/dL 0-149 normal Not Available [facility] ([facility]) [address] [facility] [place], [address], 07/05/2025 06:10:53 07/04/20 25 07/04/2025 LIPID PANEL HDL cholesterol 45 mg/dL >39 normal Not Available [facility] ([facility]) [address] [facility] [place], [address], 07/05/2025 06:10:53 07/04/20 25 07/04/2025 LIPID PANEL VLDL cholesterol baylee 24 mg/dL 5-40 Not Available [facility] ([facility]) [address] [place], [address], 07/05/2025 06:10:53 07/04/20 25 07/04/2025 LIPID PANEL LDL chol calc ([facility]) 75 mg/dL 0-99 Not Available [facility] ([facility]) [address] [facility], [place], [address], 07/05/2025 06:10:53 07/04/20 25 07/04/2025 LIPID PANEL LDL calc comment: GENERAL OFFICE ASSOCIATE Not Available [facility] ([facility]) [address] [facility], [place], [address], 07/05/2025 06:10:53 07/04/20 25 07/04/2025 MAGNE SIUM magnesium 2.0 mg/dL 1.6-2. 3 normal Not Available [facility] ([facility]) [address] [place], [address], 07/05/2025 06:10:54 07/04/20 25 07/05/2025 UA WITH CULTU RE REFLE X specific gravity COMMEN T Test not perfo rmed. Patie nt was unabl e to provi de a self- colle cted speci men for the reque sted testi ng. The follo wing test( s) were not perfo rmed: Not Available [facility] ([facility]) [address] [place], [address], 07/05/2025 10:06:31 07/04/20 25 07/05/2025 UA WITH CULTU RE REFLE X pH TNP Test not perfo rmed Not Available [facility] ([facility]) [address] [place], [address], 07/05/2025 10:06:31 07/04/20 25 07/05/2025 UA WITH CULTU RE REFLE X urine-color GENERAL OFFICE ASSOCIATE Not Available [facility] ([facility]) [address], [place], [address], 07/05/2025 10:06:31 07/04/20 25 07/05/2025 UA WITH CULTU RE REFLE X appearance GENERAL OFFICE ASSOCIATE Not Available [facility] ([facility]) [address], [place], [address], 07/05/2025 10:06:31 07/04/20 25 07/05/2025 UA WITH CULTU RE REFLE X WBC esterase GENERAL OFFICE ASSOCIATE Not Available [facility] ([facility]) [address], [place], [address], 07/05/2025 10:06:31 07/04/20 25 07/05/2025 UA WITH CULTU RE REFLE X protein TNP Test not perfo rmed Not Available [facility] ([facility]) [address], [place], [address], 07/05/2025 10:06:31 07/04/20 25 07/05/2025 UA WITH CULTU RE REFLE X glucose TNP Test not perfo rmed Not Available [facility] ([facility]) [address], [place], [address], 07/05/2025 10:06:31 07/04/20 25 07/05/2025 UA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 not requirin g treatmen t. Angel Morales MD [address] [facility] [address], [facility] [place], [address] , [facility] 5 08:34:14 Prostate specific antigen above referenc e range 544369856 Active 2016 Not Available [facility] 4 03:47:27 Malignan t neoplasm of prostate 437732368 Active 2016 Not Available [facility] 4 03:47:27 Hyperlip idemia 40599748 Active 2016 Not Available [facility] 4 03:47:27 Diarrhea 66171824 Completed 201603/18/2021 STORY: X 11 DAYS, NO [...] 12 11:22AM BY SHAKIR FLORES ON/PAUL Bagley, [facility] 1 13:50:06 Pain of shoulder region 00132223 Active [address] Tadeo; includes left impingem ent syndrome , left AC joint OA Not Available [facility] 4 03:47:27 Pain of left ankle joint 70562188329 148796 Active 2020 Seen at [facility]; in brace Not Available [facility] 4 03:47:26 Diabetic peripher al neuropat hy 376323482 Active 2021 On duloxeti ne Not Available [facility] 4 03:47:27 Tight chest 17996376 Active 2021 Seen by michael ohng and w/u in progress Not Available [facility] 4 03:47:26 Contusio n of right index finger 13881683719 401201 Active 2022 Seen by [facility] and treated with PT. Not Available [facility] 4 03:47:26 Cardiomy opathy 51785500 Active 2022 Seen by michael hong, Dr Handy and started on metoprol ol. ECHO shows LVEF of 45-50% done Jul 2022. Not Available [facility] 4 03:47:27 Overacti ve urinary bladder 736002518 Active 2022 Followed by urology. Not Available [facility] 4 03:47:27 Anemia of chronic disease 030963529 Active 2023 Angel Morales MD [address] [facility] [address], [place], [address] , [facility] 4 12:54:21 Bronchie ctasis 95060400 Active [address] Trevor Morales MD [address] [facility] [address], [place], [address] , [facility] 4 07:45:24 Bilatera l osteoart hritis of knees 19349915667 9107 Active [address] Sharpe and treated conserva tively. Angel Morales MD [address] [address], [facility] [place], [address] , [facility] 4 18:05:57 Acquired phimosis 109788410 Active 2024 Schedule d for a circumci suri Angel Morales MD [address] [address], [facility], [address] , [facility] 5 09:26:47 Notes:Some problems listed i n Documents: #[id number], #[id number], #[id number], #[id number], #[id number], #[id number] could not be added to this patient's chart. Please review these documents and add these problems to the patient's chart manually as needed. Problem Notes None recorded. Procedures Surgical History Date Name Laterality Status Provider Name and Address Organization Details Recorded Time 07/03/20 25 Advanced Care Planning completed Stefanie Wright MA [facility] 07/03/2025 14:41:18 04/27/20 24 Diabetic Foot Exam (Monofilament) completed Angel Morales MD [address], [address], [facility] 04/28/2024 14:58:54 02/11/20 24 diabetic retinopathy screening completed Paris Anthony [facility] 02/13/2024 08:31:50 04/07/20 23 Advanced Care Planning completed Angel Morales MD [address], [address], [facility] 04/07/2023 20:15:22 04/07/20 23 Diabetic Foot Exam (Monofilament) completed Angel Morales MD [address], [address], [facility] 04/07/2023 10:52:18 11/20/19 23 Colonoscopy completed Paris Anthony [facility] 11/20/2022 10:07:54 08/05/19 23 Echo transthoracic completed Paris Anthony [facility] 08/14/2022 09:02:45 07/15/20 22 radionuclide myocardial perfusion stress study completed Paris Anthony [facility] 07/29/2022 09:44:51 03/22/20 22 Diabetic Foot Exam (Monofilament) completed Angel Morales MD [address], [address], [facility] 03/22/2022 13:29:36 06/17/20 21 Diabetic Foot Exam (Monofilament) completed Angel Morales MD [address], [address], [facility] 06/17/2021 13:18:48 02/13/20 20 Diabetic Foot Exam (Monofilament) completed Angel Morales MD [address], [address], [facility] 02/13/2020 14:28:33 02/13/20 20 [facility] 14:13:49 11/17/19 19 [facility]2018 13:18:51 11/16/19 18 [facility]og Test [facility] 11/15/2017 13:11:37 11/12/19 17 Fall Risk Assessment [facility] 11/11/2016 13:13:36 11/12/19 17 Mini-Cog Test [facility] 11/11/2016 13:13:44 11/11/19 16 Fall [facility] Assessment [facility] 11/11/2015 13:45:04 11/11/19 16 Mini[facility]Cog Test [facility] 11/11/2015 13:45:04 11/11/19 16 Advanced Care Planning completed Shukri Schultzki [facility] 11/11/2015 13:45:04 11/08/19 15 Fall Risk Assessment completed Shukri Zamorano [facility] 11/07/2014 11:19:15 11/08/19 15 Mini-Cog Test completed Shukri Zamorano [facility] 11/07/2014 11:19:15 04/04/20 14 Unlisted px dentalvlr strux completed Darline friedman MA [facility] 05/02/2018 12:49:40 10/25/19 12 Hernia repair w/mesh completed Darline friedman MA [facility] 12/14/2021 14:06:45 07/25/19 10 Knee Surgery completed Diane Gipson MA [facility] 07/16/2015 14:22:16 07/25/19 05 nasal polypectomy completed Darline friedman MA [facility] 03/18/2021 13:33:16 07/25/18 96 arthroscopy of knee completed Darline friedman MA [facility] 03/18/2021 13:33:50 07/25/18 63 Tonsillectomy completed Emilia Avelar MA [facility] 03/22/2022 12:56:19 repair of inguinal hernia completed Darline friedman MA [facility] 03/18/2021 13:32:52 Imaging Results None recorded. Procedure Notes None recorded. Medical Equipment None Reported. Allergies Allergen ID Allergen Name Allergen Category Reaction Reaction Severity Criticality Documentation Date Start Date Code Code System Note Provider Name and Address Organization Details Recorded Time 76934 aspirin medicatio n Not available Not available Not available 02/05/2014 1191 RxNorm PAUL Pleitez [facility] 0 08:37:51 32454 Non-stero idal anti-infl ammatory agent (substanc e) medicatio n Not available Not available Not available 02/05/2014 59063 5008 SNOMED REACT ION: ABDOM INAL PAIN Angel J. Cennerazz o, MD [address], [place], [address], [facility] 5 15:03:35 18716 Substance with sulfonami de structure and antibacte rial mechanism of action (substanc e) medicatio n Not available Not available Not available 04/30/2014 36298 8003 SNOMED Not Available [facility] 4 03:47:23 09232 Cymbalta medicatio n Not available Not available Not available 07/29/2016 76122 4 RxNorm tremo r Angel fletcher MD [address], [place], [address], [facility] 7 13:48:13 96940 Product containin g angiotens in-conver ting enzyme inhibitor (product) medicatio n cough Not available Not available 08/17/2017 32760 009 SNOMED Kaye Trujillo MA null, [facility] 1 12:49:20 20492 codeine medicatio n Not available Not available Not available 11/21/2019 2670 RxNorm Not Available [facility] 4 03:47:23 77999 aspirin medicatio n Not available Not available Not available 11/21/2019 1191 RxNorm Not Available [facility] 4 03:47:23 Medications Name Sig [...] RECORDED 12/09/19 12 9:24AM BY TARAS MADSEN, PA-C, MEDICATI ON AUTO-ELANA CTIVATIO N; Not [...] 10 10:25AM BY PAUL BANKS, OFFICE VISIT;HERNAN KLEINOPRAZO ADALID Not Available Not Available Not Available simvastat [...] 02/01/20 13 10:42AM BY ANGEL CHAMBERLAIN MD, ANNOTATI ON/ADDEN DUM; [...] 04/27/20 12 1:19PM BY ANGEL CHAMBERLAIN MD, ANNOTATI ON/ADDEN DUM; [...] 11 9:05AM BY ANGEL CHAMBERLAIN MD, ANNOTATI ON/ADDDIMITRY DUM; Not Available Not Available Not Available [...] mcg x 4)/0.5mL IM syringe PHARMACY ADMINIST EREJina 05/15 completed Not Available Not Available Not [...] Updated DateTime 5 170.18 cm 27.3 kg/m2 89047.0 7 g 120 /min 96 % 98 [degF] 108/67 mm[Hg] Rey wolf [facility] 5 09:49:59 Date Recorded Body height Body mass index (BMI) Body weight Heart rate Oxygen saturation Body temperature Systolic And Diastolic Provider Name and Address Organization Details Last Updated DateTime 5 170.18 cm 27.1 kg/m2 20864.4 8 g 100 /min 95 % 98.1 [degF] 133/73 mm[Hg] Stefanie Wright [facility] 5 14:06:29 Date Recorded Body height Body mass index (BMI) Body weight Heart rate Oxygen saturation Body temperature Systolic And Diastolic Provider Name and Address Organization Details Last Updated DateTime 5 170.18 cm 27.9 kg/m2 44199.8 4 g 72 /min 95 % 98.3 [degF] 115/66 mm[Hg] Luna [facility]o L[facility] 5 13:10:16 Date Recorded Body height Body mass index (BMI) Body weight Heart rate Oxygen saturation Body temperature Systolic And Diastolic Provider Name and Address Organization Details Last Updated DateTime 5 170.18 cm 26.4 kg/m2 37018.3 2 g 91 /min 95 % 98.3 [degF] 106/62 mm[Hg] Luna Aguayo LPN [facility] 5 14:37:36 Date Recorded Body height Body mass index (BMI) Body weight Heart rate Oxygen saturation Body temperature Systolic And Diastolic Provider Name and Address Organization Details Last Updated DateTime 5 170.18 cm 27.3 kg/m2 83558.0 7 g 85 /min 96 % 98.4 [degF] 116/73 mm[Hg] Stefanie Wright MA [facility] 5 15:39:23 Social History Question Answer Notes LastModified by Organizat ion Details LastModified Time Tobacco Smoking Status Former Smoker 2 PPD PAUL Calderón, [facility] 03/18/2021 13:52:06 Do You Have An Advance Directive? Yes Information not available 03/22/2022 Is Blood Transfusion Acceptable In An Emergency? Yes [id number] Information not available 05/27/2020 What Is Your Level Of Caffeine Consumption? Occasional [id number] Information not available 05/27/2020 How Much Tobacco Do You Chew? None [id number] Information not available 05/27/2020 In The 14 [...] Or Recreational Drugs Have You Used? None [id number] Information not available 05/27/2020 When Did You Quit Smoking? 16+yearssince lastcigarette [email or web address] Information not available 04/27/2024 Live Alone Or With Others? Alone Information not available 03/22/2022 Do You Take Precautions To Prevent Distracted Driving? Yes [email or web address] Information not available 11/11/2015 How Often Do You Need To Have Someone Help You When You Read Instructions, Pamphlets, Or Other Written Material From Your Doctor Or Pharmacy? Never [email or web address] Information not available 11/11/2015 Have You Served In The ? No Real Estate Direct Information not available 11/11/2016 Have You Or Anyone In Your Household Had Any Of The Following Symptoms In The Last 14 Days: Sore Throat, Cough, Chills, Body Aches For Unknown Reasons, Shortness Of Breath For Unknown Reasons, Loss Of Smell, Loss Of Taste, Fever At Or Greater Than 100 Degrees Fahrenheit? No [employer] Estate Direct Information not available 02/13/2020 Are You Or Anyone In Your Household A Health Care Provider Or Emergency Responder? No Real Estate Direct Information not available 02/13/2020 To The Best Of Your Knowledge Have You Been In Close Proximity To Any Individual Who Tested Positive For COVID-19? No Real Estate Direct Information not available 02/13/2020 Have You Recently [...] Do You Use Protection During Sex? No [id number] Information not available 05/27/2020 Difficulty Reading? No Information not available 03/22/2022 Do You Use Your Seat Belt Or Car Seat Routinely? Yes Information not available 03/22/2022 Seat Belts Used Routinely Yes Information not available 03/22/2022 Are You Sexually Active? Yes [id number] Information not available 05/27/2020 Smoke Alarm In [...] 03/22/2022 Do You Use Sunscreen Routinely? No [id number] Information not available 05/27/2020 How Many Years Have You Smoked Tobacco? 37 Information not available 03/18/2021 Difficulty Watching TV? No Information not available 03/22/2022 Do You Have Difficulty Walking Or Climbing Stairs? No Information not available 03/22/2022 Sex: Unknown Functional Status Question Answer Note LastModified by [employer] ion Details LastModified Time Do you or have you ever used smokeless tobacco? [id number] Information not available 03/22/2022 Are you currently employed? No Information not available 03/22/2022 [address] at night? No Information no t available 03/22/2022 Are you able to care for yourself independently? Yes [id number] Information not available 05/27/2020 Do you have [...] Vision or Eye Problems Y Arthritis Y Tuberculosis Y Hospitalizations Y Acid Reflux (GERD) Y Cancer Y Asthma Y Depression Y Allergies Y Skin Problems Y High Cholesterol Y Bladder Problems Y Immunizations Vaccine Type Date Status Note Provider Nam e and Address Organization Details Recorded Time Influenza, split virus, trivalent, preservative 7 completed Not Available [facility] 08/02/2023 03:47:28 Influenza, split virus, trivalent, preservative 8 completed Not Available [facility] 08/02/2023 03:47:28 Tdap 8 completed Not Available [facility] 08/02/2023 03:47:28 Influenza, split virus, trivalent, preservative 9 completed Not Available [facility] 08/02/2023 03:47:28 pneumococcal polysaccharide PPV23 0 completed Not Available [facility] 08/02/2023 03:47:28 Influenza, split virus, trivalent, preservative 0 completed Not Available [facility] 08/02/2023 03:47:28 Influenza, split virus, trivalent, preservative 1 completed Not Available [facility] 08/02/2023 03:47:28 Influenza, split virus, trivalent, preservative 2 completed Not Available [facility] 08/02/2023 03:47:28 Influenza, split virus, trivalent, preservative 4 completed Not Available [facility] 08/02/2023 03:47:28 Influenza, split virus, trivalent, preservative 5 completed Not Available [facility] 08/02/2023 03:47:28 Pneumococcal conjugate PCV 13 5 completed Not Available [facility] 08/11/2019 02:21:36 Influenza, high-dose, trivalent, PF 9 completed Not Available [facility] 08/02/2023 03:47:28 Influenza, split virus, trivalent, preservative 3 completed Not Available [facility] 08/02/2023 03:47:28 Influenza, split virus, trivalent, preservative 1 completed Not Available [facility] 08/02/2023 03:47:28 Influenza, split virus, trivalent, preservative 4 completed Not Available [facility] 08/02/2023 03:47:28 Influenza, adjuvanted, quadrivalent, PF 0 completed Not Available [facility] 08/02/2023 03:47:27 Influenza, high-dose, quadrivalent, PF 1 completed Not Available [facility] 08/02/2023 03:47:27 COVID-19, mRNA, LNP-S, PF, 30 mcg/0.3 mL dose 2 completed Not Available [facility] 08/02/2023 03:47:28 COVID-19, mRNA, LNP-S, PF, 100 mcg/0.5mL dose or 50 mcg/0.25mL dose 1 completed Not Available [facility] 08/02/2023 03:47:28 zoster recombinant 9 completed [facility] Available [facility] 08/02/2023 03:47:27 COVID-19, mRNA, LNP-S, PF, 100 mcg/0.5mL dose or 50 mcg/0.25mL dose 1 completed Not Available [facility] 08/02/2023 03:47:28 Influenza, high-dose, quadrivalent, PF 2 completed Not Available [facility] 08/02/2023 03:47:27 COVID-19, mRNA, LNP-S, bivalent, PF, 30 mcg/0.3 mL dose 2 completed Not Available [facility] 08/02/2023 03:47:28 COVID-19, mRNA, LNP-S, bivalent, PF, 30 mcg/0.3 mL dose 3 completed Not Available [facility] 08/02/2023 03:47:28 Tdap 3 completed Not Available [facility] 08/02/2023 03:47:28 Influenza, adjuvanted, quadrivalent, PF 3 completed Not Available [facility] 08/02/2023 03:47:27 RSV, recombinant, protein subunit RSVpreF, adjuvant reconstituted, 0.5 mL, PF 3 completed Not Available [facility] 08/02/2023 03:47:28 pneumococcal polysaccharide PPV23 6 completed Not Available [facility] 08/11/2019 02:21:26 COVID-19, mRNA, LNP-S, PF, brian-sucrose, 30 mcg/0.3 mL 3 completed Not Available [facility] 08/02/2023 03:47:28 Pneumococcal conjugate PCV20, polysaccharide [id number] conjugate, adjuvant, PF 4 completed PAUL Malin [facility] 04/27/2024 13:42:13 COVID-19, mRNA, LNP-S, PF, brian-sucrose, 30 mcg/0.3 mL 4 completed Mindy Obrien MA null, [facility] 04/27/2024 13:42:13 zoster recombinant 4 completed Rey Dickey MA null, [facility] 08/11/2024 09:43:00 COVID-19, mRNA, LNP-S, PF, brian-sucrose, 30 mcg/0.3 mL 5 completed Stefanie Wright MA null, [facility] 07/03/2025 14:42:02 Influenza, high-dose, trivalent, PF 5 completed Not Available [facility] 07/03/2025 14:38:16 Influenza, high-dose, trivalent, PF 6 completed Not Available [facility] 08/11/2019 02:22:03 Influenza, high-dose, trivalent, PF 7 completed Not Available [facility] 08/11/2019 02:22:21 Influenza, high-dose, trivalent, PF 8 completed Not Available [facility] 08/11/2019 02:22:14 Td (adult), 2 Lf tetanus toxoid, preservative free, adsorbed 8 completed Not Available [facility] 08/11/2019 02:21:30 Influenza, high-dose, trivalent, PF 4 completed Angel Morales MD [address], [address], [facility] 04/28/2024 14:55:43 Past Encounters Encounter ID Performer Location Encounter Start Date Encounter Closed Date Diagnosis/Indication Diagnosis SNOMED-CT Code Diagnosis ICD10 Code Diagnosis IMO Codes Diagnosis Note [id number] [facility] [address] [facility] [place] [address] 10/12/2006 00:00:00 [id number] [facility] erce [address] [facility] [place] [address] 01/12/2007 00:00:00 [id number] [facility] erce [address] [facility],[address] [place] [address] 01/12/2007 00:00:[id number]ce [address] [place] [address] 01/12/2007 00:00:00 [id number] [facility]ce [address] [place] [address] 03/01/2007 00:00:00 [id number] [facility]ce [address] [place] [address] 03/31/2007 00:00:00 [id number] [facility]ce [address] [facility] [address] [place] [address] 03/31/2007 00:00:00 [id number] [facility] erce [address] [facility],[address] [place] [address] 03/31/2007 00:00:00 [id number] [facility] [facility] [address] [facility],[address] [place] [address] 06/12/2007 00:00:00 [id number] [facility] [facility]ce [address] [facility],[address] [place] [address] 07/28/2006 00:00:00 [id number] [facility] [facility] [address] [facility],[address] [place] [address] 07/28/2006 00:00:00 [id number] [facility] [facility] [address] [facility],[address] [place] [address] 07/28/2006 00:00:00 [id number] [facility] [facility] [address] [facility],[address] [place] [address] 01/17/2008 00:00:00 [id number] [facility] [facility]ce [address] [facility] [address] [place] [address] 01/17/2008 00:00:00 [id number] [facility] [facility]ce [address] [facility],[address] [place] [address] 01/17/2008 00:00:00 [id number] [facility] erce [address] [place] [address] 07/15/2008 00:00:00 [id number] [facility] erce [address] [place] [address] 07/15/2008 00:00:00 [id number] [facility] erce [address] [facility] [address] [place] [address] 07/15/2008 00:00:00 [id number] [facility] [address] [place] [address] 09/12/2008 00:00:00 [id number] auto[facility] erce [address] [place] [address] 09/18/2008 00:00:00 [id number] [facility] erce [address] [facility],[address] [place] [address] 04/14/2009 00:00:00 [id number] [facility] erce [address] [facility],[address] [place] [address] 04/14/2009 00:00:00 [id number] auto[facility] erce [address] [facility] [address] [place] [address] 04/14/2009 00:00:00 [id number] [facility] erce [address] [facility],[address] [place] [address] 10/25/2009 00:00:00 [id number] [facility] erce [address] [facility] [address] [place] [address] 10/30/2009 00:00:00 [id number] auto[facility]Comm erce [address] [facility] [address] [place] [address] 10/30/2009 00:00:00 [id number] auto[facility]Comm erce [address] [facility],[address] [place] [address] 2 01/07/2010 00:00:00 [id number] auto[facility] erce [address] [place] [address] 01/07/2010 00:00:00 [id number] [facility] erce [address] [place] [address] 01/07/2010 00:00:00 [id number] [facility] [address] [place] [address] 07/16/2010 00:00:00 [id number] [facility] [address] [place] [address] 07/16/2010 00:00:00 [id number] auto[facility]Comm erce [address] [facility] [address] [place] [address] 08/27/2010 00:00:00 [id number] [facility] erce [address] [facility] [address] [place] [address] 08/27/2010 00:00:00 [id number] [facility] erce [address] [facility] [address] [place] [address] 02/23/2011 00:00:00 [id number] [facility] erce [address] [facility],[address] [place] [address] 02/23/2011 00:00:00 [id number] auto[facility]Comm erce [address] [facility] [address] [place] [address] 02/23/2011 00:00:00 [id number] auto[facility]Comm erce [address] [facility] [address] [place] [address] 02/23/2011 00:00:00 [id number] auto[facility]Comm erce [address] [facility],[address] [place] [address] 2 09/27/2008 00:00:00 [id number] auto[facility]Comm erce [address] [facility] [address] [place] [address] 09/27/2008 00:00:00 [id number] auto[facility]Comm erce [address] [facility],[address] [place] [address] 2 09/27/2008 00:00:00 [id number] auto[facility] erce [address] [place] [address] 09/27/2008 00:00:00 [id number] auto[facility] erce [address] [place] [address] 10/08/2011 00:00:00 [id number] auto[facility] erce [address] [place] [address] 10/08/2011 00:00:00 [id number] auto[facility] erce [address] [place] [address] 10/08/2011 00:00:00 [id number] auto[facility] erce [address] [place] [address] 10/08/2011 00:00:00 [id number] auto[facility]Comm erce [address] [facility],[address] [place] [address] 01/06/2012 00:00:00 [id number] auto[facility]Comm erce [address] [facility],[address] [place] [address] 01/06/2012 00:00:00 [id number] auto[facility]Comm erce [address] [facility] [address] [place] [address] 01/06/2012 00:00:00 [id number] auto[facility]Comm erce [address] [facility],[address] [place] [address] 2 07/17/2007 00:00:00 [id number] auto[facility]Comm erce [address] [facility],[address] [place] [address] 05/15/2012 00:00:00 [id number] auto[facility]Comm erce [address] [facility] [address] [place] [address] 05/15/2012 00:00:00 [id number] [facility] erce [address] [facility],[address] [place] [address] 2 05/15/2012 00:00:00 [id number] auto[facility] erce [address] [place] [address] 07/05/2011 00:00:00 [id number] auto[facility]Comm erce [address] [place] [address] 07/05/2011 00:00:00 [id number] auto[facility]Comm erce [address] [place] [address] 07/05/2011 00:00:00 [id number] auto[facility]Comm erce [address] [place] [address] 11/09/2010 00:00:00 [id number] auto[facility]Comm erce [address] [place] [address] 09/25/2010 00:00:00 [id number] auto[facility]Comm erce [address] [facility] [address] [place] [address] 09/25/2010 00:00:00 [id number] auto[facility] erce [address] [place] [address] 2 07/31/2010 00:00:00 [id number] auto[facility]Comm erce [address] [facility] [address] [place] [address] 07/31/2010 00:00:00 [id number] auto[facility]Comm erce [address] [facility] [address] [place] [address] 02/09/2013 00:00:00 [id number] auto[facility]Comm erce [address] [facility] [address] [place] [address] 02/09/2013 00:00:00 [id number] auto[facility] erce [address] [place] [address] 2 02/09/2013 00:00:00 [id number] [facility]Comm erce [address] [facility] [address] [place] [address] 04/11/2013 00:00:00 [id number] auto[facility]Comm erce [address] [facility],[address] [place] [address] 2 05/03/2013 00:00:00 [id number] auto[facility]Comm erce [address] [place] [address] 2 05/03/2013 00:00:00 [id number] auto[facility]Comm erce [address] [place] [address] 10/14/2009 00:00:00 [id number] auto[facility]Comm erce [address] [place] [address] 2 10/14/2009 00:00:00 [id number] auto[facility] erce [address] [place] [address] 2 10/14/2009 00:00:00 [id number] [facility] erce [address] [place] [address] 2 08/21/2013 00:00:00 [id number] [facility] erce [address] [place] [address] 2 11/01/2013 00:00:00 [id number] auto[facility] erce [address] [place] [address] 2 11/01/2013 00:00:00 [id number] [facility] erce [address] [place] [address] 2 11/01/2013 00:00:00 [id number] [facility] erce [address] [place] [address] 2 01/08/2014 00:00:00 [id number] auto[facility]Comm erce [address] [place] [address] 2 01/29/2014 00:00:00 [id number] auto[facility]Comm erce [address] [place] [address] 2 01/29/2014 00:00:00 [id number] auto[facility]Comm erce [address] [place] [address] 2 01/29/2014 00:00:00 [id number] auto[facility]Comm erce [address] [place] [address] 2 11/18/2011 00:00:00 [id number] auto[facility]Comm erce [address] [place] [address] 2 11/18/2011 00:00:00 [id number] auto[facility] erce [address] [place] [address] 2 11/18/2011 00:00:00 [id number] auto[facility]Comm erce [address] [place] [address] 2 04/27/2012 00:00:00 [id number] auto[facility]Comm erce [address] [place] [address] 2 09/05/2012 00:00:00 [id number] auto[facility]Comm erce [address] [place] [address] 2 09/05/2012 00:00:00 [id number] auto[facility]Comm erce [address] [place] [address] 2 09/05/2012 00:00:00 [id number] auto[facility]Comm erce [address] [facility] [address] [place] [address] 11/18/2006 00:00:00 [id number] auto[facility]Comm erce [address] [facility] [address] [place] [address] 2 10/24/2012 00:00:00 [id number] auto[facility]Comm erce [address] [place] [address] 2 10/24/2012 00:00:00 [id number] [facility] erce [address] [place] [address] 2 10/24/2012 00:00:00 [id number] auto[facility]Comm erce [address] [place] [address] 2 01/30/2013 00:00:00 [id number] autoEComm erce [address] [facility] [address] [place] [address] 2 01/30/2013 00:00:00 [id number] auto[facility]Comm erce [address] [place] [address] 2 01/30/2013 00:00:00 [id number] auto[facility]Comm erce [address] [place] [address] 2 12/05/2012 00:00:00 [id number] auto[facility]Comm erce [address] [place] [address] 2 07/16/2009 00:00:00 [id number] auto[facility]Comm erce [address] [place] [address] 2 07/16/2009 00:00:00 [id number] auto[facility]Comm erce [address] [place] [address] 2 07/16/2009 00:00:00 [id number] autoEComm erce [address] [facility],[address] [place] [address] 04/13/2010 00:00:00 [id number] auto[facility]Comm erce [address] [facility],[address] [place] [address] 2 06/19/2013 00:00:00 [id number] auto[facility]Comm erce [address] [facility] [address] [place] [address] 06/19/2013 00:00:00 [id number] autoEComm erce [address] [facility],[address] [place] [address] 2 01/19/2011 00:00:00 [id number] autoEComm erce [address] [facility],[address] [place] [address] 2 01/19/2011 00:00:00 [id number] autoEComm erce [address] [facility] [address] [place] [address] 11/09/2006 00:00:00 [id number] autoEComm erce [address] [facility],[address] [place] [address] 2 11/09/2006 00:00:00 [id number] autoEComm erce [address] [place] [address] 2 01/13/2009 00:00:00 [id number] autoEComm erce [address] [place] [address] 2 01/13/2009 00:00:00 [id number] autoEComm erce [address] [place] [address] 2 01/13/2009 00:00:00 [id number] autoEComm erce [address] [place] [address] 2 01/13/2009 00:00:00 [id number] autoEComm erce [address] [facility] [address] [place] [address] 07/27/2012 00:00:00 [id number] autoEComm erce [address] [facility] [address] [place] [address] 2 07/27/2012 00:00:00 [id number] autoEComm erce [address] [facility] [address] [place] [address] 2 07/27/2012 00:00:00 [id number] autoEComm erce [address] [facility],[address] [place] [address] 07/27/2012 00:00:00 [id number] autoEComm erce [address] [facility] [address] [place] [address] 04/12/2012 00:00:00 [id number] autoEComm erce [address] [facility] [address] [place] [address] 2 04/12/2012 00:00:00 [id number] autoEComm erce [address] [facility],[address] [place] [address] 2 04/12/2012 00:00:00 [id number] autoEComm erce [address] [facility] [address] [place] [address] 09/20/2008 00:00:00 [id number] autoEComm erce [address] [facility],[address] [place] [address] 2 09/20/2008 00:00:00 [id number] Angel Morales MD Main Office [address] [address] [place] [address] 04/30/2014 10:29:46 04/30/2014 11:24:38 Type 2 diabetes mellitus 37221113 Impotence of organic origin 383946931 Pure hypercholesterolemia 750541211 Essential hypertension 32159098 [id number] LARRY Buchanan Main Office [address] [address] [place] [address] 06/27/2014 13:02:39 06/27/2014 13:51:35 Allergic rhinitis 91843657 Pt c/o runny nose, nasal itching, itchy, watery eyes, throat itching, PND x 1 days. Sx likely related to alergic rhinitis ad he had the fan on last night. Continue current treatment with flonase, alaway, zyrtec D for not more than 5 days for congestion , stay well hydrated. If develop fever, chills, cough, purulent nasal discharge, sinus pain please return. Essential hypertension 88615986 Type 2 rosalina betes mellitus without complication [id number] Angel Morales MD Main Office [address] [address] [place] [address] 07/30/2014 10:36:54 07/30/2014 11:31:51 Type 2 diabetes mellitus 38749657 Essential hypertension 13691905 Chronic as thmatic bronchitis 547497296 Obstructiv e sleep apnea syndrome 84242846 [id number] LARRY Landrum Main Office [address] [address] [place] [address] 09/03/2014 13:19:53 09/03/2014 13:46:52 Acute pharyngitis 424649373 Influenza- like illness 05459202 symptoms < 48 hours, with medical risk factors, empiric tx with tamiflu [id number] LARRY Wills Main Office [address] [address] [place] [address] 09/16/2014 13:45:30 09/16/2014 14:38:02 Acute exacerbation of chronic asthmatic bronchitis 525589648 if he is not improving in 3 days, he will call his pulmonolog ist. Type 2 rosalina betes mellitus 65183709 last a1c was 6.2 so a short course of prednisone will be fine [id number] Angel Morales MD Main Office [address] [address] [place] [address] 10/03/2014 12:41:57 10/03/2014 13:22:38 Cramp in lower limb 803745831 reassure d patient that this was a benign event and no further w/u was needed. I gave him a handout on cramps and suggested that he stay hydrated and do stretching exercises to help stay flexible. [id number] Angel Morales MD Main Office [address] [address] [place] [address] 11/07/2014 10:47:17 11/07/2014 12:01:20 Adult health examination 544131001 Administra tion of pneumococcal vaccine 87462866 Type 2 rosalina betes mellitus without complication 105547229 Lateral epicondylitis 216316997 Body mass index 25-29 - overweight 453166148 mildly overweight ; he will try to make some changes but doesn't want a referral. [id number] Angel Morales MD Main Office [address] [address] [place] [address] 02/06/2015 09:45:30 02/06/2015 10:25:10 Type 2 diabetes mellitus without complication 243134609 Benign pro static hyperplasia 782061345 Gastroesop hageal reflux disease 196646613 Impotence of organic origin 287360456 [id number] Angel Morales MD Main Office [address] [address] [place] [address] 05/08/2015 11:11:13 05/08/2015 11:59:32 Type 2 diabetes mellitus 80099151 E11.9 he will hold his metformin and we will recheck his A1C in 3 months. Pure hypercholesterolemia 489840851 E78.0 Ex-smoker 1012422 Z87.89 1 Malignant neoplasm of prostate 541657416 C61 [id number] Angel Morales MD Main Office [address] [address] [place] [address] 06/27/2015 13:44:59 06/27/2015 14:41:57 Lightheadedness 318661706 R42 I explained to him that these [...] 2 months to have his A1C rechecked. [id number] Angel Morales MD Main Office [address] [address] [place] [address] 07/16/2015 13:58:00 07/16/2015 15:09:03 Knee pain 62562789 M25.562 Possible meniscus problem give the location and his symptoms but must also consider gout given the abruptness of his symptoms. Will treat with NSAIDs and he will keep his appointmen t with [facility] for next week. [id number] Angel Morales MD Main Office [address] [address] [place] [address] 08/12/2015 10:27:25 08/12/2015 11:23:51 Type 2 diabetes mellitus 62822967 E11.9 He has been off metformin for 3 months and his A1C has remained normal. He is not on any meds for diabetes. We will recheck in 3 months. He was instructed to continue watching what he eats and drinks. Chronic ob structive pulmonary disease 50703334 J44.9 stable on current mgmt. Malignant neoplasm of prostate 822967448 C61 followe dby urology. Secondary erectile dysfunction 103611896 N52.8 [id number] Grabiel Kaplan PA-C Main Office [address] [address] [place] [address] 10/20/2015 13:15:19 10/20/2015 14:35:49 Congestion of nasal sinus 42121487 R09.81 pt has had 2 nasal surgeries. doubt sinus infection at this time since symptoms for only a few days [id number] Angel Morales MD Main Office [address] [address] [place] [address] 11/11/2015 13:24:52 11/11/2015 14:20:32 Adult health examination 003006535 Z00.00 Administra tion of pneumococcal vaccine 87489397 Z23 Type 2 rosalina betes mellitus without complication 551909955 E11.9 well-contr olled off meds. Will recheck A1C in 3 months. Chronic as thmatic bronchitis 053120044 J44.9 Currently under good control; followed by Dr Fuentes. Dar costa discussed with patient 867115966 Z71.89 [id number] Angel Morales MD Main Office [address] [place] [address] 12/03/2015 15:44:37 12/03/2015 16:29:43 Cough 95388608 R05 secondary to allergies and PND. Will start an anti-hista mine and see him back in a few days and if cough persists we will consider starting prednisone . Allergic rhinitis 376976 04 J30.1 [id number] Angel Morales MD Main Office [address] [place] [address] 12/08/2015 10:22:13 12/08/2015 11:25:51 Acute exacerbation of chronic asthmatic bronchitis 783739581 J44.1 he does not appear to need antibiotic s. His only symptom is the intermitte nt cough with some wheezing. [id number] Angel Morales MD Main Office [address] [place] [address] 02/10/2016 14:12:38 02/10/2016 15:07:04 Type 2 diabetes mellitus without complication 450226172 E11.9 well-contr olled off meds. Will recheck A1C in 3 months. His A1C has been increasing and is now at 6.8. He understand s that if it goes above 7.0 we will have to restart his meds. Essential hypertension 59664515 I10 good control w/current meds Pure hypercholesterolemia 176405019 E78.0 good control with current meds. [id number] Angel Morales MD Main Office [address] [place] [address] 04/29/2016 13:51:32 04/29/2016 15:13:58 Type 2 diabetes mellitus 53526248 E11.9 He has been off metformin for 6 months and has changed his diet. He has lost 10 lbs since his last visit and his A1C came down from 6.8 to 5.3. We will continue to monitor his sugar but he does not need to be checked until 6 months from now when he returns for his PE. Needs infl uenza immunization 053232114 Z23 Chronic ob structive pulmonary disease 35350198 J44.9 Stable on current inhlaers and followed by Dr Fuentes [id number] Angel Morales MD Main Office [address] [address] 05/25/2016 11:00:01 05/25/2016 12:00:47 Neuropathy due to diabetes mellitus 004507181 E11.40 His pains seem neuropathi c. Will start lyrica and see him back in 1 month for a reevaluati on. [id number] Angel Morales MD Main Office [address] [address] 06/09/2016 13:16:37 06/09/2016 14:26:46 Lightheadedness 007005602 R42 Syncope 507602249 R55 [id number] Angel Morales MD Main Office [address] [address] 06/24/2016 09:47:37 06/24/2016 10:39:13 Diabetic peripheral neuropathy 897216755 E11.40 Lyrica was not covered. He was given a script for cymbalta and will try that and f/u in a couple of months for his PE at which time we will reevaluate . [id number] Angel Morales MD Main Office [address] [address] 07/29/2016 13:25:03 07/29/2016 14:19:41 Pain in toe 874133151 M79.674 M79.675 Bilateral big toe pain does not sound to be a neuropathy and was not helped by cymbalta. His toe pain may be related to OA and may be exacerbate d by his bowling. He will try naprosyn on days that he gets the toe pain. Tremor 90227659 R25.1 secondary to cymbalta. Resolved once he stopped. [id number] Angel Morales MD Main Office [address] [place] [address] 08/06/2016 12:33:03 08/06/2016 13:09:25 Acute pharyngitis 384304124 J02.9 Nasal congestion 3105944 0 R09.81 [id number] Angel Morales MD Main Office [address] [address] [place] [address] 11/11/2016 12:38:33 11/11/2016 13:53:01 Adult health examination 600144108 Z00.00 UTD with immunizati ons and colonoscop y. Diabetic p eripheral neuropathy 042290915 E11.40 Currently taking cymbalta and getting some help. Essential hypertension 44293339 I10 Good control; continue current mgmt. Hyperlipidemia 10224510 E78.5 Check fasting lipid level and continue current meds Disorder o f nervous system due to type 2 diabetes mellitus 744143337 E11.40 He has been off all meds for a while and has remained under good control. We will follow every 6 months for now. [id number] Angel Morales MD Main Office [address] [address] [place] [address] 03/04/2017 10:31:33 03/04/2017 11:28:29 Influenza vaccine needed [id number] 106 Z23 Diarrhea 68446867 R19.7 May be secondary to sweetener used in sugar-free ice cream and cookies. He will stop these for the week to see if there is an improvemen t in his symptoms. Irritable bowel syndrome 48336906 K58.9 His symptoms of lose stools may be secondary to IBS. He will make changes and we will review next week. [id number] Angel Morales MD Main Office [address] [address] [place] [address] 03/10/2017 10:44:57 03/10/2017 11:59:22 Chronic diarrhea 828016092 K52.9 He will hold his tamsulosin since this can cause diarrhea and continue with changes for IBS and f/u in 2 weeks. [id number] Angel Morales MD Main Office [address] [address] [place] [address] 03/22/2017 12:48:44 03/22/2017 13:08:45 Diarrhea 33958248 R19.7 This has improved and he will restart his tamsulosin since he has been straining to urinate. He will call if he develops diarrhea again. Benign pro static hyperplasia 501695622 N40.1 he will restart his tamsulosin since he is having symptoms. [id number] Angel Morales MD Main Office [address] [place] [address] 05/26/2017 11:08:36 05/26/2017 12:08:27 Essential hypertension 37031756 I10 Good control; continue current mgmt. Type 2 rosalina betes mellitus without complication 538606260 E11.9 Has been off all diabetes meds for more than a year and his A1C has remained normal. He continues to exercise regularly and also continues to lose weight. Chronic ob structive pulmonary disease 61858992 J44.9 He had an exacerbati on because of seasonal allergies and did not have the advair because of the cost. He was given samples of symbicort by Dr Escalona and will be working with someone at the [facility] to get an affordable inhaler thru his insurance. Malignant neoplasm of prostate 702033451 C61 Watchful waiting and Dr Valdovinos is monitoring his PSA. [id number] Jaz Kaplan PA-C Main Office [address] [place] [address] 06/24/2017 13:17:54 06/24/2017 15:18:35 Upper respiratory infection 08704940 J06.9 Asthmatic bronchitis 405 986797 J45.909 Continue current inhalers . PT. is advise to use rescue inhaler 2-3 times daily with the spacer and if still with wheezing , start Medrol dose pack as directed. F/u 1-2 weeks if still symptomati c. [id number] Jaz Kaplan PA-C Main Office [address] [place] [address] 07/15/2017 10:56:44 07/15/2017 12:43:21 Chronic obstructive pulmonary disease 22879547 J44.9 Improved symptoms since the last visit with Medrol dose pack taken twice. Continue Advair 500-50 BID and rescue PRN. PT. will continue Flonase spray. F/u. as scheduled or sooner if symptoms worsen. [id number] Angel Morales MD Main Office [address] [address] [place] [address] 08/17/2017 14:24:49 08/17/2017 15:09:27 Essential hypertension 96664234 I10 Will stop lisinopril because of cough and start valsartan and return in 1 month. [id number] Angel Morales MD Main Office [address] [address] [place] [address] 09/28/2017 10:23:07 09/28/2017 11:42:46 Essential hypertension 57662832 I10 We will decrease his valsartan from 160 to 80 mg since his BP is running a little low. F/u in 3 weeks. Chronic cough 65384976 R 05 No clear etiology for this. Did 2 courses of prednisone w/o much help. He has a pulmonary f/u in a couple of months. [id number] Angel Morales MD Main Office [address] [address] [place] [address] 10/20/2017 10:29:38 10/20/2017 11:25:52 Cough 97480306 R05 This has not responded to multiple course of prednisone nor his inhalers. We will stop his flonase and try a different nasal steroid for a while. In addition he will start an anti-hista mine. His symptoms may be from allergic rhinitis and PND especially since they are more common in the am. Allergic rhinitis 006328 04 J30.1 [id number] Angel Morales MD Main Office [address] [address] [place] [address] 11/15/2017 12:35:57 11/15/2017 14:09:04 Adult health examination 466563126 Z00.00 UTD with immunizati ons and colonoscop y (due again 2020) Chronic ob structive pulmonary disease 72793413 J44.[address] Fuentes and Dr Lewis. Gastroesop hageal reflux disease 355199827 K21.9 Malignant neoplasm of prostate 760631806 C[address] Valdovinos is monitoring his PSA. Essential hypertension 97471163 I10 BP under good control on reduced dose of valsartan at 80 mg. Congestion of nasal sinus 04659579 R09.81 Type 2 rosalina betes mellitus without complication 531607315 E11.9 Has been off all diabetes meds for more than a year and his A1C has remained normal. He continues to exercise regularly and also continues to lose weight. Hyperlipidemia 11672063 E78.5 Check fasting lipid level and continue current meds [id number] Angel Morales MD Main Office [address] [place] [address] 12/15/2017 09:49:44 12/15/2017 11:14:48 Abdominal pain 69858471 R10.9 Possibly from movement of his mesh causing a pinching in the area. Doubt appendicit is because of normal appetite and gait and WBC is normal. But must r/o because of the location of his tenderness . [id number] Angel Morales MD Main Office [address] [place] [address] 03/21/2018 12:36:46 03/21/2018 13:18:14 Chest wall pain 404332999 R07.89 Advised NSAIDs prn. Not concerned about heart disease. [id number] Angel Morales MD Main Office [address] [address] 05/02/2018 12:36:24 05/02/2018 13:28:39 Type 2 diabetes mellitus without complication 153586576 E11.9 Has been off all diabetes meds for about 3 years now and his A1C has remained normal. He continues to exercise regularly and to maintain his weight. Essential hypertension 59580117 I10 BP under good control on reduced dose of valsartan at 80 mg. Influenza vaccine needed [id number] 106 Z23 Requires a tetanus booster 636470580 Z23 Chronic as thmatic bronchitis 244595852 J44.[address] Fuentes. Chronic ob structive pulmonary disease 05485022 J44.[address] Fuentes and Dr Lewis. [id number] Angel Morales MD Main Office [address] [address] [place] [address] 11/16/2018 12:55:37 11/16/2018 14:13:55 Adult health examination 992744518 Z00.00 UTD with immunizati ons and colonoscop y (due again 2020) Hyperlipidemia 07283804 E78.5 Check fasting lipid level and continue current meds Type 2 rosalina betes mellitus without complication 362483639 E11.9 Has been off all diabetes meds for about 3 years now and his A1C has remained normal. He continues to exercise regularly and to maintain his weight. Chronic as thmatic bronchitis 620334641 J44.[address] Fuentes. [id number] Angel Morales MD Main Office [address] [address] 05/24/2019 09:26:58 05/24/2019 10:40:55 Essential hypertension 90227357 I10 Good control with current mgmt. Type 2 rosalina betes mellitus without complication 551139697 E11.9 Has been off all diabetes meds for more than 3 years now and his A1C has remained normal. He continues to exercise regularly and to maintain his weight. Chronic cough 90068934 R 05 No clear etiology for this. Did 2 courses of prednisone w/o much help. Seen by pulmonary, ent and allergists over the last year. [id number] Angel Morales MD Main Office [address] [place] [address] 11/21/2019 08:49:01 11/21/2019 10:46:32 Essential hypertension 10187921 I10 Will increase his amlodipine from 5 to 10 mg daily. He will record his BP daily (different times) over the next week and we will recheck his BP next week. He may need a diuretic if BP still running high. [id number] Angel Morales MD Main Office [address] [address] 11/27/2019 10:58:35 11/27/2019 13:58:02 Essential hypertension 74489056 I10 Will increase his amlodipine from 5 to 10 mg daily. He will record his BP daily (different times) over the next week and we will recheck his BP next week. He may need a diuretic if BP still running high. Chronic as thmatic bronchitis 559616829 J44.[address] Fuentes. Type 2 rosalina betes mellitus without complication 079976648 E11.9 Has been off all diabetes meds for more than 3 years now and his A1C has remained normal. He continues to exercise regularly and to maintain his weight. [id number] Angel Morales MD [address] [address] [place] [address] 12/05/2019 08:12:27 12/05/2019 13:11:38 Cough 80510187 R05 This has not responded to multiple course of prednisone nor his inhalers. He was seen by ENT, marine meteorologist and pulmonary and no etiology found. [place]gway to be neurogenic . Exposure t o viral disease 8771933948 18375 Z03.818 SOB and breathing has been worse than normal over the past week. Essential hypertension 68639852 I10 BP still running high. Will add a diuretic and see him back in 2 weeks. Gastroesop hageal reflux disease 660463232 K21.9 Instructed to increase his prilosec to twice a day which may help with his cough. [id number] Angel Morales MD [address] [place] [address] 12/19/2019 06:15:07 12/19/2019 10:30:45 Essential hypertension 22605900 I10 BP much improved. Will continue with amlodipine 10 mg, valsartan 160 mg and chlorthali done 25 mg. Check BMP. [id number] Angel Morales MD [address] [address] [place] [place] [address] 12/24/2019 13:06:04 12/25/2019 09:29:03 Acute pharyngitis 567228144 J02.9 Possibly secondary to PND from non-optima lly treated allergies. Allergic rhinitis 445019 04 J30.1 Will stop his flonase and try a different steroid nasal spray. He will call Dr Lewis if his symptoms persist. [id number] Angel Morales MD Main Office [address] [place], [place] [address] [address] 02/13/2020 13:29:52 02/13/2020 14:48:06 Adult health examination 726702352 Z00.00 UTD with immunizati ons and colonoscop y (due again 2020) Type 2 rosalina betes mellitus without complication 262600816 E11.9 Has been off all diabetes meds for many years now and his A1C has remained normal. He continues to exercise regularly and to maintain his weight. Cough 44775527 R05 Followed by pulmonary (Dr Fuentes) and scheduled for PFTs next month. Ridgway to be neurogenic . Essential hypertension 78412301 I10 Will continue with amlodipine 10 mg, valsartan 160 mg and chlorthali done 25 mg. Check BMP. [id number] Angel Morales MD Main Office [address] [facility] [address] [place] [address] 03/24/2020 13:11:26 03/24/2020 13:38:20 [id number] Angel Morales MD Main Office [address] [facility] [address] [facility] [place] [address] 03/27/2020 13:59:50 03/27/2020 15:36:21 Community acquired pneumonia 054911349 J18.9 Complete abx tomorrow Sepsis 75139642 A41.9 Back to baseline Chronic cough 05884490 R 05 No clear etiology for this. Did 2 courses of prednisone w/o much help. Seen by pulmonary, ent and allergists over the last year. Has a telehealth appointmen t tomorrow with a new provider. [id number] Angel Morales MD Main Office [address] [address] 05/15/2020 14:30:51 05/15/2020 15:26:11 Renal disorder due to type 2 diabetes mellitus 588993746 E11.21 Has been off all diabetes meds for many years now and his A1C has remained normal. He continues to exercise regularly and to maintain his weight. Allergic rhinitis 847283 04 J30.1 Under good control with current mgmt. Chronic ob structive pulmonary disease 68576805 J44.[address] Fuentes and Dr Lewis. Essential hypertension 03884718 I10 Will continue with amlodipine 10 mg, valsartan 160 mg and chlorthali done 25 mg. [id number] [facility] [address] [facility] [address] [facility] [place] [address] 08/18/2020 14:47:55 08/21/2020 08:30:17 Pain of right wrist 0654415230 34924 M25.531 maybe tendonitis by hx, refer to hand ortho for eval. [id number] Angel Morales MD Main Office [address] [address] [place] [address] 11/11/2020 13:05:35 11/11/2020 13:42:34 Type 2 diabetes mellitus without complication 614318068 E11.9 Has been off all diabetes meds for many years (since 2014) but his A1C has been slowly increasing and is now at 6.9. He will intensify his lifestyle changes and we will check again in 3 months. Essential hypertension 17189234 I10 Will continue with amlodipine 10 mg, valsartan 160 mg and chlorthali done 25 mg. Good control. Chronic ob structive pulmonary disease 42672623 J44.[address] Fuentes and Dr Lewis. Hyperlipidemia 02758852 E78.5 Check fasting lipid level and continue current meds [id number] Angel Morales MD Main Office [address] [address] [place] [address] 12/04/2020 11:05:19 12/04/2020 12:07:09 Sprain of left ankle 0281777892 4991145 S93.402A Handout given with exercises. If no improvemen t will refer to ortho. [id number] Sung Chaudhari MD Main Office [address] [address] [place] [address] 02/25/2021 13:37:36 02/27/2021 07:36:33 [id number] Sung Chaudhari MD Main Office [address] [place] [address] [place] [address] 03/06/2021 10:26:18 03/06/2021 12:27:04 Pneumonia 941056458 J18.9 Pt is doing well clinically , much improved. Check chest xray in a month to assess healing. Labs today for followup. Rest, hydration. Pt seems to be independen t, has family nearby and VNA does not appears to be needed at this time. Call if any recurrence Followup with pulmonary and marine meteorologist as planned. Retention of urine 61599 4002 R33.9 due to retention in hospital, urology referral recommende d. Pt agrees to appt, no further sx of retention since home. Pt is on tamsulosin , oxybutnin and finasterid e from urology, advised to discuss meds with provider he seesl Allergic rhinitis 021983 04 J30.9 Followed by marine meteorologist, will get immune testing through his office, confirmed myself with Molly from allergy office. Chronic as thmatic bronchitis 006639433 J44.[address] Fuentes Essential hypertension 99722100 I10 BP low today, will hold chlorthali done and recheck BP at upcoming appt with Dr Castaneda 03/18/21 [id number] Angel Morales MD Main Office [address] [address] 03/18/2021 13:07:10 03/18/2021 14:31:16 Adult health examination 707458207 Z00.00 UTD with immunizati ons and colonoscop y (due again 2020) Type 2 rosalina betes mellitus without complication 825231897 Torres Has been off all diabetes meds for many years (since 2014) but his A1C has been slowly increasing and is now at 6.9. He will intensify his lifestyle changes and we will check again in 3 months. Essential hypertension 83650240 I10 Will continue with amlodipine 10 mg and valsartan 160 mg and discontinu e the chlorthali done since his BP is good w/o it. Good control. Varicella vaccination 68 710839 Z23 Screening for malignant neoplasm of colon 474499844 Z12.11 [id number] Angel Morales MD Main Office [address] [address] 06/17/2021 12:29:58 06/17/2021 13:16:03 Type 2 diabetes mellitus without complication 126914818 E11.Diaz Has been off all diabetes meds for many years (since 2014. His A1C starting increasing and went to a high of 6.9 7 months ago but has since come down to 6.1 with lifestyle changes. No meds needed. Continue to monitor. Allergic rhinitis 355042 04 J30.9 Under good control with current mgmt. Chronic ob structive pulmonary disease 82799214 J44.[address] Fuentes and Dr Lewis. Essential hypertension 72160061 I10 Will continue with amlodipine 10 mg and valsartan 160 mg . He discontinu ed his diuretic. Good control. [id number] Angel Morales MD Main Office [address] [address] [facility] [place] [address] 10/06/2021 15:41:52 10/06/2021 16:24:11 Neck pain 30022179 M54.2 Advised heat on the area. If no improvemen t we will do a PT referral. [id number] Angel Morales MD Main Office [address] [place] [address] 10/15/2021 10:52:34 10/15/2021 11:27:14 Type 2 diabetes mellitus without complication 899219262 E11.9 Has been off all diabetes meds for many years (since 2015. His A1C is currently normal. We will continue to follow twice a year. Chronic ob structive pulmonary disease 52022588 J44.[address] Fuentes and Dr Lewis. Under good control. Essential hypertension 22286616 I10 Will continue with amlodipine 10 mg and valsartan 160 mg . He discontinu ed his diuretic. Good control. Hyperlipidemia 69830833 E78.5 Check fasting lipid level next appointmen t and continue current meds. LDL at goal. [id number] Angel Morales MD [facility] [address] [address] [facility] [address] 11/26/2021 16:56:32 11/27/2021 09:22:25 Fever 715066009 R50.9 I advised that he take a COVID test. Abdominal pain 79211085 R10.9 This may be diverticul its given the pain, lack of appetite and fever. He will go to an to get evaluated. [id number] Олег Walton MD Main Office [address] [place] [address] 12/14/2021 13:30:57 12/14/2021 15:05:24 Acute exacerbation of chronic asthmatic bronchitis 710465607 J44.1 stable, has pulmonary followup Gastroesop hageal reflux disease 499789876 K21.9 has colon appt in April, will see if egd can be added Recurrent pneumonia 6990 56437 J18.9 Pt has been admitted at least 2 times in the past year for breathing issues. Gets better in between exacerbati on. Pt has upcoming appt with Dr Leo pulmonolog ist. Due to repeat cxr for pneumonia, will try to get CT approved as recurrent. [id number] Angel Morales MD Main Office [address] [facility] [address] [facility] [place] [address] 01/14/2022 11:30:05 01/14/2022 12:03:16 Asthma 049685110 J45.40 Some relief from inhalers but symptoms are brought on by mold in his apartment. Allergic rhinitis 001580 04 J30.9 Some help from current mgmt. Allergy to mold 80109180 3 Z88.8 He was advised to move since this is compromisi ng his breathing and is a contributi ng factor to his 3 episodes of pneumonia requiring admission and abx over the past year. [id number] Angel Morales MD Main Office [address] [facility] [address] [facility] [place] [address] 03/22/2022 12:48:09 03/22/2022 14:00:01 Adult health examination 904585257 Z00.00 UTD with immunizati ons including COVID w/booster, tetanus and pneumonia. He had one shingrix and is due for a second. His last colonoscop y was February [address] Salvador and he is scheduled at [facility] to have his next one. Screening for malignant neoplasm of colon 086848228 Z12.11 Type 2 rosalina betes mellitus without complication 843131317 E11.9 Has been off all diabetes meds for many years (since 2015. His A1C is currently normal. We will continue to follow twice a year. He is due for an eye exam. Essential hypertension 57904924 I10 Will continue with amlodipine 10 mg and valsartan 160 mg . He discontinu ed his diuretic. Good control. Chronic ob structive pulmonary disease 10145932 J44.[address] Leo. Under good control. Carcinoma of prostate [address] Valdovinos. Active surveillan ce. [id number] CHRISTA CORNELL MD Main Office [address] [place] [address] 05/20/2022 10:22:35 05/20/2022 11:39:15 Screening for malignant neoplasm of colon 799418476 Z12.11 - incomplete prep when patient had colonoscop y on 05/10- pt will need to have repeat done in 6 months, sometime in October 2021- results explained and reviewed with patient Diverticul ar disease of colon 110072942 K57.30 - noted to be on colonoscop y- results explained to patient- pt is not currently having any symptoms of diverticul itis Asthma 805283025 J45.40 - wheezing on exam, not a new finding- pt not currently in exacerbati on- pt has been using his albuterol inhaler 2 puff as needed for SOB- c/w Advair 1 puff Q12HRS, ellipta 1 puff QD and montelukas t 10mg- 07/10 will be seen by pulmonolog ist [id number] Angel Morales MD Main Office [address] [place] [address] 10/06/2022 13:18:22 10/06/2022 14:22:04 Type 2 diabetes mellitus without complication 294628502 E11.9 Has been off all diabetes meds for many years (since 2014. His A1C is currently normal. We will continue to follow twice a year. He is due for an eye exam. Essential hypertension 73914030 I10 Will continue with amlodipine 10 mg and valsartan 160 mg . He discontinu ed his diuretic. Good control. Moderate p ersistent asthma 425892197 J45.[address] Fuentes Sore throat 236693421 J0 2.9 May be secondary to PND. COVID test was negative. [id number] Angel Morales MD Main Office [address] [place] [address] 10/19/2022 10:42:58 10/19/2022 11:40:23 Sore throat 476381495 J02.9 May be secondary to PND. Strep, flu and COVID tests were negative. Fever 407338888 R50.9 I advised that he continue to test himself for COVID and to take an NSAID for the fever and muscle aches. He was treated for pneumonia last month so will check CXR again. [id number] Mana daugherty NP Main Office [address] [address] [place] [address] 11/15/2022 14:08:28 11/15/2022 15:44:19 Constipation 70450460 K59.00 Increase fluid intake to 6-8 glasses a day, increase fresh fruits and vegetables , whole grains. Increase exercise. Can try miralax 1 capuful daily until constipati on better then use prn. Call if any abdominal pain, bleeding or not improving. Labs today to rule out other conditions . Abdominal bloating 12252 9008 R14.0 xray to rule out SBO vs constipati on. [id number] Angel Morales MD Main Office [address] [address] [place] [address] 01/12/2023 12:35:25 01/12/2023 13:13:53 Type 2 diabetes mellitus without complication 508962062 E11.9 We recently restarted his metformin 500 twice a day because his A1C increased presumably secondary to weight gain. Essential hypertension 01750849 I10 Will continue with amlodipine 10 mg and valsartan 160 mg . He discontinu ed his diuretic. Good control. [id number] Mana daugherty NP Main Office [address] [address] [place] [address] 02/04/2023 14:37:49 02/04/2023 16:28:11 Lightheadedness 767201429 R42 EKG without acute findings, will do labs today or tomorrow. US to rule out carotid stenosis. Get up slowly with position change, keep hydrated, call or ED if worsening. Consider cardiology evaluation if persistent . [id number] Angel Morales MD Main Office [address] [address] [place] [address] 04/07/2023 10:17:28 04/07/2023 11:19:20 Adult health examination 849740219 Z00.00 UTD with immunizati ons including COVID w/booster, tetanus and pneumonia. He had one shingrix and is due for a second. His last colonoscop y was October 2022 and due to age and lack of polyps this was his last colonoscop y. Diabetic p eripheral neuropathy 484651290 E11.40 Currently taking cymbalta and getting some help. Asthma 755082630 J45.90 9 Has been doing well w/o any symptoms. C/w inhalers and using them as prescribed . Carcinoma of prostate [address] Valdovinos. Active surveillan ce. Last PSA was 1.1. Essential hypertension 14874250 I10 Will continue with amlodipine 10 mg and valsartan 160 mg . He discontinu ed his diuretic. Good control. Hyperlipidemia 49190050 E78.5 Continue current meds. LDL at goal. Fear of falling 61184668 4 F40.248 I gave him info on the Fall Prevention Program and he will call for an appointmen t. Advance care planning 71 5556559 Z71.89 Discussed MOLST and HCP forms. [id number] Angel Morales MD Main Office [address] [place] [address] 04/14/2023 10:41:16 04/14/2023 11:35:35 Constipation 97039608 K59.00 He has been using OTC colace which helps and would like a script. Dyspnea 634577709 R06.00 This has continued despite being on multiple inhalers and a course of prednisone . This may be a progressio n of his COPD. Will also do a BNP to r/o CHF. A chest x-ray is not needed since this has been done recently. I will cortext Dr Fuentes to see if a change in inhalers will help. [id number] Sung Chaudhari MD Main Office [address] [facility] [address] [place] [address] 05/11/2023 13:33:46 05/11/2023 14:20:20 Skin lesion 63692568 L98.9 will get derm eval to r/o malignancy --- - has several lesions on back and lesion on L ear that likely need biopsy [id number] HERNAN CARTWRIGHT Main Office [address] [facility] [address] [place] [address] 06/23/2023 10:16:10 06/23/2023 10:50:35 Chronic cough [id number] R05.3 -has a pulmonolog ist and was [...] process-wi ll have pt trial benzonatat e [id number] Angel Morales MD Main Office [address] [place] [address] 07/13/2023 11:02:23 07/13/2023 12:07:45 Type 2 diabetes mellitus without complication [id number] E11.9 We restarted his metformin 500 twice a day in September 2022 because his A1C increased presumably secondary to weight gain. He is tolerating the metformin well and his A1C is very good at 6.2. Chronic cough 50113204 R 05.3 This is probably from chronic bronchitis and intermitte nt asthma exacerbati ons. Exacerbati on of intermittent asthma 665698565 J45.21 [id number] Angel Morales MD Main Office [address] [place] [address] 09/21/2023 09:09:11 09/21/2023 09:45:59 Skin lesion 74490800 L98.9 This seems to be resolving and no further w/u needed. We discussed a derm appointmen t but he would like to hold off on this. Chronic ob structive pulmonary disease 96352096 J44.[address] Reyes. He is controlled with meds but finds it increasing difficult to work any distance w/o stopping to rest. We will look into getting him a handicappe jina romero. [id number] Angel Morales MD Main Office [address] [place] [address] 12/14/2023 13:32:22 12/14/2023 14:22:06 Type 2 diabetes mellitus without complication 713277061 E11.9 We restarted his metformin 500 twice a day in September 2022 because his A1C increased presumably secondary to weight gain. He is tolerating the metformin well and his A1C increased from 6.2 to 7.0. No changes in meds. He will work on lifestyle changes. Anemia 344224287 D64.9 High MCV so possible B12 deficiency . May also be ACD with a high MCV from his metformin. Doubt iron deficiency since would not expect an elevated MCV. Asthma 929976963 J45.90 9 Using inhalers and followed by pulmonary. [id number] Angel Morales MD Main Office [address] [place] [address] 12/29/2023 08:40:31 12/29/2023 09:10:16 Essential hypertension 68114893 I10 Will continue with amlodipine 10 mg and valsartan 160 mg . He discontinu ed his diuretic. Good control. Chronic cough 59233126 R 05.3 Multifacto rial caused by asthma, COPD and exposure to mold in his apartment. [id number] Angel Morales MD Main Office [address] [place] [address] 03/15/2024 12:35:21 03/15/2024 13:19:35 Type 2 diabetes mellitus without complication 191069912 E11.9 We restarted his metformin 500 twice [...] 1000 mg twice a day. Essential hypertension 95507188 I10 Will continue with amlodipine 10 mg and valsartan 160 mg . He discontinu ed his diuretic. Good control. [id number] Angel Morales MD Main Office [address] [place] [address] 04/27/2024 13:07:05 04/27/2024 14:50:18 Adult health examination 225125716 Z00.00 UTD with immunizati ons including COVID w/booster, tetanus and pneumonia. He had one shingrix and is due for a second. His last colonoscop y was October 2022 and due to age and lack of polyps this was his last colonoscop y. Influenza vaccine needed [id number] 106 Z23 65 YEARS AND OLDER Benign pro static hyperplasia 218918617 N40.0 Cardiomyopathy 90757337 I42.9 Chronic ob structive pulmonary disease 91044013 J44.[address] Reyes. He is controlled with meds but finds it increasing difficult to work any distance w/o stopping to rest. We will look into getting him a handicappe jina romero. Essential hypertension 67179954 I10 Will continue with amlodipine 10 mg and valsartan 160 mg . He discontinu ed his diuretic. Good control. Type 2 rosalina betes mellitus without complication 111469269 E11.9 We restarted his metformin 500 twice [...] metformin to 1000 mg twice a day. [id number] Angel Morales MD Main Office [address] [facility] [address] [place] [address] 05/23/2024 13:49:01 05/23/2024 14:09:09 Type 2 diabetes mellitus without complication 633216891 E11.9 -has f/u in 3 weeks with AC-A1c of 8, 03/15/2024 Acute kidney injury 1466 9001 N17.9 Cr stable with IVF in ED-suspici ous of CKD progressio n, not SUHA-will repeat CMP in 1 week Anemia 214672562 D64.9 -will recheck CBC-had no signs/symp toms of bleeding in ED Benign pro static hyperplasia 503698736 N40.0 -c/w current regimen Neuropathy 877590752 G62 .9 c/w gabapentin Essential hypertension 68770833 I10 -c/w current regimen-BP in office at goal Obstructiv e sleep apnea syndrome 90643570 G47.33 -has CPAP at home Cerebrovas cular accident 340839405 I63.9 reviewed hospital documentat ion-sympto ms of right upper extremity weakness, unsteadine ss, and AMS improved while in the ED-MRI, CT, and CTA were all unremarkab le-since discharge, pt denies of any neuro symptoms-w as cleared by physical therapy-st hammond gait, strength and tone WNL [id number] Angel Morales MD Main Office [address] [facility] [address] [place] [address] 06/13/2024 13:05:26 06/13/2024 14:14:53 Type 2 diabetes mellitus without complication 625227541 E11.9 We restarted his metformin 500 twice a day in September 2022 because his A1C increased presumably secondary to weight gain. He is tolerating the metformin well but his A1C increased from 7.0 to 8.0. He then added jardiance to his regimen at his request which he is tolerating well. His A1C has now come down to 6.3. Essential hypertension 59596663 I10 BP has been running low and he has been symptomati c. He will continue with the valsartan but will stop his amlodipine and we will check his BP again in 4 weeks. [id number] Angel Morales MD Main Office [address] [address] [place] [address] 07/13/2024 12:41:22 07/13/2024 13:22:02 Asthma 506058633 J45.909 Using inhalers and followed by pulmonary. Essential hypertension 63020973 I10 He will continue with the valsartan but stopped his amlodipine one month ago because of low bllod pressure readings and some low BP symptoms.. [id number] Angel Morales MD Main Office [address] [facility] [address] [place] [address] 07/30/2024 10:11:03 07/30/2024 11:14:00 COVID-19 906269562 U07.1 -tested positive at home yesterday- symptoms of cough, congestion , and sore throat from 07/21 improved significan tly-still endorses some cough and congestion -denies of any SOB, chest pain, GI symptoms-d iscussed importance of stopping simvastati n while on paxlovid course->pt understand s-discusse d to continue with conservati ve measuremen ts [id number] Angel Morales MD Main Office [address] [address] [place] [address] 08/11/2024 09:39:59 08/11/2024 10:06:18 Acute pharyngitis 918132922 J02.9 Possibly secondary to PND from non-optima lly treated allergies. Strep was negative. He will continue with fluticason e and I will add an antihistam ine. [id number] Angel Morales MD Main Office [address] [address] [place] [address] 09/11/2024 13:59:20 09/11/2024 14:39:25 Pain of left hand 4587822579 56027 M79.642 Possible tenosynovi tis vs CTS. Isolated head tremor 230 735058 G25.0 He was seen by Dr Berger in 2017 and 2017 and tried baclofen and magnesium w/o much help. He would like to see a different neurologis t to discuss options. [id number] Angel Morales MD Main Office [address] [address] [place] [address] 10/11/2024 12:55:36 10/11/2024 13:50:02 Diabetic peripheral neuropathy 060889614 E11.40 We restarted his metformin 500 twice [...] cymbalta and getting some help. Essential hypertension 53040372 I10 He will continue with the valsartan but stopped his amlodipine 4 months ago because of low blood pressure readings and some low BP symptoms. He is also taking a beta sade. Good control, continue current mgmt. [id number] Angel Morales MD Main Office [address] [address] [place] [address] 01/16/2025 14:27:40 01/16/2025 15:10:22 Iron deficiency 95837222 E61.1 9881 c/w ferrous uslfate daily-will repeat CBC Hyperlipidemia 16835238 E78.5 06663866 -c/w simvastati n Chronic ob structive pulmonary disease 19601738 J44.9 297259372 c/w current regimen Neuropathy 754722520 G62 .9 79257 c/w gabapentin Essential hypertension 76712858 I10 -c/w current regimen-BP in office at goal [id number] Angel Morales MD Main Office [address] [facility] [address] [facility] [address] 07/03/2025 14:36:45 07/03/2025 16:21:18 Adult health examination 407212943 Z00.00 UTD with immunizati ons including COVID w/booster, tetanus and pneumonia. He had one shingrix and is due for a second. His last colonoscop y was October 2022 and due to age and lack of polyps this was his last colonoscop y. Advance di rective discussed with patient 551502947 Z71.89 Memory impairment 839283 006 R41.3 Required work up for referral [...] do the MOCA. Venereal d isease screening 958217784 Z11.3 Z72.89 F03.90 Hyperlipidemia 89662240 E78.5 Continue current meds. LDL at goal. Cardiomyopathy 84932356 I42.9 Essential hypertension 07343777 I10 He will continue with the valsartan but stopped his amlodipine 4 months ago because of low blood pressure readings and some low BP symptoms. He is also taking a beta sade. Good control, continue current mgmt. Diabetic p eripheral neuropathy 205655944 E11.40 We restarted his metformin 500 twice [...] getting some help. Carcinoma of prostate [address] Valdovinos. Active jermaine rosas. Last PSA was 1.1. 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) Shad Alanis [id number] Shad Alanis 01/16/2025 1 [facility] [id number] Shad Alanis [id number] Shad Alanis 01/16/2025 1 [employer] - MEDICARE ADVANTAGE PLAN (MEDICARE REPLACEMENT HMO) [id number] Shad M Alanis [id number] Shad Alanis 01/16/2025 2 [place] [employer] Shad Alanis [id number] Shad Alanis 01/16/2025 1 [facility] (MEDICARE REPLACEMENT/ADV ANTAGE - PPO) [id number] Shad Alanis [id number] Shad Alanis 01/16/2025 3 [place] [employer] Shad Alanis [id number] Shad Alanis 01/16/2025 2 [employer] - MEDICARE ADVANTAGE PLAN (MEDICARE REPLACEMENT HMO) Shad Alanis [id number] Shad Alanis 01/16/2025 1 [facility] MEDICARE ADVANTAGE PLAN (MEDICARE REPLACEMENT HMO) [id number] Shad Alanis [id number] Shad Alanis 07/03/2025 2 [place] [facility] Shad Alanis [id number] Shad Alanis 07/09/2025 1 [facility] (MEDICARE REPLACEMENT/ADV ANTAGE - POS) [id number] Eliazar Alanis [id number] Eliazar Alanis 01/16/2025 1 [employer] (MEDICARE REPLACEMENT/ADV ANTAGE - PPO) [id number] Eliazar Alanis [id number] Eliazar Alanis Notes Date Note Type Note Provider Name and Address Organization Details Recorded Time 08/11/2024 text/html Throat PainRepor marques by PatientHPIFor associated symptoms, patient reportsstressanddyspha cynthia. For location, patient reportsbilateral. For severity, patient reportsmoderate(hurts to swallow). For duration, patient reportsstarted 1 week(s) ago. For onset/timing, patient reportsabrupt. For alleviating factors, patient reportscold medicine (with honey that was helping initially).ROS as noted in the HPI Angel Morales MD [address] [address], [place], [phone], [facility] 08/11/2024 12:37:19 09/11/2024 text/html ROS as noted in the HPI Left forearm pain into his thumb for months getting worse. [...] since 2016 and was seen by Dr Berger, neurology in 2017 and 2018. She was prescibed baclofen and magnesium w/o any help. She was ruled out for Parkinson's disease. The tremor was mild so she stopped going to her but now the tremor has increased and has difficulty watching TV at times. He has no known fhx of tremors. Angel Morales MD [address] [address], [place], [phone], [facility] 09/11/2024 18:01:53 10/11/2024 text/html Hypertension F/UReported by PatientHPIFor lifestyle, patient reportsnot exercising regularlybut reportslimiting/avoidi ng salt. For associated symptoms, patient reportsno dizziness,no lightheadedness,no chest pain,no shortness of breath,no palpitations,no edema, andno calf pain with exertion. For medications, patient reportstaking medications as directedandno side effects from medication. Diabetes F/UReported by PatientHPIFor associated symptoms, patient reportsweight gain (5 lbs)andnumbness of feetbut reportsno dizziness,no sweats,no headaches,no confusion,no increased thirst,no increased appetite,no increased urination,no blurred vision, andno calluses on feet. For context, patient reportsnormal range of home blood sugars (in the low 100s),seeing eye doctor regularly,checking feet regularly,taking aspirin daily,not missing doses of medications, andno side effects from medications.He has bilateral peripheral neuropathy and get some help from duloxetine.ROS as noted in the HPI Radha figueroa, [facility] 10/24/2024 10:25:31 01/16/2025 text/html ROS as noted in the HPI Eliazar is a 79yr old M who presents for hospital f/u. Was evaluated at [facility] [place] for slurred speech and facial drooping. Had stroke work up. Pt notes he is not taking aspirin as prescribed. CT head and CTA unremarkable. MRI no acute findings for stroke. orthostatics negative. -Continue with aspirin 81 mg daily-Continue with simvastatin 20 mg daily HERNAN CARTWRIGHT [address] [address], [place], [address], [facility] 01/21/2025 12:55:57 07/03/2025 text/html Medicare Annual Wellness VisitReported by [...] ll(s) since last visit04/01/24 (fell at the [facility] on a recently oiled floor; has a [...] trouble with names and appointments. Radha figueroa [facility] 07/08/2025 11:00:35
== END 2025-07-16 14:14 | disposition home or self-care (01) ==
LOC: HO.XRAY 14:13
PROVIDERS: PCP Internal Medicine; Visit Provider Hospitalist
DX: R91.8 Other nonspecific abnormal finding of lung field (principal); J47.9 Bronchiectasis, uncomplicated; J41.8 Mixed simple and mucopurulent chronic bronchitis; J18.9 Pneumonia, unspecified organism
CPT/HCPCS: 71046

== ENCOUNTER → 2025-07-16 14:49 | Outpatient (BNV) | payer MEDICARE, MEDICAID, SELFPAY | PROVIDERS: PCP Internal Medicine; Visit Provider Radiology Diagnostic Radiology | DX: J47.9 Bronchiectasis, uncomplicated (principal); R91.8 Other nonspecific abnormal finding of lung field | CPT/HCPCS: 71046 ==